=== PATIENT | male | born 1940 | race African-American/Black ===

== ENCOUNTER 2017-06-22 11:24 | Day surgery (SDC) | payer MEDICARE ==
[2017-06-21 11:37] VITALS: BMI 39.7
[2017-06-22] MEDS ORDERED: Midazolam HCl 2 mg/2 ml Vial ONE ×2 (12:26→13:33)
[2017-06-22] MEDS ORDERED: Fentanyl 100 MCG/2 ML VIAL ONE (12:27)
[2017-06-22] MEDS ORDERED: CEFAZOLIN/Water 2 GM/20 ML SYRINGE ONE (12:37)
[2017-06-22 12:43] LABS: INR-International Normal Ratio 1.5; Prothrombin Time 18.8 SEC (12.0-14.7)
[2017-06-22 12:44] LABS: PTT 42.3 SEC (22.9-36.1)
[2017-06-22 12:48] LABS: #Basophils 0.1 thou/uL (0.0-0.2); #Eosinphils 0.2 thou/uL (0.0-0.7); #Lymphocytes 2.4 thou/uL (1.20-3.40); #Monocytes 0.8 thou/uL (0.11-0.59); #Neutrophils 3.6 thou/uL (1.40-6.50); %Basophils 0.9 % (0.0-1.0); %Eosinophils 3.2 % (0.0-10.0); %Lymphocytes 34.3 % (21.0-51.0); %Neutrophils 50.6 % (42.0-75.0); Hemoglobin 13.4 g/dL (14.0-18.0); Mean Corpuscular HGB CONC 30.5 g/dL (32.0-36.0); Mean Corpuscular Hemoglobin 26.5 pg (27.0-31.0); Mean Corpuscular Volume 86.7 fl (80.0-94.0); Mean Platelet Volume 8.6 fL (7.4-10.4); Platelet Count 137 thou/uL (130-400); RBC Distribution Width 14.8 % (11.5-14.5); Red Blood Cell (RBC) Count 5.06 mill/uL (4.70-6.10)
[2017-06-22 12:58] LABS: Anion Gap 12 mmol/L (10-20); BUN (Urea Nitrogen) 15 mg/dL (8.4-25.7); Calc. Creatinine Clearance 21 mL/min (70-130); Calcium 9.5 mg/dL (7.8-10.44); Carbon Dioxide 32 mmol/L (23-31); Chloride 97 mmol/L (98-107); Estimated GFR-MDRD 11; Glucose 94 mg/dL (83-110); Potassium 3.3 mmol/L (3.5-5.1); Sodium 138 mmol/L (136-145)
[2017-06-22] MEDS ORDERED: Bupivacaine/Epinephrine 0.25% 30 ML VIAL ONE (13:05)
[2017-06-22] MEDS ORDERED: Ioversol 68 % 50 ML VIAL ONE (13:05)
[2017-06-22] MEDS ORDERED: Protamine Sulfate 50 MG/5 ML VIAL ONE (13:05)
[2017-06-22] MEDS ORDERED: Heparin 5,000 UNITS/ML VIAL ONE (13:05)
[2017-06-22] MEDS ORDERED: Meperidine HCl/PF 25 MG/ML VIAL ONE (13:33)
[2017-06-22] MEDS ORDERED: Bupivacaine PF 0.5% 30 ML VIAL ONE (14:24)
[2017-06-22] MEDS ORDERED: Bupivacaine HCl 0.5%/Epinephrine 1:200,000/PF 30 ml Vial ONE (14:24)
[2017-06-22] MEDS ORDERED: Heparin 10,000 UNITS/ 10 ML VIAL ONE ×2 (14:46→16:36)
--- NOTE | 2017-06-23 14:11 | PDOC.OP ---
Operative Note - Operative Note Operative Note: PROCEDURE: Right AV fistula SURGEON: Kira Palafox M.D. DATE OF PROCEDURE: 06/22/27 PREOPERATIVE DIAGNOSIS: Renal failure POSTOPERATIVE DIAGNOSIS: Renal failure HISTORY: Mr. ramírez is a 76-year-old man with end-stage renal failure dependent on dialysis. He had a left AV fistula but this did not mature appropriately. The cephalic outflow was found to be thrombosed and there was a stricture in the basilic outflows and the recommendation was made to proceed with a right AV fistula. PROCEDURE IN DETAIL: After informed consent was obtained and appropriate preoperative antibiotics administered, the patient was taken to the operating room and placed in the supine position and monitored anesthesia care was administered. A preoperative block had been performed by Anesthesia and the adequacy of block was confirmed. The arm was prepped and draped in a standard sterile fashion and an incision made between the palpable cephalic vein and radial artery. Dissection was carried out to the cephalic vein, which appeared to be of adequate quality and caliber to support a fistula. This was dissected free circumferentially, ligated, and divided distally, and spatulated with Aguila scissors. This was serially interrogated with cardiac dilators and easily accepted up to a 3 mm cardiac dilator. This was flushed with heparinized saline and clamped with a bulldog clamp. The radial artery was then dissected free and found to be calcified but of adequate quality and caliber to support a fistula. Heparin was administered systemically and allowed to circulate for 3 minutes following which the radial artery was clamped proximally and distally. An anterior arteriotomy was created with an 11 blade scalpel and extended with Aguila scissors. An end-to-side anastomosis created with a running 6-0 Prolene suture with excellent technical result. Prior to tying down the anastomosis, the inflow was released to flush the anastomosis. Flow was established first through the fistula and then through the distal radial artery. Hemostasis at the site was confirmed, and an excellent thrill was felt in the cephalic vein outflow and an excellent bruit was heard with Doppler as well up to the proximal forearm. Hemostasis at the operative site was again confirmed. The incision was closed with a running 3-0 subcutaneous and running 4-0 subcuticular Monocryl sutures. Dermabond dressings were placed and the patient was taken to the recovery room in good condition. Estimated blood loss was minimal. There were no complications. There were no specimens.
== END 2017-06-22 17:00 | disposition home or self-care (01) ==
LOC: SDC 11:24
PROVIDERS: ATTEND Surgery
PROC: 031B0AF Bypass Right Radial Artery to Lower Arm Vein with Autologous Arterial Tissue, Open Approach (ICD-10-PCS; principal; 2017-06-22)
DX: I13.2 Hypertensive heart and chronic kidney disease with heart failure and with stage 5 chronic kidney disease, or end stage renal disease (principal); N18.6 End stage renal disease; I50.9 Heart failure, unspecified; E78.5 Hyperlipidemia, unspecified; I25.10 Atherosclerotic heart disease of native coronary artery without angina pectoris; M10.9 Gout, unspecified; K21.9 Gastro-esophageal reflux disease without esophagitis; I45.2 Bifascicular block; Z87.891 Personal history of nicotine dependence; Z79.01 Long term (current) use of anticoagulants; Z79.899 Other long term (current) drug therapy; Z88.0 Allergy status to penicillin; Z90.49 Acquired absence of other specified parts of digestive tract; Z98.890 Other specified postprocedural states; Z99.2 Dependence on renal dialysis
CPT/HCPCS: 80048; 85025; 85610; 85730; J0670; J1644; J2175; J2250; J2720; J3010; Q9967; S0020

== ENCOUNTER 2017-07-18 10:29 | Day surgery (SDC) | payer MEDICARE ==
[2017-07-17 16:17] VITALS: BMI 39.4
[2017-07-18 11:54] LABS: #Basophils 0.1 thou/uL (0.0-0.2); #Eosinphils 0.2 thou/uL (0.0-0.7); #Lymphocytes 2.3 thou/uL (1.20-3.40); #Monocytes 0.8 thou/uL (0.11-0.59); #Neutrophils 3.2 thou/uL (1.40-6.50); %Basophils 1.5 % (0.0-1.0); %Eosinophils 3.3 % (0.0-10.0); %Lymphocytes 34.3 % (21.0-51.0); %Monocytes 12.6 % (0.0-10.0); %Neutrophils 48.3 % (42.0-75.0); Hemoglobin 12.9 g/dL (14.0-18.0); Mean Corpuscular HGB CONC 30.1 g/dL (32.0-36.0); Mean Corpuscular Hemoglobin 25.9 pg (27.0-31.0); Mean Platelet Volume 8.2 fL (7.4-10.4); Platelet Count 140 thou/uL (130-400); RBC Distribution Width 14.3 % (11.5-14.5); Red Blood Cell (RBC) Count 4.98 mill/uL (4.70-6.10); White Blood Cell (WBC) Count 6.7 thou/uL (4.8-10.8)
[2017-07-18 12:08] LABS: PTT 46.4 SEC (22.9-36.1)
[2017-07-18 12:09] LABS: Anion Gap 12 mmol/L (10-20); BUN (Urea Nitrogen) 18 mg/dL (8.4-25.7); Calc. Creatinine Clearance 16 mL/min (70-130); Calcium 9.4 mg/dL (7.8-10.44); Carbon Dioxide 33 mmol/L (23-31); Chloride 98 mmol/L (98-107); Estimated GFR-MDRD 8; Glucose 80 mg/dL (83-110); Potassium 3.7 mmol/L (3.5-5.1); Sodium 139 mmol/L (136-145)
[2017-07-18 12:36] LABS: INR-International Normal Ratio 1.6; Prothrombin Time 19.9 SEC (12.0-14.7)
[2017-07-18] MEDS ORDERED: Protamine Sulfate 50 MG/5 ML VIAL ONE (13:10)
[2017-07-18] MEDS ORDERED: Heparin 5,000 UNITS/ML VIAL ONE (13:10)
[2017-07-18] MEDS ORDERED: Ioversol 68 % 50 ML VIAL ONE (13:10)
[2017-07-18] MEDS ORDERED: Bupivacaine PF 0.5% 30 ML VIAL ONE (13:10)
[2017-07-18] MEDS ORDERED: Lidocaine 1% w/Epinephrine 1:200K 30 ML VIAL ONE (13:10)
[2017-07-18] MEDS ORDERED: Fentanyl 100 MCG/2 ML VIAL ONE (13:11)
[2017-07-18] MEDS ORDERED: CEFAZOLIN/Water 2 GM/20 ML SYRINGE ONE (13:16)
[2017-07-18] MEDS ORDERED: Lidocaine 1% PF 5 ML VIAL ONE (16:09)
[2017-07-18] MEDS ORDERED: Ondansetron HCl/PF 4 MG/2 ML Vial ONE (16:09)
[2017-07-18] MEDS ORDERED: Metoclopramide HCl 10 MG/2 ML VIAL ONE (16:09)
[2017-07-18] MEDS ORDERED: Heparin 10,000 UNITS/ 10 ML VIAL ONE ×2 (16:09→16:32)
[2017-07-18] MEDS ORDERED: Succinylcholine Chloride 20 MG/ML 10 ml SYRINGE FS ONE (16:09)
[2017-07-18] MEDS ORDERED: Propofol 200 MG/20 ML VIAL ONE (16:09)
[2017-07-18] MEDS ORDERED: PHENYLEPHRINE-NS 100 MCG/ML 10 ML SYRINGE ONE (16:09)
[2017-07-18] MEDS ORDERED: ePHEDrine/0.9% NaCl/PF SYRINGE 50 mg/10 ml ONE (16:09)
--- NOTE | 2017-07-19 14:40 | OP ---
SURGEON: 07/18/2017 PREOPERATIVE DIAGNOSIS: End-stage renal failure. POSTOPERATIVE DIAGNOSIS: End-stage renal failure. PROCEDURE PERFORMED: Right radiocephalic arteriovenous fistula. HISTORY: Mr. Estevez is a 76-year-old man with end-stage renal failure who requires fistula placement for permanent access. PROCEDURE IN DETAIL: After informed consent was obtained and appropriate preoperative antibiotics ad ministered, the patient was taken to the operating room where he was placed in supine position and an esthesia was administered. The antecubital fossa was examined and the location of the brachial arter y and the antecubital vein marked on the skin. An incision was made between these two structures and dissection carried out to the antecubital vein. This appeared to drain into the cephalic vein outfl ow. The patient was noted to have a large perforating vein, which was dissected free circumferential ly. This was felt to be of adequate quality and caliber to support a fistula. Therefore, the distal branches were ligated and the band spatulated. This was interrogated with cardiac dilators and easi ly accepted up to a 4 mm dilator up the cephalic vein outflow. The vein was flushed with heparinized saline and clamped and attention turned to the artery. This was dissected free and traced down to t he bifurcation into the radial and ulnar arteries. The perforating branch was felt to lie most natur ally over the proximal radial artery. Heparin was administered systemically and allowed to circulate for 3 minutes following which the radial artery and radial, ulnar and brachial arteries were clamped . An anterior arteriotomy was created over the proximal radial artery and extended with Aguila scisso rs and an end-to-side anastomosis created with a running 6-0 Prolene suture with excellent technical result. The inflow was released and the anastomosis flushed. Flow was then established first throug h the fistula and then through the distal radial and ulnar arteries. The patient was found to have a n excellent thrill in the cephalic vein outflow with a good Doppler signal up the arm. The anastomos is was hemostatic. The wound was also examined for hemostasis and a few small oozing points controll ed with electrocautery. SurgiSeal was placed to the wound and the subcutaneous tissues reapproximate d with 3-0 Monocryl suture and the skin was then closed with 4-0 Monocryl suture and Dermabond dressi ngs were placed. Once the Dermabond was dry, Cam wrap was placed. The patient was taken to the deb very room in good condition. Estimated blood loss was minimal. There were no complications. There were no specimens.
== END 2017-07-18 16:50 | disposition home or self-care (01) ==
LOC: SDC 10:29
PROVIDERS: ATTEND Surgery
PROC: 03170ZD Bypass Right Brachial Artery to Upper Arm Vein, Open Approach (ICD-10-PCS; principal; 2017-07-18)
DX: I12.0 Hypertensive chronic kidney disease with stage 5 chronic kidney disease or end stage renal disease (principal); N18.6 End stage renal disease; M10.9 Gout, unspecified; Z88.1 Allergy status to other antibiotic agents; Z79.82 Long term (current) use of aspirin; Z79.899 Other long term (current) drug therapy; Z99.2 Dependence on renal dialysis; Z98.890 Other specified postprocedural states
CPT/HCPCS: 80048; 85025; 85610; 85730; J0131; J1644; J2001; J2405; J2704; J2720; J2765; J3010; Q9967; S0020

== ENCOUNTER 2017-09-06 15:36 | Inpatient (IN) | payer MEDICARE ==
[2017-09-06 15:40] VITALS: BMI 39.1
[2017-09-06] MEDS ORDERED: Lorazepam 1 MG TAB PO PRN (15:45)
[2017-09-06] MEDS ORDERED: Ondansetron HCl/PF 4 MG/2 ML Vial IVP PRN (15:45)
[2017-09-06] MEDS ORDERED: cloNIDine 0.1 MG TAB PO PRN (15:45)
[2017-09-06] MEDS ORDERED: Benzonatate 100 MG CAP PO PRN (15:45)
[2017-09-06] MEDS ORDERED: Diabetic Tussin 200 MG/10 ML UDCUP PO PRN (15:45)
[2017-09-06] MEDS ORDERED: Nitroglycerin 0.4 MG TAB (25 Tab Bottle) SL PRN (15:45)
[2017-09-06] MEDS ORDERED: Mag-Al 1200 mg/1200 mg/30 ML UDCUP PO PRN (15:45)
[2017-09-06] MEDS ORDERED: Bisacodyl 5 MG TAB PO PRN ×2 (15:45)
[2017-09-06] MEDS ORDERED: Senokot 8.6 MG TAB PO PRN ×2 (15:45)
[2017-09-06] MEDS ORDERED: Loratadine 10 MG TAB PO PRN (15:45)
[2017-09-06] MEDS ORDERED: Acetaminophen 325 MG TAB PO PRN (15:45)
[2017-09-06] MEDS ORDERED: hydrALAZINE 20 MG/ML VIAL SLOW IVP PRN (15:45)
[2017-09-06] MEDS ORDERED: traMADol HCl 50 MG TAB PO PRN (15:45)
[2017-09-06] MEDS ORDERED: Calcium Carbonate 500 MG ChewTAB PO PRN (15:45)
[2017-09-06] MEDS ORDERED: Sterile Water 10 ML VIAL IVP SCH (16:06)
[2017-09-06] MEDS ORDERED: Activase 2 MG VIAL CATH SCH (16:06)
[2017-09-06 18:15] LABS: PTT 55.6 SEC (22.9-36.1); Prothrombin Time 23.8 SEC (12.0-14.7)
--- NOTE | 2017-09-06 18:24 | HP ---
PRIMARY CARE PROVIDER: Dr. Rubalcava. CHIEF COMPLAINT: Inability to access the dialysis fistula and catheter with hemodialysis. HISTORY OF PRESENTING ILLNESS: Mr. Singh is a pleasant 76-year-old -Turkish male with past m edical history of end-stage renal disease, on chronic hemodialysis; history of deep venous thrombosis , on anticoagulation; dyslipidemia and CHF, who presented to the emergency room from the dialysis paul ter in [place]. History is mainly obtained by the patient himself and electronic medical record s have been reviewed. According to Mr. Estevez and medical records, the dialysis center has been having difficulty accessing his fistula. He has a 2-month-old AV graft in the right upper extremity and a tunnel port in the rig ht IJ that was placed about [address] Garza. He has been getting dialysis up until the last 2 times with a right IJ line, but it was not able to be used and supposedly his fistula is not mature enough to be used. I am not sure if it was tried to be accessed and was not working either. Nevertheless, he was sent as a direct admit by his director cardiac, Dr. Porter, for fistula declogging and restarting hemodialysis. He has missed 2 rounds of hemodialysis. His Monday, Monday and Monday d ialysis. The only complaint he has is some mild dizziness. He denies any excessive swelling or ches t pain or shortness of breath. No other recent illnesses. He does not make any urine. Currently, david badillo is symptom free. PAST MEDICAL HISTORY: 1. History of DVT. 2. Gout. 3. Congestive heart failure. 4. Dyslipidemia. 5. Hypertension. 6. Obesity. 7. End-stage renal disease, on Monday, Monday and Monday dialysis. 8. 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 9. History of orthostatic hypotension. PAST SURGICAL HISTORY: 1. Status post right AV fistula placement, status post right IJ placement. 2. Status post left upper extremity AV fistula thrombectomy. 3. History of abdominal laparotomy with small bowel resection. 4. History of right tunneled IJ catheter placement in the past as well. ALLERGIES: AMOXICILLIN, AMPICILLIN and CLINDAMYCIN. FAMILY HISTORY: No significant family history of any premature coronary artery disease or renal fail ure in the patient. SOCIAL HISTORY: and lives in [place], [place]. No history of drug, tobacco or alcohol ab use. CURRENT MEDICATIONS: As follows; warfarin 5 mg Monday, Monday, and Monday and 2.5 mg res t of the days; Crestor 20 mg daily; midodrine 1.5 tablet p.o. t.i.d., Neurontin 100 mg daily, famotid ine 20 mg daily, vitamin D 2000 units daily, allopurinol 100 mg daily and tramadol as needed. REVIEW OF SYSTEMS: It is negative except for those otherwise mentioned in the HPI or below: Constitutional: Weight loss or gain, ability to conduct usual activities. Skin: Rash, itching. Eyes: Double vision, pain. ENT/Mouth: Nose bleeding, neck stiffness, pain, tenderness. Cardiovascular: Palpitations, dyspnea on exertion, orthopnea. Respiratory: Shortness of breath, wheezing, cough, hemoptysis, fever or night sweats. Gastrointestinal: Poor appetite, abdominal pain, heartburn, nausea, vomiting, constipation, or diarr hea. Genitourinary: Urgency, frequency, dysuria, nocturia. Musculoskeletal: Pain, swelling. Neurologic/Psychiatric: Anxiety, depression. Allergy/Immunologic: Skin rash, bleeding tendency. LABORATORY DATA: His CBC is unremarkable. Hemoglobin is 13. Serum chemistries done today showed a serum potassium of 4.7. Sodium 143, bicarbonate 22, anion gap 21, BUN 57, creatinine 14.38 and calci um 8.9. PT, PTT and INR have not been drawn yet. PHYSICAL EXAMINATION: VITAL SIGNS: Most recent, temperature 97.3, pulse of 56, respirations 16, saturating 98% on room air and blood pressure 141/70. GENERAL: No acute distress, lying comfortably in bed, awake, alert and oriented x3. HEENT: Mucous membranes moist and pink. No oropharyngeal exudate or erythema. Head is normocephali c and atraumatic. Pupils are equal, reactive to light and accommodation. Extraocular movement intac t. NECK: Supple without any lymphadenopathy, JVD or bruit. CHEST: Clear to auscultation without any wheezing, rales or rhonchi. CARDIOVASCULAR: Rhythm is regular without any murmur, rubs or gallops. EXTREMITIES: Showed a thrill in the right upper extremity fistula. Lower extremities have trace pit ting edema. NEUROLOGIC: Nonfocal. SKIN: Free of any rashes or bruises, feels warm and dry to touch. PSYCHIATRIC: Normal affect. IMPRESSION AND PLAN: 1. Dialysis fistula malfunctioning. Apparently, the fistula could not be accessed last 2 times. [facility] director cardiac, Dr. Porter is aware of his admission and the need for declogging of the fistula. He debra l be admitted to Internal Medicine Service and we will restart his home medications. He will be n.p. o. after midnight for possible hemodialysis access. Further management as per the Nephrology team. 2. Multiple comorbidities. Restart his home medications and monitor his symptoms. Currently, seems to be at baseline. 3. CODE STATUS: FULL CODE discussed with the patient. Restart Coumadin with pharmacy to dose and m onitor. Check PT, INR stat with regards to his history of deep venous thrombosis. 4. Gastrointestinal prophylaxis. He is on Coumadin for deep venous thrombosis prophylaxis and treat ment as well. 5. Add p.r.n. medication order. DISPOSITION: Mr. Estevez is currently being admitted for malfunctioning of the dialysis fistula, need for emergent hemodialysis. Estimated length of stay is at least 2-3 midnights. Further management w ill depend upon his clinical course.
[2017-09-06] MEDS: Rosuvastatin 20 MG TAB PO SCH (20:16)
[2017-09-06] MEDS: Midodrine HCl 5 MG TAB PO SCH (20:16)
[2017-09-06] MEDS: Famotidine 20 MG TAB PO SCH (20:17)
[2017-09-06] MEDS ORDERED: Heparin 5,000 UNITS/ML VIAL SC SCH (21:00)
[2017-09-07 05:36] LABS: #Basophils 0.1 thou/uL (0.0-0.2); #Eosinphils 0.2 thou/uL (0.0-0.7); #Lymphocytes 1.9 thou/uL (1.20-3.40); #Monocytes 0.8 thou/uL (0.11-0.59); #Neutrophils 3.4 thou/uL (1.40-6.50); %Basophils 1.1 % (0.0-1.0); %Eosinophils 3.8 % (0.0-10.0); %Lymphocytes 29.6 % (21.0-51.0); %Monocytes 12.9 % (0.0-10.0); %Neutrophils 52.6 % (42.0-75.0); Hemoglobin 12.3 g/dL (14.0-18.0); Mean Corpuscular HGB CONC 31.9 g/dL (32.0-36.0); Mean Corpuscular Hemoglobin 26.7 pg (27.0-31.0); Mean Corpuscular Volume 83.7 fl (80.0-94.0); Mean Platelet Volume 8.7 fL (7.4-10.4); Platelet Count 166 thou/uL (130-400); RBC Distribution Width 14.6 % (11.5-14.5); Red Blood Cell (RBC) Count 4.59 mill/uL (4.70-6.10); White Blood Cell (WBC) Count 6.5 thou/uL (4.8-10.8)
[2017-09-07 05:59] LABS: ALT (SGPT) 17 U/L (8-55); AST (SGOT) 23 U/L (5-34); Alkaline Phosphatase 127 U/L (40-150); Anion Gap 17 mmol/L (10-20); BUN (Urea Nitrogen) 64 mg/dL (8.4-25.7); Bilirubin, Total 0.6 mg/dL (0.2-1.2); Calc. Creatinine Clearance 8 mL/min (70-130); Calcium 8.7 mg/dL (7.8-10.44); Carbon Dioxide 23 mmol/L (23-31); Chloride 104 mmol/L (98-107); Estimated GFR-MDRD 4; Globulin 3.1 g/dL (2.4-3.5); Glucose 76 mg/dL (83-110); Protein, Total 6.1 g/dL (5.8-8.1); Sodium 139 mmol/L (136-145)
[2017-09-07 09:55] LABS: Hemoglobin 12.4 g/dL (14.0-18.0); Mean Corpuscular HGB CONC 31.5 g/dL (32.0-36.0); Mean Corpuscular Hemoglobin 25.8 pg (27.0-31.0); Mean Corpuscular Volume 82.2 fl (80.0-94.0); Mean Platelet Volume 8.5 fL (7.4-10.4); Platelet Count 170 thou/uL (130-400); RBC Distribution Width 14.8 % (11.5-14.5); Red Blood Cell (RBC) Count 4.79 mill/uL (4.70-6.10); White Blood Cell (WBC) Count 6.8 thou/uL (4.8-10.8)
[2017-09-07 10:04] LABS: Eosinophils 4 % (0-10); Lymphocytes 23 % (21-51); MDiff Complete? YES; Monocytes 12 % (0-10); Neutrophil 55 % (42-75); PLT Morphology Comment Appears Adequate; Reactive Lymphocytes 4 % (0-10); Target Cells SLIGHT = 2-5 cells (100X) (0-1/hpf)
--- NOTE | 2017-09-07 10:48 | PDOC.PN ---
- Subjective Encounter Start Date: 09/07/17 Encounter Start Time: 09:00 -: old records requested/rev Patient seen and examined. No new complaints. No overnight events pt seen in HD, getting HD through tunneled HD catheter - Objective MAR Reviewed: Yes Vital Signs & Weight: Vital Signs (12 hours) Temp Pulse Resp BP Pulse Ox 09/07/17 04:00 97.4 F L 60 24 H 112/65 93 L 09/07/17 02:57 98 F 60 18 125/61 93 L Weight Weight 313 lb I&O: 09/06/17 09/07/17 09/08/17 06:59 06:59 06:59 Intake Total 260 Balance 260 Result Diagrams: 09/07/17 05:07 09/07/17 05:07 Phys Exam - Physical Examination Constitutional: NAD HEENT: PERRLA, moist MMs, sclera anicteric Neck: no JVD, supple Respiratory: no wheezing, no rales, no rhonchi Cardiovascular: RRR, no significant murmur, no rub Gastrointestinal: soft, non-tender, no distention, positive bowel sounds Musculoskeletal: no edema, pulses present Neurological: non-focal, normal sensation, moves all 4 limbs Psychiatric: normal affect, A&O x 3 Skin: no rash, normal turgor Dx/Plan (1) Dialysis AV fistula malfunction Code(s): T82.590A - [facility] COMPL OF SURGICALLY CREATED ARTERIOVENOUS FISTULA, INIT Status: Acute (2) Chronic anticoagulation Code(s): Z79.01 - 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) USE OF ANTICOAGULANTS Status: Chronic (3) Dyslipidemia Code(s): E78.5 - HYPERLIPIDEMIA, UNSPECIFIED Status: Chronic (4) ESRD (end stage renal disease) on dialysis Code(s): N18.6 - END STAGE RENAL DISEASE; Z99.2 - DEPENDENCE ON RENAL DIALYSIS Status: Chronic (5) Gout Code(s): M10.9 - GOUT, UNSPECIFIED Status: Chronic (6) History of deep venous thrombosis or pulmonary embolus Code(s): CFC0109 - Status: Chronic (7) Hypertension Code(s): I10 - ESSENTIAL (PRIMARY) HYPERTENSION Status: Chronic (8) Osteoarthritis Code(s): M19.90 - UNSPECIFIED OSTEOARTHRITIS, UNSPECIFIED SITE Status: Chronic (9) Physical deconditioning Code(s): R53.81 - OTHER MALAISE Status: Chronic (10) Secondary hyperparathyroidism of renal origin Code(s): N25.81 - SECONDARY HYPERPARATHYROIDISM OF RENAL ORIGIN Status: Chronic - Plan cont current plan of care * continue HD as per nephrology * nephrology on case for AV fistula malfunction * medication reviewed as below * symptomatic treatment. Review of Systems - Review of Systems Eyes: negative: Pain, Vision Change, Conjunctivae Inflammation, Eyelid Inflammation, Redness, Other ENT: negative: Ear Pain, Ear Discharge, Nose Pain, Nose Discharge, Nose Congestion, Mouth Pain, Mouth Swelling, Throat Pain, Throat Swelling, Other Respiratory: negative: Cough, Dry, Shortness of Breath, Hemoptysis, SOB with Excertion, Pleuritic Pain, Sputum, Wheezing Cardiovascular: negative: chest pain, palpitations, orthopnea, paroxysmal nocturnal dyspnea, edema, light headedness, other Gastrointestinal: negative: Nausea, Vomiting, Abdominal Pain, Diarrhea, Constipation, Melena, Hematochezia, Other Genitourinary: negative: Dysuria, Frequency, Incontinence, Hematuria, Retention , Other Musculoskeletal: negative: Neck Pain, Shoulder Pain, Arm Pain, Back Pain, Hand Pain, Leg Pain, Foot Pain, Other Skin: negative: Rash, Lesions, Rocky, Bruising, Other - Medications/Allergies Allergies/Adverse Reactions: Allergies Allergy/AdvReac Type Severity Reaction Status Date / Time clindamycin Allergy Mild Hives Verified 07/17/17 16:17 amoxicillin AdvReac Mild Diarrhea Verified 07/17/17 16:17 ampicillin AdvReac Mild Diarrhea Verified 07/17/17 16:17 Medications: Current Medications Acetaminophen (Tylenol) 650 mg PO Q4H PRN PRN Reason: Headache/Fever or Pain Al Hydroxide/Mg Hydroxide (Maalox) 30 ml PO Q6H PRN PRN Reason: Heartburn or Indigestion Allopurinol (Zyloprim) 100 mg PO DAILY [facility] Benzonatate (Tessalon) 100 mg PO Q4H PRN PRN Reason: Cough Bisacodyl (Dulcolax) 10 mg PO DAILYPRN PRN PRN Reason: Constipation Bisacodyl (Dulcolax) 10 mg PO DAILYPRN PRN PRN Reason: Constipation Calcium Carbonate (Tums) 1,000 mg PO Q4H PRN PRN Reason: Heartburn or Indigestion Cholecalciferol (Vitamin D3) 1,000 units PO DAILY [facility] Clonidine (Catapres) 0.1 mg PO Q4H PRN PRN Reason: Systolic BP > 160 Famotidine (Pepcid) 20 mg PO BID [facility] Last Admin: 09/06/17 20:17 Dose: 20 mg Famotidine (Pepcid) 20 mg PO DAILY [facility] Gabapentin (Neurontin) 100 mg PO DAILY [facility] Guaifenesin (Robitussin Sf) 200 mg PO Q4H PRN PRN Reason: Cough Hydralazine HCl (Apresoline) 10 mg SLOW IVP Q4H PRN PRN Reason: Systolic BP > 170 Loratadine (Claritin) 10 mg PO DAILYPRN PRN PRN Reason: Sinus Symptoms Lorazepam (Ativan) 1 mg PO Q4H PRN PRN Reason: Anxiety/Agitation Midodrine (Proamatine) 7.5 mg PO TID [facility] Last Admin: 09/06/17 20:16 Dose: 7.5 mg Nitroglycerin (Nitrostat) 0.4 mg SL Q5MIN PRN PRN Reason: Chest Pain Ondansetron HCl (Zofran) 4 mg IVP Q6H PRN PRN Reason: Nausea/Vomiting Rosuvastatin Calcium (Crestor) 20 mg PO HS [facility] Last Admin: 09/06/17 20:16 Dose: 20 mg Senna (Senokot) 2 tab PO HSPRN PRN PRN Reason: Constipation Senna (Senokot) 2 tab PO HSPRN PRN PRN Reason: Constipation Tramadol HCl (Ultram) 50 mg PO Q4H PRN PRN Reason: Moderate Pain (4-6) Warfarin Sodium (Coumadin) 2.5 mg PO MoWeFr@1700 [facility] Warfarin Sodium (Coumadin) 5 mg PO SuTuThSa@1700 [facility]
--- NOTE | 2017-09-07 11:43 | CON ---
DATE OF CONSULTATION: 09/07/2017 HISTORY: Mr. Estevez is a 76-year-old black male with known history of ESRD was admitted due to a nonf unctioning dialysis catheter as well as immature AV fistula. An attempt to use his AV fistula last M onday was not successful. Attempted to use dialysis catheter which also was nonfunctional. He was a gain retried Monday to use the AV fistula, but it infiltrated. Subsequently, they tried the jeri ter again and this was not successful. For this reason, the patient was admitted for further managem ent of this nonfunctioning dialysis catheter. We are now being consulted also for his maintenance he modialysis. I did review the patient's case and we applied Activase overnight. He is now currently undergoing dialysis with a functioning dialysis catheter with a blood flow of 400 mL per minute. His AV fistula is still not mature. REVIEW OF SYSTEMS: No chest pain. Positive for a feeling of generalized fullness, no nausea, no vom iting, no shortness of breath, no diarrhea, no constipation, no abdominal pain, no headache, no synco pal episode, no productive cough, no fever or chills. Appetite and energy level is fair. No hematoc hezia, no melena, no gross hematuria, no hematemesis, occasional joint pains, no new skin rash, no di plopia, no sore throat. MEDICATIONS: The patient is currently on Tylenol 650 mg q.4h. p.r.n., status post Cathflo placement. Tessalon Perles 100 mg p.o. q.4 hours as needed, calcium carbonate 1000 mg q.4h., vitamin D3 1000 i nternat day, clonidine 0.1 mg q.4h. p.r.n., Pepcid 20 mg b.i.d., Neurontin 100 mg daily, Ativan 1 mg q.4h. p.r.n., midodrine 7.5 mg p.o. t.i.d., Crestor 20 mg at bedtime, Ultram 50 mg q.4 hours p.r .n., Coumadin as directed. PAST MEDICAL HISTORY: 1. Status post DVT. 2. End-stage renal disease on maintenance hemodialysis. 3. Status post congestive heart failure. 4. Hypotension. 5. Morbid obesity. 6. Gout. 7. History of chronic hypotension, on midodrine. 8. Status post thrombosis of left upper extremity AV fistula. PAST SURGICAL HISTORY: 1. Status post cuffed dialysis catheter placement. 2. Status post AV fistula placement. 3. Status post left upper extremity AV fistula thrombectomy. 4. Status post exploratory laparotomy. 5. Status post cardiac catheterization. 6. Status post small bowel resection. ALLERGIES: AMOXICILLIN, AMPICILLIN, and CLINDAMYCIN. TRAUMA: None. IMMUNIZATIONS: Up to date. HOSPITALIZATIONS: Please see past medical history. FAMILY HISTORY: No family history of ESRD. SOCIAL HISTORY: The patient is single, several children, he lives in [place]. 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 Status post blood transfusion. Currently, no alcohol, tobacco or IV drug use. PHYSICAL EXAMINATION: VITAL SIGNS: Blood pressure is 120/70 with a heart rate of 70. GENERAL: Awake, supine, comfortable, morbidly obese, not in distress. SKIN: Adequate turgor. HEENT: Slightly pale conjunctivae, anicteric sclerae. NECK: No neck mass, no carotid bruits, no JVD. CHEST: No deformities. LUNGS: Clear breath sounds, no wheezing, no crackles. HEART: Normal sinus rhythm. No murmur, no gallops or rubs. ABDOMEN: Globular, soft, nontender, no masses. EXTREMITIES: No edema, no deformities. NEUROLOGIC: Awake, oriented to 3 spheres. Moving all extremities. No tremors. No asterixis, no at axia. LABORATORY: 09/07/2017 - White count 6.5, hemoglobin 12.3. Sodium 139, potassium 5, chloride 104, c arbon dioxide 23, BUN 64, creatinine 14.9, glucose 76, calcium 8.7. LFTs normal, albumin 3.0. ASSESSMENT AND PLAN: 1. End-stage renal disease - due to a nonfunctioning dialysis catheter Activase was placed overnight . Currently, he is undergoing hemodialysis and he has adequate blood flow with the dialysis catheter . This is essentially functioning at the present time, I am at the bedside supervising his dialysis. Again, fluid removal only as tolerated by the patient. 2. Chronic hypotension, on midodrine 7.5 mg p.o. t.i.d. No indication for any Epogen. Agree with current management. Consider for discharge after dialysis.
[2017-09-07] MEDS: Gabapentin 100 MG CAP PO SCH (12:36)
[2017-09-07] MEDS: Midodrine HCl 5 MG TAB PO SCH ×3 (12:37→21:38)
[2017-09-07] MEDS: Famotidine 20 MG TAB PO SCH ×2 (12:38→14:38)
[2017-09-07] MEDS: Allopurinol 100 MG TAB PO SCH (12:39)
--- NOTE | 2017-09-07 13:46 | PQF ---
CLINICAL DOCUMENTATION IMPROVEMENT CLARIFICATION FORM: ICD-10 Updated PLEASE DO AN ADDENDUM TO THE PROGRESS NOTE WITH ANY DOCUMENTATION UPDATES OR ADDITIONS AND CARRY THROUGH TO DC SUMMARY. THANK YOU. DATE: 09/07 ATTN: DR. ALAN NGUYEN Please exercise your independent, professional judgment in responding to the clarification form. Clinical indicators are provided on the bottom of this form for your review Please check appropriate box(s): Conflicting documentation was noted in the Medical Record, please clarify if patient is being treated/monitored for: [ x ] DIALYSIS FISTULA MALFUNCTIONING [ ] NONFUNCTIONING DIALYSIS CATHETER (R IJ TUNNELED) [ ] Other diagnosis [ ] Unable to determine For continuity of documentation, please document condition throughout progress notes and discharge summary. Thank You. CLINICAL INDICATORS - SIGNS / SYMPTOMS/ LABS ATTENDING H&P DOCUMENTATION 09/06: CHIEF COMPLAINT: INABILITY TO ACCESS THE DIALYSIS FISTULA & CATHETER WITH HEMODIALYSIS. HX OF PRESENTING ILLNESS: ...HE HAS A 2-MONTH-OLD AV GRAFT IN E & A TUNNEL PORT IN THE R IJ PLACED ABOUT 2 WEEKS AGO. HE HAS BEEN GETTING DIALYSIS UP UNTIL THE LAST 2 TIME WITH A R IJ LINE, BUT IT WAS NOT ABLE TO BE USED AND HIS FISTULA IS NOT MATURE ENOUGH TO USE. IMPRESSION & PLAN: 1) DIALYSIS FISTULA MALFUNCTIONING ATTENDING PN DATED 09/07: PT SEEN IN HD, GETTING HD THROUGH TUNNELED HD CATHETER. DX/PLAN: 1) DIALYSIS AV FISTULA MALFUNCTION NEPHROLOGY CONSULT DOCUMENTATION 09/07: HX: ...HISTORY OF ESRD WAS ADMITTED D/ T NONFUNCTIONING DIALYSIS CATHETER WELL IMMATURE AV FISTULA. ASSESSMENT & PLAN: 1) NONFUNCTIONING DIALYSIS CATHETER. ACTIVASE WAS PLACED OVERNIGHT. CURRENTLY, HE IS UNDERGOING HEMODIALYSIS & HE HAS ADEQUATE BLOOD FLOW WITH THE DIALYSIS CATHETER. RISK FACTORS: INABILITY TO ACCESS R IJ DIALYSIS CATHETER FOR LAST 2 DIALYSIS SESSIONS IMMATURE AV FISTULA ESRD ON DIALYSIS TREATMENT: ACTIVASE PLACED IN R IJ DIALYSIS CATHETER (09/06 OVERNIGHT) DIALYSIS ON 09/07 THANK YOU! Jaqueline (This form is maintained as a part of the permanent medical record) 2015 [employer]. All Rights Reserved Jaqueline Hicks RN, BSN [email or web address] Office: [phone] [facility]
[2017-09-07] MEDS ORDERED: Warfarin Sodium 5 MG TAB PO SCH (17:00)
[2017-09-07] MEDS: Rosuvastatin 20 MG TAB PO SCH (21:38)
[2017-09-08 05:26] LABS: INR-International Normal Ratio 2.4; Prothrombin Time 27.4 SEC (12.0-14.7)
--- NOTE | 2017-09-08 09:35 | PRG ---
DATE OF SERVICE: 09/08/2017 SERVICE: Renal Medicine. SUBJECTIVE: Mr. Estevez is a 76-year-old black male with ESRD, currently on maintenance hemodialysis. His dialysis catheter continues to function well after placement of Activase. I am currently at the dialysis unit. I am at the bedside, supervising his dialysis. He is tolerating said treatment. No new complaints. His feeling of fullness and volume overload is much better after fluid removal yest erday. We are again attempting fluid removal with him as tolerated. The patient denies any overt sh ortness of breath or chest pain. OBJECTIVE: VITAL SIGNS: Blood pressure is 117/74, heart rate 65, respiratory rate 18, temperature 98.1, pulse o x 94%. GENERAL: Awake, alert, supine, obese, not in distress. SKIN: Adequate turgor. HEENT: He has pinkish conjunctivae, anicteric sclerae. NECK: No neck mass, no carotid bruits, no JVD. CHEST: No deformities. LUNGS: Clear breath sounds, no wheezing, no crackles. HEART: Normal sinus rhythm. No murmur, no gallops or rubs. ABDOMEN: Globular, soft, nontender, no masses. EXTREMITIES: No edema, no deformities. MEDICATIONS: Of 09/08/2017 was reviewed. LABORATORY DATA: Of 09/07/2017, white count 6.8, hemoglobin 12.4. Sodium 139, potassium 5, chloride 104, carbon dioxide 23, BUN 64, creatinine 14.9, AST 23, ALT 17, albumin 3.0. ASSESSMENT AND PLAN: 1. End-stage renal disease, stable. Continue current maintenance hemodialysis of 4 hours - Monday, Monday, and Monday. He did receive dialysis yesterday due to the fact that he missed for two dial ysis sessions as an outpatient. 2. Decreased blood flow with dialysis catheter - much improved with placement of Activase. Continue current management. We will await for maturation of his AV fistula. 3. Chronic hypotension, on midodrine. 4. Mild hypoalbuminemia, start Nepro 1 can b.i.d.
[2017-09-08] MEDS ORDERED: Heparin 1,000 UNITS/ML VIAL ONE (11:11)
[2017-09-08] MEDS: Allopurinol 100 MG TAB PO SCH (12:04)
[2017-09-08] MEDS: Famotidine 20 MG TAB PO SCH (12:04)
[2017-09-08] MEDS: Gabapentin 100 MG CAP PO SCH (12:04)
[2017-09-08] MEDS: Midodrine HCl 5 MG TAB PO SCH ×2 (12:05→14:51)
--- NOTE | 2017-09-08 12:35 | DIS ---
DATE OF ADMISSION: 09/06/2017 DATE OF DISCHARGE: 09/08/2017 PRIMARY CARE PHYSICIAN: Dr. Rubalcava. DISCHARGE DISPOSITION: Home with home health. PRIMARY DISCHARGE DIAGNOSES: 1. Dialysis, AV fistula malfunction. 2. Dialysis cuffed tunneled catheter malfunction. SECONDARY DISCHARGE DIAGNOSES: Secondary hyperparathyroidism of renal origin; physical deconditionin g; osteoarthritis; hypertension; history of deep vein thrombosis and pulmonary embolism; gout, end-st age renal disease, on hemodialysis; dyslipidemia; chronic anticoagulation. PRIMARY PROCEDURE/OPERATION: Maintenance hemodialysis. RADIOLOGICAL INVESTIGATION: None. SIGNIFICANT LABORATORY: Hemoglobin 12.4, INR 2.4, creatinine 14.90. DISCHARGE MEDICATIONS: Zyloprim 100 mg p.o. daily, vitamin D3 1000 unit p.o. daily, Pepcid 20 mg p.o . daily, gabapentin 100 mg p.o. daily, midodrine 7.5 mg p.o. t.i.d., Crestor 20 mg p.o. at bedtime, t ramadol 50 mg q.8 hourly p.r.n., warfarin 2.5 mg as directed. CONTRAINDICATIONS: None. CODE STATUS: FULL CODE. INPATIENT CONSULTANTS: Dr. Porter was consulted while in hospital. TEST RESULTS PENDING ON DISCHARGE: None. ALLERGIES: CLINDAMYCIN, AMOXICILLIN, AMPICILLIN. DISCHARGE PLAN: Post hospital, the patient will continue his hemodialysis. Post hospital, the patie nt will follow up with primary care physician in 1 week. HOSPITAL COURSE: A 76-year-old male, who was not able to get dialysis, because his dialysis catheter , tunneled catheter, was not working and patient's AV fistula was also not working and that is why he was not able to get dialysis and that is why he was directed to the hospital for admission. In our hospital after placement of Activase, his dialysis port and dialysis catheter was working and he had 2 dialysis while in hospital. At this point, the patient is waiting for his AV fistula maturation. Rest of medication was continued while in hospital. Dr. Porter is okay with discharging this patient an d patient also wants to go home. While in hospital, he got [id number] dialysis 2 times and he is c ompletely euvolemic. He will continue all his medication as per previous. The patient is seen and examined at bedside today. Plan of care discussed with the patient. We are suspecting that patient where he goes for maintenance hemodialysis over that facility they do not hav e Activase and that may be contributing to his dialysis catheter clogged up, but that was resolved af ter Activase application while in hospital. The patient is seen and examined at bedside today.
[2017-09-08 12:58] VITALS: BP 105/64; TEMP 97.8
[2017-09-08] MEDS ORDERED: Warfarin Sodium 2.5 MG TAB PO SCH (17:00)
== END 2017-09-08 16:15 | disposition home or self-care (01) | DRG 314 ==
LOC: T4-B 15:36
PROVIDERS: ADMIT Internal Medicine; ATTEND Internal Medicine
PROC: 3C1ZX8Z Irrigation of Indwelling Device using Irrigating Substance, External Approach (ICD-10-PCS; 2017-09-06)
PROC: 5A1D70Z Performance of Urinary Filtration, Intermittent, Less than 6 Hours Per Day (ICD-10-PCS; principal; 2017-09-07)
PROC: 5A1D70Z Performance of Urinary Filtration, Intermittent, Less than 6 Hours Per Day (ICD-10-PCS; 2017-09-08)
DX: T82.590A Other mechanical complication of surgically created arteriovenous fistula, initial encounter (principal); N18.6 End stage renal disease; I13.2 Hypertensive heart and chronic kidney disease with heart failure and with stage 5 chronic kidney disease, or end stage renal disease; N25.81 Secondary hyperparathyroidism of renal origin; I95.89 Other hypotension; E88.09 Other disorders of plasma-protein metabolism, not elsewhere classified; I50.9 Heart failure, unspecified; E78.5 Hyperlipidemia, unspecified; M10.9 Gout, unspecified; M19.90 Unspecified osteoarthritis, unspecified site; Z99.2 Dependence on renal dialysis; Z86.718 Personal history of other venous thrombosis and embolism; Z86.711 Personal history of pulmonary embolism; Z88.1 Allergy status to other antibiotic agents; Z88.0 Allergy status to penicillin; Z79.01 Long term (current) use of anticoagulants; Z79.899 Other long term (current) drug therapy; Y83.8 Other surgical procedures as the cause of abnormal reaction of the patient, or of later complication, without mention of misadventure at the time of the procedure
CPT/HCPCS: 36415; 80053; 85025; 85610; 85730; 90935; A4216; G0257; J1644; J2405; J2997

== ENCOUNTER 2017-12-14 05:50 | Day surgery (SDC) | payer MEDICARE ==
[2017-12-12 10:10] VITALS: BMI 39.1
[2017-12-14] MEDS ORDERED: Lidocaine 2% Jelly 5 ML TUBE ONE (06:28)
[2017-12-14] MEDS ORDERED: Fentanyl 100 MCG/2 ML VIAL ONE ×3 (06:28→10:51)
[2017-12-14] MEDS ORDERED: Lidocaine 1% (PF) 30 ML VIAL ONE (06:35)
[2017-12-14] MEDS ORDERED: Midazolam HCl 2 mg/2 ml Vial ONE (06:35)
[2017-12-14] MEDS ORDERED: Heparin 5,000 UNITS/ML VIAL ONE (06:38)
[2017-12-14] MEDS ORDERED: Bupivacaine/Epinephrine 0.25% 30 ML VIAL ONE (06:38)
[2017-12-14] MEDS ORDERED: Lidocaine 2% 10 ML INJ ONE (06:38)
[2017-12-14] MEDS ORDERED: Protamine Sulfate 50 MG/5 ML VIAL ONE (06:38)
[2017-12-14 06:58] LABS: #Basophils 0.1 thou/uL (0.0-0.2); #Eosinphils 0.2 thou/uL (0.0-0.7); #Lymphocytes 1.7 thou/uL (1.20-3.40); #Monocytes 0.8 thou/uL (0.11-0.59); #Neutrophils 4.1 thou/uL (1.40-6.50); %Basophils 1.1 % (0.0-1.0); %Eosinophils 3.2 % (0.0-10.0); %Monocytes 11.3 % (0.0-10.0); %Neutrophils 59.3 % (42.0-75.0); Hemoglobin 12.4 g/dL (14.0-18.0); Mean Corpuscular HGB CONC 30.7 g/dL (32.0-36.0); Mean Corpuscular Hemoglobin 25.9 pg (27.0-31.0); Mean Corpuscular Volume 84.4 fL (78.0-98.0); Mean Platelet Volume 8.9 fL (7.4-10.4); Platelet Count 149 thou/uL (130-400); Red Blood Cell (RBC) Count 4.77 mill/uL (4.70-6.10); White Blood Cell (WBC) Count 6.9 thou/uL (4.8-10.8)
[2017-12-14 07:09] LABS: INR-International Normal Ratio 1.7; PTT 46.7 SEC (22.9-36.1); Prothrombin Time 19.7 SEC (12.0-14.7)
[2017-12-14] MEDS ORDERED: CEFAZOLIN/Water 2 GM/20 ML SYRINGE ONE (07:09)
[2017-12-14 07:12] LABS: Anion Gap 11 mmol/L (10-20); BUN (Urea Nitrogen) 28 mg/dL (8.4-25.7); Calc. Creatinine Clearance 16 mL/min (70-130); Calcium 9.4 mg/dL (7.8-10.44); Carbon Dioxide 31 mmol/L (23-31); Chloride 101 mmol/L (98-107); Estimated GFR-MDRD 8; Glucose 84 mg/dL (83-110); Potassium 4.4 mmol/L (3.5-5.1); Sodium 139 mmol/L (136-145)
[2017-12-14] MEDS ORDERED: Promethazine HCl 25 MG/ML VIAL ONE (10:51)
[2017-12-14] MEDS ORDERED: PHENYLEPHRINE-NS 100 MCG/ML 10 ML SYRINGE ONE (12:03)
[2017-12-14] MEDS ORDERED: ePHEDrine/0.9% NaCl/PF SYRINGE 50 mg/10 ml ONE (12:03)
[2017-12-14] MEDS ORDERED: PROPOFOL 200 MG/20 ML VIAL ONE (12:03)
[2017-12-14] MEDS ORDERED: Glycopyrrolate 0.2 MG/ML 5 ML SYRINGE ONE (12:03)
[2017-12-14] MEDS ORDERED: Ondansetron HCl/PF 4 MG/2 ML Vial ONE (12:03)
[2017-12-14] MEDS ORDERED: Dexamethasone 20 MG/5 ML VIAL ONE (12:03)
[2017-12-14] MEDS ORDERED: Lidocaine 1% PF 5 ML VIAL ONE (12:03)
[2017-12-14] MEDS ORDERED: Heparin 10,000 UNITS/ 10 ML VIAL ONE (12:28)
--- NOTE | 2017-12-20 19:06 | PDOC.OP ---
Operative Note - Operative Note Operative Note: PROCEDURE: Right upper arm cephalic fistula transposition SURGEON: Kira Palafox M.D. DATE OF PROCEDURE: 12/14/2017 PREOPERATIVE DIAGNOSIS: Renal failure POSTOPERATIVE DIAGNOSIS: Renal failure HISTORY: Patient is a 77-year-old man with end-stage renal failure. He has a right upper arm cephalic fistula which is too deep to access due to his body habitus. Recommendation was made to transpose this to a more subcutaneous position. PROCEDURE IN DETAIL: After informed consent was obtained and appropriate preoperative antibiotics administered, the patient was taken to the operating room and placed in the supine position and monitored anesthesia care was administered. A preoperative block had been performed by Anesthesia and the adequacy of block was confirmed. The arm was prepped and draped in a standard sterile fashion and an incision made over the upper arm cephalic vein. This was dissected free circumferentially along its entire length up to the shoulder, ligating and dividing side branches as they were encountered. The vein was of good caliber and quality throughout. A subcutaneous tunnel was then created just below the skin medial to the incision and the vein transposed to that location taking care not to twist or rotate it. The subcutaneous tissues adjacent to the tunnel were reapproximated with a running 3-0 Vicryl suture to secure the vein within this tunnel. The fistula was confirmed to have an excellent thrill in its transposed location. The wound was irrigated and hemostasis achieved using Bovie electrocautery. Due to the depth of the wound, Surgicel was placed as a precaution. The subcutaneous tissues were then approximated in layers. The skin was closed with skin jenelle and a Prevena wound VAC placed. The patient was taken to the recovery room in good condition. Estimated blood loss was minimal. There were no complications. There were no specimens.
== END 2017-12-14 13:20 | disposition home or self-care (01) ==
LOC: SDC 05:50
PROVIDERS: ATTEND Surgery
PROC: 05SD0ZZ Reposition Right Cephalic Vein, Open Approach (ICD-10-PCS; principal; 2017-12-14)
DX: I12.0 Hypertensive chronic kidney disease with stage 5 chronic kidney disease or end stage renal disease (principal); N18.6 End stage renal disease; M10.9 Gout, unspecified; Z79.82 Long term (current) use of aspirin; Z79.899 Other long term (current) drug therapy; Z88.0 Allergy status to penicillin; Z88.1 Allergy status to other antibiotic agents
CPT/HCPCS: 36415; 80048; 85025; 85610; 85730; 93005; 93010; 96374; 96375; J1100; J1644; J2001; J2250; J2405; J2550; J2704; J2720; J3010

== ENCOUNTER 2018-08-22 14:18 | Observation (INO) | payer MEDICARE ==
[2018-08-22 15:00] LABS: #Eosinphils 0.1 thou/uL (0.0-0.7); #Lymphocytes 1.3 thou/uL (1.20-3.40); #Monocytes 1.2 thou/uL (0.11-0.59); #Neutrophils 6.6 thou/uL (1.40-6.50); %Basophils 0.3 % (0.0-1.0); %Eosinophils 1.4 % (0.0-10.0); %Lymphocytes 13.9 % (21.0-51.0); %Monocytes 12.9 % (0.0-10.0); %Neutrophils 71.5 % (42.0-75.0); Hemoglobin 14.2 g/dL (14.0-18.0); Mean Corpuscular HGB CONC 29.3 g/dL (32.0-36.0); Mean Corpuscular Hemoglobin 24.1 pg (27.0-31.0); Mean Corpuscular Volume 82.4 fL (78.0-98.0); Mean Platelet Volume 9.4 fL (7.4-10.4); Platelet Count 164 thou/uL (130-400); Red Blood Cell (RBC) Count 5.91 mill/uL (4.70-6.10); White Blood Cell (WBC) Count 9.2 thou/uL (4.8-10.8)
[2018-08-22 15:13] LABS: Anisocytosis SLIGHT = 6-15 cells (100X) (0-5/hpf); Hypochromia SLIGHT = 6-15 cells (100X) (0-5/hpf); MDiff Complete? YES; Platelet Morphology Comment Appears Adequate
[2018-08-22 15:19] LABS: ALT (SGPT) 29 U/L (8-55); AST (SGOT) 26 U/L (5-34); Albumin 3.3 g/dL (3.4-4.8); Alkaline Phosphatase 131 U/L (40-150); Anion Gap 16 mmol/L (10-20); BUN (Urea Nitrogen) 23 mg/dL (8.4-25.7); Bilirubin, Total 0.8 mg/dL (0.2-1.2); Calc. Creatinine Clearance 0 mL/min (70-130); Calcium 9.5 mg/dL (7.8-10.44); Carbon Dioxide 33 mmol/L (23-31); Chloride 95 mmol/L (98-107); Estimated GFR-MDRD 9; Globulin 4.3 g/dL (2.4-3.5); Glucose 92 mg/dL (83-110); Potassium 3.9 mmol/L (3.5-5.1); Protein, Total 7.6 g/dL (5.8-8.1); Sodium 140 mmol/L (136-145)
[2018-08-22] MEDS ORDERED: Morphine 4 MG/ML VIAL SLOW IVP PRN (21:31)
[2018-08-22] MEDS ORDERED: Ondansetron PF 4 MG/2 ML Vial IVP PRN ×2 (21:32→22:38)
[2018-08-22] MEDS ORDERED: Ondansetron ODT 4 MG TAB SL PRN (21:32)
[2018-08-22] MEDS ORDERED: Senokot S 8.6-50 MG TAB PO PRN (22:38)
[2018-08-22] MEDS ORDERED: Acetaminophen 650 MG Suppository PR PRN (22:38)
[2018-08-22] MEDS ORDERED: Ondansetron ODT 4 MG TAB PO PRN (22:38)
[2018-08-22] MEDS ORDERED: Guaifenesin DM 100-10/5 ML UDCUP PO PRN (22:38)
[2018-08-22 22:46] VITALS: BMI 38.2
--- NOTE | 2018-08-23 02:00 | HP ---
PRIMARY CARE PHYSICIAN: Dr. Rubalcava. CHIEF COMPLAINT: Abdominal pain and constipation. HISTORY OF PRESENT ILLNESS: This is a 77-year-old male with a known history of end-stage renal disease on dialysis, congestive heart failure, who presented with abdominal pain. The patient reports that he has had constipation for the last 3 days and was unable to have bowel movements, was having severe cramping pain, mostly in the lower abdomen radiating to the top and also to his bottom. The patient was seen in the emergency room last night in [place]. There, he had a CT scan without contrast that did not have any acute abnormalities. He did have a mildly elevated lipase at that time of 164. He was diagnosed with constipation, was sent out with docusate 100 mg to be taken every 8 hours as needed, 60 tablets. The patient was unable to get this filled until this morning. He did take one of them this morning, however, it get caught in the back of his throat and took a long to dissolve back, and he had persistence of the constipation and severe abdominal cramping coming and going, so he came into the emergency room here in [place]. He did go to dialysis this morning as scheduled, but stopped early so he could catch a bus to get over here. In the ER, the patient was found to have persistence of his lipase, but is down to 127 today. He did have some severe cramping in the emergency room and then passed a very large, but soft brown bowel movement per the nursing report. He says he feels a little bit better, but his bottom is hurting a lot and he still is having intermittent severe cramping. No midepigastric cramping or pain. No nausea or vomiting. The patient denies any history of pancreatitis or gallstone problems. PAST MEDICAL HISTORY: 1. Diastolic congestive heart failure with normal ejection fraction by echocardiogram in 2017. 2. End-stage renal disease, on dialysis. Dr. 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 3. Hypertension. 4. Hyperlipidemia. 5. Gout. 6. History of DVT. 7. Obesity. 8. Previous thrombosis of the left upper extremity AV fistula. 9. History of orthostatic hypotension. PAST SURGICAL HISTORY: 1. Status post right AV fistula placement. 2. Status post left upper extremity AV fistula thrombectomy. 3. Abdominal laparotomy with small-bowel resection. 4. Tunneled right IJ catheter in the past since removed, with chronic pain in that area. SOCIAL HISTORY: The patient is , lives in [place], [place]. No tobacco use for the last 20 to 30 years. No alcohol or illicit drug use. He has not been able to walk regularly for some time now and has an electric scooter he uses at home. He can get up and transfer himself some, but he feels very unsteady on his feet and his knees give out on him unexpectedly. FAMILY HISTORY: One brother with sugar diabetes, who in his 90s. No other significant family history. ALLERGIES: 1. CLINDAMYCIN. 2. AMOXICILLIN. 3. AMPICILLIN. THE CLINDAMYCIN CAUSES HIVES. THE PENICILLINS CAUSE JUST DIARRHEA. CURRENT MEDICATIONS: 1. Gabapentin 100 mg twice a day. 2. Famotidine 20 mg daily. 3. Warfarin 5 mg daily. 4. Renvela 800 mg 3 times a day. 5. Vitamin D3 1000 units daily. 6. Midodrine 5 mg 2 times a day. 7. Allopurinol 100 mg daily. 8. Acetaminophen with codeine as needed for pain. 9. Carvedilol 6.25 mg twice a day. REVIEW OF SYSTEMS: CONSTITUTIONAL: No fevers. No chills. HEENT: Eyes, no double vision or blurred vision. ENT, he has had some runny nose. No congestion or sore throat. CARDIOVASCULAR: No chest pain. No palpitations or racing heart. PULMONARY: No coughing, wheezing, or shortness of breath. GASTROINTESTINAL: See HPI. No nausea or vomiting. GENITOURINARY: He does not produce any urine. EXTREMITIES: He has pain in bilateral knees that makes it hard to ambulate. He also has some chronic right shoulder pain ever since a tunneled hemodialysis catheter in the past. SKIN: No rashes or other lesions noted. NEUROLOGIC: No numbness, tingling, or focal weakness. PHYSICAL EXAMINATION: VITAL SIGNS: Blood pressure 152/81, pulse 81, respirations 18, O2 saturation 98% on room air, temperature 97.5. GENERAL: This is a well-developed, obese, -Omani male, in no acute distress. HEENT: Pupils are equal, round, and reactive to light. Oropharynx, clear without lesions, erythema, or exudate. NECK: Supple. No lymphadenopathy. No thyroid nodules or enlargement. HEART: Regular rate and rhythm. No murmurs, rubs, or gallops. LUNGS: Clear to auscultation bilaterally. No wheezes, crackles, or rhonchi. ABDOMEN: Soft, mild tenderness to palpation in the lower abdomen. No tenderness to palpation in the midepigastric region or right upper quadrant. No hepatosplenomegaly or other masses noted. EXTREMITIES: No clubbing or cyanosis. He has trace lower extremity edema. SKIN: No rashes or other lesions noted. NEUROLOGIC: He has intact strength in all extremities. No facial droop. LABORATORY DATA: CBC grossly normal. Complete metabolic panel is notable for chloride of 95 carbon dioxide of 33, creatinine of 7.05, albumin of 3.3, and his Lipase is 127. IMAGING: I did review the CT scan done yesterday in the [place] [facility], this shows no acute findings. There was some cholelithiasis. There was an irregular calcification in the right hepatic lobe that has decreased in size. Some hypodense bilateral renal lesions and extensive vascular calcifications and a normal-appearing pancreas, though this was without contrast. ASSESSMENT: 1. Abdominal pain. This appears to be mostly secondary to constipation, has relieved some now with a very large bowel movement in the emergency room. We will put the patient on MiraLax daily and then as needed other laxatives and see if he can pass the rest of the stool on his ability by tomorrow. If this causes complete resolution of all of his symptoms, then he unlikely to have any other process going on. He can probably go home. 2. Mild elevation of lipase. The patient does not have any midepigastric tenderness. No nausea or vomiting. He does have some cholelithiasis on his CT scan from yesterday, so we will go ahead and get a right upper quadrant ultrasound. We will recheck a lipase in the morning. I expect this to keep trending down, uncertain of the importance of it at this time. We will go ahead and continue the patient on a diet for now since he is not having any nausea or vomiting and no worsening pain with eating, and if the patient's lipase does spike more or he has a grossly abnormal ultrasound, then we can consult Gastroenterology in the morning. 3. Chronic diastolic congestive heart failure, currently not in exacerbation. We will continue patient's dialysis and we will put him on a fluid restriction in the hospital. 4. End-stage renal disease, on dialysis. We will let Dr. Porter know the patient is here to continue dialysis in the hospital. 5. Gastrointestinal prophylaxis. We will put the patient on Pepcid twice a day. 6. Deep venous thrombosis prophylaxis. The patient is already on Coumadin. We will check a PT/INR. CODE STATUS: I did discuss this with the patient. He is a full code. Should he be incapacitated, he states that his is currently in the hospital [facility] at [facility] and is very sick right now, so she cannot help him make medical decisions, so it was felt that his daughter Radha Braun to be his medical decision maker. Job ID: [id number]
[2018-08-23 06:47] LABS: #Eosinphils 0.2 thou/uL (0.0-0.7); #Lymphocytes 1.7 thou/uL (1.20-3.40); #Monocytes 1.1 thou/uL (0.11-0.59); #Neutrophils 5.8 thou/uL (1.40-6.50); %Basophils 0.4 % (0.0-1.0); %Lymphocytes 19.2 % (21.0-51.0); %Neutrophils 65.4 % (42.0-75.0); Hemoglobin 12.8 g/dL (14.0-18.0); Mean Corpuscular Volume 83.6 fL (78.0-98.0); Mean Platelet Volume 9.7 fL (7.4-10.4); Platelet Count 168 thou/uL (130-400); RBC Distribution Width 15.2 % (11.5-14.5); White Blood Cell (WBC) Count 8.8 thou/uL (4.8-10.8)
[2018-08-23 06:49] LABS: INR-International Normal Ratio 1.9; Prothrombin Time 21.9 SEC (12.0-14.7)
[2018-08-23 07:09] LABS: Anion Gap 16 mmol/L (10-20); BUN (Urea Nitrogen) 32 mg/dL (8.4-25.7); Calc. Creatinine Clearance 14 mL/min (70-130); Calcium 9.3 mg/dL (7.8-10.44); Carbon Dioxide 32 mmol/L (23-31); Chloride 97 mmol/L (98-107); Estimated GFR-MDRD 8; Glucose 84 mg/dL (83-110); Lipase 97 U/L (8-78); Potassium 4.5 mmol/L (3.5-5.1); Sodium 140 mmol/L (136-145)
--- NOTE | 2018-08-23 07:11 | ULT ---
GALLBLADDER ULTRASOUND: CLINICAL HISTORY: Elevated lipase. Abdominal pain. FINDINGS: Portions of the liver are obscured from visualization, limiting detail. There is a hyperechoic focus within the right hepatic low, with shadowing, consistent with calcification. Hyperechoic foci of th e gallbladder are present, consistent with cholelithiasis. The gallbladder is contracted, limiting v isualization. The visualized common duct measures 3 mm in diameter. Incidental note of a cyst forma tion within the right kidney. IMPRESSION: 1. Cholelithiasis. The gallbladder is contracted, limiting visualization. 2. Additional details are described above. 3. The exam was markedly limited due to persistent areas of shadowing throughout the abdomen, which did limit visualization. POS: [facility]
[2018-08-23] MEDS: Polyethylene Glycol 3350 17 GM Packet PO SCH (08:08)
[2018-08-23] MEDS: Famotidine 20 MG TAB PO SCH ×2 (08:08→20:22)
--- NOTE | 2018-08-23 10:30 | CON ---
DATE OF CONSULTATION: HISTORY OF PRESENT ILLNESS: Mr. Estevez is a 77-year-old black male with known history of ESRD-maintenance hemodialysis. He was admitted initially for constipation. He was given laxatives and he had a good bowel movement. However, he was also found to have an elevated lipase. Gallbladder ultrasound was done, which showed cholelithiasis and the gallbladder was mentioned to be contracted. No obvious pancreatitis was noted due to the limited technique with the ultrasound. No new complaints today. No chest pain. No shortness of breath. Occasional nausea, but no vomiting. Please note that the patient on August 21, 2018, had a CT scan of the abdomen and pelvis. The pancreas and bilateral adrenal glands were grossly noted to be within normal at that time. We are being consulted for his maintenance hemodialysis. He did receive dialysis yesterday. I do not see any indication for any emergent dialysis with this patient. REVIEW OF SYSTEMS: Positive for constipation. Positive for nausea. Positive for abdominal discomfort. No diarrhea. No headache. No diplopia. Appetite decreased. Energy levels decreased. No vomiting. No dysuria. No urinary frequency. No chest pain or shortness of breath. No syncopal episode. No headache. No sore throat. Occasional joint pains. Occasional back pain. MEDICATIONS: Medications of August 23, 2018: 1. Pepcid 20 mg p.o. b.i.d. 2. Zofran 4 mg q.6h p.r.n. 3. Senokot-S 2 tabs p.o. b.i.d. p.r.n. 4. MiraLAX 17 g daily. HOME MEDICATIONS: Include: 1. Coumadin as directed. 2. Atorvastatin 20 mg tablet at bedtime. 3. Midodrine 1.5 tab p.o. t.i.d. 4. Gabapentin 300 mg at bedtime. 5. Famotidine 20 mg daily. 6. Vitamin D3 1000 international units daily. 7. Allopurinol 100 mg once daily. PAST MEDICAL HISTORY: 1. Status post DVT. 2. ESRD-maintenance hemodialysis. 3. Status post CHF. 4. Hypertension. 5. Morbid obesity. 6. Gout. 7. History of chronic hypotension, on midodrine. 8. Status post thrombosis of left upper extremity AV fistula. PAST SURGICAL HISTORY: 1. Status post AV fistula placement. 2. Status post cuffed dialysis catheter placement. 3. Status post small bowel resection. 4. Status post cardiac cath. Status post exploratory laparotomy. 5. Status post left upper extremity AV fistula thrombectomy. ALLERGIES: 1. AMOXICILLIN. 2. PENICILLIN. 3. CLINDAMYCIN. TRAUMA: None. IMMUNIZATION: Up-to-date. HOSPITALIZATIONS: Please see past medical history. FAMILY HISTORY: No family history of ESRD. SOCIAL HISTORY: The patient is single, lives in [place]. Several children. Sedentary lifestyle. Status post blood transfusion. No alcohol. No tobacco or IV drug use. PHYSICAL EXAMINATION: VITAL SIGNS: Blood pressure is noted at 94/66 to as high as 101/65, heart rate 68, respiratory rate is rate 20, temperature 98.3, and pulse ox 93 percent. GENERAL: Awake, supine, comfortable, not in distress, morbidly obese. SKIN: Adequate turgor. HEENT: He has pinkish conjunctivae. Anicteric sclerae. NECK: No neck mass. No carotid bruits. No JVD. CHEST: No deformities. LUNGS: Clear breath sounds. No wheezing. No crackles. HEART: Normal sinus rhythm. No murmur. No gallops. No rubs. ABDOMEN: Globular, soft, nontender, no masses. EXTREMITIES: No edema, no deformities. LABORATORY DATA: Laboratories of August 23, 2018; white count 8.8, hemoglobin 12.8. Sodium 140, potassium 4.5, chloride 97, carbon dioxide 32, BUN 32, creatinine 8.25, glucose 84, calcium 9.3. August 20122018; BUN 23, creatinine 7.05. Lipase August 22, 2018, was 127. August 23, 2018, lipase was 97. ASSESSMENT AND PLAN: 1. End-stage renal disease, stable. We will continue current hemodialysis regimen. No indication for any dialytic intervention. Continue current dialysis regimen. 2. Constipation, much improved. 3. Mildly elevated lipase-CT scan done 2 days ago did not show any evidence of pancreatitis. The abdominal ultrasound done recently was limited in scope. No evidence of pancreatitis at that time. 4. Overall agree with current management. Job ID: [id number]
[2018-08-23] MEDS ORDERED: ISOVUE-370 76%-LOCM 1 ML ONE (12:05)
--- NOTE | 2018-08-23 16:21 | CT ---
CT ABDOMEN WITH CONTRAST: 08/23/18 Multiple axial tomograms obtained through the abdomen only with IV enhancement. Oral contrast was giv en. Lower abdomen and pelvis not evaluated on this study. INDICATIONS: Abdominal pain. Comparison made to recent CT abdomen and pelvis 08/21/18. Lung bases clear. Images of liver again show dystrophic calcifications in the posterior liver described on the recent C T of 08/21/18. Cholelithiasis again noted within a contracted gallbladder, stable. Spleen and pancreas unremarkable. The visualized small bowel loops normal caliber. Adrenal glands and kidneys unremarkable. Numerous renal cystic lesions are again seen as described on recent study, stable in appearance. No hydronephrosis. Aorta shows atherosclerotic changes. No free fluid. No mass or adenopathy. IMPRESSION: No acute process. Cholelithiasis again noted. No significant change from recent CT of 08/21/18. POS: [facility]
--- NOTE | 2018-08-23 18:00 | PRG ---
DATE OF SERVICE: 08/23/2018 SUBJECTIVE: The patient is a 77-year-old male with past medical history significant for end-stage renal disease, on dialysis; chronic diastolic congestive heart failure; hypertension; hyperlipidemia; and gout, who presented to the hospital with complaints of worsening abdominal pain and cramping. The patient was initially seen in [place], and diagnosed with constipation, however, symptoms continued and so he presented here to our facility for further workup and treatment. At the time of my interview with the patient on the morning of August 23, 2018, the patient is continuing to complain of 10/10 abdominal pain that is cramping in nature, and is periodic, happening every 30 to 45 minutes. He states he continued to have this pain throughout the night. He denies any nausea or vomiting. He states that although, he did have one bowel movement in the ER, he has not had another significant bowel movement, although, he does feel like he needs to have a bowel movement. He denies any chest pain or shortness of breath. OBJECTIVE: VITAL SIGNS: Blood pressure 94/66, temperature 98.3, pulse 68, respirations 20, O2 saturation is 93% on room air. GENERAL: This is an obese male, who at this time is resting comfortably in bed and is denying abdominal discomfort. NECK: Supple. No lymphadenopathy. Trachea midline. No carotid bruits. CV: S1, S2. Regular rate and rhythm. No appreciable murmurs, rubs, or gallops. LUNGS: Regular respiratory rate and pattern, clear to auscultation bilaterally. ABDOMEN: Obese. The patient is mildly tender to palpation in the lower abdomen. He has positive bowel sounds throughout. Negative Cameron sign. EXTREMITIES: No edema. MUSCULOSKELETAL: No joint effusion or swelling. SKIN: Warm and dry. No rashes. LABORATORY DATA: Hemoglobin is 12.8, white blood cell count is 8.8. PT 21.9, INR is 1.9. Sodium 140, potassium 4.5, chloride 97, carbon dioxide 32. Lipase has been trending down, it is now 97, previously was 127. Please note that, his alkaline phosphatase and other liver function enzymes are within normal limits. ASSESSMENT: 1. Continued abdominal pain and cramping, despite treatment for his constipation. 2. History of necrotic bowel remotely with resection. This was done at [facility] in [place]. 3. End-stage renal disease, on dialysis. 4. Cholelithiasis demonstrated by CT as well as ultrasound, however, the patient elicits negative Cameron sign, he has had no nausea or vomiting, and his alkaline phosphatase is normal. 5. Elevated lipase, now trending down of indeterminate significance. 6. Chronic diastolic congestive heart failure. PLAN: Given this patient's continued symptoms, we will perform a CT with oral contrast. Continue MiraLAX. May consider Bentyl for possible IBS symptoms. We will await CT results for further recommendations. Appreciate Nephrology input. The patient does have end-stage renal disease and is on dialysis. Further recommendations based on hospital course. Job ID: [id number]
[2018-08-23] MEDS: Acetaminophen 325 MG TAB PO PRN (20:29)
[2018-08-24 07:44] LABS: #Basophils 0.1 thou/uL (0.0-0.2); #Eosinphils 0.2 thou/uL (0.0-0.7); #Lymphocytes 1.8 thou/uL (1.20-3.40); #Neutrophils 4.7 thou/uL (1.40-6.50); %Basophils 0.7 % (0.0-1.0); %Eosinophils 2.8 % (0.0-10.0); %Lymphocytes 23.4 % (21.0-51.0); %Monocytes 12.9 % (0.0-10.0); %Neutrophils 60.2 % (42.0-75.0); Hemoglobin 12.7 g/dL (14.0-18.0); Mean Corpuscular HGB CONC 30.2 g/dL (32.0-36.0); Mean Corpuscular Hemoglobin 24.7 pg (27.0-31.0); Mean Corpuscular Volume 81.8 fL (78.0-98.0); Mean Platelet Volume 9.5 fL (7.4-10.4); Platelet Count 180 thou/uL (130-400); Red Blood Cell (RBC) Count 5.14 mill/uL (4.70-6.10); White Blood Cell (WBC) Count 7.8 thou/uL (4.8-10.8)
[2018-08-24] MEDS: Famotidine 20 MG TAB PO SCH (08:14)
[2018-08-24] MEDS: Polyethylene Glycol 3350 17 GM Packet PO SCH (08:14)
[2018-08-24] MEDS ORDERED: Heparin 10,000 UNITS/ 10 ML VIAL ONE (08:26)
[2018-08-24 09:33] LABS: ALT (SGPT) 21 U/L (8-55); AST (SGOT) 22 U/L (5-34); Albumin 2.8 g/dL (3.4-4.8); Alkaline Phosphatase 98 U/L (40-150); Anion Gap 14 mmol/L (10-20); BUN (Urea Nitrogen) 40 mg/dL (8.4-25.7); Bilirubin, Direct 0.4 mg/dL (0.1-0.3); Bilirubin, Total 0.7 mg/dL (0.2-1.2); Calc. Creatinine Clearance 13 mL/min (70-130); Calcium 8.8 mg/dL (7.8-10.44); Carbon Dioxide 32 mmol/L (23-31); Chloride 95 mmol/L (98-107); Estimated GFR-MDRD 7; Glucose 88 mg/dL (83-110); Lipase 78 U/L (8-78); Potassium 4.5 mmol/L (3.5-5.1); Protein, Total 6.4 g/dL (5.8-8.1); Sodium 136 mmol/L (136-145)
--- NOTE | 2018-08-24 13:11 | DIS ---
DATE OF ADMISSION: 08/22/2018 DATE OF DISCHARGE: 08/23/2018 HOSPITAL COURSE: The patient is a 77-year-old male with past medical history significant for end-stage renal disease, on dialysis, chronic diastolic heart failure, hypertension, history of obesity, and nonambulatory state secondary to severe osteoarthritis, who presented to the hospital with complaints of worsening abdominal pain and constipation. He was initially seen at the emergency room in [place], where his CT scan without contrast was negative. He was diagnosed with constipation and sent home with docusate 100 mg q.8 hours p.r.n. The patient was unable to get that medication until the following morning. His abdominal pain and cramping continued to worsen and so he presented to our ER for further workup and treatment. In the ER, he was found to have a mildly elevated lipase of 127. His CBC was grossly normal. CMP was notable for chloride of 95, carbon dioxide of 33, and creatinine of 7.03. He did have a large brown soft bowel movement in the ER and felt somewhat better, however, overnight during his stay, he continued to complain of 10/10 cramping abdominal pain off and on. A CT scan was repeated with oral contrast, which showed no acute process of cholelithiasis noted. No significant change from his CT scan on 08/21. The visualized small bowel loops were of normal caliber. There was no free fluid or mass. Today, the patient states that he rested well overnight. His abdominal pain is much improved. He has no complaints to me this morning. He is resting comfortably in dialysis. ALLERGIES: CLINDAMYCIN, AMOXICILLIN, AND AMPICILLIN. PROCEDURES PERFORMED: None. IMAGING RESULTS: Abdominal CT as described in the hospital course. Gallbladder ultrasound showed cholelithiasis with contracted gallbladder, limiting visualization. The exam was limited due to marked areas of shadowing throughout. CHIEF COMPLAINT: Abdominal pain and constipation. FINAL DIAGNOSES: 1. Abdominal pain secondary to constipation, resolved. 2. Cholelithiasis without evidence of obstruction or cholecystitis. 3. Obesity. 4. End-stage renal disease. 5. Hypertension. 6. Chronic diastolic heart failure without evidence of exacerbation. 7. 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 8. Elevated lipase of indeterminate significance, now normal. LABORATORY RESULTS: Today showed sodium 136, potassium 4.5, chloride 95, anion gap 14, BUN 40, creatinine 9.24, and albumin is 2.8. Lipase is normal at 78. AST, ALT, and alkaline phosphatase are all normal. PHYSICAL EXAMINATION: GENERAL: The patient is an obese male, resting comfortably in dialysis, in no acute distress. NECK: Supple. No lymphadenopathy. Trachea midline. No carotid bruits. CARDIOVASCULAR: S1 and S2. Regular rate and rhythm. No appreciable murmurs, rubs, or gallops. LUNGS: Regular respiratory rate and pattern. Clear to auscultation bilaterally. ABDOMEN: Obese. The patient is nontender to palpation in all areas. He has positive bowel sounds throughout. Negative Cameron's sign. EXTREMITIES: No edema. MUSCULOSKELETAL: No joint effusion or swelling. SKIN: Warm and dry. No rashes. DISCHARGE MEDICATIONS: 1. Gabapentin 300 mg tab, one tab p.o. at bedtime. 2. Midodrine 5 mg tab, 1.5 tab p.o. t.i.d. 3. Allopurinol 100 mg tablet, one tab daily. 4. Vitamin D3 supplement 1000 unit tab, one tab p.o. daily. 5. Famotidine 20 mg tab, one tab daily. 6. Rosuvastatin 20 mg tab, one tab p.o. at bedtime. 7. Warfarin 2.5 mg tablet on Monday, Monday, and Monday and 5 mg tablets on Monday, Monday, and . New medications will be MiraLAX 17 g packet one tab p.o. daily and he is to use Senokot as needed. PLAN: We will discharge the patient home today. He will continue dialysis per his schedule. He is to continue MiraLAX daily and Senokot p.r.n. At some point in the future if he were to develop nausea, vomiting, or symptomatic cholelithiasis, referral to GI would be appropriate. He will follow up with his primary care doctor in the next couple of weeks. He will also follow with Dr. Porter, his director outcomes. Job ID: [id number]
[2018-08-24] MEDS: Acetaminophen 325 MG TAB PO PRN (13:55)
[2018-08-24 16:03] VITALS: BP 119/74; TEMP 98.7
--- NOTE | 2018-08-24 16:30 | HP ---
HISTORY: Mr. Estevez is a 77-year-old black male with ESRD. He underwent hemodialysis today without any difficulty. Fluid removal was tolerated. PHYSICAL EXAMINATION: VITAL SIGNS: Blood pressure 106/70, heart rate 63, respiratory rate 18, temperature 98.3, and pulse ox 97%. GENERAL: Awake, alert, comfortable, not in distress. SKIN: Adequate turgor. HEENT: He has pinkish conjunctivae. Anicteric sclerae. NECK: No neck mass. No carotid bruits. No JVD. CHEST: No deformities. LUNGS: Clear breath sounds. No wheezing. No crackles. HEART: Normal sinus rhythm. No murmurs. No gallops. No rubs. ABDOMEN: Globular, soft, nontender. No masses. EXTREMITIES: Trace edema. MEDICATIONS: Medications of August 24, 2018, reviewed. LABORATORY DATA: Laboratories of August 24, 2018; white count 7.8, hemoglobin 12.7. Sodium 136, potassium 4.5, chloride 95, carbon dioxide 32, BUN 40, creatinine 9.24, calcium is 8.8, albumin 2.8, AST 22, and ALT 21. ASSESSMENT AND PLAN: 1. Acute abdominal pain, resolved. No evidence of pancreatitis via CAT scan. Supportive care. 2. End-stage renal disease, stable. Tolerating current hemodialysis regimen. Fluid removal was tolerated by the patient. Continue Monday, Monday, and Monday dialysis. Agree with current management. Job ID: [id number]
== END 2018-08-24 16:50 | disposition home or self-care (01) ==
LOC: ERS 14:18 → INTOOBSV 21:30 → T4-A 21:30
PROVIDERS: ADMIT Emergency Medicine; ATTEND Emergency Medicine
DX: K59.00 Constipation, unspecified (principal); K80.20 Calculus of gallbladder without cholecystitis without obstruction; I13.2 Hypertensive heart and chronic kidney disease with heart failure and with stage 5 chronic kidney disease, or end stage renal disease; N18.6 End stage renal disease; I50.32 Chronic diastolic (congestive) heart failure; M19.90 Unspecified osteoarthritis, unspecified site; M10.9 Gout, unspecified; I95.1 Orthostatic hypotension; E66.01 Morbid (severe) obesity due to excess calories; Z68.38 Body mass index [BMI] 38.0-38.9, adult; Z88.0 Allergy status to penicillin; Z86.718 Personal history of other venous thrombosis and embolism; Z87.891 Personal history of nicotine dependence; Z79.01 Long term (current) use of anticoagulants; Z79.899 Other long term (current) drug therapy; Z88.1 Allergy status to other antibiotic agents; Z99.2 Dependence on renal dialysis; Z90.49 Acquired absence of other specified parts of digestive tract
CPT/HCPCS: 74160; 76705; 80048 ×2; 80053; 80076; 83690 ×3; 85025 ×3; 85610; 97139 ×5; 97530; 99285; G0378 ×2; 36415; 90935; G0257; J1644; Q9966

== ENCOUNTER 2018-08-26 05:07 | Emergency (ER) | payer MEDICARE ==
[2018-08-26 06:07] LABS: #Basophils 0.1 thou/uL (0.0-0.2); #Eosinphils 0.3 thou/uL (0.0-0.7); #Lymphocytes 1.8 thou/uL (1.20-3.40); #Neutrophils 5.6 thou/uL (1.40-6.50); %Basophils 0.7 % (0.0-1.0); %Eosinophils 3.6 % (0.0-10.0); %Lymphocytes 20.2 % (21.0-51.0); %Monocytes 11.4 % (0.0-10.0); %Neutrophils 64.2 % (42.0-75.0); Hemoglobin 13.3 g/dL (14.0-18.0); Mean Corpuscular HGB CONC 30.2 g/dL (32.0-36.0); Mean Corpuscular Hemoglobin 25.2 pg (27.0-31.0); Mean Corpuscular Volume 83.3 fL (78.0-98.0); Mean Platelet Volume 9.1 fL (7.4-10.4); Platelet Count 192 thou/uL (130-400); RBC Distribution Width 15.2 % (11.5-14.5); White Blood Cell (WBC) Count 8.8 thou/uL (4.8-10.8)
[2018-08-26 06:14] LABS: INR-International Normal Ratio 1.5; Prothrombin Time 18.1 SEC (12.0-14.7)
[2018-08-26 06:15] LABS: PTT 48.6 SEC (22.9-36.1)
[2018-08-26 06:33] LABS: ALT (SGPT) 27 U/L (8-55); AST (SGOT) 25 U/L (5-34); Albumin 3.1 g/dL (3.4-4.8); Alkaline Phosphatase 118 U/L (40-150); Anion Gap 17 mmol/L (10-20); BUN (Urea Nitrogen) 36 mg/dL (8.4-25.7); Bilirubin, Total 0.9 mg/dL (0.2-1.2); Calc. Creatinine Clearance 0 mL/min (70-130); Calcium 9.5 mg/dL (7.8-10.44); Carbon Dioxide 28 mmol/L (23-31); Chloride 101 mmol/L (98-107); Estimated GFR-MDRD 6; Globulin 4.1 g/dL (2.4-3.5); Glucose 84 mg/dL (83-110); Lipase 109 U/L (8-78); Potassium 4.6 mmol/L (3.5-5.1); Protein, Total 7.2 g/dL (5.8-8.1); Sodium 141 mmol/L (136-145)
[2018-08-26] MEDS ORDERED: Morphine 2 MG/ML SYRINGE ONE (06:53)
[2018-08-26] MEDS ORDERED: Nitroglycerin 2% Ointment 1 INCH/1 GM Packet ONE (06:53)
--- NOTE | 2018-08-26 07:52 | CT ---
NONCONTRAST ABDOMEN AND PELVIS CT: Date: 08/26/18 COMPARISON: 08/23/18. 08/21/18 CT exam. INDICATION: Generalized abdominal pain. FINDINGS: Imaged lung bases reveal no interval acute findings. Multifocal cholelithiasis, in addition to excret ed contrast material within the gallbladder lumen present. Dystrophic calcification in the posterior segment of right hepatic lobe and granulomatous calcification of the spleen again demonstrated. Stabl e calcific density at the anteromedial right kidney, superior pole, remains. There are numerous bilat eral renal hypodensities, as well as presumed hyperdense cysts, incompletely evaluated on the basis o f noncontrast imaging. Residual enteric contrast is present within the colon. Small bowel is unopacif ied. Diffuse vascular disease is present. Osseous structures are stable appearing. There is evidence to indicate prior herniorrhaphy at the low abdominal wall. Moderate retained fecal material is seen w ithin the rectosigmoid colon with associated distention. IMPRESSION: 1. Redemonstration of cholelithiasis. 2. Moderately distended rectosigmoid colon by fecal material. There is associated wall prominence, n onspecific. Findings could either relate to a mural based lesion, hypertrophy or spasm of the colonic wall, or, alternatively, a developing stercoral colitis. There is a mild degree of perirectal fat st randing. Recommend clinical correlation in this regard, as well as appropriate clinical management an d follow-up. LO T. POS: INGRID
== END 2018-08-26 07:40 | disposition home or self-care (01) ==
LOC: ERS 05:07
DX: K62.89 Other specified diseases of anus and rectum (principal); R19.7 Diarrhea, unspecified; M10.9 Gout, unspecified; I11.0 Hypertensive heart disease with heart failure; I50.9 Heart failure, unspecified; E66.9 Obesity, unspecified; E78.5 Hyperlipidemia, unspecified; Z86.718 Personal history of other venous thrombosis and embolism; Z79.01 Long term (current) use of anticoagulants; Z79.891 Long term (current) use of opiate analgesic
CPT/HCPCS: 36415; 74176; 80053; 83690; 85025; 85610; 85730; 96372; J0500; J2270

== ENCOUNTER 2019-06-03 18:49 | Inpatient (IN) | payer MEDICARE ==
[2019-06-03 19:43] VITALS: BMI 36.6
[2019-06-03] MEDS ORDERED: Ondansetron PF 4 MG/2 ML Vial IVP PRN (20:29)
[2019-06-03] MEDS ORDERED: Senokot S 8.6-50 MG TAB PO PRN (20:34)
--- NOTE | 2019-06-03 20:42 | PDOC.HHP ---
Hospitalist HPI - History of Present Illness Bilateral hip pain History of Present Illness: Mr Estevez is 78 y/o with h/o ESRD on HD, Osteomyelitis of the RLE, who presented to [place] [facility] ER with c/o bilateral hip pain with associated "boils" He states that the boils appeared 1-2 weeks ago and he was initiated on IV abx ( just one dose) with oral abx that he was given for home. He has been complaint with meds yet boils has been progressive and even more painful. He was told that this was staph infection. Patient is non ambulatory and uses a wheelchair. He denies any fever or chills. Hospitalist ROS - Review of Systems Skin: reports: lesions, bruising Neurological: reports: weakness All other systems reviewed; all pertinent +/- noted in HPI/Subj Hospitalist History - Past Medical History Cardiac: reports: CHF, HTN, Hyperlipidemia Pulmonary: reports: congestive heart failure Gastrointestinal: reports: Constipation Renal/: reports: Other (ESRD) - Past Surgical History Other Surgical History: Lap exp due to SBO Fistula creation s/p thrombectomy - Family History Family History: reports: hypertension - Social History Smoking Status: Former smoker Alcohol: reports: None Living Situation: With Family Activity level: wheelchair bound - Exam General Appearance: NAD, awake alert Eye: PERRL, anicteric sclera ENT: normocephalic atraumatic Neck: supple, symmetric Respiratory: CTAB, no wheezes Gastrointestinal: soft, non-tender, non-distended Extremities: no cyanosis, no clubbing Skin - other findings: Bilateral hip with indurated, fluctuance nodules, tender , multiple, erythem Neurological: no focal deficits Musculoskeletal: generalized weakness Psychiatric: normal affect, normal behavior, oriented to place, oriented to time Hospitalist Results - Labs Lab results: Labs pending Hospitalist H&P A/P - Plan Plan: Mr. Estevez is 78y/o male pw bilateral hip due to multiple fluid collections. #Multiple fluid collection- likely abscess as demonstrated on CT pelvis at [facility]. Rule out blood filled. Doubt tophus. -H/o staph, did not respond to po antibiotics -repeat labs pending including culture & procalcitonin -patient mobilizes with powered wheel chair, lesions at the distribution of the sides of the chair perhaps contaminated area vs friction. -IV vancomycin with HD. Patient with multiple drug allergies, will consult ID for assistance. -hard stick and no IV access, consult picc team -Consult GS for possible drainage. #RLE open wound. Dressing intact -wound care consulted -H/o osteo #Atrial fibrillation/DVT-on OAC at home. -Check PT/INR -Resumed home dose of warfarin, with pharmacy to dose # ESRD on HD- consult cell plasterer for HD as scheduled. - Completed HD session today #H/o Gout- resume allopurinol. #Neuropathy- continue gabapentin #H/o chronic constipation- continue laxatives DVT ppx- on coumadin Patient is full code. His daughter is NOK
[2019-06-03] MEDS ORDERED: Vancomycin Sliding Scale 1 EACH FS ONE (20:45)
[2019-06-03] MEDS ORDERED: Vancomycin HCl 1.25 GM in Sodium Chloride 0.9% 250 ML 250 ML IVPB SCH (20:45)
[2019-06-03] MEDS ORDERED: Vancomycin HCl 750 MG in Sodium Chloride 0.9% 250 ML 250 ML IVPB SCH (20:45)
[2019-06-03] MEDS ORDERED: Vancomycin HCl 1.5 GM in Sodium Chloride 0.9% 250 ML 300 ML IVPB SCH (20:45)
[2019-06-03] MEDS ORDERED: HOLD VANCOMYCIN FOR LEVEL >20 FS SCH (20:45)
[2019-06-03] MEDS ORDERED: Vancomycin HCl 1 GM in Premix Bag 1 BAG IVPB SCH (20:45)
[2019-06-03] MEDS ORDERED: Vancomycin 1.5 GRAM/300 ML BAG 1.5 GM in Premix Bag 1 BAG IVPB SCH (21:00)
[2019-06-03 21:43] LABS: ALT (SGPT) 20 U/L (8-55); AST (SGOT) 30 U/L (5-34); Albumin 2.7 g/dL (3.4-4.8); Alkaline Phosphatase 128 U/L (40-110); Anion Gap 15 mmol/L (10-20); BUN (Urea Nitrogen) 13 mg/dL (8.4-25.7); Bilirubin, Total 0.5 mg/dL (0.2-1.2); Calc. Creatinine Clearance 19 mL/min (70-130); Calcium 9.7 mg/dL (7.8-10.44); Carbon Dioxide 33 mmol/L (23-31); Chloride 95 mmol/L (98-107); Estimated GFR-MDRD 11; Globulin 4.2 g/dL (2.4-3.5); Glucose 117 mg/dL (83-110); Potassium 3.7 mmol/L (3.5-5.1); Protein, Total 6.9 g/dL (5.8-8.1); Sodium 139 mmol/L (136-145)
[2019-06-03] MEDS: Gabapentin 300 MG CAP PO SCH (22:03)
[2019-06-03] MEDS: Rosuvastatin 20 MG TAB PO SCH (22:03)
[2019-06-03 22:25] LABS: Prothrombin Time 51.1 SEC (12.0-14.7)
[2019-06-03 22:37] LABS: INR-International Normal Ratio 5.7
--- NOTE | 2019-06-03 22:44 | PDOC.EVN ---
Event Note - Event Note Event Note: Patient with a INR of 5.7. Contacted Dr. Granados, we will stop coumadin and recheck INR in the AM.
[2019-06-04] MEDS ORDERED: traMADol HCl 50 MG TAB PO PRN (00:37)
[2019-06-04 05:28] LABS: Prothrombin Time 47.2 SEC (12.0-14.7)
[2019-06-04 05:29] LABS: PTT 96.4 SEC (22.9-36.1)
[2019-06-04 05:39] LABS: INR-International Normal Ratio 5.2
[2019-06-04 05:43] LABS: Anion Gap 15 mmol/L (10-20); BUN (Urea Nitrogen) 15 mg/dL (8.4-25.7); Calc. Creatinine Clearance 17 mL/min (70-130); Calcium 8.9 mg/dL (7.8-10.44); Carbon Dioxide 30 mmol/L (23-31); Chloride 96 mmol/L (98-107); Estimated GFR-MDRD 10; Glucose 79 mg/dL (83-110); Potassium 4.9 mmol/L (3.5-5.1); Sodium 136 mmol/L (136-145)
[2019-06-04 05:45] LABS: #Eosinphils 0.2 thou/uL (0.0-0.7); #Lymphocytes 1.9 thou/uL (1.20-3.40); %Basophils 0.6 % (0.0-1.0); %Eosinophils 3.1 % (0.0-10.0); %Monocytes 14.3 % (0.0-10.0); Hemoglobin 12.4 g/dL (14.0-18.0); Mean Corpuscular HGB CONC 31.1 g/dL (32.0-36.0); Mean Corpuscular Volume 80.5 fL (78.0-98.0); Mean Platelet Volume 11.2 fL (7.4-10.4); Platelet Count 221 thou/uL (130-400); RBC Distribution Width 14.9 % (11.5-14.5); Red Blood Cell (RBC) Count 4.94 mill/uL (4.70-6.10); White Blood Cell (WBC) Count 7.2 thou/uL (4.8-10.8)
[2019-06-04] MEDS ORDERED: Artificial Tears 18 DROP/0.9 ML EA EYE PRN (07:43)
[2019-06-04] MEDS ORDERED: Ondansetron ODT 4 MG TAB PO PRN (07:43)
[2019-06-04] MEDS ORDERED: Diabetic Tussin 200 MG/10 ML UDCUP PO PRN (07:43)
[2019-06-04] MEDS ORDERED: hydrALAZINE 20 MG/ML VIAL SLOW IVP PRN (07:43)
[2019-06-04] MEDS ORDERED: Cepastat Lozenges 1 LOZ PO PRN (07:43)
[2019-06-04] MEDS ORDERED: Calcium Carbonate 500 MG ChewTAB PO PRN (07:43)
[2019-06-04] MEDS ORDERED: Sodium Chloride 0.65% Nasal 44 ML BOT EA NARE PRN (07:43)
[2019-06-04] MEDS ORDERED: Zolpidem Tartrate 5 MG TAB PO PRN (07:43)
[2019-06-04] MEDS ORDERED: Loperamide HCl 2 MG CAP PO PRN (07:43)
[2019-06-04] MEDS ORDERED: Loratadine 10 MG TAB PO PRN (07:43)
[2019-06-04] MEDS ORDERED: HYDROcodone/Acetaminophen 5/325 mg Tablet PO PRN (07:43)
--- NOTE | 2019-06-04 08:30 | CON ---
DATE OF CONSULTATION: 06/04/2019 CHIEF COMPLAINT: Bilateral hip infection. HISTORY OF PRESENT ILLNESS: This is an 78-year-old male with a history of end-stage renal disease, who is on maintenance hemodialysis, who presents with a few week history of pain and swelling in the bilateral hip, subcutaneous tissue. He was on oral antibiotics as an outpatient, admitted for failure of this to improve, placed on IV antibiotics overnight. He already notes mild improvement. He notes no pain at rest, it hurts to touch. No fevers or chills. Reportedly, a head CT at an outside institution, I do not have access to that here. PAST MEDICAL HISTORY: Includes CHF; hypertension; hyperlipidemia; end-stage renal disease. PAST SURGICAL HISTORY: Includes exploratory laparotomy for small-bowel obstruction, fistula creation in right arm. SOCIAL HISTORY: Former smoker. No alcohol. Lives at home with family. REVIEW OF SYSTEMS: Otherwise, negative unless described above. PHYSICAL EXAMINATION: VITAL SIGNS: His pulse is 64, respirations are 18, and he is afebrile. HEENT: Sclerae anicteric. Oropharynx clear. NECK: No lymphadenopathy. CHEST: Clear. HEART: Regular rate. ABDOMEN: Soft. Well-healed incisions without obvious hernia. MUSCULOSKELETAL: Examination of his hips reveals point tenderness, nodular type changes to the bilateral lateral hips. There are small areas of potential fluctuance. LABORATORY DATA: White cell count is 7, hemoglobin is 12, platelet count is 221. Creatinine today 6.4, sodium 136, and potassium 4.9. ASSESSMENT: Bilateral hip nodular type change, could be consistent with cellulitis and abscess. I do not have the outside CT to review. PLAN: I agree with having Dr. Fontanez involved as well as pure culture operator, could this represent calciphylaxis? We will follow with you. May need to dose his IV antibiotics during dialysis given his lack of IV access. His only option for access would be in the groin. Job ID: [id number]
[2019-06-04] MEDS: Polyethylene Glycol 3350 17 GM Packet PO SCH (08:44)
[2019-06-04] MEDS: Allopurinol 100 MG TAB PO SCH (08:45)
[2019-06-04] MEDS: Famotidine 20 MG TAB PO SCH (08:45)
--- NOTE | 2019-06-04 11:06 | PDOC.HOSPP ---
- Subjective Encounter Date: 06/04/19 Encounter Time: 08:40 Subjective: Patient seen and examined. No new complaints. No overnight events - Objective Vital Signs & Weight: Vital Signs (12 hours) Temp Pulse Resp BP Pulse Ox 06/04/19 08:41 94 L 06/04/19 07:54 97.6 F 64 18 108/70 94 L 06/04/19 04:00 97.9 F 70 18 111/68 92 L 06/04/19 00:00 98.3 F 80 18 120/73 93 L Weight Weight 293 lb Result Diagrams: 06/04/19 05:01 06/04/19 05:01 Hospitalist ROS - Review of Systems ENT: denies: ear pain, ear discharge, nose pain, nose discharge, nose congestion , mouth pain, mouth swelling, throat pain, throat swelling, other Respiratory: denies: cough, dry, shortness of breath, hemoptysis, SOB with excertion, pleuritic pain, sputum, wheezing, other Cardiovascular: denies: chest pain, palpitations, orthopnea, paroxysmal noc. dyspnea, edema, light headedness, other Gastrointestinal: denies: nausea, vomiting, abdominal pain, diarrhea, constipation, melena, hematochezia, other Genitourinary: denies: dysuria, frequency, incontinence, hematuria, retention, other Musculoskeletal: reports: leg pain. denies: neck pain, shoulder pain, arm pain , back pain, hand pain, foot pain, other - Medication Medications: Active Medications Generic Name Dose Route Start Last Admin Trade Name Freq PRN Reason Stop Dose Admin Allopurinol 100 mg 06/04/19 09:00 06/04/19 08:45 Zyloprim PO 100 mg DAILY BENNIE Administration Cholecalciferol 1,000 units 06/04/19 09:00 06/04/19 08:45 Vitamin D3 PO 1,000 units DAILY BENNIE Administration Famotidine 20 mg 06/04/19 09:00 06/04/19 08:45 Pepcid PO 20 mg DAILY BENNIE Administration Gabapentin 300 mg 06/03/19 21:00 06/03/19 22:03 Neurontin PO 300 mg HS BENNIE Administration Polyethylene Glycol 17 gm 06/04/19 09:00 06/04/19 08:44 Miralax PO Not Given DAILY BENNIE Rosuvastatin Calcium 20 mg 06/03/19 21:00 06/03/19 22:03 Crestor PO 20 mg HS BENNIE Administration - Exam General Appearance: NAD, awake alert Eye: PERRL, anicteric sclera ENT: normocephalic atraumatic, no oropharyngeal lesions Neck: supple, symmetric, no JVD Heart: RRR, no murmur, no gallops, no rubs Respiratory: CTAB, no wheezes, no rales, no ronchi Gastrointestinal: soft, non-tender, non-distended, normal bowel sounds Extremities - other findings: wound over right leg and hip Skin: normal turgor Neurological: no focal deficits Musculoskeletal: normal tone, normal strength Psychiatric: normal affect, normal behavior Hosp A/P (1) Dyslipidemia Code(s): E78.5 - HYPERLIPIDEMIA, UNSPECIFIED Status: Chronic (2) ESRD (end stage renal disease) on dialysis Code(s): N18.6 - END STAGE RENAL DISEASE; Z99.2 - DEPENDENCE ON RENAL DIALYSIS Status: Chronic (3) Gout Code(s): M10.9 - GOUT, UNSPECIFIED Status: Chronic (4) History of deep venous thrombosis or pulmonary embolus Code(s): JEN8550 - Status: Chronic (5) Hypertension Code(s): I10 - ESSENTIAL (PRIMARY) HYPERTENSION Status: Chronic (6) Osteoarthritis Code(s): M19.90 - UNSPECIFIED OSTEOARTHRITIS, UNSPECIFIED SITE Status: Chronic (7) Physical deconditioning Code(s): R53.81 - OTHER MALAISE Status: Chronic (8) Secondary hyperparathyroidism of renal origin Code(s): N25.81 - SECONDARY HYPERPARATHYROIDISM OF RENAL ORIGIN Status: Chronic (9) Coagulopathy Status: Acute Plan: due to warfarin (10) Chronic anticoagulation Code(s): Z79.01 - [employer] EMPLOYEE (CURRENT) USE OF ANTICOAGULANTS Status: Chronic - Plan old records reviewed/req, continue antibiotics 06/04/19- continue vancomycin, wound care, continue HD as per nephrology, medication reviewed and continue to provide symptomatic treatment, home medication reconciled, hold warfarin and monitor inr, surgeon recommendation noted.
--- NOTE | 2019-06-04 13:45 | CON ---
DATE OF CONSULTATION: HISTORY OF PRESENT ILLNESS: Mr. Estevez is an 78-year-old black male with known history of ESRD and admitted for ? of abscess on both hip joint sites. He has received p.r.n. IV antibiotics. This patient has been receiving IV antibiotics at the dialysis and it seems that the lesions are not improving. The concern is that whether this may be a calciphylaxis or not. The lesions on examination today looks dry, but very tender on palpation. We are also following up this patient for his management of his ESRD. He did receive dialysis yesterday and is due for dialysis this coming . According to the patient, his wound seems to be getting better, but it is noted to be very tender. The patient was also seen at the ER in [place] and was subsequently transferred here. REVIEW OF SYSTEMS: Positive for tenderness on the nodular lesions of both bilateral hip joints. No nausea. No vomiting. Appetite and energy level are fair. No hematochezia. No melena. No hematemesis. No syncopal episode. No fever or chills. No gross hematuria. No diarrhea. No constipation. MEDICATIONS: On June 04, 2019; 1. Kelso 5/325 q.6. 2. Zyloprim 100 mg daily. 3. Tums 1000 mg q.4 p.r.n. 4. Vitamin D3 of 1000 international units daily. 5. Pepcid 20 mg once a day. 6. Gabapentin 300 mg at bedtime. 7. Imodium p.r.n. 8. Status post vancomycin. 9. Status post Ancef. PAST MEDICAL HISTORY: 1. ESRD - on maintenance hemodialysis 3 times a week. 2. Status post CHF. 3. Status post DVT. 4. Hypertension. 5. Morbid obesity. 6. Gout. 7. History of chronic hypotension, previously on midodrine. 8. Status post thrombosis of left upper extremity, AV fistula. PAST SURGICAL HISTORY: Status post bowel resection, status post cardiac cath, status post exploratory laparotomy, status post cuffed dialysis catheter placement, and status post AV fistula placement. ALLERGIES: CLINDAMYCIN, RASH; AMOXICILLIN AND PENICILLIN - NAUSEA, DIARRHEA. TRAUMA: None. IMMUNIZATIONS: Up-to-date. HOSPITALIZATIONS: Please see past medical history. FAMILY HISTORY: No family history of ESRD. SOCIAL HISTORY: The patient is single/. Lives in [place]. Several children. Sedentary lifestyle. No IV drug abuse. No tobacco or alcohol use. Status post blood transfusion. PHYSICAL EXAMINATION: VITAL SIGNS: Blood pressure is 138/76, heart rate 65, respiratory rate 17, temperature 97.6, and pulse ox 94%. GENERAL: He is awake, supine, comfortable, morbidly obese. SKIN: Adequate turgor. HEENT: Pinkish conjunctivae. Anicteric sclerae. NECK: No neck mass. No carotid bruits. No JVD. CHEST: No deformities. LUNGS: Clear breath sounds. No wheezing. No crackles. HEART: Normal sinus rhythm. No murmurs. No gallops. No rubs. ABDOMEN: Globular, soft, and nontender. No masses. EXTREMITIES: No edema. No deformities. MUSCULOSKELETAL: Hip joint area - he has nodular lesions that are closed and is not draining. It is very tender on palpation. LABORATORY DATA: Laboratories of June 04, 2019; white count 7.2, hemoglobin 12.4. Sodium 136, potassium 4.9, chloride 96, carbon dioxide 30, BUN 15, creatinine 6.43, glucose 79, and calcium 8.9. ASSESSMENT AND PLAN: Nodular lesions on bilateral hip area - very suspicious for the possibility of calciphylaxis. We can consider empiric sodium thiosulfate with this patient at 25 g IV every dialysis for several months. We will await input from the infectious disease doctor. From my recollection, this patient has had received IV antibiotics in the past. Surgery has evaluated the lesion and agreed to a conservative management in consideration for calciphylaxis. We will be rechecking CBC, basic metabolic panel, phosphorus and intact PTH in a.m. Job ID: [id number]
[2019-06-04] MEDS ORDERED: Warfarin Sodium 5 MG TAB PO SCH (17:00)
[2019-06-04] MEDS: Rosuvastatin 20 MG TAB PO SCH (20:04)
[2019-06-04] MEDS: Gabapentin 300 MG CAP PO SCH (20:04)
[2019-06-05 06:12] LABS: #Eosinphils 0.2 thou/uL (0.0-0.7); #Lymphocytes 1.5 thou/uL (1.20-3.40); #Monocytes 0.9 thou/uL (0.11-0.59); #Neutrophils 3.9 thou/uL (1.40-6.50); %Basophils 0.7 % (0.0-1.0); %Eosinophils 3.2 % (0.0-10.0); %Monocytes 14.1 % (0.0-10.0); %Neutrophils 59.1 % (42.0-75.0); Hemoglobin 13.1 g/dL (14.0-18.0); Mean Corpuscular HGB CONC 30.7 g/dL (32.0-36.0); Mean Corpuscular Hemoglobin 25.3 pg (27.0-31.0); Mean Corpuscular Volume 82.4 fL (78.0-98.0); Platelet Count 216 thou/uL (130-400); RBC Distribution Width 14.9 % (11.5-14.5); Red Blood Cell (RBC) Count 5.19 mill/uL (4.70-6.10); White Blood Cell (WBC) Count 6.6 thou/uL (4.8-10.8)
[2019-06-05 07:34] LABS: Chloride 97 mmol/L (98-107); Potassium 4.3 mmol/L (3.5-5.1); Sodium 137 mmol/L (136-145)
[2019-06-05 07:35] LABS: Calcium 9.4 mg/dL (7.8-10.44); Glucose 74 mg/dL (83-110)
[2019-06-05 07:37] LABS: Anion Gap 16 mmol/L (10-20); Carbon Dioxide 28 mmol/L (23-31)
[2019-06-05 07:39] LABS: BUN (Urea Nitrogen) 24 mg/dL (8.4-25.7); Calc. Creatinine Clearance 13 mL/min (70-130); Estimated GFR-MDRD 7; Phosphorus 6.1 mg/dL (2.3-4.7)
[2019-06-05] MEDS: Famotidine 20 MG TAB PO SCH (08:22)
[2019-06-05] MEDS: Polyethylene Glycol 3350 17 GM Packet PO SCH (08:22)
[2019-06-05] MEDS: Allopurinol 100 MG TAB PO SCH (08:22)
[2019-06-05 09:43] LABS: Vancomycin, Random 15.7 ug/mL (See Comment)
--- NOTE | 2019-06-05 10:14 | PRG ---
DATE OF SERVICE: 06/05/2019 SUBJECTIVE: Mr. Estevez is an 78-year-old black male, who was admitted for the subcutaneous nodular lesions of the bilateral hip. He has been empirically treated with antibiotics in the past with no improvement. He describes these nodular lesions as painful. The surgeon has evaluated this patient in a feeling that this might be suspicious for calciphylaxis. We are following up this patient for the possible calciphylaxis as well as for management of his dialysis. No new complaints today. He tells me he is feeling better. The pain is less. OBJECTIVE: VITAL SIGNS: Blood pressure is 135/52, heart rate 63, respiratory rate 20, temperature 97.6, pulse ox 95%. GENERAL: Noted to be awake, alert, comfortable, not in overt distress. SKIN: Adequate turgor. HEENT: He has a pinkish conjunctivae. Anicteric sclerae. NECK: No neck mass. No carotid bruits. No JVD. CHEST: No deformities. LUNGS: Clear breath sounds. No wheezing. No crackles. HEART: Normal sinus rhythm. No murmur. No gallops. No rubs. ABDOMEN: Globular, soft, nontender. No masses. EXTREMITIES: No edema. No deformities. He has some continuous multiple nodules on the left hip joint and right hip joint. No complaints of chest pain or shortness of breath. MEDICATIONS: Medications of June 05, 2019, reviewed. LABORATORY DATA: Laboratories of June 05, 2019; white count 6.6, hemoglobin 13.1, hematocrit 42.8. Sodium 137, potassium 4.3, chloride 97, carbon dioxide 28, BUN 24, creatinine 8.58, glucose 74, calcium 9.4, PTH 252, phosphorus 6.1. ASSESSMENT AND PLAN: 1. Subcutaneous nodular lesions of the hip joint area - consideration for calciphylaxis. I have not excluded in starting him sodium thiosulfate 25 g IV every hemodialysis. I will re-evaluate him in a.m. 2. End-stage renal disease, stable. We will continue current 3 times a week hemodialysis. The patient has been scheduled on and Monday dialysis regimen. 3. Hyperphosphatemia - I will start this patient on Renvela at 1600 mg tablet t.i.d. 4. Mildly elevated PTH/secondary hyperparathyroidism. Start calcitriol 0.25 mcg tablet daily. Job ID: [id number]
--- NOTE | 2019-06-05 12:23 | PDOC.HOSPP ---
- Subjective Encounter Date: 06/05/19 Encounter Time: 12:21 Subjective: Reports that his pain is better. No N/V/D/C. - Objective Vital Signs & Weight: Vital Signs (12 hours) Temp Pulse Resp BP Pulse Ox 06/05/19 07:27 95 06/05/19 07:26 97.6 F 63 20 135/52 L 95 06/05/19 03:45 97.5 F L 66 16 144/81 H 93 L Weight Admit Weight 293 lb Weight 293 lb I&O: 06/04/19 06/05/19 06/06/19 06:59 06:59 06:59 Intake Total 1080 Balance 1080 Result Diagrams: 06/05/19 05:55 06/05/19 07:02 Hospitalist ROS - Medication Medications: Active Medications Generic Name Dose Route Start Last Admin Trade Name Ivory PRN Reason Stop Dose Admin Allopurinol 100 mg 06/04/19 09:00 06/05/19 08:22 Zyloprim PO 100 mg DAILY BENNIE Administration Cholecalciferol 1,000 units 06/04/19 09:00 06/05/19 08:22 Vitamin D3 PO 1,000 units DAILY BENNIE Administration Famotidine 20 mg 06/04/19 09:00 06/05/19 08:22 Pepcid PO 20 mg DAILY BENNIE Administration Gabapentin 300 mg 06/03/19 21:00 06/04/19 20:04 Neurontin PO 300 mg HS BENNIE Administration Polyethylene Glycol 17 gm 06/04/19 09:00 06/05/19 08:22 Miralax PO Not Given DAILY BENNIE Rosuvastatin Calcium 20 mg 06/03/19 21:00 06/04/19 20:04 Crestor PO 20 mg HS BENNIE Administration - Exam Heart: RRR, no murmur, no gallops Respiratory: CTAB, no wheezes, no rales Gastrointestinal: soft, non-tender, non-distended, normal bowel sounds Gastrointestinal - other findings: obese Hosp A/P (1) Boils Status: Acute Plan: Nephrology and surgery on board Suspicion for calciphylaxis On IV vanco (2) Dyslipidemia Code(s): E78.5 - HYPERLIPIDEMIA, UNSPECIFIED Status: Chronic Plan: Statin therpay (3) ESRD (end stage renal disease) on dialysis Code(s): N18.6 - END STAGE RENAL DISEASE; Z99.2 - DEPENDENCE ON RENAL DIALYSIS Status: Chronic Plan: Dialysis as per nephrology (4) Gout Code(s): M10.9 - GOUT, UNSPECIFIED Status: Chronic Qualifiers: Gout site: unspecified site Gout etiology: unspecified cause Chronicity: chronic Presence of tophus: without tophus Qualified Code(s): M1A.9XX0 - Chronic gout, unspecified, without tophus (tophi) Plan: Stable. Continue allopurinol (5) Secondary hyperparathyroidism of renal origin Code(s): N25.81 - SECONDARY HYPERPARATHYROIDISM OF RENAL ORIGIN Status: Chronic Plan: Renal on board On phosphate binders
[2019-06-05 13:11] LABS: INR-International Normal Ratio 3.5; Prothrombin Time 35.1 SEC (12.0-14.7)
[2019-06-05] MEDS: Sevelamer Carbonate 800 MG TAB PO SCH ×2 (14:00→18:52)
--- NOTE | 2019-06-05 15:17 | CON ---
DATE OF CONSULTATION: REASON FOR VISIT: Skin lesions. HISTORY OF PRESENT ILLNESS: An 78-year-old history of gout, ischemic cardiomyopathy, hypertension, and end-stage renal disease, on hemodialysis for the past year through an AV fistula in the right upper extremity. Also history of DVT, who developed inflammatory nodules in the skin of the lower extremities proximal aspect. He also had an open wound in the right lower leg, this has been going on for the past 3 to 4 weeks. The patient was given antimicrobial therapy without improvement, so end up admitted. No headaches, visual symptoms, sore throat, odynophagia, dysphagia. No dyspnea or chest pain or cough. No abdominal pain. Does not have urine output. No diarrhea or bleeding or constipation. No neurological symptoms. PAST MEDICAL HISTORY: Hypertension; cardiomyopathy, probably ischemic; end- stage renal disease of unclear etiology; DVT; gout; hyperlipidemia; AV fistula for dialysis, right upper extremity. PAST SURGICAL HISTORY: His surgical history also, he had dialysis access placement and removal. He had a partial resection of colon, it is not clear the reason for that. SOCIAL HISTORY: Lives in [place]. Never smoker. Retired. Lives with one family member. ALLERGIES: AMOXICILLIN WITH DIARRHEA. CLINDAMYCIN WITH HIVES. FAMILY HISTORY: Noncontributory. CURRENT MEDICATION: 1. P.r.n. medication, Pepcid. 2. Neurontin. 3. Claritin. 4. Vancomycin. 5. Sliding scale. 6. Crestor. 7. MiraLAX. 8. Renvela. 9. Ultram. PHYSICAL EXAMINATION: VITAL SIGNS: T-max 98.3, blood pressure 130/52, pulse 63, respirations 16 to 20 , O2 saturation 95. SKIN: Shows the patient has those areas of nodular inflammatory change in the lateral aspect of both right and left thighs. The skin overlying those areas is intact, but the underlying circumscribed induration is present, which is quite tender to palpation. There is moderate erythema associated around this discrete nodularities. There is about 4 or 5 in the left side and two on the right. The patient also has an open ulceration in the anterior right leg with somewhat necrotic base and cultures were submitted from this area. The patient has a functioning AV fistula in the right upper extremity and peripheral IV access in the left forearm. No lymphadenopathy. HEENT: Ocular movements conjugate. Sclerae are dia colour. Pupils are equal. Arcus senilis noted. Oral cavity with no remaining stebbins teeth. No oral mucosal lesions noted. NECK: Supple. No jugular vein distention or carotid bruits. LUNGS: Symmetric, clear breath sounds. HEART: S1 and S2, regular rate. No S3 or S4. ABDOMEN: Soft, nondistended or tender. No ascites. No bladder distention. EXTREMITIES: No joint inflammatory activity. He is able to move extremities with some limitation because of the painful nodularity. NEURO: He is awake, oriented, follows commands. Recollection is preserved. Speech seems to be intact. LABORATORY DATA: White cell count is 7.2 and 6.6, hemoglobin 12.4 and 13, and platelets 216 with 56% neutrophils. INR is 5.7. Coumadin was withheld and now it is 3.5. Sodium 139, creatinine 5.83, calcium is 9.7, and phosphorus 6.1, alkaline phosphatase 128, albumin 2.7. Procalcitonin 0.34. PTH was 252.6. IMAGING STUDIES: I do not see any recent imaging studies. He had an abdomen and pelvis CT from August of this year, which showed cholelithiasis and distended rectosigmoid colon with fecal material. ASSESSMENT: 1. Hypertension, cardiomyopathy, probably ischemic, end-stage renal disease of uncertain etiology, on hemodialysis for the past year. 2. Inflammatory nodules in lateral aspect of right and left thigh. 3. Hyperphosphatemia with normal calcium and elevated PTH. DISCUSSION: Differential diagnosis includes calciphylaxis as the more likely scenario. Superficial thrombophlebitis is less likely. Skin abscess is less likely in view of the relative symmetry of lesions and the lack of response to antimicrobial therapy, other forms of panniculitis, including autoimmune and mycobacterial to be considered as well depending on biopsy results. The options for management now would be a skin biopsy with surgical consultation to diagnose calciphylaxis. The treatment is basically improving with the calcium-phosphorus product, some patients require parathyroidectomy. Job ID: [id number] [facility]
[2019-06-05] MEDS ORDERED: Warfarin Sodium 2.5 MG TAB PO SCH (17:00)
[2019-06-05] MEDS: Rosuvastatin 20 MG TAB PO SCH (20:24)
[2019-06-05] MEDS: Gabapentin 300 MG CAP PO SCH (20:24)
[2019-06-06 06:41] LABS: #Eosinphils 0.2 thou/uL (0.0-0.7); #Lymphocytes 1.7 thou/uL (1.20-3.40); #Monocytes 0.9 thou/uL (0.11-0.59); #Neutrophils 5.1 thou/uL (1.40-6.50); %Basophils 0.4 % (0.0-1.0); %Lymphocytes 21.5 % (21.0-51.0); %Monocytes 10.8 % (0.0-10.0); %Neutrophils 64.3 % (42.0-75.0); Hemoglobin 12.8 g/dL (14.0-18.0); Mean Corpuscular HGB CONC 30.6 g/dL (32.0-36.0); Mean Corpuscular Hemoglobin 24.4 pg (27.0-31.0); Mean Corpuscular Volume 79.9 fL (78.0-98.0); Mean Platelet Volume 8.6 fL (7.4-10.4); Platelet Count 223 thou/uL (130-400); RBC Distribution Width 14.5 % (11.5-14.5); Red Blood Cell (RBC) Count 5.25 mill/uL (4.70-6.10); White Blood Cell (WBC) Count 7.9 thou/uL (4.8-10.8)
[2019-06-06 07:02] LABS: INR-International Normal Ratio 2.8; Prothrombin Time 29.4 SEC (12.0-14.7)
[2019-06-06 07:03] LABS: ALT (SGPT) 15 U/L (8-55); AST (SGOT) 27 U/L (5-34); Albumin 2.5 g/dL (3.4-4.8); Alkaline Phosphatase 121 U/L (40-110); Anion Gap 18 mmol/L (10-20); BUN (Urea Nitrogen) 37 mg/dL (8.4-25.7); Bilirubin, Total 0.4 mg/dL (0.2-1.2); Calc. Creatinine Clearance 11 mL/min (70-130); Calcium 9.1 mg/dL (7.8-10.44); Carbon Dioxide 30 mmol/L (23-31); Chloride 94 mmol/L (98-107); Estimated GFR-MDRD 6; Globulin 4.2 g/dL (2.4-3.5); Glucose 91 mg/dL (83-110); Potassium 4.5 mmol/L (3.5-5.1); Protein, Total 6.7 g/dL (5.8-8.1); Sodium 137 mmol/L (136-145)
[2019-06-06 07:12] LABS: Vancomycin, Random 15.5 ug/mL (See Comment)
--- NOTE | 2019-06-06 08:14 | PDOC.EVN ---
Event Note - Event Note Event Note: Saw Dr. Fontanez note. Plan biopsy in OR tomorrow
[2019-06-06] MEDS: Sevelamer Carbonate 800 MG TAB PO SCH ×3 (08:21→15:11)
[2019-06-06] MEDS: Calcitriol 0.25 MCG CAP PO SCH (08:21)
[2019-06-06] MEDS: Allopurinol 100 MG TAB PO SCH (08:21)
[2019-06-06] MEDS: Famotidine 20 MG TAB PO SCH (08:21)
[2019-06-06] MEDS: Polyethylene Glycol 3350 17 GM Packet PO SCH (08:25)
[2019-06-06 09:10] LABS: HBSAg Index 0.12 S/CO (0-0.99); Hep B Surf Ag Non-Reactive S/CO (NonReactive)
[2019-06-06] MEDS: Floranex Packet PO SCH (10:52)
--- NOTE | 2019-06-06 12:06 | PRG ---
DATE OF SERVICE: 06/06/2019 SUBJECTIVE: Mr. Estevez is an 78-year-old black male with ESRD - maintenance hemodialysis. He was admitted due to pain on the bilateral hip joint area. He has numerous subcutaneous nodules. Initially, he received IV antibiotics in dialysis as well as p.o. from his PCP. However, it remained unimproved. This was examined by Surgery and the feeling is that this could be a calciphylaxis. I did re-examine the patient's subcutaneous nodules and they were painful on palpation. Again, I agree that is most likely a calciphylaxis. He is currently undergoing dialysis today. I have decided to initiate sodium thiosulfate with this patient for the calciphylaxis. We will hold off the biopsy due to the fact that if this is calciphylaxis, the biopsy site usually does not heal well. OBJECTIVE: VITAL SIGNS: Blood pressure is 104/68, heart rate 68, respiratory rate 18, temperature 97.2, and pulse ox 95%. GENERAL: Awake, alert, and comfortable, not in distress. SKIN: Adequate turgor. HEENT: Pinkish conjunctivae. Anicteric sclerae. NECK: No neck mass. No carotid bruits. No JVD. CHEST: No deformities. LUNGS: Clear breath sounds. No wheezing. No crackles. HEART: Normal sinus rhythm. No murmur. No gallops. No rubs. ABDOMEN: Globular, soft, and nontender. No masses. EXTREMITIES: Hip joint area positive for subcutaneous nodules. Positive for tenderness on deep palpation. MEDICATIONS: Medications of June 06, 2019, reviewed. LABORATORY DATA: Laboratories of June 06, 2019, white count 7.9 and hemoglobin 12.8. Sodium 137, potassium 4.5, chloride 94, carbon dioxide 30, BUN 37, creatinine 10.4, calcium 9.1, and albumin 2.5. ASSESSMENT AND PLAN: 1. Renal osteodystrophy. Due to the possibility of calciphylaxis. Continue to optimize control of his phosphorus and PTH. 2. Calciphylaxis - presumptive diagnosis. Start sodium thiosulfate 25 g IV every hemodialysis x3 months. We will hold off skin biopsy. 3. Chronic anemia. No indication for any Epogen. 4. Agree with current management. Job ID: [id number]
--- NOTE | 2019-06-06 16:04 | PDOC.HOSPP ---
- Subjective Encounter Date: 06/06/19 Encounter Time: 16:04 Subjective: Pt. underwent dialysis today. Reports pain is well controlled. No N/V. Asking for food as he didn't get lunch due to dialysis today. - Objective Vital Signs & Weight: Vital Signs (12 hours) Temp Pulse Resp BP Pulse Ox 06/06/19 08:00 97.2 F L 68 18 104/68 95 Weight Admit Weight 293 lb Weight 293 lb I&O: 06/05/19 06/06/19 06/07/19 06:59 06:59 06:59 Intake Total 1080 1200 Balance 1080 1200 Result Diagrams: 06/06/19 06:20 06/06/19 06:20 Hospitalist ROS - Medication Medications: Active Medications Generic Name Dose Route Start Last Admin Trade Name Freq PRN Reason Stop Dose Admin Acidophilus 1 gm 06/06/19 09:00 06/06/19 10:52 Floranex PO Not Given DAILY BENNIE Allopurinol 100 mg 06/04/19 09:00 06/06/19 08:21 Zyloprim PO 100 mg DAILY BENNIE Administration Calcitriol 0.25 mcg 06/06/19 09:00 06/06/19 08:21 Rocaltrol PO 0.25 mcg DAILY BENNIE Administration Cholecalciferol 1,000 units 06/04/19 09:00 06/06/19 08:21 Vitamin D3 PO 1,000 units DAILY BENNIE Administration Gabapentin 300 mg 06/03/19 21:00 06/05/19 20:24 Neurontin PO 300 mg HS BENNIE Administration Vancomycin HCl 750 mg/ Sodium 250 mls @ 250 mls/hr 06/03/19 20:45 06/06/19 13 :25 Chloride IVPB 250 mls WILLCALL BENNIE Administration Polyethylene Glycol 17 gm 06/04/19 09:00 06/06/19 08:25 Miralax PO 17 gm DAILY BENNIE Administration Rosuvastatin Calcium 20 mg 06/03/19 21:00 06/05/19 20:24 Crestor PO 20 mg HS BENNIE Administration Sevelamer Carbonate 1,600 mg 06/05/19 12:00 06/06/19 15:11 Renvela PO 1,600 mg TID-WM BENNIE Administration Tramadol HCl 50 mg 06/04/19 00:37 06/06/19 15:11 Ultram PO 50 mg Q6H PRN Administration Moderate Pain (4-6) - Exam General Appearance: NAD, awake alert ENT: normocephalic atraumatic, no oropharyngeal lesions, moist mucosa Neck: supple, symmetric, no thyromegaly, no lymphadenopathy Heart: RRR, no murmur, no rubs Respiratory: CTAB, no wheezes, no rales, no ronchi, normal chest expansion Gastrointestinal: soft, non-tender, normal bowel sounds Hosp A/P (1) Boils Status: Acute (2) Dyslipidemia Code(s): E78.5 - HYPERLIPIDEMIA, UNSPECIFIED Status: Chronic (3) ESRD (end stage renal disease) on dialysis Code(s): N18.6 - END STAGE RENAL DISEASE; Z99.2 - DEPENDENCE ON RENAL DIALYSIS Status: Chronic (4) Gout Code(s): M10.9 - GOUT, UNSPECIFIED Status: Chronic Qualifiers: Gout site: unspecified site Gout etiology: unspecified cause Chronicity: chronic Presence of tophus: without tophus Qualified Code(s): M1A.9XX0 - Chronic gout, unspecified, without tophus (tophi) (5) Secondary hyperparathyroidism of renal origin Code(s): N25.81 - SECONDARY HYPERPARATHYROIDISM OF RENAL ORIGIN Status: Chronic - Plan DVT proph w/heparin (1) Boils Status: Acute Plan: Nephrology and surgery on board Seen by ID yesterday Suspicion for calciphylaxis On IV vanco ID recommended biopsy Scheduled for biopsy of lesion by surgery tomorrow (2) Dyslipidemia Code(s): E78.5 - HYPERLIPIDEMIA, UNSPECIFIED Status: Chronic Plan: Continut statin therpay (3) ESRD (end stage renal disease) on dialysis Code(s): N18.6 - END STAGE RENAL DISEASE; Z99.2 - DEPENDENCE ON RENAL DIALYSIS Status: Chronic Plan: Dialysis as per nephrology Appreciate input and assistance (4) Gout Code(s): M10.9 - GOUT, UNSPECIFIED Status: Chronic Qualifiers: Gout site: unspecified site Gout etiology: unspecified cause Chronicity: chronic Presence of tophus: without tophus Qualified Code(s): M1A.9XX0 - Chronic gout, unspecified, without tophus (tophi) Plan: Stable. Continue allopurinol (5) Secondary hyperparathyroidism of renal origin Code(s): N25.81 - SECONDARY HYPERPARATHYROIDISM OF RENAL ORIGIN Status: Chronic Plan: Renal on board On phosphate binders
[2019-06-06] MEDS: Rosuvastatin 20 MG TAB PO SCH (20:17)
[2019-06-06] MEDS: Gabapentin 300 MG CAP PO SCH (20:17)
[2019-06-07 06:48] LABS: #Basophils 0.1 thou/uL (0.0-0.2); #Eosinphils 0.3 thou/uL (0.0-0.7); #Lymphocytes 1.9 thou/uL (1.20-3.40); #Monocytes 0.9 thou/uL (0.11-0.59); #Neutrophils 4.1 thou/uL (1.40-6.50); %Basophils 1.5 % (0.0-1.0); %Eosinophils 3.6 % (0.0-10.0); %Monocytes 12.5 % (0.0-10.0); %Neutrophils 56.5 % (42.0-75.0); Hemoglobin 12.8 g/dL (14.0-18.0); Mean Corpuscular HGB CONC 30.8 g/dL (32.0-36.0); Mean Corpuscular Hemoglobin 24.7 pg (27.0-31.0); Mean Corpuscular Volume 80.3 fL (78.0-98.0); Mean Platelet Volume 8.8 fL (7.4-10.4); Platelet Count 175 thou/uL (130-400); RBC Distribution Width 14.5 % (11.5-14.5); Red Blood Cell (RBC) Count 5.17 mill/uL (4.70-6.10); White Blood Cell (WBC) Count 7.2 thou/uL (4.8-10.8)
[2019-06-07 07:14] LABS: Anion Gap 17 mmol/L (10-20); BUN (Urea Nitrogen) 22 mg/dL (8.4-25.7); Calc. Creatinine Clearance 15 mL/min (70-130); Calcium 9.4 mg/dL (7.8-10.44); Carbon Dioxide 26 mmol/L (23-31); Chloride 98 mmol/L (98-107); Estimated GFR-MDRD 9; Glucose 90 mg/dL (83-110); Potassium 4.5 mmol/L (3.5-5.1); Sodium 136 mmol/L (136-145)
[2019-06-07] MEDS: Polyethylene Glycol 3350 17 GM Packet PO SCH (09:06)
[2019-06-07] MEDS: Calcitriol 0.25 MCG CAP PO SCH (09:06)
[2019-06-07] MEDS: Sevelamer Carbonate 800 MG TAB PO SCH ×3 (09:06→17:19)
[2019-06-07] MEDS: Allopurinol 100 MG TAB PO SCH (09:06)
[2019-06-07] MEDS: Floranex Packet PO SCH (09:07)
--- NOTE | 2019-06-07 10:42 | PRG ---
DATE OF SERVICE: 06/07/2019 SUBJECTIVE: Mr. Estevez is an 78-year-old black male with ESRD on maintenance hemodialysis. He was admitted for subcutaneous nodules on the hip joints. It was examined by the surgeon and the feeling is that this could be a calciphylaxis. We have decided not to pursue renal biopsy due to usual poor wound healing after a biopsy of a lesion that may be related to calciphylaxis. I have initiated treatment for calciphylaxis. He did receive sodium thiosulfate 25 g yesterday. No other complaints. No complaints of pain. No chest pain or shortness of breath. OBJECTIVE: VITAL SIGNS: Blood pressure 106/71, heart rate 65, respiratory rate 18, temperature 97.6, and pulse ox 95%. GENERAL: He is noted to be awake, alert, supine, comfortable, obese. SKIN: Adequate turgor. HEENT: Pinkish conjunctivae. Anicteric sclerae. NECK: No neck mass. No carotid bruits. No JVD. LUNGS: Clear breath sounds. HEART: Normal sinus rhythm. No murmur. No gallops. No rubs. ABDOMEN: Globular, soft, and nontender. No masses. EXTREMITIES: No edema. No deformities. MEDICATIONS: Medications of June 07, 2019, reviewed. LABORATORY DATA: Laboratories of June 07, 2019; hemoglobin 12.8, white count 7.2. Sodium 136, potassium 4.5, chloride 98, carbon dioxide 26, BUN 22, creatinine 7.24, and calcium 9.4. ASSESSMENT AND PLAN: 1. Calciphylaxis/subcutaneous nodules on the hip joint area - we will continue sodium thiosulfate 25 g IV every hemodialysis for a total of 3 months. 2. End-stage renal disease, stable. No indication for any emergent hemodialysis. I have scheduled him back for hemodialysis tomorrow. From a renal point of view, this patient can be discharged any time and we will give sodium thiosulfate at outpatient dialysis unit. Overall, agree with current management. Job ID: [id number]
--- NOTE | 2019-06-07 14:58 | PDOC.HOSPP ---
- Subjective Encounter Date: 06/07/19 Encounter Time: 13:45 Subjective: Patient reports that his pain is better. No fever, chills. Has had Bowel movements. Denies chest pain, shortness of breath, bleeding. States that he feels weak and tired. - Objective Vital Signs & Weight: Vital Signs (12 hours) Temp Pulse Resp BP Pulse Ox 06/07/19 08:00 97.6 F 65 18 106/71 95 Weight Admit Weight 293 lb Weight 293 lb I&O: 06/06/19 06/07/19 06/08/19 06:59 06:59 06:59 Intake Total 1200 325 Balance 1200 325 Result Diagrams: 06/07/19 06:15 06/07/19 06:15 Additional Labs: Accuchecks 06/07/19 04:50 POC Glucose 84 Hospitalist ROS - Medication Medications: Active Medications Generic Name Dose Route Start Last Admin Trade Name Freq PRN Reason Stop Dose Admin Acidophilus 1 gm 06/06/19 09:00 06/07/19 09:07 Floranex PO 1 gm DAILY BENNIE Administration Allopurinol 100 mg 06/04/19 09:00 06/07/19 09:06 Zyloprim PO 100 mg DAILY BENNIE Administration Calcitriol 0.25 mcg 06/06/19 09:00 06/07/19 09:06 Rocaltrol PO 0.25 mcg DAILY BENNIE Administration Cholecalciferol 1,000 units 06/04/19 09:00 06/07/19 09:06 Vitamin D3 PO 1,000 units DAILY BENNIE Administration Gabapentin 300 mg 06/03/19 21:00 06/06/19 20:17 Neurontin PO 300 mg HS BENNIE Administration Polyethylene Glycol 17 gm 06/04/19 09:00 06/07/19 09:06 Miralax PO 17 gm DAILY BENNIE Administration Rosuvastatin Calcium 20 mg 06/03/19 21:00 06/06/19 20:17 Crestor PO 20 mg HS BENNIE Administration Sevelamer Carbonate 1,600 mg 06/05/19 12:00 06/07/19 12:02 Renvela PO 1,600 mg TID-WM BENNIE Administration - Exam General Appearance: NAD, awake alert Eye: PERRL, anicteric sclera ENT: normocephalic atraumatic, no oropharyngeal lesions, moist mucosa Heart: RRR, no murmur, no rubs, normal peripheral pulses Respiratory: CTAB, no wheezes, no rales, no ronchi, normal chest expansion Gastrointestinal: soft, non-tender, non-distended, normal bowel sounds Extremities: no cyanosis Skin: normal turgor Skin - other findings: bilateral hip lesions posterolaterally tender to palpation; no erythema Hosp A/P (1) Calciphylaxis Code(s): E83.59 - OTHER DISORDERS OF CALCIUM METABOLISM Status: Acute (2) Dyslipidemia Code(s): E78.5 - HYPERLIPIDEMIA, UNSPECIFIED Status: Chronic (3) ESRD (end stage renal disease) on dialysis Code(s): N18.6 - END STAGE RENAL DISEASE; Z99.2 - DEPENDENCE ON RENAL DIALYSIS Status: Chronic (4) Gout Code(s): M10.9 - GOUT, UNSPECIFIED Status: Chronic Qualifiers: Gout site: unspecified site Gout etiology: unspecified cause Chronicity: chronic Presence of tophus: without tophus Qualified Code(s): M1A.9XX0 - Chronic gout, unspecified, without tophus (tophi) (5) Secondary hyperparathyroidism of renal origin Code(s): N25.81 - SECONDARY HYPERPARATHYROIDISM OF RENAL ORIGIN Status: Chronic - Plan (1) Calciphylaxis Status: Acute Plan: Nephrology on board Started on IV sodium thiosulfate for 3 months DC iv abx Pain is better PT & OT eval to determine if he needs HH vs SNF/Rehab (2) Dyslipidemia Code(s): E78.5 - HYPERLIPIDEMIA, UNSPECIFIED Status: Chronic Plan: Continut statin therpay Stable (3) ESRD (end stage renal disease) on dialysis Code(s): N18.6 - END STAGE RENAL DISEASE; Z99.2 - DEPENDENCE ON RENAL DIALYSIS Status: Chronic Plan: Dialysis as per nephrology Appreciate input and assistance Renal has cleared him for DC today (4) Gout Code(s): M10.9 - GOUT, UNSPECIFIED Status: Chronic Qualifiers: Gout site: unspecified site Gout etiology: unspecified cause Chronicity: chronic Presence of tophus: without tophus Qualified Code(s): M1A.9XX0 - Chronic gout, unspecified, without tophus (tophi) Plan: Stable. Continue allopurinol (5) Secondary hyperparathyroidism of renal origin Code(s): N25.81 - SECONDARY HYPERPARATHYROIDISM OF RENAL ORIGIN Status: Chronic Plan: Renal on board On phosphate binders
[2019-06-07] MEDS: Warfarin Sodium 3 MG TAB PO SCH (17:19)
[2019-06-07] MEDS: Rosuvastatin 20 MG TAB PO SCH (20:51)
[2019-06-07] MEDS: Gabapentin 300 MG CAP PO SCH (20:51)
[2019-06-08] MEDS: Sevelamer Carbonate 800 MG TAB PO SCH ×3 (07:59→16:36)
[2019-06-08] MEDS: Polyethylene Glycol 3350 17 GM Packet PO SCH (08:00)
[2019-06-08] MEDS: Allopurinol 100 MG TAB PO SCH (08:00)
[2019-06-08] MEDS: Calcitriol 0.25 MCG CAP PO SCH (08:00)
[2019-06-08] MEDS: Floranex Packet PO SCH (08:05)
--- NOTE | 2019-06-08 10:11 | PRG ---
DATE OF SERVICE: 06/08/2019 SUBJECTIVE: Mr. Estevez is an 78-year-old black male with ESRD, on maintenance hemodialysis. He was admitted for bilateral subcutaneous nodules. They were located in the hip area. They were quite tender. Surgery has evaluated this patient. Initially, a plan for biopsy was done, but we held it off due to the fact that this is suspicious for calciphylaxis. We have initiated sodium thiosulfate treatment. No other complaints today. The lesions are less tender. No chest pain or shortness of breath. OBJECTIVE: VITAL SIGNS: Blood pressure 113/78, heart rate 64, respiratory rate 16, temperature 97.6, pulse ox 95%. GENERAL: Noted to be awake, alert, obese, comfortable, not in distress. SKIN: Adequate turgor. HEENT: Pinkish conjunctivae, anicteric sclerae. NECK: No neck mass. No carotid bruits. No JVD. CHEST: No deformities. LUNGS: Clear breath sounds. HEART: Normal sinus rhythm. No murmurs, gallops, or rubs. ABDOMEN: Globular, soft, nontender, no masses. EXTREMITIES: No edema, no deformities. MEDICATIONS: June 08, 2019, was reviewed. LABORATORY DATA: June 08, 2019, white count 7. June 07, 2019, white count 7.2, hemoglobin 12.8. Sodium 136, potassium 4.5, chloride 98, carbon dioxide 26, BUN 22, creatinine 7.34, calcium 9.4. ASSESSMENT AND PLAN: 1. Endstage renal disease, stable. We will continue current hemodialysis regimen of 3 times a week. We have scheduled him for dialysis today. 2. Subcutaneous nodules-bilateral hip joint area-most likely calciphylaxis, sodium thiosulfate 25 g IV to be given today. The plan is to give it 3 times a week with hemodialysis for at least 3 months. 3. Agree with current management. Job ID: [id number]
[2019-06-08 10:49] LABS: #Eosinphils 0.1 thou/uL (0.0-0.7); #Lymphocytes 1.6 thou/uL (1.20-3.40); #Monocytes 0.6 thou/uL (0.11-0.59); #Neutrophils 3.7 thou/uL (1.40-6.50); %Basophils 0.4 % (0.0-1.0); %Eosinophils 2.3 % (0.0-10.0); %Monocytes 9.3 % (0.0-10.0); Hemoglobin 12.1 g/dL (14.0-18.0); Mean Corpuscular HGB CONC 31.3 g/dL (32.0-36.0); Mean Corpuscular Hemoglobin 24.9 pg (27.0-31.0); Mean Corpuscular Volume 79.5 fL (78.0-98.0); Mean Platelet Volume 8.7 fL (7.4-10.4); Platelet Count 184 thou/uL (130-400); RBC Distribution Width 14.3 % (11.5-14.5); Red Blood Cell (RBC) Count 4.84 mill/uL (4.70-6.10)
[2019-06-08 10:54] LABS: INR-International Normal Ratio 2.2; Prothrombin Time 24.1 SEC (12.0-14.7)
[2019-06-08 11:12] LABS: Anion Gap 12 mmol/L (10-20); BUN (Urea Nitrogen) 28 mg/dL (8.4-25.7); Calc. Creatinine Clearance 14 mL/min (70-130); Calcium 9.1 mg/dL (7.8-10.44); Carbon Dioxide 31 mmol/L (23-31); Chloride 98 mmol/L (98-107); Estimated GFR-MDRD 8; Glucose 95 mg/dL (83-110); Potassium 4.6 mmol/L (3.5-5.1); Sodium 136 mmol/L (136-145)
[2019-06-08 12:05] LABS: Vancomycin, Random 13.1 ug/mL (See Comment)
[2019-06-08 15:45] VITALS: BP 144/80; TEMP 97.7
[2019-06-08] MEDS: Warfarin Sodium 3 MG TAB PO SCH (16:37)
--- NOTE | 2019-06-09 05:51 | DIS ---
DATE OF ADMISSION: 06/03/2019 DATE OF DISCHARGE: 06/08/2019 ADMISSION DIAGNOSES: 1. Multiple fluid collections, likely abscesses on CT pelvis. 2. Right lower extremity open wound. 3. Atrial fibrillation/deep venous thrombosis, on oral anticoagulants. 4. End-stage renal disease, on hemodialysis. 5. History of gout. 6. Neuropathy. 7. Chronic constipation. DISCHARGE DIAGNOSES: 1. Calciphylaxis. 2. Atrial fibrillation/deep venous thrombosis, on Coumadin. 3. End-stage renal disease, on hemodialysis. 4. Gout. 5. Neuropathy. 6. Constipation. 7. Cellulitis, ruled out. CONSULTATIONS: 1. Dr. Abdoulaye Porter from Nephrology. 2. Dr. Senthil Fontanez from Infectious Disease. 3. Dr. Dejon Garsia from Surgery. PERTINENT PROCEDURES: None. BRIEF HOSPITAL COURSE: The patient is an 78-year-old male with past medical history of end-stage renal disease, on hemodialysis and osteomyelitis of the right lower extremity, who presented to the [place] [facility] with complaint of bilateral hip pain with "boils." These appeared two weeks ago. The patient had received oral antibiotics at home, which were not helping him. Hence, the patient was admitted to the hospital. The patient had a CT scan of the pelvis in [place], which revealed possible fluid collection. The patient was admitted to the hospital. Infectious Disease and Nephrology were consulted. The patient was evaluated by Dr. Abdoulaye Porter from Nephrology. He was also evaluated by Dr. Senthil Fontanez from Infectious Disease. Initially, the patient was felt to have cellulitis and was given intravenous antibiotic therapy. Eventually, the patient was felt to have calciphylaxis. Surgery was consulted for possible biopsy. However, after further evaluation, it was felt that the patient's lesions were consistent with calciphylaxis and the patient might have poor wound healing with possible biopsy. Hence, the patient was not felt to require any biopsy. The patient was started on sodium thiosulfate with dialysis by Dr. Porter from Nephrology. The patient has been cleared for discharge by Nephrology, Infectious Disease, and Surgery. Hence, the patient is back to his baseline and has been started on sodium thiosulfate to continue for three months, the patient has been deemed stable to return home today. On the day of discharge, the patient is lying in bed and is in no acute distress. Auscultation of the lungs revealed clear breath sounds bilaterally. DISCHARGE INSTRUCTIONS: 1. Discharge disposition: Home. 2. Discharge medications: Reconciled. New medications include [place] as needed for pain, calcitriol, and Renvela. 3. Followup per Dr. Noemy Rubalcava in 10 days. 4. Discharge activity: As tolerated. 5. Discharge diet: Renal, low-sodium, heart healthy diet. TIME SPENT: Total time taken for discharge-40 minutes. Job ID: [id number] MTDD
== END 2019-06-08 17:27 | disposition home or self-care (01) | DRG 555 ==
LOC: T4-A 18:49
PROVIDERS: ADMIT Hospitalist; ATTEND Hospitalist
DX: M25.852 Other specified joint disorders, left hip (principal); N18.6 End stage renal disease; I13.2 Hypertensive heart and chronic kidney disease with heart failure and with stage 5 chronic kidney disease, or end stage renal disease; D68.9 Coagulation defect, unspecified; N25.81 Secondary hyperparathyroidism of renal origin; K59.09 Other constipation; E78.5 Hyperlipidemia, unspecified; G62.9 Polyneuropathy, unspecified; I95.89 Other hypotension; M10.9 Gout, unspecified; E66.01 Morbid (severe) obesity due to excess calories; M19.90 Unspecified osteoarthritis, unspecified site; N25.0 Renal osteodystrophy; I48.91 Unspecified atrial fibrillation; D64.9 Anemia, unspecified; M25.851 Other specified joint disorders, right hip; E83.39 Other disorders of phosphorus metabolism; Z99.2 Dependence on renal dialysis; Z87.891 Personal history of nicotine dependence; Z99.3 Dependence on wheelchair; Z86.718 Personal history of other venous thrombosis and embolism; Z79.01 Long term (current) use of anticoagulants; Z88.1 Allergy status to other antibiotic agents; Z88.0 Allergy status to penicillin; Z88.8 Allergy status to other drugs, medicaments and biological substances
CPT/HCPCS: 36415; 36416; 80048; 80053; 80202; 83970; 84100; 84145; 85025; 85610; 85730; 87040; 87070; 87205; 87340; J3370; J3490; J7050

== ENCOUNTER 2019-06-17 17:31 | Inpatient (IN) | payer MEDICARE ==
[2019-06-17] MEDS ORDERED: Ondansetron PF 4 MG/2 ML Vial ONE (18:15)
[2019-06-17 18:25] LABS: #Eosinphils 0.1 thou/uL (0.0-0.7); #Lymphocytes 1.5 thou/uL (1.20-3.40); #Monocytes 0.9 thou/uL (0.11-0.59); #Neutrophils 4.5 thou/uL (1.40-6.50); %Basophils 0.5 % (0.0-1.0); %Eosinophils 0.9 % (0.0-10.0); %Monocytes 12.5 % (0.0-10.0); Hemoglobin 11.9 g/dL (14.0-18.0); Mean Corpuscular HGB CONC 31.3 g/dL (32.0-36.0); Mean Corpuscular Hemoglobin 24.7 pg (27.0-31.0); Mean Corpuscular Volume 78.9 fL (78.0-98.0); Mean Platelet Volume 9.3 fL (7.4-10.4); Platelet Count 219 thou/uL (130-400); RBC Distribution Width 14.7 % (11.5-14.5); Red Blood Cell (RBC) Count 4.81 mill/uL (4.70-6.10)
--- NOTE | 2019-06-17 18:30 | RAD ---
EXAM: CHEST ONE VIEW HISTORY: Epigastric and chest pain. Nausea and vomiting. COMPARISON: 08/21/2018 FINDINGS: Cardiac silhouette is magnified by projection but stable in size. Pulmonary vasculature is also withi n normal limits for shallow depth of inspiration and portable technique. Bronchovascular markings are accentuated. No consolidation or pleural fluid is identified. Degenerative changes are seen in th e spine with bilateral acromioclavicular joint osteoarthritis. Vascular calcifications are seen in the thoracic aorta. Chest is overall stable given differences in depth of inspiration. IMPRESSION: No acute cardiopulmonary process.
[2019-06-17 18:49] LABS: ALT (SGPT) 19 U/L (8-55); AST (SGOT) 24 U/L (5-34); Albumin 2.7 g/dL (3.4-4.8); Alkaline Phosphatase 122 U/L (40-110); Anion Gap 21 mmol/L (10-20); BUN (Urea Nitrogen) 7 mg/dL (8.4-25.7); Bilirubin, Total 0.5 mg/dL (0.2-1.2); Calc. Creatinine Clearance 0 mL/min (70-130); Calcium 9.9 mg/dL (7.8-10.44); Carbon Dioxide 32 mmol/L (23-31); Chloride 93 mmol/L (98-107); Estimated GFR-MDRD 16; Globulin 4.7 g/dL (2.4-3.5); Glucose 97 mg/dL (83-110); Lipase 84 U/L (8-78); Potassium 3.8 mmol/L (3.5-5.1); Protein, Total 7.4 g/dL (5.8-8.1); Sodium 142 mmol/L (136-145)
[2019-06-17 19:10] LABS: CKMB 2.9 ng/mL (0-6.6)
--- NOTE | 2019-06-17 22:10 | PDOC.HHP ---
Hospitalist HPI - History of Present Illness Abdominal pain, nausea and vomiting History of Present Illness: 78/M ESRD (M/W/F) completed HD this morning and went home around noon. At home the patient ate a half of pimento cheese sandwich, then developed epigastric pain, describes as intermittent, shooting pain, non radiating, associated with nausea and vomiting, exacerbated and relieved by nothing, denies hemoptysis, diarrhea, fever or chills, sob or heart palpitations. He laid down in his bed and his daughter called EMS. The patient was subsequently brought to the ER. ED Course: Patient was given zofran 4mg IVP with relief of vomiting. EKG RBB, PACs, T wave inversions V3-V6, HR 86 bpm, no acute changes compared to . CXR negative for any acute cardiopulmonary process. Troponin 0.038, CKMB 2.9 lipase 84 Potassium 3.8, creatinine 4.31 with GFR 16. Baseline creatinine is around 7. AST 24, ALT 19, Alk. phos. 122 Hospitalist ROS - Review of Systems Constitutional: denies: fever, chills, malaise Eyes: denies: pain, vision change, redness ENT: denies: ear pain, ear discharge, nose congestion, throat pain Respiratory: denies: cough, shortness of breath, hemoptysis, SOB with excertion , wheezing Cardiovascular: denies: chest pain, palpitations, orthopnea, edema Gastrointestinal: reports: nausea, vomiting, abdominal pain. denies: diarrhea, constipation, hematochezia Genitourinary: reports: other (he is anuric). 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: denies: CVA, Seizure Gastrointestinal: denies: Constipation, GERD, GI bleed, Peptic ulcer disease Hepatobiliary: reports: Other (acute pancreatitis) Psych: denies: Anxiety, Depression Rheumatologic: reports: no pertinent history Infectious Disease: reports: no pertinent history ENT: reports: no pertinent history Renal/: reports: Chronic renal failure (HD M/W/F), Other (ESRD) Endocrine: denies: Diabetes, Hypothyroidism Dermatology: reports: no pertinent history - Past Surgical History Past Surgical History: reports: Other (HD fistula RUE Partial colectomy) - Family History Family History: reports: cardiac disorder, cerebrovascular accident - Social History Smoking Status: Former smoker Alcohol: reports: None Drugs: reports: none Living Situation: With Family (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, 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 [place].) - Exam General Appearance: NAD Eye: PERRL ENT: normocephalic atraumatic, dry oral mucosa Neck: supple, no thyromegaly, no lymphadenopathy Heart: RRR, no murmur, no gallops, no rubs Respiratory: CTAB, no wheezes, no rales, no ronchi Gastrointestinal: soft, non-distended, normal bowel sounds, no palpable masses, no hepatomegaly, no splenomegaly, no guarding, no rigidity Gastrointestinal - other findings: mild tender to palpation of RUQ and epigastric regions Extremities: no cyanosis, no edema Extremities - other findings: RUE HD fistula, ausculatory bruit and palpable thrill Skin: no rashes Skin - other findings: right baird wound w/ island dressing, dry, chronic skin changes Neurological: cranial nerve grossly intact, no focal deficits Musculoskeletal - other findings: non ambulatory, has electric wheelchair, able to transfer bed to chair Psychiatric: normal affect, A&O x 3 Hospitalist Results - Labs Result Diagrams: 06/18/19 04:09 06/18/19 04:09 Lab results: WBC 7.0 thou/uL (4.8-10.8) 06/17/19 17:46 Hgb 11.9 g/dL (14.0-18.0) L 06/17/19 17:46 Hct 37.9 % (42.0-52.0) L 06/17/19 17:46 MCV 78.9 fL (78.0-98.0) 06/17/19 17:46 Plt Count 219 thou/uL (130-400) 06/17/19 17:46 Neutrophils % 64.0 % (42.0-75.0) 06/17/19 17:46 Sodium 142 mmol/L (136-145) 06/17/19 17:46 Potassium 3.8 mmol/L (3.5-5.1) 06/17/19 17:46 Chloride 93 mmol/L (98-107) L 06/17/19 17:46 Carbon Dioxide 32 mmol/L (23-31) H 06/17/19 17:46 BUN 7 mg/dL (8.4-25.7) L 06/17/19 17:46 Creatinine 4.31 mg/dL (0.7-1.3) H 06/17/19 17:46 Glucose 97 mg/dL (83-110) 06/17/19 17:46 Calcium 9.9 mg/dL (7.8-10.44) 06/17/19 17:46 Total Bilirubin 0.5 mg/dL (0.2-1.2) 06/17/19 17:46 AST 24 U/L (5-34) 06/17/19 17:46 ALT 19 U/L (8-55) 06/17/19 17:46 Alkaline Phosphatase 122 U/L (40-110) H 06/17/19 17:46 CK-MB (CK-2) 2.9 ng/mL (0-6.6) 06/17/19 17:46 Troponin I 0.038 ng/mL (< 0.028) H 06/17/19 17:46 Serum Total Protein 7.4 g/dL (5.8-8.1) 06/17/19 17:46 Albumin 2.7 g/dL (3.4-4.8) L 06/17/19 17:46 Lipase 84 U/L (8-78) H 06/17/19 17:46 - EKG Interpretation EKG: HR 86, RBBB with PACs, t wave inversions in V3-V6, no acute changes compared to EKG dated 12/08/18. - Radiology Interpretation Chest x-ray Status: report reviewed by pr Hospitalist H&P A/P - Problem (1) Epigastric pain Code(s): R10.13 - EPIGASTRIC PAIN Status: Acute (2) Nausea and vomiting Code(s): R11.2 - NAUSEA WITH VOMITING, UNSPECIFIED Status: Acute (3) Elevated troponin Code(s): R79.89 - OTHER SPECIFIED ABNORMAL FINDINGS OF BLOOD CHEMISTRY Status : Acute (4) Elevated lipase Code(s): R74.8 - ABNORMAL LEVELS OF OTHER SERUM ENZYMES Status: Acute (5) ESRD (end stage renal disease) on dialysis Code(s): N18.6 - END STAGE RENAL DISEASE; Z99.2 - DEPENDENCE ON RENAL DIALYSIS Status: Chronic (6) Dyslipidemia Code(s): E78.5 - HYPERLIPIDEMIA, UNSPECIFIED Status: Chronic (7) Hypertension Code(s): I10 - ESSENTIAL (PRIMARY) HYPERTENSION Status: Chronic (8) History of deep venous thrombosis or pulmonary embolus Code(s): YIU4172 - Status: Chronic - Plan Plan: Patient is mildly tender to RUQ with elevated lipase. Will order RUQ US. Zofran prn. residential monitor. Trend troponins. Consult cardiology Dr. Rossi. Reconcile and restart home medications. GI and DVT prophylaxis. Pt. on Warfarin home medication, Will order baseline Coags. CMP, Lipase, and CBC in AM.
[2019-06-17 22:33] LABS: Troponin I 0.052 ng/mL (< 0.028)
[2019-06-17] MEDS ORDERED: Ondansetron PF 4 MG/2 ML Vial IVP PRN ×2 (22:40→22:42)
[2019-06-17] MEDS ORDERED: Acetaminophen 325 MG TAB PO PRN (22:40)
[2019-06-17] MEDS ORDERED: Ondansetron ODT 4 MG TAB PO PRN (22:40)
[2019-06-17] MEDS ORDERED: Ondansetron ODT 4 MG TAB SL PRN (22:42)
[2019-06-18 00:10] LABS: INR-International Normal Ratio 3.4; PTT 70.1 SEC (22.9-36.1); Prothrombin Time 34.1 SEC (12.0-14.7)
[2019-06-18 00:32] LABS: Troponin I 0.036 ng/mL (< 0.028)
[2019-06-18 04:48] LABS: #Basophils 0.1 thou/uL (0.0-0.2); #Lymphocytes 1.6 thou/uL (1.20-3.40); #Neutrophils 5.7 thou/uL (1.40-6.50); %Basophils 0.7 % (0.0-1.0); %Eosinophils 0.5 % (0.0-10.0); %Monocytes 11.5 % (0.0-10.0); %Neutrophils 68.2 % (42.0-75.0); Hemoglobin 12.3 g/dL (14.0-18.0); Mean Corpuscular HGB CONC 30.5 g/dL (32.0-36.0); Mean Corpuscular Volume 78.9 fL (78.0-98.0); Mean Platelet Volume 9.1 fL (7.4-10.4); Platelet Count 210 thou/uL (130-400); RBC Distribution Width 14.9 % (11.5-14.5); Red Blood Cell (RBC) Count 5.12 mill/uL (4.70-6.10); White Blood Cell (WBC) Count 8.4 thou/uL (4.8-10.8)
[2019-06-18 05:13] LABS: ALT (SGPT) 17 U/L (8-55); AST (SGOT) 17 U/L (5-34); Albumin 2.6 g/dL (3.4-4.8); Alkaline Phosphatase 119 U/L (40-110); Anion Gap 26 mmol/L (10-20); BUN (Urea Nitrogen) 9 mg/dL (8.4-25.7); Bilirubin, Total 0.5 mg/dL (0.2-1.2); Calc. Creatinine Clearance 21 mL/min (70-130); Calcium 10.1 mg/dL (7.8-10.44); Carbon Dioxide 29 mmol/L (23-31); Chloride 93 mmol/L (98-107); Estimated GFR-MDRD 13; Globulin 4.4 g/dL (2.4-3.5); Glucose 84 mg/dL (83-110); Lipase 105 U/L (8-78); Potassium 3.9 mmol/L (3.5-5.1); Sodium 144 mmol/L (136-145)
--- NOTE | 2019-06-18 07:45 | ULT ---
Sonogram right upper quadrant HISTORY: Right upper quadrant pain. FINDINGS: Echogenic stones in the dependent portion of the gallbladder lumen. Gallbladder wall thicke danielle at 0.6 cm. Patient was reportedly tender over the gallbladder fossa time of the exam. Gallbladder is somewhat distended up to 11.6 cm. Common duct is 0.4 cm. Liver where visualized is wit hin normal limits. Left lobe partially obscured by bowel gas. No free fluid. IMPRESSION: Cholelithiasis with findings of acute cholecystitis.
[2019-06-18] MEDS ORDERED: Heparin 5,000 UNITS/ML VIAL SC SCH (09:00)
--- NOTE | 2019-06-18 09:37 | PRG ---
DATE OF SERVICE: 06/18/2019 SUBJECTIVE: Mr. Estevez is an 78-year-old black male with ESRD, was admitted for nausea and vomiting. This was associated with abdominal pain. We are being consulted for management of ESRD. His nausea has actually improved this morning. He does have some abdominal discomfort associated with the nausea and vomiting. He denies any chest pain or shortness of breath. Please note that this patient was recently admitted, was diagnosed to have a presumptive calciphylaxis and currently receiving sodium thiosulfate 25 g IV every hemodialysis. OBJECTIVE: VITAL SIGNS: Blood pressure is 111/51, heart rate 66, respiratory rate 16, temperature 97.5, pulse ox 97%. GENERAL: The patient is awake, alert, comfortable, not in distress. Obese. SKIN: Adequate turgor. HEENT: He has a pinkish conjunctivae. Anicteric sclerae. No neck mass. No carotid bruits. No JVD. CHEST: No deformities. LUNGS: Clear breath sounds. HEART: Normal sinus rhythm. No murmurs, gallops, or rubs. ABDOMEN: Globular, soft, nontender, no masses. EXTREMITIES: No edema, no deformities. MEDICATIONS: Medications of June 18, 2018 was reviewed. LABORATORY DATA: Laboratories of June 18, 2019; sodium 144, potassium 3.9, chloride 93, carbon dioxide 29, BUN is 9, creatinine 5.18, calcium 10.1, AST 17, ALT 17, alkaline phosphatase 119, and albumin 2.6. ASSESSMENT AND PLAN: 1. End-stage renal disease, stable. We will continue current hemodialysis regimen on Monday, Monday, and Monday. Fluid removal as tolerated. 2. Bilateral hip subcutaneous rucodya-yfvhnfksyvyja-ujqinwrc sodium thiosulfate 25 g IV every hemodialysis. 3. Hyperphosphatemia. Renvela 1600 mg 1 tablet t.i.d. with meals. 4. We will check phosphorus and PTH again tomorrow as well as CBC and basic metabolic. Job ID: [id number]
[2019-06-18] MEDS ORDERED: Phytonadione 10 MG/ML AMP PO SCH (10:00)
[2019-06-18] MEDS: Sevelamer Carbonate 800 MG TAB PO SCH ×2 (12:02→16:15)
[2019-06-18] MEDS: Famotidine 20 MG TAB PO SCH (12:02)
--- NOTE | 2019-06-18 12:56 | CON ---
DATE OF CONSULTATION: 06/18/2019 REASON FOR CONSULTATION: Preoperative evaluation, history of coronary artery disease, nonischemic cardiomyopathy, orthostatic hypotension, end-stage renal disease, hypercholesterolemia. HISTORY OF PRESENT ILLNESS: Mr. Francisco Estevez is a very pleasant 78-year-old gentleman, who is on dialysis. He was admitted to the hospital this time with upper epigastric pain and pain radiating across his upper abdomen and found to have gallstones as well as cholecystitis. The patient continues to have some discomfort in his upper abdomen, although it has improved after being treated here with antibiotics. The patient is not having chest pain or pressure. No shortness of breath. PAST MEDICAL HISTORY: 1. End-stage renal disease, on maintenance hemodialysis. 2. History of deep venous thrombosis. 3. 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 4. History of severe orthostatic hypotension. 5. Non-ST elevation myocardial infarction in 2017. 6. Catheterization in 2017 showing nonobstructive coronary artery disease. 7. Hypercholesterolemia. 8. Obesity, which I believe has actually improved over the years. 9. Peripheral vascular disease. MEDICATIONS: At home included; 1. Midodrine, he was taking 7.5 mg 3 times a day. He has not received that here from what I can tell. 2. Coumadin with target INR of 2 to 3. 3. Famotidine 20 mg twice a day. 4. Allopurinol. 5. Rosuvastatin 20 mg a day. REVIEW OF SYSTEMS: CONSTITUTIONAL: No significant weight gain or loss recently. VISION: No changes. HEARING: No changes. PULMONARY: No cough or wheezing. GASTROINTESTINAL: No nausea, vomiting, or diarrhea. SKIN: No rashes. NEUROLOGIC: No unilateral weakness or numbness. PSYCHIATRIC: No unusual depression or anxiety. ALLERGIES: TO CLINDAMYCIN, AMOXICILLIN, AND AMPICILLIN. SOCIAL HISTORY: No alcohol or tobacco. He does have a supportive family. PHYSICAL EXAMINATION: GENERAL: This is a pleasant elderly gentleman, resting comfortably currently. He said yesterday he had a lot of abdominal pain, but he feels okay today. VITAL SIGNS: Blood pressure 111/51, pulse 66 and regular. HEENT: Eyes, sclerae are nonicteric. Mouth, mucous membranes are moist. NECK: Supple. No lymphadenopathy. LUNGS: Clear anteriorly and laterally. CARDIAC: Normal S1, normal S2. There is no murmur, rub, or gallop. ABDOMEN: Soft and nontender. No hepatosplenomegaly. EXTREMITIES: Warm and dry. No clubbing or cyanosis. There is mild peripheral edema. PEDAL PULSES: I do not palpate. SKIN: Warm and dry. PERTINENT LABORATORY DATA: Troponins are indeterminate as is frequently seen in patients on dialysis. EKG, right bundle-branch block with axis deviation, this is not a new finding. Most recent LDL cholesterol was 97 and hemoglobin is 12.3. INR is 3.4, that was done last night. Reviewing the records, the patient did undergo cardiac catheterization by Dr. Hung in 2017 and the results were as follows. 1. Left main, no significant stenosis. 2. LAD had some diagonal disease, but no stenosis in the major vessel. 3. Circumflex, 40% lesion in the obtuse marginal. 4. Right coronary, 50% stenosis. Ejection fraction was 60% at that time. The patient did have a non-ST elevation infarction at that time. ASSESSMENT: 1. Cholecystitis. 2. Bifascicular block on EKG, not a new finding. 3. History of orthostatic hypotension. 4. History of omx-HR-uqbssuxiq myocardial infarction in 2017. 5. History of clotting of access grafts as well as deep venous thrombosis in the past, which is the reason he is on Coumadin. 6. Coronary artery disease as outlined above. 7. Obesity. At this time, the patient does appear to be stable from a cardiac standpoint. He is at increased risk for cardiac complications in view of history of orthostatic hypotension. The patient may need pressors postoperatively or even intraoperatively. We will do the followin. Resume midodrine. 2. He may need Levophed intraoperatively or postoperatively. 3. Repeat echocardiogram. 4. Coumadin is on hold. 5. I think it is reasonable to proceed to gallbladder removal when the patient's INR is acceptable. Certainly, he is at increased risk for cardiac complications; however, without removing the gallbladder, he is at extremely high risk of recurrent cholecystitis, which also could be a dangerous situation for him. He understands risk of proceeding to surgery in view of his cardiac status is increased including risk of . However, the patient may also be at risk of complications without surgery and is at very high risk of recurrent symptoms and could even develop a sepsis from his gallbladder. At this time, I would recommend holding off on the Coumadin. We will resume midodrine at lower dose and proceed to surgery when INR is acceptable. Job ID: [id number]
--- NOTE | 2019-06-18 16:02 | PDOC.HOSPP ---
- Subjective Encounter Date: 06/18/19 Encounter Time: 11:00 Subjective: The patient denies abdominal pain, nausea, or vomiting. He is currently NPO. Patient had some mild pain in his chest, but resolved currently. He states Dr. Rossi cleared him for gallbladder surgery - Objective Vital Signs & Weight: Vital Signs (12 hours) Temp Pulse Resp BP Pulse Ox 06/18/19 11:03 97.5 F L 75 20 156/69 H 97 06/18/19 08:45 98.6 F 68 20 129/74 95 06/18/19 07:35 95 Weight Weight 292 lb 4.8 oz Result Diagrams: 06/18/19 04:09 06/18/19 04:09 Hospitalist ROS - Review of Systems Constitutional: denies: fever, chills Gastrointestinal: denies: nausea, vomiting, abdominal pain - Medication Medications: Active Medications Generic Name Dose Route Start Last Admin Trade Name Freq PRN Reason Stop Dose Admin Famotidine 20 mg 06/18/19 09:00 06/18/19 12:02 Pepcid PO 20 mg 0900 BENNIE Administration Sevelamer Carbonate 1,600 mg 06/18/19 12:00 06/18/19 12:02 Renvela PO 1,600 mg TID-WM BENNIE Administration - Exam General Appearance: NAD, awake alert Eye: PERRL, anicteric sclera ENT: normocephalic atraumatic, no oropharyngeal lesions Neck: supple, symmetric, no JVD Heart: RRR, no murmur, no gallops, no rubs Respiratory: CTAB, no wheezes, no rales, no ronchi Gastrointestinal: soft, no palpable masses Gastrointestinal - other findings: RUQ and RLQ tenderness. Surgical scar RLQ Extremities: no cyanosis, no clubbing, no edema Hosp A/P - Plan This is an 78 year old male who presented with nausea/vomiting during dialysis, ultrasound showing evidence of acute cholecystitis #Acute cholecystitis #Elevated ALP - noted on ultrasound. ALP downtrending to 119. Plan for cholecystectomy, needs to hold anticoagulation for a few days - continue famotidine bid Elevated troponin - could be type II NSTEMi - had some EKG changes. No chest pain currently. Dr. Rossi consulted - ECHO pending History of PE and DVT - holding coumadin for now ESRD - getting dialysis M, W, F Gout- continue allopurinol Code status: full code
[2019-06-18] MEDS: Midodrine HCl 5 MG TAB PO SCH ×2 (16:14→21:16)
[2019-06-18] MEDS: Rosuvastatin 20 MG TAB PO SCH (21:15)
[2019-06-19 04:41] LABS: INR-International Normal Ratio 1.9; Prothrombin Time 21.8 SEC (12.0-14.7)
[2019-06-19 04:47] LABS: Anion Gap 23 mmol/L (10-20); BUN (Urea Nitrogen) 16 mg/dL (8.4-25.7); Calc. Creatinine Clearance 15 mL/min (70-130); Carbon Dioxide 28 mmol/L (23-31); Chloride 95 mmol/L (98-107); Estimated GFR-MDRD 9; Glucose 85 mg/dL (83-110); Phosphorus 4.9 mg/dL (2.3-4.7); Potassium 4.3 mmol/L (3.5-5.1); Sodium 142 mmol/L (136-145)
[2019-06-19 05:59] LABS: #Eosinphils 0.1 thou/uL (0.0-0.7); #Lymphocytes 1.8 thou/uL (1.20-3.40); #Neutrophils 5.5 thou/uL (1.40-6.50); %Basophils 0.2 % (0.0-1.0); %Eosinophils 1.3 % (0.0-10.0); %Lymphocytes 21.7 % (21.0-51.0); %Monocytes 12.1 % (0.0-10.0); %Neutrophils 64.8 % (42.0-75.0); Hemoglobin 12.6 g/dL (14.0-18.0); MDiff Complete? YES; Mean Corpuscular HGB CONC 32.5 g/dL (32.0-36.0); Mean Corpuscular Hemoglobin 26.1 pg (27.0-31.0); Mean Corpuscular Volume 80.3 fL (78.0-98.0); Mean Platelet Volume 8.9 fL (7.4-10.4); Platelet Count 179 thou/uL (130-400); RBC Distribution Width 14.9 % (11.5-14.5); Red Blood Cell (RBC) Count 4.82 mill/uL (4.70-6.10); Target Cells SLIGHT = 2-5 cells (100X) (0-1/hpf); White Blood Cell (WBC) Count 8.4 thou/uL (4.8-10.8)
--- NOTE | 2019-06-19 07:38 | CON ---
DATE OF CONSULTATION: REQUESTING PHYSICIAN: CHICA El. CONSULTING PHYSICIAN: Dr. Osborne. HISTORY OF PRESENT ILLNESS: Mr. Estevez is an 78-year-old male who has a history of end-stage renal disease and extensive coronary artery disease. The patient reports he has right upper quadrant abdominal pain. The pain is intermittent and then constant. The pain elevated after he eat the meal. The patient denies fever, but admits some nausea and vomiting. The patient was admitted and treated as cholecystitis. Pain has improved. However, the patient also has end-stage kidney disease, currently on hemodialysis. He is also has a history of DVT, history of coronary artery disease. Dr. Rossi was consulted. Dr. Rossi relating that at the moment on the cardiac standpoint, the patient has increased risk of cardiac complication and is not safe to proceed with gallbladder removal at this time. Dr. Rossi recommended gallbladder removal when patient's INR is acceptable. REVIEW OF SYSTEMS: Noncontributory except for HPI. PAST MEDICAL HISTORY: End-stage renal disease, on dialysis; history of deep venous thrombosis; history of recurrent clotting of dialysis access; history of severe orthostatic hypotension; history of non-ST elevation [place] in 2017; peripheral vascular disease. CURRENT MEDICATION: Midodrine, Coumadin, famotidine, allopurinol, rosuvastatin. PHYSICAL EXAMINATION: GENERAL: The patient lying down in bed comfortable in no acute respiratory distress. VITAL SIGNS: Temperature 97.5, heart rate 75, respiratory rate 20, O2 saturation 97% on room air, blood pressure 156/69. LUNGS: Clear bilaterally. HEART: Regular rate and rhythm. ABDOMEN: Soft, nondistended, tender to palpation of the right upper quadrant. Pain elevated with deep palpation and deep breath. EXTREMITIES: Neurovascularly intact x4. NEUROLOGY: No focal neurology deficits. ASSESSMENT: 1. Cholecystitis. 2. Bifascicular block on electrocardiogram. 3. History of orthostatic hypotension. 4. Non-ST elevation myocardial infarction. 5. History of clotting of access graft. 6. End-stage kidney disease, on dialysis. 7. Obesity. PLAN: Continue supportive care. Continue pain control. Continue IV antibiotic. We will wait for INR and if the patient's cardiac condition is stable, General Surgery will consider gallbladder removal. We will check back the patient tomorrow. The patient was seen and examined with Dr. Osborne on round this morning. Job ID: [id number]
--- NOTE | 2019-06-19 09:14 | PRG ---
DATE OF SERVICE: 06/19/2019 SERVICE: Renal Medicine. SUBJECTIVE: Mr. Estevez is an 78-year-old black male with ESRD and admitted for nausea and vomiting. He was found to have distended gallbladder. Surgery has been consulted, and a planned laparoscopic cholecystectomy is scheduled. He is still complaining of some pain around the hip joint. 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 He is getting IV sodium thiosulfate every hemodialysis. No complaints of chest pain or shortness of breath. OBJECTIVE: VITAL SIGNS: Blood pressure 134/61, heart rate 64, respiratory rate 18, temperature 97.4, and pulse ox 99%. GENERAL: Noted to be awake, alert, comfortable, not in distress. SKIN: Adequate turgor. HEENT: He has pinkish conjunctivae. Anicteric sclerae. No neck mass. No carotid bruits. No JVD. CHEST: No deformities. LUNGS: Clear breath sounds. HEART: Normal sinus rhythm. No murmur. No gallops. No rubs. ABDOMEN: Globular, soft, nontender. No masses. EXTREMITIES: No edema. Bilateral hip joint area-positive for subcutaneous nodules. MEDICATIONS: Medications of June 19, 2019, were reviewed. LABORATORY DATA: Laboratories of June 19, 2019; white count 8.4, hemoglobin 12.6. PTH is 132.6. Sodium 142, potassium 4.3, chloride 95, carbon dioxide 28, BUN is 16, creatinine 7.28, and phosphorus 4.9. ASSESSMENT AND PLAN: 1. Hyperphosphatemia-continue Renvela 800 mg 2 tablets t.i.d. with meals. 2. End-stage renal disease, stable, tolerating current hemodialysis regimen. In view of the planned cholecystectomy today, we are minimizing heparin use with this patient. 3. Right upper quadrant pain/nausea and vomiting-the patient most likely has acute cholecystitis. Planned cholecystectomy after hemodialysis. 4. 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 Recheck liver function on a regular basis-every month. 5. Recheck basic metabolic profile and CBC in a.m. Job ID: [id number] [facility]
[2019-06-19] MEDS ORDERED: Ketorolac Tromethamine 30 MG/ML VIAL ONE (09:36)
[2019-06-19] MEDS ORDERED: Lidocaine 1% PF 5 ML VIAL ONE (09:36)
[2019-06-19] MEDS ORDERED: PROPOFOL 200 MG/20 ML VIAL ONE (09:36)
[2019-06-19] MEDS ORDERED: ePHEDrine/0.9% NaCl/PF SYRINGE 50 mg/10 ml ONE (09:36)
[2019-06-19] MEDS ORDERED: Esmolol 100 MG/10 ML VIAL ONE (09:36)
[2019-06-19] MEDS ORDERED: Rocuronium Bromide 10 MG/ML (10ML VIAL) ONE (09:36)
[2019-06-19] MEDS ORDERED: Ondansetron PF 4 MG/2 ML Vial ONE (09:36)
[2019-06-19] MEDS: Famotidine 20 MG TAB PO SCH (12:18)
[2019-06-19] MEDS: Midodrine HCl 5 MG TAB PO SCH ×3 (12:18→21:54)
[2019-06-19] MEDS: Sevelamer Carbonate 800 MG TAB PO SCH ×2 (12:18→16:37)
[2019-06-19] MEDS ORDERED: Bupivacaine 0.25% HCL 30 ML VIAL ONE (12:39)
[2019-06-19] MEDS ORDERED: EPINEPHrine 1 MG/ML AMP ONE (12:39)
[2019-06-19] MEDS ORDERED: Fentanyl 100 MCG/2 ML VIAL ONE ×4 (13:08→18:47)
[2019-06-19] MEDS ORDERED: Heparin 10,000 UNITS/1 ML VIAL ONE (13:16)
[2019-06-19] MEDS ORDERED: Norepinephrine 4 MG/4 ML VIAL ONE (14:55)
[2019-06-19] MEDS ORDERED: Phenylephrine HCL 10 MG/ML VIAL ONE (14:55)
--- NOTE | 2019-06-19 15:14 | PDOC.HOSPP ---
- Subjective Encounter Date: 06/19/19 Encounter Time: 11:00 non-verbal Subjective: The patient denies abdominal pain, nausea, vomiting. HE is going for cholecystectomy today - Objective Vital Signs & Weight: Vital Signs (12 hours) Temp Pulse Resp BP Pulse Ox 06/19/19 12:32 98.2 F 70 18 103/41 L 97 06/19/19 03:58 97.4 F L 64 18 134/61 99 Weight Weight 293 lb 8 oz I&O: 06/18/19 06/19/19 06/20/19 06:59 06:59 06:59 Intake Total 1140 Output Total 0 800 Balance 1140 -800 Result Diagrams: 06/19/19 04:24 06/19/19 04:24 Hospitalist ROS - Review of Systems Eyes: denies: pain, vision change - Medication Medications: Active Medications Generic Name Dose Route Start Last Admin Trade Name Freq PRN Reason Stop Dose Admin Famotidine 20 mg 06/18/19 09:00 06/19/19 12:18 Pepcid PO Not Given 0900 BENNIE Sodium Thiosulfate 25 gm/ 200 mls @ 200 mls/hr 06/18/19 10:17 06/19/19 09:34 Sodium Chloride IVPB 200 mls WILLCALL PRN Administration EACH HEMODIALYSIS Midodrine 5 mg 06/18/19 15:00 06/19/19 14:39 Proamatine PO Not Given TID BENNIE Rosuvastatin Calcium 20 mg 06/18/19 21:00 06/18/19 21:15 Crestor PO 20 mg HS BENNIE Administration Sevelamer Carbonate 1,600 mg 06/18/19 12:00 06/19/19 12:18 Renvela PO Not Given TID-WM BENNIE - Exam General Appearance: NAD, awake alert Eye: anicteric sclera ENT: normocephalic atraumatic Gastrointestinal: soft, non-distended Extremities: no cyanosis, no edema Skin: normal turgor, no rashes Hosp A/P - Plan This is an 78 year old male who presented with nausea/vomiting during dialysis, ultrasound showing evidence of acute cholecystitis #Acute cholecystitis #Elevated ALP - noted on ultrasound. ALP downtrending to 119. Plan for cholecystectomy today - continue famotidine bid Elevated troponin - could be type II NSTEMi - had some EKG changes. No chest pain currently. Dr. Rossi consulted - ECHO pending History of PE and DVT - holding coumadin for now - INR 1.9 today ESRD - getting dialysis M, W, F Gout- continue allopurinol Code status: full code
[2019-06-19] MEDS ORDERED: SUGAMMADEX SODIUM 500 MG/5 ML VIAL ONE (16:41)
[2019-06-19] MEDS ORDERED: Ondansetron HCl/PF 4 MG/2 ML Vial IVP PRN (17:53)
[2019-06-19] MEDS ORDERED: Promethazine HCl 25 MG/ML VIAL IM PRN ×2 (17:53→20:02)
[2019-06-19] MEDS ORDERED: Promethazine HCl 25 MG/ML VIAL SLOW IVP PRN (17:53)
--- NOTE | 2019-06-19 18:25 | RAD ---
INTRAOPERATIVE FLUOROSCOPIC IMAGES OF THE ABDOMEN: 06/19/19 HISTORY: Evaluate for foreign body. Patient is post surgery. COMPARISON: None. FINDINGS: Twelve intraoperative fluoroscopic images of the four quadrants of the abdomen are submitted for inte rpretation. Images demonstrate skin clips overlying The right upper quadrant. Drainage catheter is in place overlying the right upper quadrant. Surgical clips also overlie the right upper quadrant. Ther e are multiple metallic sutures seen overlying the right lower quadrant with several linear metallic densities seen just to the left of the midline adjacent to the lower lumbar spine which also may be r elated to metallic sutures in this region. Vascular calcifications are seen in the abdominal aorta and involving the iliac arteries. Degenerative changes are noted in the spine. IMPRESSION: 1. Postsurgical changes of the abdomen with multiple radiopaque sutures and skin clips as well a s surgical clips overlying the right upper quadrant. 2. Drainage catheter overlies the right upper quadrant. 3. No obvious radiopaque foreign body is seen, and again the multiple linear metallic densities overlying the medial left lower quadrant probably due to metallic suture material. FLUOROSCOPY: Total fluoroscopy time is 11 seconds with total dose of 4.3 mGy. POS: RONAK
[2019-06-19 18:50] LABS: INR-International Normal Ratio 1.4; PTT 44.7 SEC (22.9-36.1); Prothrombin Time 17.4 SEC (12.0-14.7)
--- NOTE | 2019-06-19 18:52 | OP ---
DATE OF PROCEDURE: 06/19/2019 PREOPERATIVE DIAGNOSES: 1. Acute cholecystitis and cholelithiasis. 2. History of end-stage renal disease, dialysis dependent. POSTOPERATIVE DIAGNOSES: 1. Acute cholecystitis and cholelithiasis. 2. History of end-stage renal disease, dialysis dependent. PROCEDURES PERFORMED: 1. Attempted laparoscopic cholecystectomy. 2. Open cholecystectomy. ANESTHESIA: General endotracheal. ESTIMATED BLOOD LOSS: 100 mL. FLUIDS GIVEN: 400 mL of crystalloids. COUNTS: Sponge and instrument counts were verified as correct x2. COMPLICATIONS: None apparent at the time of operation. INDICATIONS FOR OPERATION: This is an 78-year-old man, history of end-stage renal disease, who presented with abdominal pain, nausea, and vomiting. Clinical radiographic examination was consistent with acute cholecystitis with cholelithiasis. The patient is coagulopathic on warfarin with INR 3.1. He was evaluated by Cardiology, cleared for surgery. Vitamin K 2.5 mg was given yesterday. INR today was 1.9. The patient was brought to operating room for a laparoscopic cholecystectomy. Findings were consistent with extensive intraabdominal adhesions, difficulty with abdominal insufflation. DESCRIPTION OF PROCEDURE: Informed consent was obtained from the patient, brought to the operating room and placed in supine position. Following general anesthesia, abdomen was sterilely prepped and draped in the usual fashion. The skin above the umbilicus was infiltrated with 0.25% Marcaine with epinephrine. A small transverse curvilinear supraumbilical incision was made using 11 scalpel. The umbilical stalk was grasped with Jaime and elevated. A 5 mm Visiport was introduced through the incision, advanced into the peritoneal cavity with gentle insufflation. Intraabdominal pressure was noted at 2 mmHg. The abdomen was insufflated with 2 L of CO2 gas. Attempt to transilluminate the right upper quadrant was tedious. We managed to gain a window through an avascular plane on the adhesions, we were then able to transilluminate the falciform ligament. Under direct laparoscopy, a 12 mm epigastric port was introduced after the overlying skin was infiltrated with 0.25% Marcaine with epinephrine. Due to extensive amount of intraabdominal adhesions, it was difficult to transilluminate the remainder of the right upper quadrant. Multiple attempts to gain access around the adhesions did not reveal any plane that would facilitate adhesiolysis. Decision was made, therefore, to convert this to open. To achieve this, a right subcostal incision was made using 10 scalpel. Incision was carried down through subcutaneous tissues maintaining hemostasis using cautery. Fascia was incised along the line of incision and muscle was serially divided using cautery with good hemostasis. Peritoneum was then entered between hemostats using Metzenbaum scissors. The peritoneal incision was then extended along the line of incision. Bookwalter retractor was put in place to gain exposure. I was able to bluntly dissect out omental adhesions to allow visualization of the gallbladder, which was grasped with a ring forceps and elevated. The gallbladder was then partially taken down in a retrograde fashion using cautery. I was then able to apply a second ring forceps at the Ru's pouch, which was retracted laterally. The cystic duct was carefully dissected free from surrounding structures and divided between clips applying 2 clips proximally and 1 clip at the junction of the cystic duct and gallbladder. Cystic artery dissected free from surrounding structures and divided between clips in a similar fashion. The remainder of the gallbladder was removed from the liver bed using cautery and passed off the operative field following transmission to Pathology. Operative site was inspected for hemostasis. The gallbladder fossa was oozy of venous blood. Hemostasis was readily achieved using Marilynn. A #19 Yinka drain was introduced in the subhepatic space and allowed to exit the abdominal cavity through separate stab incision. The drain was secured to anterior abdominal wall using 2-0 silk suture. Finding no other pathology, exploration was terminated. All ports and instruments were removed and accounted for. Sponge counts were also reported as correct x2. Peritoneum was approximated using a running stitch of 2-0 Vicryl. The fascia was then approximated using a running stitch of #1 single stranded PDS. Subcutaneous tissues were irrigated clear with saline solution, perfected hemostasis using cautery. Deep subcutaneous tissues were approximated using interrupted sutures of 2-0 Vicryl. Skin incisions were closed using jenelle. The supraumbilical incision was closed using 4-0 Monocryl suture in a subcuticular fashion. Dermabond was applied over this incision. The patient tolerated this operation without any apparent complication and was returned to recovery room in satisfactory condition. Job ID: [id number]
[2019-06-19] MEDS ORDERED: HYDROmorphone 2 MG/ML VIAL ONE (20:00)
[2019-06-19] MEDS ORDERED: diphenhydrAMINE 50 MG/ML VIAL IM PRN (20:02)
[2019-06-19] MEDS ORDERED: diphenhydrAMINE 50 MG/ML VIAL IVP PRN (20:02)
[2019-06-19] MEDS ORDERED: Naloxone HCl 0.4 mg/ml Vial IV PRN (20:02)
[2019-06-19] MEDS ORDERED: HYDROmorphone 10 mg/100 ml CADD IVPB PRN (20:02)
[2019-06-19] MEDS ORDERED: diphenhydrAMINE 25 MG CAP PO PRN (20:02)
[2019-06-19] MEDS ORDERED: Communication Order-Pharmacy FS SCH (20:15)
[2019-06-19] MEDS: Rosuvastatin 20 MG TAB PO SCH (21:54)
[2019-06-19] MEDS: Ketorolac Tromethamine 30 MG/ML VIAL IVP SCH (23:28)
[2019-06-20 05:08] LABS: ALT (SGPT) 11 U/L (8-55); ALT (SGPT) 12 U/L (8-55); AST (SGOT) 21 U/L (5-34); Albumin 2.4 g/dL (3.4-4.8); Alkaline Phosphatase 96 U/L (40-110); Alkaline Phosphatase 97 U/L (40-110); Anion Gap 20 mmol/L (10-20); BUN (Urea Nitrogen) 12 mg/dL (8.4-25.7); Bilirubin, Direct 0.5 mg/dL (0.1-0.3); Calc. Creatinine Clearance 21 mL/min (70-130); Calcium 9.4 mg/dL (7.8-10.44); Carbon Dioxide 26 mmol/L (23-31); Chloride 100 mmol/L (98-107); Estimated GFR-MDRD 13; Globulin 4.1 g/dL (2.4-3.5); Glucose 99 mg/dL (83-110); Potassium 4.3 mmol/L (3.5-5.1); Protein, Total 6.5 g/dL (5.8-8.1); Sodium 142 mmol/L (136-145)
[2019-06-20 05:28] LABS: Band 6 % (5-11); Lymphocytes 11 % (21-51); MDiff Complete? YES; Mean Corpuscular HGB CONC 31.1 g/dL (32.0-36.0); Mean Corpuscular Hemoglobin 25.7 pg (27.0-31.0); Mean Corpuscular Volume 82.5 fL (78.0-98.0); Mean Platelet Volume 9.1 fL (7.4-10.4); Monocytes 10 % (0-10); Neutrophil 73 % (42-75); Platelet Count 177 thou/uL (130-400); RBC Distribution Width 15.4 % (11.5-14.5); Red Blood Cell (RBC) Count 4.68 mill/uL (4.70-6.10); White Blood Cell (WBC) Count 7.4 thou/uL (4.8-10.8)
[2019-06-20] MEDS: Ketorolac Tromethamine 30 MG/ML VIAL IVP SCH ×4 (05:58→23:53)
--- NOTE | 2019-06-20 08:52 | PRG ---
DATE OF SERVICE: 06/20/2019 SUBJECTIVE: Mr. Estevez is an 78-year-old black male with known history of ESRD-recent diagnosis of calciphylaxis and recently underwent an open cholecystectomy. This was done under Dr. Osborne. This a.m., he is feeling better. There is no indication for any dialytic intervention today. Denies any abdominal pain except for slight postop pain. OBJECTIVE: VITAL SIGNS: Blood pressure 105/46, heart rate 75, respiratory rate 18, temperature 96.7, and pulse ox 95%. GENERAL: Noted to be awake, alert, supine, obese, not in distress. SKIN: Adequate turgor. HEENT: He has a pinkish conjunctivae. Anicteric sclerae. NECK: No neck mass. No carotid bruits. No JVD. CHEST: No deformities. LUNGS: Clear breath sounds. HEART: Normal sinus rhythm. No murmur. No gallops. No rubs. ABDOMEN: Globular, soft, nontender. No masses. EXTREMITIES: No edema. No deformities. MEDICATIONS: Medications of June 20, 2019 was reviewed. LABORATORY DATA: Laboratories of June 20, 2019; sodium 142, potassium 4.3, chloride 100, carbon dioxide 26, BUN 12, creatinine 5.36, calcium 9.4, AST 21, ALT 11, albumin 2.4. White count 7.4, hemoglobin 12. ASSESSMENT AND PLAN: 1. End-stage renal disease, stable. We will continue current Monday, Monday, and Monday hemodialysis. Fluid removal only as tolerated. 2. Hyperphosphatemia-Renvela 1600 mg one tablet t.i.d. with meals has been initiated. 3. Calciphylaxis. Continuing sodium thiosulfate 25 g IV every hemodialysis for a total of 3 months duration. 4. Cholelithiasis/cholecystitis-patient status post open cholecystectomy, doing well. 5. Recheck basic met and CBC in a.m. Job ID: [id number]
[2019-06-20] MEDS: Famotidine 20 MG TAB PO SCH (09:54)
[2019-06-20] MEDS: Midodrine HCl 5 MG TAB PO SCH ×3 (09:54→21:21)
[2019-06-20] MEDS: Sevelamer Carbonate 800 MG TAB PO SCH ×3 (09:54→18:24)
[2019-06-20] MEDS ORDERED: traMADol HCl 50 MG TAB PO PRN (10:42)
--- NOTE | 2019-06-20 10:49 | PRG ---
DATE OF SERVICE: 06/20/2019 SUBJECTIVE: Mr. Estevez underwent cholecystectomy yesterday. He did well. Due to scar tissue, it had to be done as an open procedure. He is doing well today. OBJECTIVE: VITAL SIGNS: Blood pressure 105/46, pulse 75 and regular. LUNGS: Clear. CARDIAC: Normal S1, normal S2. ABDOMEN: Soft and nontender. EXTREMITIES: No edema. ASSESSMENT: 1. End-stage renal disease. 2. Status cholecystectomy for cholecystitis. 3. History of orthostatic hypotension. 4. History of deep venous thrombosis. PLAN: 1. He is on midodrine for orthostatic hypotension. 2. Coumadin is on hold. INR is 1.4. 3. Start heparin subcu. 4. Resume Coumadin tomorrow. Job ID: [id number]
[2019-06-20] MEDS: Acetaminophen 325 MG TAB PO SCH ×3 (12:14→23:53)
--- NOTE | 2019-06-20 12:37 | PRG ---
DATE OF SERVICE: 06/20/2019 SUBJECTIVE: Mr. Estevez is an 78-year-old man with history of significant coronary artery disease, who is postop day #1, status post attempted laparoscopic converted to open cholecystectomy. The patient is awake and alert today. He reports adequate pain control. He has not used his PULP AND PAPER TESTER since last night. OBJECTIVE: VITAL SIGNS: This morning include blood pressure 111/53, pulse 70, respiratory rate 14, temperature 96.1 degrees Fahrenheit, oxygen saturation is 95% on room air. HEART: Reveals regular rate and rhythm. LUNGS: Clear to auscultation bilaterally. Breathing, regular and nonlabored. ABDOMEN: Soft and obese with moderate incisional tenderness to palpation. No gross peritoneal signs on examination. Incisions otherwise remain intact, clean, dry. [place] drain returns serosanguineous fluid about 150 mL since placement yesterday. LABORATORY FINDINGS: Today include a CBC with 7400 white blood cells, hemoglobin and hematocrit stable at 12.0 and 38.6 respectively. Platelet count is 177,000. Metabolic profile; sodium 142, potassium 4.3, chloride is 100, bicarb is 26, BUN is 12, creatinine is 5.36, glucose is 99. AST and ALT are normal at 21 and 12 respectively. Total bilirubin is also normal at 1.0. IMPRESSION: 1. Postop day #1, status post open cholecystectomy. 2. Stable chronic end-stage renal disease. PLAN: 1. Start clear liquid diet. 2. Increase activity per Physical and Occupational Therapy. 3. Discontinue PULP AND PAPER TESTER and initiate oral analgesics. 4. Above findings and plan discussed with the patient who indicates understanding of information given. I have answered all his questions. Job ID: [id number]
--- NOTE | 2019-06-20 15:27 | PDOC.HOSPP ---
- Subjective Encounter Date: 06/20/19 Encounter Time: 09:00 Subjective: The patient is doing better. No abdominal pain, nausea and vomiting. He has drain in place. Surgery started as laparoscopic and converted to open. Patient states he wants to ambulate but was told not to today - Objective Vital Signs & Weight: Vital Signs (12 hours) Temp Pulse Resp BP Pulse Ox 06/20/19 11:12 96.1 F L 70 14 111/53 L 95 06/20/19 08:00 95 06/20/19 07:51 96.7 F L 75 18 105/46 L 95 06/20/19 03:57 96.4 F L 77 18 95/42 L 97 Weight Admit Weight 290 lb 3 oz Weight 290 lb 3 oz I&O: 06/19/19 06/20/19 06/21/19 06:59 06:59 06:59 Intake Total 1140 620 Output Total 0 925 Balance 1140 -305 Result Diagrams: 06/20/19 04:12 06/20/19 04:12 Hospitalist ROS - Review of Systems Constitutional: denies: chills Eyes: denies: pain, vision change - Medication Medications: Active Medications Generic Name Dose Route Start Last Admin Trade Name Freq PRN Reason Stop Dose Admin Acetaminophen 650 mg 06/20/19 12:00 06/20/19 12:14 Tylenol PO 650 mg Q6HR BENNIE Administration Famotidine 20 mg 06/18/19 09:00 06/20/19 09:54 Pepcid PO 20 mg 0900 BENNIE Administration Sodium Thiosulfate 25 gm/ 200 mls @ 200 mls/hr 06/18/19 10:17 06/19/19 09:34 Sodium Chloride IVPB 200 mls WILLCALL PRN Administration EACH HEMODIALYSIS Ketorolac Tromethamine 15 mg 06/19/19 23:59 06/20/19 12:13 Toradol IVP 06/21/19 23:59 15 mg Q6HR BENNIE Administration Midodrine 5 mg 06/18/19 15:00 06/20/19 09:54 Proamatine PO 5 mg TID BENNIE Administration Rosuvastatin Calcium 20 mg 06/18/19 21:00 06/19/19 21:54 Crestor PO 20 mg HS BENNIE Administration Sevelamer Carbonate 1,600 mg 06/18/19 12:00 06/20/19 09:54 Renvela PO Not Given TID-WM BENNIE - Exam General Appearance: NAD, awake alert Eye: PERRL, anicteric sclera ENT: normocephalic atraumatic, no oropharyngeal lesions Neck: no JVD Heart: RRR, no murmur, no gallops, no rubs Respiratory: CTAB, no wheezes, no rales, no ronchi Gastrointestinal: soft, normal bowel sounds Gastrointestinal - other findings: bile drain in place. Mild RUQ and RLQ tenderness Extremities: no edema, 1+ LE edema Skin: no lesions, no rashes Hosp A/P - Plan This is an 78 year old male who presented with nausea/vomiting during dialysis, ultrasound showing evidence of acute cholecystitis #Acute cholecystitis - s/p cholecystectomy - s/p cholecystectomy. Drain in place, being managed by surgery - start heparin SC -PT/OT - continue famotidine bid Elevated troponin - type II NSTEMi - had some EKG changes. No chest pain currently. Dr. Rossi consulted and is following - ECHO pending History of PE and DVT - INR 1.4 - resume coumadin when deemed okay by general surgery ESRD - getting dialysis M, W, F Gout- continue allopurinol DVT prophylaxis: resume heparin SC Code status: full code
[2019-06-20] MEDS: traMADol HCl 50 MG TAB PO SCH ×2 (15:42→21:49)
[2019-06-20] MEDS: Heparin 5,000 UNITS/ML VIAL SC SCH ×2 (15:44→21:19)
[2019-06-20] MEDS: Rosuvastatin 20 MG TAB PO SCH (21:22)
--- NOTE | 2019-06-21 01:14 | PRG ---
DATE OF SERVICE: 06/21/2019 SUBJECTIVE: An 78-year-old male, status post open cholecystectomy yesterday. He remains hemodynamically stable without complaint of any abdominal pain. OBJECTIVE: VITAL SIGNS: Temperature is 97.4, heart rate is 72, blood pressure 113/53, oxygen saturation 92% on room air. No acute distress. GENERAL: I had to wake him up in the room. ABDOMEN: Soft. He has no tenderness. No rebound tenderness. No guarding. No rigidity. No pain to palpation. There are specifically no peritoneal signs. PLAN: We reviewed the lab work. We will continue the current plan and follow up again in the morning. Job ID: [id number]
[2019-06-21 04:36] LABS: #Eosinphils 0.1 thou/uL (0.0-0.7); #Lymphocytes 1.3 thou/uL (1.20-3.40); #Monocytes 0.8 thou/uL (0.11-0.59); #Neutrophils 4.4 thou/uL (1.40-6.50); %Basophils 0.1 % (0.0-1.0); %Eosinophils 1.8 % (0.0-10.0); %Lymphocytes 19.5 % (21.0-51.0); %Neutrophils 66.7 % (42.0-75.0); Hemoglobin 11.1 g/dL (14.0-18.0); Mean Corpuscular HGB CONC 30.3 g/dL (32.0-36.0); Mean Corpuscular Hemoglobin 24.6 pg (27.0-31.0); Mean Corpuscular Volume 81.2 fL (78.0-98.0); Mean Platelet Volume 9.4 fL (7.4-10.4); Platelet Count 173 thou/uL (130-400); RBC Distribution Width 15.3 % (11.5-14.5); Red Blood Cell (RBC) Count 4.51 mill/uL (4.70-6.10); White Blood Cell (WBC) Count 6.6 thou/uL (4.8-10.8)
[2019-06-21 04:56] LABS: ALT (SGPT) Less than 7 U/L (8-55); AST (SGOT) 23 U/L (5-34); Albumin 2.4 g/dL (3.4-4.8); Alkaline Phosphatase 96 U/L (40-110); Anion Gap 18 mmol/L (10-20); BUN (Urea Nitrogen) 18 mg/dL (8.4-25.7); Bilirubin, Total 0.6 mg/dL (0.2-1.2); Calc. Creatinine Clearance 15 mL/min (70-130); Calcium 9.6 mg/dL (7.8-10.44); Carbon Dioxide 28 mmol/L (23-31); Chloride 99 mmol/L (98-107); Estimated GFR-MDRD 9; Globulin 3.9 g/dL (2.4-3.5); Glucose 88 mg/dL (83-110); Potassium 3.7 mmol/L (3.5-5.1); Protein, Total 6.3 g/dL (5.8-8.1); Sodium 141 mmol/L (136-145)
[2019-06-21] MEDS: Acetaminophen 325 MG TAB PO SCH ×4 (05:30→23:50)
[2019-06-21] MEDS: Ketorolac Tromethamine 30 MG/ML VIAL IVP SCH (05:30)
[2019-06-21] MEDS: traMADol HCl 50 MG TAB PO SCH ×3 (05:32→21:17)
--- NOTE | 2019-06-21 08:52 | PRG ---
DATE OF SERVICE: 06/21/2019 SUBJECTIVE: Mr. Estevez is undergoing dialysis. He is feeling well. No complaints. OBJECTIVE: VITAL SIGNS: His blood pressure 125/57, pulse 87 and regular. LUNGS: Clear. CARDIAC: Normal S1 and S2. ABDOMEN: Soft and nontender. ASSESSMENT: 1. Labile hypertension, stable. 2. History of deep venous thrombosis. 3. Recent cholecystectomy. PLAN: 1. He is going to go back on Coumadin. 2. He is on subcutaneous heparin now. 3. Okay to me to go to surgical floor. Job ID: [id number]
--- NOTE | 2019-06-21 09:51 | PRG ---
DATE OF SERVICE: 06/21/2019 SUBJECTIVE: Mr. Esetvez is an 78-year-old black male with ESRD and on maintenance hemodialysis. He is undergoing hemodialysis today. Fluid removal only as tolerated. He came in with abdominal pain associated with nausea. He underwent an open cholecystectomy. He was also being treated for his presumed calciphylaxis. No other complaints today. No chest pain or shortness of breath. The patient is doing well postop. Surgery is following. OBJECTIVE: VITAL SIGNS: Blood pressure 125/57, heart rate 87, respiratory rate 18, temperature 97.5, pulse ox 94%. GENERAL: The patient is awake, alert, comfortable, not in overt distress. SKIN: Adequate turgor. HEENT: Pinkish conjunctivae. Anicteric sclerae. No neck mass. No carotid bruits. No JVD. CHEST: No deformities. LUNGS: Clear breath sounds. HEART: Normal sinus rhythm. No murmur. No gallops. No rubs. ABDOMEN: Globular, soft, nontender. No masses. Please note, the patient has surgical incision on the right upper quadrant. EXTREMITIES: No edema. No deformities. MEDICATIONS: Of June 21, 2019, were reviewed. LABORATORY DATA: Laboratories of June 21, 2019: White count 6.6, hemoglobin 11.1. Sodium 141, potassium 3.7, chloride 99, carbon dioxide 28, BUN 18, creatinine 7.08, calcium 9.6, glucose 88, AST 23, ALT less than 7, and albumin 2.4. PTH is 132. ASSESSMENT AND PLAN: 1. End-stage renal disease, stable. Continuing current 3 times a week hemodialysis. Fluid removal as tolerated. 2. Calciphylaxis - continuing sodium thiosulfate 25 g IV every hemodialysis. Our plan is for a total of 3 months. He does still have the subcutaneous nodules noted on the bilateral hip joint areas. 3. Status post open cholecystectomy, doing well. Surgery is following. 4. Overall agree with current management. Recheck basic metabolics and CBC in a.m. Job ID: [id number]
--- NOTE | 2019-06-21 11:53 | PRG ---
DATE OF SERVICE: 06/21/2019 SUBJECTIVE: Mr. Estevez is an 78 years old male, status post open cholecystectomy postop day #2. The patient is currently on dialysis and has a history of coronary artery disease. Postop, the patient tolerated with surgery well. Postop, the patient has been doing good. Pain is well controlled, hemodynamically stable with the drainage limited around 100 for 24 hours. he has not yet having bowel, but he passes some gas. Pain is well controlled. Currently, the patient is on dialysis. Vital signs, stable. Abdomen is soft, nondistended. Surgery site, suture is intact. No drainage. No discharge. MARCE drain is serous color. PLAN: We will continue supportive care. Continue pain control. We will advance the patient's diet today. Discontinue MARCE drain. General Surgery will continue to follow up tomorrow. Job ID: [id number] MTDD
[2019-06-21] MEDS: Midodrine HCl 5 MG TAB PO SCH ×3 (12:48→21:21)
[2019-06-21] MEDS: Sevelamer Carbonate 800 MG TAB PO SCH ×3 (12:51→17:54)
[2019-06-21] MEDS: Famotidine 20 MG TAB PO SCH (12:51)
[2019-06-21] MEDS: Polyethylene Glycol 3350 17 GM Packet PO SCH (12:52)
[2019-06-21] MEDS: Senokot S 8.6-50 MG TAB PO SCH ×2 (12:52→21:17)
[2019-06-21] MEDS: Heparin 5,000 UNITS/ML VIAL SC SCH ×2 (12:52→14:30)
--- NOTE | 2019-06-21 14:45 | PDOC.HOSPP ---
- Subjective Encounter Date: 06/21/19 Encounter Time: 14:41 Subjective: The patient says he feels full. He says he was fed too much food after dialysis and he doesn't usually eat that much but felt he was being forced to eat more. Patient is extremely tired. GB drain pulled today - Objective Vital Signs & Weight: Vital Signs (12 hours) Temp Pulse Resp BP Pulse Ox 06/21/19 14:03 114/51 L 06/21/19 12:56 97/39 L 06/21/19 12:46 78 18 87/36 L 95 06/21/19 11:27 97.6 F 78 18 89/38 L 06/21/19 07:24 97.5 F L 87 18 125/57 L 94 L 06/21/19 04:21 97.3 F L 68 16 138/53 L 93 L Weight Admit Weight 290 lb 3 oz Weight 291 lb 6.4 oz I&O: 06/20/19 06/21/19 06/22/19 06:59 06:59 06:59 Intake Total 620 721.0 Output Total 925 75 15 Balance -305 646.0 -15 Result Diagrams: 06/21/19 04:02 06/21/19 04:02 Hospitalist ROS - Review of Systems Constitutional: denies: fever, chills Gastrointestinal: denies: nausea, vomiting - Medication Medications: Active Medications Generic Name Dose Route Start Last Admin Trade Name Freq PRN Reason Stop Dose Admin Acetaminophen 650 mg 06/20/19 12:00 06/21/19 12:52 Tylenol PO Not Given Q6HR BENNIE Famotidine 20 mg 06/18/19 09:00 06/21/19 12:51 Pepcid PO 20 mg 0900 BENNIE Administration Heparin Sodium (Porcine) 5,000 units 06/20/19 15:00 06/21/19 14:30 Heparin SC 5,000 units TID BENNIE Administration Sodium Thiosulfate 25 gm/ 200 mls @ 200 mls/hr 06/18/19 10:17 06/21/19 11:45 Sodium Chloride IVPB 200 mls WILLCALL PRN Administration EACH HEMODIALYSIS Midodrine 5 mg 06/18/19 15:00 06/21/19 12:48 Proamatine PO 5 mg TID BENNIE Administration Polyethylene Glycol 17 gm 06/21/19 09:00 06/21/19 12:52 Miralax PO 17 gm DAILY BENNIE Administration Rosuvastatin Calcium 20 mg 06/18/19 21:00 06/20/19 21:22 Crestor PO 20 mg HS BENNIE Administration Senna/Docusate Sodium 1 tab 06/21/19 09:00 06/21/19 12:52 Senokot S PO 1 tab BID BENNIE Administration Sevelamer Carbonate 1,600 mg 06/18/19 12:00 06/21/19 13:59 Renvela PO 1,600 mg TID-WM BENNIE Administration Sodium Chloride 10 ml 06/17/19 22:40 06/20/19 18:24 Flush - Normal Saline IVF 10 ml PRN PRN Administration Saline Flush Tramadol HCl 50 mg 06/20/19 14:00 06/21/19 14:02 Ultram PO 50 mg Q8HR BENNIE Administration - Exam General Appearance: NAD, awake alert Eye: PERRL, anicteric sclera ENT: normocephalic atraumatic, no oropharyngeal lesions Neck: supple, symmetric, no JVD, no thyromegaly Heart: RRR, no murmur, no gallops, no rubs, normal peripheral pulses, diminshed peripheral pulses, murmur present, II/IV, III/IV Respiratory: CTAB, no wheezes, no rales, no ronchi Gastrointestinal: soft, non-tender, non-distended, normal bowel sounds Gastrointestinal - other findings: MARCE drain removed Extremities: no cyanosis, no clubbing, no edema Skin: normal turgor, no lesions, no rashes Neurological: cranial nerve grossly intact, no focal deficits, no new deficit, facial droop Hosp A/P - Plan This is an 78 year old male who presented with nausea/vomiting during dialysis, ultrasound showing evidence of acute cholecystitis #Acute cholecystitis - s/p cholecystectomy - s/p cholecystectomy 06/19. Drain is removed -PT/OT - continue famotidine bid - PT recommending d/c home with home health Elevated troponin - type II NSTEMi - had some EKG changes. No chest pain currently. Dr. Rossi consulted, no further recs for now - ECHO showed normal EF per Dr. Rossi History of PE and DVT - INR 1.4 - resume coumadin tonight, check INR tomorrow ESRD - getting dialysis M, W, F Gout- continue allopurinol DVT prophylaxis: coumadin Code status: full code
--- NOTE | 2019-06-21 15:24 | EKG ---
Test Reason : STAT Blood Pressure : / mmHG Vent. Rate : 094 BPM Atrial Rate : 094 BPM P-R Int : 160 ms QRS Dur : 170 ms QT Int : 448 ms P-R-T Axes : 070 -88 038 degrees QTc Int : 560 ms Sinus rhythm with occasional Premature ventricular complexes Right bundle branch block Left anterior fascicular block Bifascicular block Abnormal ECG When compared with ECG of 17-JUN-2019 17:33, (Unconfirmed) Premature ventricular complexes are now Present Premature atrial complexes are no longer Present Confirmed by DR. Demetrius KWON ([id number]) on 06/21/2019 3:24:45 PM Referred By: KRISTA Confirmed By:DR. Demetrius KWON
[2019-06-21] MEDS: Warfarin Sodium 5 MG TAB PO SCH (17:08)
[2019-06-21] MEDS: Rosuvastatin 20 MG TAB PO SCH (21:17)
[2019-06-22] MEDS: traMADol HCl 50 MG TAB PO SCH ×3 (05:19→21:05)
[2019-06-22] MEDS: Acetaminophen 325 MG TAB PO SCH ×4 (05:19→23:49)
[2019-06-22 05:49] LABS: #Basophils 0.1 thou/uL (0.0-0.2); #Eosinphils 0.2 thou/uL (0.0-0.7); #Lymphocytes 1.4 thou/uL (1.20-3.40); #Monocytes 0.7 thou/uL (0.11-0.59); #Neutrophils 4.8 thou/uL (1.40-6.50); %Basophils 1.1 % (0.0-1.0); %Lymphocytes 19.5 % (21.0-51.0); %Monocytes 10.2 % (0.0-10.0); %Neutrophils 66.3 % (42.0-75.0); Hemoglobin 10.8 g/dL (14.0-18.0); Mean Corpuscular HGB CONC 30.2 g/dL (32.0-36.0); Mean Corpuscular Hemoglobin 24.5 pg (27.0-31.0); Mean Corpuscular Volume 81.3 fL (78.0-98.0); Mean Platelet Volume 9.7 fL (7.4-10.4); Platelet Count 169 thou/uL (130-400); RBC Distribution Width 15.5 % (11.5-14.5); Red Blood Cell (RBC) Count 4.38 mill/uL (4.70-6.10); White Blood Cell (WBC) Count 7.2 thou/uL (4.8-10.8)
[2019-06-22 05:55] LABS: INR-International Normal Ratio 1.3; Prothrombin Time 16.2 SEC (12.0-14.7)
[2019-06-22 06:01] LABS: Anion Gap 16 mmol/L (10-20); BUN (Urea Nitrogen) 11 mg/dL (8.4-25.7); Calc. Creatinine Clearance 21 mL/min (70-130); Calcium 9.9 mg/dL (7.8-10.44); Carbon Dioxide 28 mmol/L (23-31); Chloride 99 mmol/L (98-107); Estimated GFR-MDRD 13; Glucose 78 mg/dL (83-110); Sodium 139 mmol/L (136-145)
[2019-06-22] MEDS: Polyethylene Glycol 3350 17 GM Packet PO SCH (09:17)
[2019-06-22] MEDS: Senokot S 8.6-50 MG TAB PO SCH ×2 (09:17→20:54)
[2019-06-22] MEDS: Famotidine 20 MG TAB PO SCH (09:17)
[2019-06-22] MEDS: Sevelamer Carbonate 800 MG TAB PO SCH ×3 (09:17→16:19)
[2019-06-22] MEDS: Midodrine HCl 5 MG TAB PO SCH ×3 (10:38→20:54)
--- NOTE | 2019-06-22 10:55 | PRG ---
DATE OF SERVICE: 06/22/2019 SUBJECTIVE: Mr. Estevez is an 78-year-old black male with ESRD, was admitted for nausea and vomiting. He was found to have an acute gallbladder. He underwent an open cholecystectomy. We are following him up for his maintenance hemodialysis. He underwent dialysis without any problem yesterday. This morning, he voices no new complaints. He is tolerating p.o. OBJECTIVE: VITAL SIGNS: Blood pressure 124/80, heart rate 77, respiratory rate 16, temperature 98.2, and pulse ox 94% on room air. GENERAL: Awake, alert, comfortable, obese. SKIN: Adequate turgor. HEENT: Pinkish conjunctivae. Anicteric sclerae. NECK: No neck mass. No carotid bruits. No JVD. CHEST: No deformities. LUNGS: Clear breath sounds. No wheezing. No crackles. HEART: Normal sinus rhythm. No murmur. No gallops. No rubs. ABDOMEN: Globular, soft, and nontender. No masses. Positive for surgical wound. EXTREMITIES: No edema. No deformities. NEUROLOGIC: Decreased motor in lower extremities. MEDICATIONS: Medications of June 22, 2019, were reviewed. LABORATORY DATA: Laboratories of June 22, 2019; white count 7.2, hemoglobin 10.8. Sodium 139, potassium 4, chloride 99, carbon dioxide 28, BUN is 11, creatinine 5.22, glucose 78, and calcium 9.9. ASSESSMENT AND PLAN: 1. End-stage renal disease, stable, tolerating current hemodialysis regimen on Monday, Monday, and Monday. Fluid removal as tolerated. 2. Acute abdomen - the patient underwent open cholecystectomy and is doing well, tolerating p.o. 3. Calciphylaxis. Continue to optimize renal osteodystrophy management. In addition is receiving sodium thiosulfate 25 g IV every hemodialysis. The total duration will be 3 months. Job ID: [id number]
--- NOTE | 2019-06-22 11:49 | PDOC.HOSPP ---
- Subjective Encounter Date: 06/22/19 Encounter Time: 08:45 Subjective: Expresses no complaint...+Constipation.. - Objective Vital Signs & Weight: Vital Signs (12 hours) Temp Pulse Resp BP Pulse Ox 06/22/19 07:47 98.2 F 77 16 124/80 97 06/22/19 03:17 98.3 F 67 16 95/66 95 Weight Admit Weight 290 lb 3 oz Weight 294 lb 8.601 oz I&O: 06/21/19 06/22/19 06/23/19 06:59 06:59 06:59 Intake Total 721.0 240 Output Total 75 15 Balance 646.0 225 Result Diagrams: 06/22/19 05:33 06/22/19 05:33 Hospitalist ROS - Medication Medications: Active Medications Generic Name Dose Route Start Last Admin Trade Name Freq PRN Reason Stop Dose Admin Acetaminophen 650 mg 06/20/19 12:00 06/22/19 05:19 Tylenol PO 650 mg Q6HR BENNIE Administration Famotidine 20 mg 06/18/19 09:00 06/22/19 09:17 Pepcid PO 20 mg 0900 BENNIE Administration Sodium Thiosulfate 25 gm/ 200 mls @ 200 mls/hr 06/18/19 10:17 06/21/19 11:45 Sodium Chloride IVPB 200 mls WILLCALL PRN Administration EACH HEMODIALYSIS Midodrine 5 mg 06/18/19 15:00 06/22/19 10:38 Proamatine PO 5 mg TID BENNIE Administration Polyethylene Glycol 17 gm 06/21/19 09:00 06/22/19 09:17 Miralax PO 17 gm DAILY BENNIE Administration Rosuvastatin Calcium 20 mg 06/18/19 21:00 06/21/19 21:17 Crestor PO 20 mg HS BENNIE Administration Senna/Docusate Sodium 1 tab 06/21/19 09:00 06/22/19 09:17 Senokot S PO 1 tab BID BENNIE Administration Sevelamer Carbonate 1,600 mg 06/18/19 12:00 06/22/19 09:17 Renvela PO 1,600 mg TID-WM BENNIE Administration Sodium Chloride 10 ml 06/17/19 22:40 06/20/19 18:24 Flush - Normal Saline IVF 10 ml PRN PRN Administration Saline Flush Tramadol HCl 50 mg 06/20/19 14:00 01/11/20 05:19 Ultram PO 50 mg Q8HR BENNIE Administration Warfarin Sodium 5 mg 06/21/19 17:00 06/21/19 17:08 Coumadin PO 5 mg MoWeFr BENNIE Administration - Exam Neck: no JVD Heart: irregular Respiratory: CTAB Gastrointestinal: soft Extremities: 1+ LE edema (+right leg wound..) Neurological: no weakness Psychiatric: normal affect Hosp A/P (1) S/P cholecystectomy Code(s): Z90.49 - ACQUIRED ABSENCE OF OTHER SPECIFIED PARTS OF DIGESTIVE TRACT Status: Acute (2) Gout Code(s): M10.9 - GOUT, UNSPECIFIED Status: Acute (3) History of pulmonary embolism Code(s): Z86.711 - PERSONAL HISTORY OF PULMONARY EMBOLISM Status: Acute (4) History of pulmonary embolism Code(s): Z86.711 - PERSONAL HISTORY OF PULMONARY EMBOLISM Status: Acute (5) ESRD (end stage renal disease) Code(s): N18.6 - END STAGE RENAL DISEASE Status: Acute (6) Elevated troponin Code(s): R79.89 - OTHER SPECIFIED ABNORMAL FINDINGS OF BLOOD CHEMISTRY Status : Acute (7) Hypertension Code(s): I10 - ESSENTIAL (PRIMARY) HYPERTENSION Status: Chronic - Plan f/u with nephrology & general surgery.. PT subtherapeutic continue heparin, coumadin
--- NOTE | 2019-06-22 12:34 | PRG ---
DATE OF SERVICE: 06/22/2019 SUBJECTIVE: Mr. Esteevz is an 78-year-old male, status post open cholecystectomy, postop day 3. Currently, the patient reports pain is well controlled. He tolerated with his regular diet. He is able to pass some gas, but not yet have bowel. His vital signs are stable. OBJECTIVE: GENERAL: Currently, the patient is lying in bed, comfortable with no acute respiratory distress. VITAL SIGNS: Stable. ABDOMEN: Soft. Expected some tenderness with deep palpation, but no sign of peritonitis. Bowel sounds active. PLAN: We will continue supportive care. Continue pain control. Continue DVT prophylaxis. General Surgery will continue to follow up. Job ID: [id number]
[2019-06-22] MEDS: Warfarin Sodium 2.5 MG TAB PO SCH (16:17)
[2019-06-22] MEDS: Rosuvastatin 20 MG TAB PO SCH (20:54)
[2019-06-23 05:16] LABS: INR-International Normal Ratio 1.6; Prothrombin Time 18.9 SEC (12.0-14.7)
[2019-06-23] MEDS: Acetaminophen 325 MG TAB PO SCH ×4 (05:28→23:13)
[2019-06-23] MEDS: traMADol HCl 50 MG TAB PO SCH ×3 (05:28→21:03)
[2019-06-23] MEDS: Senokot S 8.6-50 MG TAB PO SCH ×2 (08:55→20:43)
[2019-06-23] MEDS: Polyethylene Glycol 3350 17 GM Packet PO SCH (08:55)
[2019-06-23] MEDS: Famotidine 20 MG TAB PO SCH (08:55)
[2019-06-23] MEDS: Midodrine HCl 5 MG TAB PO SCH ×3 (09:06→20:43)
[2019-06-23] MEDS: Sevelamer Carbonate 800 MG TAB PO SCH ×3 (09:11→16:39)
--- NOTE | 2019-06-23 09:45 | PDOC.HOSPP ---
- Subjective Encounter Date: 06/23/19 Encounter Time: 08:00 Subjective: No specific complaint.. - Objective Vital Signs & Weight: Vital Signs (12 hours) Temp Pulse Resp BP Pulse Ox 06/23/19 07:30 97.7 F 86 14 140/80 94 L 06/23/19 04:11 97.6 F 82 18 138/84 96 06/22/19 23:22 97.8 F 80 18 124/88 97 Weight Admit Weight 290 lb 3 oz Weight 294 lb 8.601 oz I&O: 06/22/19 06/23/19 06/24/19 06:59 06:59 06:59 Intake Total 240 350 Output Total 15 Balance 225 350 Result Diagrams: 06/22/19 05:33 06/22/19 05:33 Hospitalist ROS - Medication Medications: Active Medications Generic Name Dose Route Start Last Admin Trade Name Freq PRN Reason Stop Dose Admin Acetaminophen 650 mg 06/20/19 12:00 06/23/19 05:28 Tylenol PO Not Given Q6HR BENNIE Famotidine 20 mg 06/18/19 09:00 06/23/19 08:55 Pepcid PO 20 mg 0900 BENNIE Administration Sodium Thiosulfate 25 gm/ 200 mls @ 200 mls/hr 06/18/19 10:17 06/21/19 11:45 Sodium Chloride IVPB 200 mls WILLCALL PRN Administration EACH HEMODIALYSIS Midodrine 5 mg 06/18/19 15:00 06/23/19 09:06 Proamatine PO 5 mg TID BENNIE Administration Polyethylene Glycol 17 gm 06/21/19 09:00 06/23/19 08:55 Miralax PO 17 gm DAILY BENNIE Administration Rosuvastatin Calcium 20 mg 06/18/19 21:00 06/22/19 20:54 Crestor PO 20 mg HS BENNIE Administration Senna/Docusate Sodium 1 tab 06/21/19 09:00 06/23/19 08:55 Senokot S PO 1 tab BID BENNIE Administration Sevelamer Carbonate 1,600 mg 06/18/19 12:00 06/23/19 09:11 Renvela PO Not Given TID-WM BENNIE Sodium Chloride 10 ml 06/17/19 22:40 06/20/19 18:24 Flush - Normal Saline IVF 10 ml PRN PRN Administration Saline Flush Tramadol HCl 50 mg 06/20/19 14:00 06/23/19 05:28 Ultram PO Not Given Q8HR BENNIE Warfarin Sodium 2.5 mg 06/22/19 17:00 06/22/19 16:17 Coumadin PO 2.5 mg SuTuThSa BENNIE Administration Warfarin Sodium 5 mg 06/21/19 17:00 06/21/19 17:08 Coumadin PO 5 mg MoWeFr BENNIE Administration - Exam Neck: no JVD Heart: RRR Respiratory: CTAB Gastrointestinal: soft Extremities: 1+ LE edema (Right leg wound.) Psychiatric: normal affect Hosp A/P (1) S/P cholecystectomy Code(s): Z90.49 - ACQUIRED ABSENCE OF OTHER SPECIFIED PARTS OF DIGESTIVE TRACT Status: Acute (2) Gout Code(s): M10.9 - GOUT, UNSPECIFIED Status: Acute (3) History of pulmonary embolism Code(s): Z86.711 - PERSONAL HISTORY OF PULMONARY EMBOLISM Status: Acute (4) History of pulmonary embolism Code(s): Z86.711 - PERSONAL HISTORY OF PULMONARY EMBOLISM Status: Acute (5) ESRD (end stage renal disease) Code(s): N18.6 - END STAGE RENAL DISEASE Status: Acute (6) Elevated troponin Code(s): R79.89 - OTHER SPECIFIED ABNORMAL FINDINGS OF BLOOD CHEMISTRY Status : Acute (7) Hypertension Code(s): I10 - ESSENTIAL (PRIMARY) HYPERTENSION Status: Chronic - Plan f/u with nephrology & general surgery.. PT subtherapeutic continue heparin, coumadin. For HD tomorrow.
--- NOTE | 2019-06-23 11:20 | PRG ---
DATE OF SERVICE: 06/23/2019 SUBJECTIVE: Mr. Estevez is an 78-year-old black male with ESRD, who was initially admitted for nausea and abdominal pain. He underwent exploratory laparotomy and open cholecystectomy. We are following him up for his management of his ESRD. He did receive dialysis 2 days ago. There is no indication for any emergent dialysis with this patient today. The patient still has not had any bowel movement. For that reason, he is being given dulcolax suppository as well as lactulose 30 mL now. No complaints of chest pain or shortness of breath. OBJECTIVE: VITAL SIGNS: Blood pressure 140/80, heart rate 86, respiratory rate 14, temperature 97.7, pulse ox 94%. GENERAL: The patient is awake, alert, supine, comfortable, obese. SKIN: Adequate turgor. HEENT: Pinkish conjunctivae. Anicteric sclerae. NECK: No neck mass. No carotid bruits. No JVD. CHEST: No deformities. LUNGS: Clear breath sounds. HEART: Normal sinus rhythm. No murmur. No gallops. No rubs. ABDOMEN: Globular, soft, nontender. No masses. He has a surgical wound on the right upper quadrant area. EXTREMITIES: No edema. No deformities. MEDICATIONS: Medications of June 23, 2019, were reviewed. LABORATORY DATA: Laboratories of June 22, 2019, white count 7.2, hemoglobin 10.8, sodium 139, potassium 4, chloride 99, carbon dioxide 28, BUN 11, creatinine 5.22, calcium 9.9. ASSESSMENT AND PLAN: 1. End-stage renal disease, stable. We will continue current hemodialysis regimen on Monday, Monday, and Monday. The patient is scheduled for dialysis tomorrow. 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 He is receiving 25 g IV every hemodialysis. We will continue this for a total of 3 months. 3. Acute cholecystitis/cholelithiasis-status post open cholecystectomy. 4. Agree with current management. Recheck basic metabolic panel and CBC in the a.m. Job ID: [id number]
[2019-06-23] MEDS ORDERED: Sevelamer Carbonate 800 MG TAB PO SCH (12:00)
--- NOTE | 2019-06-23 12:37 | PRG ---
DATE OF SERVICE: 06/23/2019 SUBJECTIVE: Mr. Estevez is 78 years old male, status post open cholecystectomy, postop day 4. The patient reports pain is well controlled. He tolerated with his regular diet. He passed some gas, but not yet have bowel. OBJECTIVE: VITAL SIGNS: His vital signs are stable. GENERAL: Currently, the patient is lying in bed comfortable with no acute respiratory distress. ABDOMEN: Soft. Expected some tender to deep palpation postop with no signs of peritonitis. Bowel sounds active. PLAN: Continue supportive care. Continue pain control. Continue DVT prophylaxis. The patient will have lactulose for bowel today. General Surgery will sign off from here. The patient's discharge plan will be discredited per primary team. The patient will be followed up with Dr. Osborne on July 02 at 2 p.m. for staple removal and checkup. Dr. Mueller is okay with the plan. Job ID: [id number] MTDD
[2019-06-23] MEDS: Bisacodyl 10 MG SUPP PR SCH ×2 (16:44→16:46)
[2019-06-23] MEDS: Warfarin Sodium 2.5 MG TAB PO SCH (18:19)
[2019-06-23] MEDS: Rosuvastatin 20 MG TAB PO SCH (20:43)
[2019-06-24 05:17] LABS: #Eosinphils 0.2 thou/uL (0.0-0.7); #Lymphocytes 1.5 thou/uL (1.20-3.40); #Monocytes 0.8 thou/uL (0.11-0.59); #Neutrophils 4.8 thou/uL (1.40-6.50); %Basophils 0.5 % (0.0-1.0); %Lymphocytes 19.8 % (21.0-51.0); %Monocytes 11.3 % (0.0-10.0); %Neutrophils 65.3 % (42.0-75.0); Hemoglobin 11.5 g/dL (14.0-18.0); Mean Corpuscular HGB CONC 30.7 g/dL (32.0-36.0); Mean Corpuscular Hemoglobin 24.6 pg (27.0-31.0); Mean Corpuscular Volume 80.2 fL (78.0-98.0); Platelet Count 208 thou/uL (130-400); RBC Distribution Width 15.7 % (11.5-14.5); Red Blood Cell (RBC) Count 4.66 mill/uL (4.70-6.10); White Blood Cell (WBC) Count 7.3 thou/uL (4.8-10.8)
[2019-06-24 05:23] LABS: Prothrombin Time 22.3 SEC (12.0-14.7)
[2019-06-24 05:35] LABS: Anion Gap 18 mmol/L (10-20); BUN (Urea Nitrogen) 29 mg/dL (8.4-25.7); Calc. Creatinine Clearance 12 mL/min (70-130); Calcium 10.2 mg/dL (7.8-10.44); Carbon Dioxide 27 mmol/L (23-31); Chloride 97 mmol/L (98-107); Estimated GFR-MDRD 7; Glucose 88 mg/dL (83-110); Potassium 4.2 mmol/L (3.5-5.1); Sodium 138 mmol/L (136-145)
[2019-06-24] MEDS: Acetaminophen 325 MG TAB PO SCH ×5 (05:53→23:50)
[2019-06-24] MEDS: traMADol HCl 50 MG TAB PO SCH ×3 (05:53→21:30)
--- NOTE | 2019-06-24 07:31 | PRG ---
DATE OF SERVICE: 06/24/2019 SUBJECTIVE: Mr. Estevez is an 78-year-old black male with ESRD and was admitted for nausea and abdominal pain. He did undergo an open cholecystectomy. He is feeling better. He was constipated for the last few days, but made his first bowel movement last night. No complaints of chest pain or shortness of breath. I have arranged this patient to be dialyzed today. OBJECTIVE: VITAL SIGNS: Blood pressure 146/82, heart rate 85, respiratory rate 16, temperature 97.3, pulse ox 96%. GENERAL: Noted to be awake, alert, supine, comfortable, obese. SKIN: Adequate turgor. HEENT: He has a pinkish conjunctivae. Anicteric sclerae. No neck mass. No carotid bruits. No JVD. CHEST: No deformities. LUNGS: Clear breath sounds. No wheezing. No crackles. HEART: Normal sinus rhythm. No murmur. No gallops. No rubs. ABDOMEN: Globular, soft, nontender. No masses. Positive for surgical scar. EXTREMITIES: No edema, no deformities. Left bilateral hip showed subcutaneous nodule, slightly tender. MEDICATIONS: Medications of June 24, 2019, was reviewed. LABORATORY DATA: Laboratories of June 24, 2019, white count 7.3, hemoglobin 11.5. Sodium 138, potassium 4.2, chloride 97, carbon dioxide 27, BUN 29, creatinine 8.91, glucose 88, and calcium 10.2. ASSESSMENT AND PLAN: 1. Endstage renal disease, stable. We will continue current Monday, Monday, and Monday hemodialysis regimen. Fluid removal only as tolerated. 2. Calciphylaxis-continuing sodium thiosulfate at 25 g IV every hemodialysis. Duration is a total of 3 months. 3. Nausea, abdominal pain, resolved with cholecystectomy. 4. Renal osteodystrophy, currently on calcitriol and phosphate binders. Job ID: [id number] [facility]
[2019-06-24] MEDS: Famotidine 20 MG TAB PO SCH (08:35)
[2019-06-24] MEDS: Sevelamer Carbonate 800 MG TAB PO SCH ×3 (08:35→18:48)
[2019-06-24] MEDS: Polyethylene Glycol 3350 17 GM Packet PO SCH (08:36)
[2019-06-24] MEDS: Senokot S 8.6-50 MG TAB PO SCH ×2 (08:37→20:23)
[2019-06-24] MEDS: Midodrine HCl 5 MG TAB PO SCH ×3 (08:37→20:25)
--- NOTE | 2019-06-24 10:35 | PDOC.HOSPP ---
- Subjective Encounter Date: 06/24/19 Encounter Time: 10:34 Subjective: ALERT, NO COMPLAints - Objective Vital Signs & Weight: Vital Signs (12 hours) Temp Pulse Resp BP Pulse Ox 06/24/19 08:10 95 06/24/19 07:11 98.1 F 73 18 160/96 H 95 Weight Admit Weight 290 lb 3 oz Weight 287 lb 2 oz I&O: 06/23/19 06/24/19 06/25/19 06:59 06:59 06:59 Intake Total 350 500 Balance 350 500 Result Diagrams: 06/24/19 04:40 06/24/19 04:40 Hospitalist ROS - Medication Medications: Active Medications Generic Name Dose Route Start Last Admin Trade Name Freq PRN Reason Stop Dose Admin Acetaminophen 650 mg 06/20/19 12:00 06/24/19 05:53 Tylenol PO Not Given Q6HR BENNIE Famotidine 20 mg 06/18/19 09:00 06/24/19 08:35 Pepcid PO 20 mg 0900 BENNIE Administration Sodium Thiosulfate 25 gm/ 200 mls @ 200 mls/hr 06/18/19 10:17 06/21/19 11:45 Sodium Chloride IVPB 200 mls WILLCALL PRN Administration EACH HEMODIALYSIS Midodrine 5 mg 06/18/19 15:00 06/24/19 08:37 Proamatine PO Not Given TID BENNIE Ondansetron HCl 4 mg 06/17/19 22:40 06/23/19 09:46 Zofran IVP 4 mg Q6H PRN Administration Nausea/Vomiting Polyethylene Glycol 17 gm 06/21/19 09:00 06/24/19 08:36 Miralax PO Not Given DAILY BENNIE Rosuvastatin Calcium 20 mg 06/18/19 21:00 06/23/19 20:43 Crestor PO 20 mg HS BENNIE Administration Senna/Docusate Sodium 1 tab 06/21/19 09:00 06/24/19 08:37 Senokot S PO Not Given BID BENNIE Sevelamer Carbonate 1,600 mg 06/18/19 12:00 06/24/19 08:35 Renvela PO 1,600 mg TID-WM BENNIE Administration Sodium Chloride 10 ml 06/17/19 22:40 06/20/19 18:24 Flush - Normal Saline IVF 10 ml PRN PRN Administration Saline Flush Tramadol HCl 50 mg 06/20/19 14:00 06/24/19 05:53 Ultram PO Not Given Q8HR [facility] Warfarin Sodium 2.5 mg 06/22/19 17:00 06/23/19 18:19 Coumadin PO 2.5 mg SuTuThSa [facility] Administration Warfarin Sodium 5 mg 06/21/19 17:00 06/21/19 17:08 Coumadin PO 5 mg MoWeFr [facility] Administration - Exam General Appearance: awake alert Neck: no JVD Heart: RRR, no murmur Respiratory: CTAB Gastrointestinal: soft, non-distended, normal bowel sounds Extremities: no edema Hosp A/P (1) Hypertension Code(s): I10 - ESSENTIAL (PRIMARY) HYPERTENSION Status: Chronic (2) ESRD (end stage renal disease) Code(s): N18.6 - END STAGE RENAL DISEASE Status: Acute (3) Elevated troponin Code(s): R79.89 - OTHER SPECIFIED ABNORMAL FINDINGS OF BLOOD CHEMISTRY Status : Acute (4) Nausea and vomiting Code(s): R11.2 - NAUSEA WITH VOMITING, UNSPECIFIED Status: Acute (5) Chronic anticoagulation Code(s): Z79.01 - [facility] (CURRENT) USE OF ANTICOAGULANTS Status: Chronic (6) Dyslipidemia Code(s): E78.5 - HYPERLIPIDEMIA, UNSPECIFIED Status: Chronic (7) S/P cholecystectomy Code(s): Z90.49 - ACQUIRED ABSENCE OF OTHER SPECIFIED PARTS OF DIGESTIVE TRACT Status: Acute - Plan HD later today on po meds INR therapeutic poss DC Gianluca
[2019-06-24] MEDS: Warfarin Sodium 5 MG TAB PO SCH (18:46)
[2019-06-24] MEDS: Rosuvastatin 20 MG TAB PO SCH (20:26)
[2019-06-25] MEDS: traMADol HCl 50 MG TAB PO SCH ×2 (05:16→17:02)
[2019-06-25] MEDS: Acetaminophen 325 MG TAB PO SCH ×2 (05:16→16:21)
[2019-06-25] MEDS: Polyethylene Glycol 3350 17 GM Packet PO SCH (08:51)
[2019-06-25] MEDS: Sevelamer Carbonate 800 MG TAB PO SCH ×3 (08:51→17:02)
[2019-06-25] MEDS: Famotidine 20 MG TAB PO SCH (08:52)
[2019-06-25] MEDS: Senokot S 8.6-50 MG TAB PO SCH (08:52)
--- NOTE | 2019-06-25 13:16 | DIS ---
DATE OF ADMISSION: 06/17/2019 DATE OF DISCHARGE: 06/25/2019 PRIMARY CARE PROVIDER: Dr. Noemy Rubalcava. DISPOSITION: Discharged to home. FINAL DIAGNOSES: End-stage renal disease, requiring hemodialysis; dyslipidemia; hypertension; long-term use of anticoagulants due to history of deep venous thrombosis, pulmonary embolism; nausea and vomiting, resolved; acute cholecystitis with cholelithiasis. CONSULTATIONS: 1. Dr. Abdoulaye Porter, Nephrology. 2. Dr. Holly Rossi, Cardiology. 3. Dr. Donald Osborne, General Surgery. PROCEDURES: On 06/19/2019, cholecystectomy by Dr. Donald Osborne. The path report revealed cholecystitis and cholelithiasis. HOSPITAL COURSE: The patient admitted with nausea, vomiting, and abdominal pain. The patient had tender right upper quadrant. His admitting laboratory, PT/INR was 3.4. White count was normal at 7.0, hemoglobin 11.9, platelet count 219,000. Chemistries, comprehensive metabolic profile showed normal electrolytes, creatinine 4.31, BUN 7. He had elevated troponins at 0.038, 0.052, 0.036, considered secondary to end-stage renal disease. His lipase was elevated. Abdominal ultrasound revealed cholelithiasis with findings of acute cholecystitis. He agreed with proceeding to cholecystectomy. The patient underwent a cholecystectomy. During his hospital stay, he continued to have his routine hemodialysis. He improved during his hospital stay and is currently being discharged home with Home Health on the medicines as indicated. His most recent laboratory; creatinine 8.91, BUN 29, lytes balanced. White count 7.2, hemoglobin 10.8, platelet count 169,000. His Coumadin anticoagulation has been reinstituted. He is back up to a 2.0 INR. He is being discharged with followup by PCP in 3 days with a PT/INR, to continue his routine 3 times a week hemodialysis. Follow up with General Surgery for his cholecystectomy to be arranged. Job ID: [id number]
[2019-06-25 13:38] VITALS: BMI 35.9
[2019-06-25 15:32] VITALS: BP 139/84; TEMP 98.5
--- NOTE | 2019-06-25 15:37 | PRG ---
DATE OF SERVICE: 06/25/2019 SUBJECTIVE: Mr. Estevez is an 78-year-old man, who is postop day #6, status post open cholecystectomy. He is awake and alert today reports no abdominal pain. He is tolerating general diet having normal bowel and urinary function. OBJECTIVE: VITAL SIGNS: Today includes blood pressure 136/85, pulse is 84, respiratory rate is 18, temperature 98.6 degrees Fahrenheit, and oxygen saturation is 95% on room air. ABDOMEN: Soft, nontender, and nondistended. Incision is intact, clean, and dry. He has no peritoneal signs on examination. IMPRESSION AND PLAN: Postop day #6, status post open cholecystectomy. Otherwise, hemodynamically stable. The patient is stable for discharge at the discretion of Primary Service. He sees me in the surgery clinic on 07/02/2019. Leah may be removed at that visit. Job ID: [id number]
[2019-06-25] MEDS: Midodrine HCl 5 MG TAB PO SCH ×2 (16:21→17:02)
[2019-06-25] MEDS: Warfarin Sodium 2.5 MG TAB PO SCH (17:02)
== END 2019-06-25 17:12 | disposition home health service (06) | DRG 414 ==
LOC: ERS 17:31 → OBSVTOIN 20:30 → 2NO 20:30 → SJJU 06-21 17:42
PROVIDERS: ADMIT Family Medicine; ATTEND Family Medicine
PROC: 5A1D70Z Performance of Urinary Filtration, Intermittent, Less than 6 Hours Per Day (ICD-10-PCS; 2019-06-17)
PROC: 0FT40ZZ Resection of Gallbladder, Open Approach (ICD-10-PCS; principal; 2019-06-19)
PROC: 0FJ44ZZ Inspection of Gallbladder, Percutaneous Endoscopic Approach (ICD-10-PCS; 2019-06-19)
DX: K80.00 Calculus of gallbladder with acute cholecystitis without obstruction (principal); N18.6 End stage renal disease; I21.A1 Myocardial infarction type 2; I13.2 Hypertensive heart and chronic kidney disease with heart failure and with stage 5 chronic kidney disease, or end stage renal disease; I45.2 Bifascicular block; M10.9 Gout, unspecified; I50.9 Heart failure, unspecified; E66.9 Obesity, unspecified; E78.5 Hyperlipidemia, unspecified; F41.9 Anxiety disorder, unspecified; E83.39 Other disorders of phosphorus metabolism; F32.9 Major depressive disorder, single episode, unspecified; I25.10 Atherosclerotic heart disease of native coronary artery without angina pectoris; I73.9 Peripheral vascular disease, unspecified; M25.851 Other specified joint disorders, right hip; M25.852 Other specified joint disorders, left hip; N25.0 Renal osteodystrophy; K59.00 Constipation, unspecified; Z99.2 Dependence on renal dialysis; Z86.718 Personal history of other venous thrombosis and embolism; Z86.711 Personal history of pulmonary embolism; Z88.1 Allergy status to other antibiotic agents; Z88.8 Allergy status to other drugs, medicaments and biological substances; Z90.49 Acquired absence of other specified parts of digestive tract; Z87.891 Personal history of nicotine dependence; Z68.35 Body mass index [BMI] 35.0-35.9, adult; Z79.01 Long term (current) use of anticoagulants; Z79.899 Other long term (current) drug therapy; I25.2 Old myocardial infarction
CPT/HCPCS: 36415; 71045; 74018; 76000; 76705; 80048; 80053; 82553; 83690; 83970; 84100; 84484; 85025; 85610; 85730; 86850; 86870; 86880; 86900; 86901; 86922; 88304; 90935; 93005; 93010; 93306; 96374; B4083; G0257; J0171; J0690; J1170; J1644; J1885; J2001; J2370; J2405; J2704; J3010; J3430; J3490; S0020

== ENCOUNTER 2019-07-09 12:32 | Emergency (ER) | payer MEDICARE ==
[2019-07-09 14:30] LABS: #Lymphocytes 1.5 thou/uL (1.20-3.40); #Monocytes 1.2 thou/uL (0.11-0.59); #Neutrophils 6.4 thou/uL (1.40-6.50); %Basophils 0.3 % (0.0-1.0); %Eosinophils 0.4 % (0.0-10.0); %Lymphocytes 16.3 % (21.0-51.0); %Monocytes 13.4 % (0.0-10.0); %Neutrophils 69.6 % (42.0-75.0); Hemoglobin 12.3 g/dL (14.0-18.0); Mean Corpuscular HGB CONC 31.6 g/dL (32.0-36.0); Mean Corpuscular Hemoglobin 24.8 pg (27.0-31.0); Mean Corpuscular Volume 78.5 fL (78.0-98.0); Mean Platelet Volume 9.6 fL (7.4-10.4); Platelet Count 204 thou/uL (130-400); Red Blood Cell (RBC) Count 4.97 mill/uL (4.70-6.10); White Blood Cell (WBC) Count 9.2 thou/uL (4.8-10.8)
[2019-07-09 14:55] LABS: ALT (SGPT) 19 U/L (8-55); AST (SGOT) 45 U/L (5-34); Albumin 2.8 g/dL (3.4-4.8); Alkaline Phosphatase 157 U/L (40-110); Anion Gap 25 mmol/L (10-20); BUN (Urea Nitrogen) 16 mg/dL (8.4-25.7); Bilirubin, Total 0.6 mg/dL (0.2-1.2); Calc. Creatinine Clearance 0 mL/min (70-130); Carbon Dioxide 28 mmol/L (23-31); Chloride 93 mmol/L (98-107); Estimated GFR-MDRD 11; Globulin 4.7 g/dL (2.4-3.5); Glucose 69 mg/dL (83-110); Lipase 54 U/L (8-78); Potassium 3.5 mmol/L (3.5-5.1); Sodium 141 mmol/L (136-145)
[2019-07-09 15:07] LABS: Protein, Total 7.5 g/dL (5.8-8.1)
[2019-07-09 15:08] LABS: Calcium 12.1 mg/dL (7.8-10.44)
== END 2019-07-09 17:02 | disposition home or self-care (01) ==
LOC: ERS 12:32
DX: R53.1 Weakness (principal); R11.2 Nausea with vomiting, unspecified; M10.9 Gout, unspecified; I13.2 Hypertensive heart and chronic kidney disease with heart failure and with stage 5 chronic kidney disease, or end stage renal disease; I50.9 Heart failure, unspecified; E78.5 Hyperlipidemia, unspecified; E66.9 Obesity, unspecified; N18.6 End stage renal disease; I25.2 Old myocardial infarction; Z87.891 Personal history of nicotine dependence
CPT/HCPCS: 36415; 80053; 83690; 85025; 94760

== ENCOUNTER 2019-07-13 20:57 | Observation (INO) | payer MEDICARE ==
[2019-07-13] MEDS ORDERED: Aspirin Chewable 81 MG TAB ONE (21:04)
[2019-07-13] MEDS ORDERED: Meclizine HCl 25 MG TAB ONE (21:31)
[2019-07-13 23:16] LABS: Troponin I 0.085 ng/mL (< 0.028)
[2019-07-13] MEDS ORDERED: Calcium Carbonate 500 MG ChewTAB PO PRN (23:25)
[2019-07-13] MEDS ORDERED: Ondansetron PF 4 MG/2 ML Vial IVP PRN (23:25)
[2019-07-13] MEDS ORDERED: Ondansetron ODT 4 MG TAB PO PRN (23:25)
--- NOTE | 2019-07-13 23:54 | HP ---
PRIMARY CARE PHYSICIAN: Dr. Rubalcava. CHIEF COMPLAINT: Generalized weakness. HISTORY OF PRESENT ILLNESS: The patient is an 78-year-old male with end-stage renal disease, on hemodialysis; history of DVT and atrial fibrillation, on anticoagulation with recent cholecystectomy for acute cholecystitis, presented to the emergency room with generalized weakness through [facility]. He was transferred to this facility for hospital admission. The patient was discharged approximately 2 weeks ago after open cholecystectomy. He has been feeling generally weak over the last 1 to 2 weeks. He presented to the emergency room 2 days ago with generalized weakness after hemodialysis. He was discharged home with outpatient followup. He presented again to [facility] today with the same complaint. He states that he fell yesterday while he was trying to get into the car post dialysis. He denies significant injuries. He had generalized pain, [id number] in intensity. He states that his pain is resolved. He is wheelchair bound. He has history of chronic bilateral hip wounds, which were attributed to calciphylaxis in the past. He underwent hemodialysis yesterday. He denies any chest pain, palpitations, blurring of vision, facial asymmetry, weakness and numbness of one extremity more than the other. He was transferred to this facility per patient's request. PAST MEDICAL HISTORY: 1. End-stage renal disease, on hemodialysis Monday, Monday, and Monday, managed by Dr. Porter. 2. Chronic diastolic heart failure. 3. Hypertension. 4. Hyperlipidemia. 5. History of DVT, on anticoagulation. 6. Paroxysmal atrial fibrillation, on anticoagulation. 7. History of orthostatic hypotension. 8. Recent acute cholecystitis, requiring open cholecystectomy. 9. 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 PAST SURGICAL HISTORY: 1. Recent open cholecystectomy. 2. Dialysis access. 3. Small bowel resection. ALLERGIES: THE PATIENT IS ALLERGIC TO CLINDAMYCIN, AMOXICILLIN, AND AMPICILLIN. CURRENT HOME MEDICATIONS: The patient does not remember any of his home medications. He was discharged on following medications 2 weeks ago, 1. Allopurinol 100 mg every two days. 2. Tums 1000 mg twice a day. 3. Gabapentin 300 mg at bedtime. 4. Midodrine 7.5 mg three times a day. 5. Tramadol as needed. 6. [place] as needed. 7. Calcitriol 0.25 mcg daily. 8. Vitamin D3 of 1000 units daily. 9. Pepcid 20 mg daily. 10. MiraLAX 17 g daily. 11. Crestor 20 mg at bedtime. 12. Senokot-S two tablets as needed. 13. Renvela 1600 mg three times a day. 14. Coumadin as directed. SOCIAL HISTORY: The patient currently lives at home with his family. He is wheelchair dependent. He also has electric scooter. Full code. DPOA - Patient makes his own decision with the help of his family. FAMILY HISTORY: One brother with diabetes. REVIEW OF SYSTEMS: All other review of systems were reviewed and were found negative. PHYSICAL EXAMINATION: VITAL SIGNS: Temperature 97.5, respirations of 18, pulse rate of 79 with a blood pressure 126/68, O2 saturations 95% on room air. GENERAL: An 78-year-old male with generalized weakness. HEENT: Head, atraumatic and normocephalic. Sclerae anicteric. Moist mucous membranes. No oral lesion. NECK: Supple. No JVD. No carotid bruit. LUNGS: Showed diminished air entry at bilateral bases. No rales, wheezing, or rhonchi. HEART: S1, S2 present. Regular rate and rhythm. No rubs or gallops. ABDOMEN: Soft, nontender. Bowel sounds present. Partially healed cholecystectomy scar. He still has an open wound approximately 2 inches in length without any drainage or erythema. EXTREMITIES: There is 1+ edema in bilateral lower extremity. He has probably lipoma in his left leg approximately 2 x 2 cm in diameter. SKIN: He has multiple skin dressing on his bilateral hip. We will reassess with Wound Care. PERIPHERAL VASCULAR: Radial pulses palpable bilaterally. NEUROLOGIC: Grossly nonfocal. Moves all 4 extremities. Power was 5/5 in all extremities. PSYCHIATRIC: The patient is alert, awake, oriented x3. LABORATORY FINDINGS: Please note, the labs are obtained from [facility]. TSH was 3.0. Troponin was 0.13. BNP was 72. Magnesium 2.1. Chemistry showed sodium 140, potassium 3.5, chloride 94, bicarb of 29, BUN 12, creatinine 5.0. CRP was 288. INR was 6.0. Lactic acid 1.9. Hemoglobin 11.5, hematocrit 37.0. EKG by my review showed sinus rhythm with PAC, premature atrial complexes with left axis deviation and right bundle-branch block. Chest x-ray at [facility] was negative for acute findings. CT scan of the abdomen and pelvis without contrast at [facility] was negative for acute findings. IMPRESSION: 1. Generalized weakness with frequent falls, multifactorial. 2. End-stage renal disease, on hemodialysis Monday, Monday, and Monday. Last dialysis on 12 July. The patient follows Dr. Porter. 3. Chronic anticoagulation with supratherapeutic INR. 4. Recent acute cholecystitis, requiring open laparoscopic cholecystectomy with partial wound dehiscence. 5. Orthostatic hypotension, on midodrine. 6. Hyperlipidemia. 7. Gout. 8. Calciphylaxis. 9. History of deep venous thrombosis and atrial fibrillation, on anticoagulation. 10. Elevated troponin, suspected type 2 myocardial infarction. PLAN: The patient will be monitored on the telemetry unit. We will trend troponins. Anticoagulation will be held. Home medication needs to be verified. Dr. Porter will be consulted for dialysis management. We will consult case liner for possible placement. We will hold vitamin K due to no active bleeding. Recheck labs in a.m. Echocardiogram from last month showed ejection fraction 50% to 55% with mild aortic insufficiency. General surgery will be consulted. We will also consult Wound Care for multiple bilateral chronic wounds. Physical Therapy and Occupational Therapy will be consulted as well. Job ID: [id number] [facility]
[2019-07-14] MEDS ORDERED: Midodrine HCl 5 MG TAB PO SCH (01:00)
[2019-07-14] MEDS ORDERED: Sodium Chloride 0.9% 250 ML IV SCH (01:00)
[2019-07-14 01:54] LABS: Troponin I 0.114 ng/mL (< 0.028)
[2019-07-14 04:13] LABS: #Basophils 0.1 thou/uL (0.0-0.2); #Eosinphils 0.1 thou/uL (0.0-0.7); #Lymphocytes 1.5 thou/uL (1.20-3.40); #Monocytes 0.9 thou/uL (0.11-0.59); #Neutrophils 5.6 thou/uL (1.40-6.50); %Basophils 0.9 % (0.0-1.0); %Eosinophils 0.9 % (0.0-10.0); %Lymphocytes 18.7 % (21.0-51.0); %Neutrophils 68.5 % (42.0-75.0); Hemoglobin 10.8 g/dL (14.0-18.0); Mean Corpuscular HGB CONC 29.5 g/dL (32.0-36.0); Mean Corpuscular Hemoglobin 24.4 pg (27.0-31.0); Mean Corpuscular Volume 82.7 fL (78.0-98.0); Mean Platelet Volume 10.4 fL (7.4-10.4); Platelet Count 198 thou/uL (130-400); RBC Distribution Width 16.6 % (11.5-14.5); Red Blood Cell (RBC) Count 4.43 mill/uL (4.70-6.10); White Blood Cell (WBC) Count 8.2 thou/uL (4.8-10.8)
[2019-07-14 04:19] LABS: ALT (SGPT) 15 U/L (8-55); AST (SGOT) 34 U/L (5-34); Albumin 2.5 g/dL (3.4-4.8); Alkaline Phosphatase 139 U/L (40-110); Anion Gap 20 mmol/L (10-20); BUN (Urea Nitrogen) 15 mg/dL (8.4-25.7); Bilirubin, Total 0.8 mg/dL (0.2-1.2); Calc. Creatinine Clearance 0 mL/min (70-130); Calcium 11.5 mg/dL (7.8-10.44); Carbon Dioxide 27 mmol/L (23-31); Chloride 96 mmol/L (98-107); Estimated GFR-MDRD 12; Globulin 4.8 g/dL (2.4-3.5); Glucose 79 mg/dL (83-110); Potassium 3.8 mmol/L (3.5-5.1); Protein, Total 7.3 g/dL (5.8-8.1); Sodium 139 mmol/L (136-145)
[2019-07-14 04:21] LABS: Prothrombin Time 66.9 SEC (12.0-14.7)
[2019-07-14 04:31] LABS: INR-International Normal Ratio 8.1
[2019-07-14] MEDS ORDERED: Phytonadione 10 MG/ML AMP PO SCH (04:45)
--- NOTE | 2019-07-14 04:54 | PDOC.EVN ---
Event Note - Event Note Event Note: RN called - INR 8.1 PLAN: 2.5 mg PO Vit K Also start gentle IVF with D5 due to hypoglycemia
[2019-07-14] MEDS ORDERED: Dextrose 5 % And 0.9 % NaCl 1,000 ML IV SCH (05:00)
[2019-07-14 07:43] LABS: Troponin I 0.097 ng/mL (< 0.028)
[2019-07-14] MEDS ORDERED: Aspirin 81 mg Enteric Coated Tablet ONE (08:03)
[2019-07-14] MEDS ORDERED: Famotidine 20 MG TAB ONE (08:03)
[2019-07-14] MEDS: Midodrine HCl 5 MG TAB PO SCH ×3 (08:04→20:14)
[2019-07-14] MEDS: Aspirin 81 mg Enteric Coated Tablet PO SCH (08:07)
[2019-07-14] MEDS ORDERED: Famotidine 20 MG TAB PO SCH (09:00)
[2019-07-14] MEDS: Senokot S 8.6-50 MG TAB PO SCH ×2 (10:20→20:14)
--- NOTE | 2019-07-14 10:20 | CON ---
DATE OF CONSULTATION: 07/14/2019 REQUESTING PHYSICIAN: Mateusz Sánchez MD REASON FOR CONSULTATION: Wound dehiscence. HISTORY OF PRESENT ILLNESS: This is an 78-year-old male with multiple comorbidities who underwent an open cholecystectomy approximately 3 weeks ago. He presented to an outside hospital due to general weakness over the last 2 weeks. He was transferred to [facility] at the patient's request. He has a history of calciphylaxis with chronic bilateral hip wounds. He undergoes hemodialysis for end-stage renal disease on Monday, Monday, and Monday. His most recent episode of weakness was attempting to get out of his wheelchair after dialysis. PAST MEDICAL HISTORY: 1. End-stage renal disease. 2. Chronic heart failure. 3. Hypertension. 4. Hyperlipidemia. 5. History of DVT. 6. Calciphylaxis. 7. Recent open cholecystectomy. PAST SURGICAL HISTORY: 1. Open cholecystectomy. 2. Dialysis access. 3. Exploratory laparotomy with bowel resection. ALLERGIES: AMOXICILLIN, CLINDAMYCIN, AND AMPICILLIN. HOME MEDICATIONS: 1. Allopurinol. 2. Gabapentin. 3. Midodrine. 4. Tramadol as needed. 5. [place] as needed. 6. Pepcid 20 mg daily. 7. Crestor. 8. Renvela. 9. Coumadin. SOCIAL HISTORY: The patient currently lives at home with his family. He is wheelchair dependent. He denies alcohol or illicit drug use. He endorses a previous history of smoking approximately 10 years ago. FAMILY HISTORY: Diabetes. PHYSICAL EXAMINATION: VITAL SIGNS: T 97.5, HR 79, BP 126/68, RR 18, SpO2 95% on room air. GENERAL: Alert and oriented. Morbidly obese. Appears chronically ill. HEENT: Normocephalic and atraumatic. Sclerae anicteric. NECK: Supple. No masses or jugular venous distention. LUNGS: Poor air entry. Generally clear. CARDIAC: Regular rate and rhythm. ABDOMEN: Soft, nondistended. Approximately 8 cm area of superficial wound dehiscence from his subcostal incision. No evidence of infection. EXTREMITIES: Mild pitting edema in bilateral lower extremities. SKIN: Multiple dressings around his hip. Examined with areas of calciphylaxis. VASCULAR: Radial pulses 2+. Dorsalis pedis pulses 1+. NEUROLOGIC: No focal deficits. LABORATORY DATA: Laboratory analysis reviewed. Shows a normal white blood cell count of 8.2 without left shift or bandemia. He has an elevated INR of 8.1. Creatinine elevated at 5.43. Hypercalcemia at 11.5. Elevated troponins (0.085, 0.114, 0.097). IMAGING: Chest x-ray at outside hospital showed no acute findings. ASSESSMENT: An 78-year-old male with multiple comorbidities, status post recent open cholecystectomy with superficial wound dehiscence. RECOMMENDATIONS: Agree with admission to Medicine service to evaluate and manage his medical comorbidities. Wound examined, cleansed, and dressed with wet-to- dry dressing at bedside. Recommend Wound Care consultation for additional recommendations. Consider coordinating home health for wound care. We will follow peripherally. Please call for any further questions. Job ID: [id number] [facility] HOSPITALFranchesca
[2019-07-14] MEDS ORDERED: Epoetin (ESRD) 20,000 UNITS/ML SC SCH (11:30)
[2019-07-14] MEDS ORDERED: EPOETIN ALFA-EPBX (ESRD) 4,000 UNIT/ML VIAL SC SCH (11:45)
[2019-07-14] MEDS ORDERED: Acetaminophen 325 MG TAB ONE (11:51)
[2019-07-14] MEDS: Acetaminophen 325 MG TAB PO PRN (11:53)
--- NOTE | 2019-07-14 11:55 | PRG ---
DATE OF SERVICE: 07/14/2019 SUBJECTIVE: Mr. Estevez is an 78-year-old black male, who was admitted for frequent falls and general deconditioning. According to the patient, he was going to have a blood draw yesterday, has not been he has fallen. This has happened several times. We are following up this patient for his maintenance hemodialysis. His next dialysis will be tomorrow; Monday, Monday, and Monday. He denies any chest pain or shortness of breath. He does still complain of diffuse pain. On examination of his bilateral hip lesions, he has this flat nodular lesion secondary to a presumed calciphylaxis. He continues to receive medications for this with his dialysis - sodium thiosulfate 25 g IV every dialysis. OBJECTIVE: VITAL SIGNS: Blood pressure is noted at 130/70 and heart rate 70. GENERAL: Noted to be awake, alert, obese, sitting comfortable, not in overt distress. SKIN: Adequate turgor. HEENT: He has slightly pale conjunctivae. Anicteric sclerae. NECK: No neck mass. No carotid bruits. No JVD. CHEST: No deformities. LUNGS: Decreased breath sounds. No wheezing. No crackles. HEART: Normal sinus rhythm. No murmur. No gallops. No rubs. ABDOMEN: Globular, soft, and nontender. No masses. EXTREMITIES: No edema. No deformities. Skin exam - shows bilateral nodular lesions on both hip joint areas. MEDICATIONS: Medications of July 14, 2019, was reviewed. LABORATORY DATA: Laboratories of July 14, 2019, white count 8.2 and hemoglobin 10.8. Sodium 139, potassium 3.8, chloride 96, carbon dioxide 27, BUN 15, creatinine 5.43, calcium 11.5, AST 34, ALT 15, and albumin 2.5. ASSESSMENT AND PLAN: 1. End-stage renal disease. Continue current hemodialysis regimen of 3 times a week - 4 hours each treatment. 2. Calciphylaxis - sodium thiosulfate 25 g IV every hemodialysis. 3. Chronic hypotension. The patient on midodrine 5 mg p.o. t.i.d. 4. Mild hypercalcemia. Consider discontinuing Tums with the patient. 5. We will check CBC, basic metabolic, intact PTH, and phosphorus in a.m. Overall prognosis remains guarded. Job ID: [id number]
[2019-07-14 12:08] LABS: Prothrombin Time 66.9 SEC (12.0-14.7)
[2019-07-14 12:18] LABS: INR-International Normal Ratio 8.1
[2019-07-14 17:15] VITALS: BMI 34.4
[2019-07-14] MEDS ORDERED: Senokot S 8.6-50 MG TAB PO PRN (17:19)
[2019-07-14] MEDS ORDERED: traMADol HCl 50 MG TAB PO PRN (17:19)
--- NOTE | 2019-07-14 17:24 | PDOC.HOSPP ---
- Subjective Encounter Date: 07/14/19 Encounter Time: 14:00 Subjective: no bleeding per rectum or hemoptysis or hematemesis no sob, has pain in his hips - Objective Vital Signs & Weight: Vital Signs (12 hours) Temp Pulse Resp BP Pulse Ox 07/14/19 17:15 97.3 F L 64 18 141/67 H 96 Weight Weight 275 lb 11.2 oz Result Diagrams: 07/14/19 03:49 07/14/19 03:49 Hospitalist ROS - Medication Medications: Active Medications Generic Name Dose Route Start Last Admin Trade Name Freq PRN Reason Stop Dose Admin Acetaminophen 650 mg 07/13/19 23:25 07/14/19 11:53 Tylenol PO 650 mg Q4H PRN Administration Headache/Fever/Mild Pain (1-3) Aspirin 81 mg 07/14/19 09:00 07/14/19 08:07 Ecotrin PO 81 mg DAILY BENNIE Administration Dextrose/Sodium Chloride 1,000 mls @ 50 mls/hr 07/14/19 05:00 07/14/19 05:35 D5 0.9% Ns IV 07/15/19 00:59 1,000 mls .Q20H BENNIE Administration Midodrine 5 mg 07/14/19 09:00 07/14/19 08:04 Proamatine PO 5 mg TID BENNIE Administration Senna/Docusate Sodium 2 tab 07/14/19 09:00 07/14/19 10:20 Senokot S PO 2 tab BID BENNIE Administration - Exam General Appearance: awake alert, ill appearing Eye: PERRL, anicteric sclera ENT: no oropharyngeal lesions, dry oral mucosa Neck: supple, no JVD Heart: RRR, no murmur Respiratory: no wheezes, no rales Gastrointestinal: soft, non-tender, non-distended, normal bowel sounds Extremities: no cyanosis, no edema Neurological: cranial nerve grossly intact, no focal deficits Hosp A/P (1) Recurrent falls Code(s): R29.6 - REPEATED FALLS Status: Acute (2) Coagulopathy Status: Acute (3) Calciphylaxis Code(s): E83.59 - OTHER DISORDERS OF CALCIUM METABOLISM Status: Chronic (4) History of pulmonary embolism Code(s): Z86.711 - PERSONAL HISTORY OF PULMONARY EMBOLISM Status: Chronic (5) Dyslipidemia Code(s): E78.5 - HYPERLIPIDEMIA, UNSPECIFIED Status: Chronic (6) ESRD (end stage renal disease) on dialysis Code(s): N18.6 - END STAGE RENAL DISEASE; Z99.2 - DEPENDENCE ON RENAL DIALYSIS Status: Chronic (7) Gout Code(s): M10.9 - GOUT, UNSPECIFIED Status: Chronic Qualifiers: Gout site: multiple sites (8) Physical deconditioning Code(s): R53.81 - OTHER MALAISE Status: Chronic (9) Secondary hyperparathyroidism of renal origin Code(s): N25.81 - SECONDARY HYPERPARATHYROIDISM OF RENAL ORIGIN Status: Chronic - Plan recieved a dose of vit K no active bleeding now, will hold off on Kcentra/ffp for now is scheduled for HD in am will need placement continue home meds as adv, midodrine prognosis is guarded
[2019-07-14] MEDS ORDERED: Allopurinol 100 MG TAB PO SCH (17:30)
[2019-07-14] MEDS ORDERED: Prevnar 13-Val Conj/PF 0.5 ML SYRINGE IM ONE (18:00)
[2019-07-14] MEDS: Gabapentin 300 MG CAP PO SCH (20:14)
[2019-07-14] MEDS: Rosuvastatin 20 MG TAB PO SCH (20:14)
[2019-07-15 05:11] LABS: Anion Gap 18 mmol/L (10-20); BUN (Urea Nitrogen) 19 mg/dL (8.4-25.7); Calc. Creatinine Clearance 15 mL/min (70-130); Carbon Dioxide 24 mmol/L (23-31); Chloride 99 mmol/L (98-107); Estimated GFR-MDRD 10; Glucose 84 mg/dL (83-110); Phosphorus 4.8 mg/dL (2.3-4.7); Potassium 3.7 mmol/L (3.5-5.1); Sodium 137 mmol/L (136-145)
[2019-07-15 06:49] LABS: Prothrombin Time 48.5 SEC (12.0-14.7)
[2019-07-15 07:03] LABS: #Eosinphils 0.1 thou/uL (0.0-0.7); #Lymphocytes 1.2 thou/uL (1.20-3.40); #Monocytes 0.6 thou/uL (0.11-0.59); #Neutrophils 3.9 thou/uL (1.40-6.50); %Basophils 0.3 % (0.0-1.0); %Eosinophils 2.2 % (0.0-10.0); %Lymphocytes 20.8 % (21.0-51.0); %Monocytes 10.7 % (0.0-10.0); Hemoglobin 9.9 g/dL (14.0-18.0); Mean Corpuscular HGB CONC 29.7 g/dL (32.0-36.0); Mean Corpuscular Hemoglobin 24.3 pg (27.0-31.0); Mean Corpuscular Volume 81.9 fL (78.0-98.0); Mean Platelet Volume 9.5 fL (7.4-10.4); Platelet Count 216 thou/uL (130-400); RBC Distribution Width 16.8 % (11.5-14.5); Red Blood Cell (RBC) Count 4.05 mill/uL (4.70-6.10); White Blood Cell (WBC) Count 5.9 thou/uL (4.8-10.8)
[2019-07-15 07:18] LABS: INR-International Normal Ratio 5.4
--- NOTE | 2019-07-15 09:08 | PRG ---
DATE OF SERVICE: 07/15/2019 SUBJECTIVE: Mr. Estevez is 78-year-old black male with ESRD and was initially admitted due to two frequent falls and general deconditioning. He was also complaining of pain around his bilateral hip area, where he has the calciphylaxis. This morning, he voices no new complaints. He denies any chest pain or shortness of breath. OBJECTIVE: VITAL SIGNS: Blood pressure is 131/58, heart rate 58, respiratory rate 18, temperature 97, pulse oximetry 95%. GENERAL: He is noted to be awake, alert, supine, obese, not in distress. SKIN: Adequate turgor. HEENT: He has a slightly pale conjunctivae. Anicteric sclerae. No neck mass. No carotid bruits. No JVD. CHEST: No deformities. LUNGS: Clear breath sounds. HEART: Normal sinus rhythm. No murmurs, gallops, or rubs. ABDOMEN: Globular, soft, nontender. No masses. Hip joint area positive for nodular lesions. EXTREMITIES: Bilateral extremities, no edema, no deformities. MEDICATIONS: Medications of July 15, 2019, was reviewed. LABORATORY DATA: Laboratories of July 15, 2019, white count 5.9, hemoglobin 9.9, sodium 137, potassium 3.7, chloride 99, carbon dioxide 24, BUN 19, creatinine 6.8, calcium is 11, phosphorus is 4.8, PTH is 47.2. ASSESSMENT AND PLAN: 1. Hyperphosphatemia. Continue current Renvela 1600 mg t.i.d. with meals. 2. End-stage renal disease, stable. We will continue current Monday, Monday, and Monday hemodialysis regimen. Fluid removal as tolerated. 3. Calciphylaxis. Continue sodium thiosulfate 25 g IV every hemodialysis. 4. Anemia currently on weekly Epogen. Job ID: [id number]
[2019-07-15] MEDS: Sevelamer Carbonate 800 MG TAB PO SCH ×4 (09:39→17:19)
[2019-07-15] MEDS: Midodrine HCl 5 MG TAB PO SCH ×3 (09:40→20:33)
[2019-07-15 09:58] LABS: HBSAg Index 0.32 S/CO (0-0.99); Hep B Surf Ag Non-Reactive S/CO (NonReactive)
[2019-07-15] MEDS ORDERED: Heparin 10,000 UNITS/ 10 ML VIAL ONE (11:57)
--- NOTE | 2019-07-15 14:54 | PDOC.HOSPP ---
- Subjective Encounter Date: 07/15/19 Encounter Time: 10:45 Subjective: awake, oriented well this am says he has been falling multiple times at home and once at HD center he normally uses his electric scooter to move around and can mobilize himself into his chair to ambulate. - Objective Vital Signs & Weight: Vital Signs (12 hours) Temp Pulse Pulse Pulse Resp BP BP 07/15/19 11:20 66 68 116/58 L 118/62 07/15/19 09:11 57 L 67 117/61 114/73 07/15/19 07:57 97.0 F L 58 L 18 07/15/19 03:00 95.5 F L 58 L 23 H BP Pulse Ox 07/15/19 11:20 07/15/19 09:11 07/15/19 07:57 131/58 L 95 07/15/19 03:00 130/60 93 L Weight Admit Weight 275 lb 11.2 oz Weight 275 lb 11.2 oz Result Diagrams: 07/15/19 06:14 07/15/19 04:12 Hospitalist ROS - Medication Medications: Active Medications Generic Name Dose Route Start Last Admin Trade Name Freq PRN Reason Stop Dose Admin Acetaminophen 650 mg 07/13/19 23:25 07/14/19 11:53 Tylenol PO 650 mg Q4H PRN Administration Headache/Fever/Mild Pain (1-3) Allopurinol 100 mg 07/14/19 17:30 07/14/19 20:14 Zyloprim PO 100 mg Q2DAYS BENNIE Administration Aspirin 81 mg 07/14/19 09:00 07/14/19 08:07 Ecotrin PO 81 mg DAILY BENNIE Administration Epoetin Michael-epbx 7,500 unit 07/14/19 11:45 07/14/19 18:40 Retacrit SC 7,500 unit .Q7D BENNIE Administration Gabapentin 300 mg 07/14/19 21:00 07/14/19 20:14 Neurontin PO 300 mg HS BENNIE Administration Midodrine 5 mg 07/14/19 09:00 07/15/19 09:40 Proamatine PO 5 mg TID BENNIE Administration Rosuvastatin Calcium 20 mg 07/14/19 21:00 07/14/19 20:14 Crestor PO 20 mg HS BENNIE Administration Senna/Docusate Sodium 2 tab 07/14/19 09:00 07/14/19 20:14 Senokot S PO 2 tab BID BENNIE Administration Sevelamer Carbonate 1,600 mg 07/15/19 08:00 07/15/19 11:15 Renvela PO Not Given TID-WM BENNIE - Exam General Appearance: awake alert Eye: PERRL, anicteric sclera ENT: no oropharyngeal lesions, moist mucosa Neck: supple, no JVD Heart: RRR, no murmur Respiratory: no wheezes, no rales Gastrointestinal: soft, non-tender, non-distended, normal bowel sounds Extremities: no cyanosis, 1+ LE edema Neurological: cranial nerve grossly intact, no focal deficits Hosp A/P (1) Recurrent falls Code(s): R29.6 - REPEATED FALLS Status: Acute (2) Coagulopathy Status: Acute (3) Calciphylaxis Code(s): E83.59 - OTHER DISORDERS OF CALCIUM METABOLISM Status: Chronic (4) History of pulmonary embolism Code(s): Z86.711 - PERSONAL HISTORY OF PULMONARY EMBOLISM Status: Chronic (5) Dyslipidemia Code(s): E78.5 - HYPERLIPIDEMIA, UNSPECIFIED Status: Chronic (6) ESRD (end stage renal disease) on dialysis Code(s): N18.6 - END STAGE RENAL DISEASE; Z99.2 - DEPENDENCE ON RENAL DIALYSIS Status: Chronic (7) Gout Code(s): M10.9 - GOUT, UNSPECIFIED Status: Chronic Qualifiers: Gout site: multiple sites (8) Physical deconditioning Code(s): R53.81 - OTHER MALAISE Status: Chronic (9) Secondary hyperparathyroidism of renal origin Code(s): N25.81 - SECONDARY HYPERPARATHYROIDISM OF RENAL ORIGIN Status: Chronic - Plan recieved a dose of vit K on 07/14/2019, inr is trending down to around 5 this am. no active bleeding now, is getting HD now. hemostable will need rehab placement, to restart coumadin at 3mg on same days as before from 07/17/2019. continue home meds as adv, midodrine may dc anytime if rehab placement is ready. d/w Mr Gilbert [facility].
[2019-07-15] MEDS: HYDROcodone/Acetaminophen 5/325 mg Tablet PO PRN (17:00)
[2019-07-15] MEDS: Calcitriol 0.25 MCG CAP PO SCH (17:07)
[2019-07-15] MEDS: Polyethylene Glycol 3350 17 GM Packet PO SCH (17:08)
[2019-07-15] MEDS: Famotidine 20 MG TAB PO SCH (17:08)
[2019-07-15] MEDS: Senokot S 8.6-50 MG TAB PO SCH ×2 (17:10→20:32)
[2019-07-15] MEDS: Aspirin 81 mg Enteric Coated Tablet PO SCH (17:11)
[2019-07-15] MEDS: Rosuvastatin 20 MG TAB PO SCH (20:33)
[2019-07-15] MEDS: Gabapentin 300 MG CAP PO SCH (20:33)
[2019-07-15] MEDS: Acetaminophen 325 MG TAB PO PRN (21:59)
[2019-07-16 04:28] LABS: Prothrombin Time 40.6 SEC (12.0-14.7)
[2019-07-16 04:35] LABS: INR-International Normal Ratio 4.3
--- NOTE | 2019-07-16 08:09 | PRG ---
DATE OF SERVICE: 07/16/2019 SERVICE: Renal Medicine. SUBJECTIVE: Mr. Estevez is an 78-year-old white male on dialysis and was admitted due to frequent fall. We are following him up for his maintenance hemodialysis. He is doing well. He received dialysis yesterday. He has also been treated for his calciphylaxis. OBJECTIVE: VITAL SIGNS: Blood pressure 114/57, heart rate 62, respiratory rate 18, temperature 96.2, and pulse ox 96%. GENERAL: Noted to be awake, alert, comfortable, not in distress. Obese. SKIN: Adequate turgor. HEENT: Pinkish conjunctivae. Anicteric sclerae. NECK: No neck mass. No carotid bruits. No JVD. CHEST: No deformities. LUNGS: Clear breath sounds. HEART: Normal sinus rhythm. No murmurs. No gallops. No rubs. ABDOMEN: Globular, soft, and nontender. No masses. EXTREMITIES: No edema. No deformities. He does have a subcutaneous nodules on both hips. MEDICATIONS: Medications of July 16, 2019, were reviewed. LABORATORY DATA: Laboratories of July 15, 2019; hemoglobin 9.9. Sodium 137, potassium 3.7, chloride 99, carbon dioxide 24, BUN 19, creatinine 6.8, and phosphorus 4.8. PTH 47.2. ASSESSMENT AND PLAN: 1. End-stage renal disease, stable. We will continue current hemodialysis regimen. Fluid removal only as tolerated. Tolerating said treatment. 2. Calciphylaxis. Continuing sodium thiosulfate 25 g IV every hemodialysis. We are [facility] for [facility] facility. Long discussion with family, explaining to them the facility in [place] and we will consider ambulance transportation as needed. Job ID: [id number]
[2019-07-16] MEDS: Calcitriol 0.25 MCG CAP PO SCH (08:21)
[2019-07-16] MEDS: Aspirin 81 mg Enteric Coated Tablet PO SCH (08:21)
[2019-07-16] MEDS: Midodrine HCl 5 MG TAB PO SCH ×2 (08:22→14:31)
[2019-07-16] MEDS: Famotidine 20 MG TAB PO SCH (08:22)
[2019-07-16] MEDS: Senokot S 8.6-50 MG TAB PO SCH (08:24)
[2019-07-16] MEDS: Polyethylene Glycol 3350 17 GM Packet PO SCH (08:24)
[2019-07-16 11:33] VITALS: BP 130/60; TEMP 97.5
[2019-07-16] MEDS: Sevelamer Carbonate 800 MG TAB PO SCH (11:33)
[2019-07-16] MEDS: HYDROcodone/Acetaminophen 5/325 mg Tablet PO PRN (11:33)
--- NOTE | 2019-07-16 12:11 | PDOC.HOSPP ---
- Subjective Encounter Date: 07/16/19 Encounter Time: 10:00 Subjective: awake, no sob or abd pain family at bedside, want to take him home and donot want rehab/snf placement - Objective Vital Signs & Weight: Vital Signs (12 hours) Temp Pulse Resp BP BP Pulse Ox 07/16/19 11:28 97.5 F L 69 17 130/60 94 L 07/16/19 08:16 97.3 F L 63 19 134/65 98 07/16/19 03:42 96.2 F L 62 18 114/57 L 96 Weight Admit Weight 275 lb 11.2 oz Weight 275 lb 5.718 oz I&O: 07/15/19 07/16/19 07/17/19 06:59 06:59 06:59 Intake Total 780 Output Total 400 Balance 380 Result Diagrams: 07/15/19 06:14 07/15/19 04:12 Hospitalist ROS - Medication Medications: Active Medications Generic Name Dose Route Start Last Admin Trade Name Freq PRN Reason Stop Dose Admin Acetaminophen 650 mg 07/13/19 23:25 07/15/19 21:59 Tylenol PO 650 mg Q4H PRN Administration Headache/Fever/Mild Pain (1-3) Hydrocodone Bitart/Acetaminophen 1 tab 07/14/19 17:19 07/16/19 11:33 [place] 5/325 PO 1 tab Q6HR PRN Administration Moderate to Severe Pain (6-10) Allopurinol 100 mg 07/14/19 17:30 07/14/19 20:14 Zyloprim PO 100 mg Q2DAYS BENNIE Administration Aspirin 81 mg 07/14/19 09:00 07/16/19 08:21 Ecotrin PO 81 mg DAILY BENNIE Administration Calcitriol 0.25 mcg 07/15/19 09:00 07/16/19 08:21 Rocaltrol PO 0.25 mcg DAILY BENNIE Administration Cholecalciferol 1,000 units 07/15/19 09:00 07/16/19 08:21 Vitamin D3 PO 1,000 units DAILY BENNIE Administration Epoetin Michael-epbx 7,500 unit 07/14/19 11:45 07/14/19 18:40 Retacrit SC 7,500 unit .Q7D BENNIE Administration Famotidine 20 mg 07/15/19 09:00 07/16/19 08:22 Pepcid PO 20 mg DAILY BENNIE Administration Gabapentin 300 mg 07/14/19 21:00 07/15/19 20:33 Neurontin PO 300 mg HS BENNIE Administration Sodium Thiosulfate 25 gm/ 200 mls @ 100 mls/hr 07/15/19 09:00 07/15/19 14:00 Sodium Chloride IVPB 200 mls WILLCALL BENNIE Administration Midodrine 5 mg 07/14/19 09:00 07/16/19 08:22 Proamatine PO 5 mg TID BENNIE Administration Polyethylene Glycol 17 gm 07/15/19 09:00 07/16/19 08:24 Miralax PO Not Given DAILY BENNIE Rosuvastatin Calcium 20 mg 07/14/19 21:00 07/15/19 20:33 Crestor PO 20 mg HS BENNIE Administration Senna/Docusate Sodium 2 tab 07/14/19 09:00 07/16/19 08:24 Senokot S PO Not Given BID BENNIE Sevelamer Carbonate 1,600 mg 07/15/19 08:00 07/16/19 11:33 Renvela PO 1,600 mg TID-WM BENNIE Administration Tramadol HCl 50 mg 07/14/19 17:19 07/15/19 20:33 Ultram PO 50 mg QID PRN Administration Pain - Exam General Appearance: awake alert Eye: PERRL, anicteric sclera ENT: no oropharyngeal lesions, moist mucosa Neck: supple, no JVD Heart: RRR, no murmur Respiratory: no wheezes, no rales Gastrointestinal: soft, non-tender, non-distended, normal bowel sounds Extremities: no cyanosis, 1+ LE edema Neurological: cranial nerve grossly intact, no focal deficits Hosp A/P (1) Recurrent falls Code(s): R29.6 - REPEATED FALLS Status: Acute (2) Coagulopathy Status: Acute (3) Calciphylaxis Code(s): E83.59 - OTHER DISORDERS OF CALCIUM METABOLISM Status: Chronic (4) History of pulmonary embolism Code(s): Z86.711 - PERSONAL HISTORY OF PULMONARY EMBOLISM Status: Chronic (5) Dyslipidemia Code(s): E78.5 - HYPERLIPIDEMIA, UNSPECIFIED Status: Chronic (6) ESRD (end stage renal disease) on dialysis Code(s): N18.6 - END STAGE RENAL DISEASE; Z99.2 - DEPENDENCE ON RENAL DIALYSIS Status: Chronic (7) Gout Code(s): M10.9 - GOUT, UNSPECIFIED Status: Chronic Qualifiers: Gout site: multiple sites (8) Physical deconditioning Code(s): R53.81 - OTHER MALAISE Status: Chronic (9) Secondary hyperparathyroidism of renal origin Code(s): N25.81 - SECONDARY HYPERPARATHYROIDISM OF RENAL ORIGIN Status: Chronic - Plan recieved a dose of vit K on 07/14/2019, inr is trending down to around 5 this am. no active bleeding now, is getting HD now. hemostable will need rehab placement, to restart coumadin at 3mg on same days as before from 07/17/2019. continue home meds as adv, midodrine may dc home anytime per patient and families wishes. d/w Mr Gilbert [employer]. Has multiple medical issues and deconditioning Will need hospital bed at home to prevent decubitus and freq position changes and to elevate head end of bed to 30 degrees to prevent aspiration.
--- NOTE | 2019-07-16 17:15 | DIS ---
DATE OF ADMISSION: 07/13/2019 DATE OF DISCHARGE: 07/16/2019 DISCHARGE DISPOSITION: Home with [facility]. PRIMARY DISCHARGE DIAGNOSES: 1. Coagulopathy, resolved. This is secondary to him being on Coumadin. 2. Recurrent falls. 3. History of chronic calciphylaxis with ulcerations on both hips. 4. History of pulmonary embolism, on Coumadin. 5. End-stage renal disease, on hemodialysis. 6. Dyslipidemia. 7. Gout. 8. Chronic deconditioning with the patient being wheelchair bound. PROCEDURES DONE DURING HOSPITALIZATION: Hemoglobin and hematocrit 10 and 33, platelet count 216, MCV is 81, white count of 5.9. Initial INR was 6.5, then it inderjit up to 8.1, today's INR is 4.3. BUN 19, creatinine 6.8, phosphorus 4.8, albumin 2.5. Intact PTH 47.2. HBS antigen nonreactive. DISCHARGE MEDICATIONS: 1. Allopurinol 100 mg p.o. every 2 days. 2. Gabapentin 200 mg p.o. at bedtime. 3. Midodrine 7.5 mg p.o. three times daily. 4. Ultram 50 mg p.o. three times daily p.r.n. 5. Calcitriol 0.25 mcg p.o. daily. 6. Vitamin D3, 1000 units p.o. daily. 7. [place] p.r.n. for pain. 8. MiraLAX 17 g daily. 9. Crestor 20 mg p.o. at bedtime. 10. Senokot-S 2 tablets p.o. twice daily p.r.n. 11. Renvela 1600 mg p.o. three times daily. 12. Coumadin 2.5 mg p.o. on Monday, Monday, , Monday to start from today. ALLERGIES: CLINDAMYCIN, AMOXICILLIN, AND PENICILLIN. DISCHARGE PLAN: The patient to follow up with Dr. Rubalcava in 3 days. BRIEF COURSE DURING HOSPITALIZATION: The patient initially was brought to emergency room after he fell multiple times and he also fell while the family was trying to get him into a car after dialysis. In view of this history, the patient was placed under observation. His initial INR was 6, later it inderjit up to 8. He did not have any active bleeding. In view of the persistent elevation in INR, he was given 2.5 mg of oral vitamin K. His INR is slowly coming down to 4 this morning. He is advised to start half a dose of Coumadin from tomorrow. He has known history of PE. He also has history of paroxysmal atrial fibrillation. During his brief stay here, the patient has had consultation with Dr. Porter and has had hemodialysis done. He was also seen by Parker Mulligan, general surgeon for history of bilateral hip ulcers with calciphylaxis. Per General Surgery, Wound Care consultation was arranged. He has otherwise remained hemodynamically stable. The patient normally ambulates very little and helps with transfers to wheelchair. PT consultation was requested here. The patient also was suggested to go to rehab, but the patient and family have declined this option. Home Health with [facility] has been arranged. He needs to work with physical therapy with the home health agency. Please note, the patient needs close monitoring of his INR with a new dose of Coumadin at 2.[address] Rubalcava, his primary care physician, who also manages his Coumadin. Please note, I have seen and examined the patient on the day of discharge. Job ID: [id number]
== END 2019-07-16 14:59 | disposition home or self-care (01) ==
LOC: ERS 20:57 → ERHOLD 22:23 → 2NO 07-14 17:23
PROVIDERS: ADMIT Internal Medicine; ATTEND Internal Medicine
DX: D68.9 Coagulation defect, unspecified (principal); R29.6 Repeated falls; I11.0 Hypertensive heart disease with heart failure; I50.32 Chronic diastolic (congestive) heart failure; I48.0 Paroxysmal atrial fibrillation; E78.5 Hyperlipidemia, unspecified; M10.9 Gout, unspecified; I95.1 Orthostatic hypotension; E83.52 Hypercalcemia; N25.81 Secondary hyperparathyroidism of renal origin; Z79.01 Long term (current) use of anticoagulants; Z79.899 Other long term (current) drug therapy; Z86.711 Personal history of pulmonary embolism; Z87.891 Personal history of nicotine dependence; Z88.0 Allergy status to penicillin; Z88.1 Allergy status to other antibiotic agents; Z99.2 Dependence on renal dialysis; Z99.3 Dependence on wheelchair
CPT/HCPCS: 80048; 80053; 83970; 84100; 84484 ×3; 85025 ×2; 85610 ×4; 87340; 90670; 93005; 96372; 97112; 97139 ×4; 97535; 99285; G0009; G0378 ×5; Q5105; 36415; 90471; J1644; J3430; J3490; J8597

== ENCOUNTER 2019-07-20 18:05 | Observation (INO) | payer MEDICARE ==
[2019-07-20 19:48] LABS: #Eosinphils 0.1 thou/uL (0.0-0.7); #Lymphocytes 1.1 thou/uL (1.20-3.40); #Monocytes 0.9 thou/uL (0.11-0.59); #Neutrophils 5.1 thou/uL (1.40-6.50); %Basophils 0.4 % (0.0-1.0); %Lymphocytes 15.5 % (21.0-51.0); %Monocytes 12.5 % (0.0-10.0); %Neutrophils 70.5 % (42.0-75.0); Hemoglobin 11.7 g/dL (14.0-18.0); Mean Corpuscular HGB CONC 30.5 g/dL (32.0-36.0); Mean Corpuscular Hemoglobin 24.8 pg (27.0-31.0); Mean Corpuscular Volume 81.2 fL (78.0-98.0); Mean Platelet Volume 8.7 fL (7.4-10.4); Platelet Count 263 thou/uL (130-400); RBC Distribution Width 17.4 % (11.5-14.5); Red Blood Cell (RBC) Count 4.74 mill/uL (4.70-6.10); White Blood Cell (WBC) Count 7.2 thou/uL (4.8-10.8)
--- NOTE | 2019-07-20 19:49 | CT ---
CT OF BRAIN PERFORMED WITHOUT CONTRAST ENHANCEMENT: 07/20/19 HISTORY: Slurred speech, facial droop. There is generalized ventricular and sulcal prominence. There are no signs of intracerebral hemorrhag e or extra-axial fluid collections. No mass lesion or mass effect. Mastoid air cells and visualized sinuses are clear. There is fairly extensive vascular calcifications noted. IMPRESSION: No acute intracranial abnormalities. [place] [facility] [place]
--- NOTE | 2019-07-20 20:04 | RAD ---
XR Chest 1 View Portable HISTORY: Altered mental status COMPARISON: 06/17/2019 FINDINGS: The heart size is normal. The lungs are well expanded without focal areas of consolidation, pneumothorax or pleural effusions. IMPRESSION: No radiographic evidence of acute cardiopulmonary process.
[2019-07-20 20:05] LABS: ALT (SGPT) 12 U/L (8-55); AST (SGOT) 23 U/L (5-34); Albumin 2.4 g/dL (3.4-4.8); Alkaline Phosphatase 151 U/L (40-110); Anion Gap 14 mmol/L (10-20); BUN (Urea Nitrogen) 11 mg/dL (8.4-25.7); Bilirubin, Total 0.6 mg/dL (0.2-1.2); Calc. Creatinine Clearance 0 mL/min (70-130); Carbon Dioxide 31 mmol/L (23-31); Chloride 96 mmol/L (98-107); Estimated GFR-MDRD 14; Globulin 4.7 g/dL (2.4-3.5); Glucose 74 mg/dL (83-110); Potassium 3.7 mmol/L (3.5-5.1); Protein, Total 7.1 g/dL (5.8-8.1); Sodium 137 mmol/L (136-145)
[2019-07-20 20:08] LABS: Calcium 12.2 mg/dL (7.8-10.44)
[2019-07-20 20:46] LABS: CKMB 1.3 ng/mL (0-6.6)
[2019-07-20] MEDS ORDERED: Morphine 4 MG/ML VIAL ONE (21:10)
[2019-07-20 22:21] LABS: PTT 85.9 SEC (22.9-36.1)
[2019-07-20 22:23] LABS: INR-International Normal Ratio 6.3
[2019-07-20] MEDS ORDERED: Phytonadione 10 MG/ML AMP ONE (23:00)
[2019-07-20 23:08] LABS: Troponin I 0.093 ng/mL (< 0.028)
[2019-07-21] MEDS ORDERED: Acetaminophen 325 MG TAB PO PRN
[2019-07-21] MEDS ORDERED: Senokot S 8.6-50 MG TAB PO PRN
[2019-07-21] MEDS ORDERED: HYDROcodone/Acetaminophen 5/325 mg Tablet PO PRN (00:02)
[2019-07-21] MEDS ORDERED: traMADol HCl 50 MG TAB PO PRN (00:02)
[2019-07-21] MEDS ORDERED: Sodium Chloride 0.45% 250 ML IV SCH (01:30)
[2019-07-21 02:09] LABS: Troponin I 0.084 ng/mL (< 0.028)
[2019-07-21] MEDS: Sodium Chloride 0.9% 1,000 ML IV SCH ×2 (02:57→22:42)
[2019-07-21 03:18] VITALS: BMI 35.4
[2019-07-21 07:03] LABS: #Eosinphils 0.1 thou/uL (0.0-0.7); #Lymphocytes 1.7 thou/uL (1.20-3.40); #Monocytes 1.3 thou/uL (0.11-0.59); #Neutrophils 5.5 thou/uL (1.40-6.50); %Basophils 0.1 % (0.0-1.0); %Eosinophils 1.2 % (0.0-10.0); %Lymphocytes 19.9 % (21.0-51.0); %Monocytes 14.9 % (0.0-10.0); %Neutrophils 63.9 % (42.0-75.0); Hemoglobin 9.6 g/dL (14.0-18.0); Mean Corpuscular HGB CONC 31.1 g/dL (32.0-36.0); Mean Corpuscular Hemoglobin 25.9 pg (27.0-31.0); Mean Corpuscular Volume 83.2 fL (78.0-98.0); Mean Platelet Volume 8.7 fL (7.4-10.4); Platelet Count 245 thou/uL (130-400); RBC Distribution Width 17.2 % (11.5-14.5); White Blood Cell (WBC) Count 8.6 thou/uL (4.8-10.8)
[2019-07-21 07:09] LABS: Prothrombin Time 60.5 SEC (12.0-14.7)
[2019-07-21 07:17] LABS: INR-International Normal Ratio 7.1
[2019-07-21 07:23] LABS: Anion Gap 14 mmol/L (10-20); BUN (Urea Nitrogen) 14 mg/dL (8.4-25.7); Calc. Creatinine Clearance 21 mL/min (70-130); Calcium 11.8 mg/dL (7.8-10.44); Carbon Dioxide 30 mmol/L (23-31); Cardiac Risk 3.6 (Less than 4.5); Chloride 99 mmol/L (98-107); Cholesterol 72 mg/dl (< 200 Desired); Estimated GFR-MDRD 13; Glucose 76 mg/dL (83-110); HDL Cholesterol 20 mg/dL (>60 Neg Risk); LDL Cholesterol, Calculated 40 mg/dL; Potassium 3.6 mmol/L (3.5-5.1); Sodium 139 mmol/L (136-145); Triglycerides 60 mg/dL (Less than 150)
--- NOTE | 2019-07-21 07:49 | HP ---
CHIEF COMPLAINT: Change in mental status. HISTORY OF PRESENT ILLNESS: The patient is an 78-year-old male, who just recently was discharged from the hospital for hypercoagulation, who presents to the hospital with change in mental status. The patient's family, whose was at the bedside states that the patient was seemed to be confused and had some slurred speech Monday morning. The patient was brought into the hospital since the family got concerned and the patient appeared to be more confused to them, so they brought him to the hospital for further evaluation. According to the family, there is no nausea, vomiting, diarrhea, fevers, or chills. There was a recommendation to take the patient to a rehab facility. However, the patient's family refused stated that they had enough care to take care of the patient at home. The patient gets dialysis on Monday, Monday, and Monday. According to the family, they only clear his blood. They do not remove fluid. According to the family, he has been eating and drinking and has been doing okay. PAST MEDICAL HISTORY: As of the following; 1. He has a history of end-stage renal disease, on dialysis. 2. He has chronic diastolic heart failure. 3. Hypertension. 4. Hyperlipidemia. 5. DVT, on anticoagulation. 6. Paroxysmal atrial fibrillation, on anticoagulation. 7. History of orthostatic hypotension. 8. History of acute cholecystitis. 9. 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 PAST SURGICAL HISTORY: 1. He has had a recent open cholecystectomy. 2. Dialysis access. 3. Small bowel resection. ALLERGIES: HE IS ALLERGIC TO CLINDAMYCIN, OXACILLIN, AND AMPICILLIN. MEDICATIONS: He is on; 1. Allopurinol 100 mg twice a day. 2. Tums 1000 mg twice a day. 3. Gabapentin 300 mg daily. 4. Midodrine 7.5 three times a day. 5. Tramadol as needed. 6. Lorman as needed. 7. Calcitriol 0.25 mcg daily. 8. Vitamin D3 of 1000 units daily. 9. Pepcid 20 mg daily. 10. MiraLAX 17 g daily. 11. Crestor 20 mg daily. 12. Senokot two tabs as needed. 13. Renvela 1600 mg t.i.d. 14. Coumadin. SOCIAL HISTORY: He currently lives at home with family. He is a wheelchair dependent. However, currently, he is bed-bound. He is a full code, which is stated by his daughter. No history of alcohol use or drug use per family. FAMILY HISTORY: One brother has diabetes. REVIEW OF SYSTEMS: All negative except for the ones mentioned above in the HPI. PHYSICAL EXAMINATION: VITAL SIGNS: Are as of the following; his temperature of 96.2, pulse 68, respiratory rate 16, oxygen saturations 100% on room air, and blood pressure 136/70. GENERAL: He is awake, alert, and oriented x3. Does not appear in any distress. HEENT: Normocephalic, atraumatic. Pupils are equal and reactive to light. The patient's oral cavity, he appears to be dehydrated. NECK: No lymphadenopathy noted. Cardiovascular: S1 and S2 present. No murmurs, rubs, or gallops. LUNGS: Clear to auscultation. No rhonchi or wheezes noted. ABDOMEN: Soft and nontender. Bowel sounds are present x2. He does have an umbilical incision, which is packed. EXTREMITIES: Mild trace pitting edema to bilateral lower extremity. Pedal pulses are present x2. NEUROVASCULAR: There are no focal deficits noted. SKIN: He does have 3 major decubitus ulcers, couple of small open skin scabs and he also has one around his abdominal area that is his cholecystectomy incision, which is being packed. LABORATORY RESULTS: As of the following; WBCs of 7.2, hemoglobin of 11.7, hematocrit of 38.5, and platelets of 263. Chemistry; sodium of 137, potassium of 3.7, BUN of 11, and creatinine of 4.82. His calcium was 12.2. Lactic acid 2.1. Troponins are mildly in indeterminate range. IMAGING DATA: He did have a CT brain and a chest x-ray. The CT brain did not show any acute intracranial abnormalities and the chest x-ray did not show any radiological indications of any cardiopulmonary process. ASSESSMENT AND PLAN: The patient is an 78-year-old male, who presents to the hospital with change in mental status. 1. Acute metabolic encephalopathy. The patient upon evaluation in the ER was completely awake, alert, and oriented x3. His CT head was negative. We will get an MRI brain, unlikely to be stroke. However, we will do a stroke workup on this patient. He has had an echocardiogram, which was a month ago. I will not repeat the echocardiogram. We will get carotid Dopplers just to make sure that there is nothing that his carotids are okay. His last echocardiogram indicated an ejection fraction of 50% to 55%. He had no evidence of valvular stenosis or regurgitation. 2. Hypercalcemia. The patient has a history of calciphylaxis, however, the patient clinically appeared dehydrated. I will start him on some gentle hydration and we will continue to monitor. We will also check a PTH and a vitamin D level. He may require additional supplements of calcitonin to decrease his calcium levels down. However, I will start some gentle hydration and recheck calcium in the morning. 3. Indeterminate troponins. The patient denies any chest pain. I will continue to monitor. They are within his range of his previous numbers. 4. Hypercoagulable. His INR was 6.3. We did give him a vitamin K 2.5 mg. He has no signs of bleeding. We will recheck PT/INR in the morning and continue to monitor and hold his Coumadin for now. 5. Deep venous thrombosis prophylaxis. The patient is already anticoagulated. We will continue to monitor. Job ID: [id number]
[2019-07-21] MEDS ORDERED: Calcitriol 0.25 MCG CAP PO SCH (09:00)
[2019-07-21] MEDS: Heparin 5,000 UNITS/ML VIAL SC SCH ×3 (09:25→22:41)
[2019-07-21] MEDS: Sevelamer Carbonate 800 MG TAB PO SCH ×3 (10:12→16:03)
[2019-07-21] MEDS: Midodrine HCl 5 MG TAB PO SCH ×3 (10:12→22:40)
[2019-07-21] MEDS: Aspirin 81 mg Enteric Coated Tablet PO SCH (10:12)
[2019-07-21] MEDS: Polyethylene Glycol 3350 17 GM Packet PO SCH (10:15)
--- NOTE | 2019-07-21 11:01 | PDOC.HOSPP ---
- Subjective Encounter Date: 07/21/19 Encounter Time: 10:00 Subjective: this morning he is awake, responds well to verbal questions, knows he in the hospital no specific weakness in any extremities. says he is hungry and wants to eat. No pain in his buttock or hip areas where ulcers are present. - Objective Vital Signs & Weight: Vital Signs (12 hours) Temp Pulse Resp BP BP Pulse Ox 07/21/19 07:50 97.4 F L 68 15 119/62 94 L 07/21/19 04:17 96.2 F L 07/21/19 04:00 68 16 136/70 100 07/21/19 01:42 120/67 07/21/19 00:25 97.1 F L 80 14 88/52 L 98 Weight Weight 283 lb 6.4 oz I&O: 07/20/19 07/21/19 07/22/19 06:59 06:59 06:59 Intake Total 570 Balance 570 Result Diagrams: 07/21/19 06:55 07/21/19 06:55 Additional Labs: Accuchecks 07/20/19 18:44 POC Glucose 74 Hospitalist ROS - Medication Medications: Active Medications Generic Name Dose Route Start Last Admin Trade Name Freq PRN Reason Stop Dose Admin Aspirin 81 mg 07/21/19 09:00 07/21/19 10:12 Ecotrin PO 81 mg DAILY BENNIE Administration Calcitriol 0.25 mcg 07/21/19 09:00 07/21/19 10:12 Rocaltrol PO 0.25 mcg DAILY BENNIE Administration Heparin Sodium (Porcine) 5,000 units 07/21/19 09:00 07/21/19 09:25 Heparin SC Not Given TID BENNIE Sodium Chloride 1,000 mls @ 50 mls/hr 07/20/19 23:00 07/21/19 02:57 Normal Saline 0.9% IV Not Given .Q20H BENNIE Midodrine 7.5 mg 07/21/19 09:00 07/21/19 10:12 Proamatine PO 7.5 mg TID BENNIE Administration Polyethylene Glycol 17 gm 07/21/19 09:00 07/21/19 10:15 Miralax PO 17 gm DAILY BENNIE Administration Sevelamer Carbonate 1,600 mg 07/21/19 08:00 07/21/19 10:12 Renvela PO 1,600 mg TID-WM BENNIE Administration - Exam General Appearance: awake alert Eye: PERRL, anicteric sclera ENT: no oropharyngeal lesions, moist mucosa Neck: supple, no JVD Heart: RRR, no murmur Respiratory: no wheezes, no rales Gastrointestinal: soft, non-tender, non-distended, normal bowel sounds Extremities: no cyanosis, 1+ LE edema Neurological: cranial nerve grossly intact, no focal deficits Hosp A/P (1) Acute metabolic encephalopathy Code(s): G93.41 - METABOLIC ENCEPHALOPATHY Status: Resolved (2) Coagulopathy Status: Acute (3) Calciphylaxis Code(s): E83.59 - OTHER DISORDERS OF CALCIUM METABOLISM Status: Chronic (4) Dyslipidemia Code(s): E78.5 - HYPERLIPIDEMIA, UNSPECIFIED Status: Chronic (5) ESRD (end stage renal disease) on dialysis Code(s): N18.6 - END STAGE RENAL DISEASE; Z99.2 - DEPENDENCE ON RENAL DIALYSIS Status: Chronic (6) Gout Code(s): M10.9 - GOUT, UNSPECIFIED Status: Chronic Qualifiers: Gout site: multiple sites (7) History of deep venous thrombosis or pulmonary embolus Code(s): CXH5430 - Status: Chronic (8) Hypertension Code(s): I10 - ESSENTIAL (PRIMARY) HYPERTENSION Status: Chronic Qualifiers: Hypertension type: essential hypertension Qualified Code(s): I10 - Essential (primary) hypertension (9) Physical deconditioning Code(s): R53.81 - OTHER MALAISE Status: Chronic - Plan no clinical signs of cva encephalopathy is clearing up has coagulopathy with no current bleeding, recieved vit k 2.5mg x1 dose PT/OT to mobilize as tolerated continue midodrine, asp, crestor, sevelamer, gabapentin, allopurinol will likely need placement to swing bed or snf, not sure if he has had 3 midnight stays to qualify if not to rehab. CM consultation, also APS referal if needed, not sure if family can take care of him, has multiple medical issues and is bedbound with assistance for transfers.
--- NOTE | 2019-07-21 11:59 | MRI ---
MRI BRAIN: 07/21/2019 PROVIDED CLINICAL HISTORY: Slurred speech and facial droop. FINDINGS: The ventricular system appears normal in size and morphology. There is no evidence for intracranial h emorrhage or mass effect. There is no evidence for restricted diffusion to suggest recent infarction. Chronic microvascular ischemic changes are seen involving the cerebral white matter. Appropriate joaquina w voids are seen within the major intracranial vessels. The extracranial soft tissues and calvarial m arrow signal appear normal. IMPRESSION: No evidence for an acute intracranial abnormality. POS: LATOSHA
--- NOTE | 2019-07-21 15:00 | CON ---
DATE OF CONSULTATION: 07/21/2019 CONSULTING PHYSICIAN: Hospitalist Service. IMPRESSION: Mild encephalopathy secondary to his renal failure and age, nothing focal on exam. PLAN: He will be discharged at your discretion. HISTORY OF PRESENT ILLNESS: Mr. Estevez is an 78-year-old male with a past history of end-stage renal disease, hypertension, intermittent atrial fibrillation, on anticoagulation, who is essentially a wheelchair bound. He was brought in by his family because they thought he was acting somewhat different than normal. He had a CT scan of the brain done, which was unremarkable other than age-related changes. He reports at this time he feels like he is normal for himself. He had no complaints of headache, nausea, vomiting, vertigo, lateralized weakness, or numbness. PAST HISTORY: 1. End-stage renal disease. 2. Diastolic heart failure. 3. Hypertension. 4. Hyperlipidemia. 5. DVT. 6. Paroxysmal atrial fibrillation. 7. Orthostatic hypotension. PAST SURGICAL HISTORY: 1. Recent cholecystectomy. 2. Small bowel resection. MEDICATIONS: List was reviewed, which also includes [place]. SOCIAL HISTORY: He lives at home with family. There is no tobacco or alcohol use. FAMILY HISTORY: Noncontributory. REVIEW OF SYSTEMS: Ten-system review of systems is otherwise negative. PHYSICAL EXAMINATION: GENERAL: He is a large, overweight elderly man, lying in bed, in no acute distress. VITAL SIGNS: Blood pressure 136/70, pulse 68, respirations 16, and temperature 96.2. He has 100% saturations on room air. HEENT: Pupils are equal. Conjunctivae clear. Oropharynx clear. NECK: No lymphadenopathy. EXTREMITIES: There is peripheral edema in both legs. NEUROLOGIC: He was alert and cooperative. He was oriented x3. He followed commands appropriately. Speech was a bit difficult to understand at times due to his lack of dentition. Cranial nerve exam did not show any lateralized deficits. He had antigravity strength in all 4 extremities. Sensation was intact. There was asterixis present on postural extension. Gait is not testable. LABORATORY STUDIES: Unremarkable CBC and serum chemistries other than a creatinine of 4.82. IMAGING STUDIES: CT of the brain was reviewed and appears unremarkable. SUMMARY: An elderly man with multiple medical problems and likely some mild dementia, who has some signs of metabolic stress with asterixis on exam, likely due to his underlying renal failure, little else to offer. Job ID: [id number]
[2019-07-21] MEDS ORDERED: Atorvastatin Calcium 40 MG TAB PO SCH (21:00)
[2019-07-21] MEDS ORDERED: Gabapentin 100 MG CAP PO SCH (21:00)
[2019-07-21] MEDS ORDERED: Rosuvastatin 20 MG TAB PO SCH (21:00)
[2019-07-22 06:17] LABS: INR-International Normal Ratio 3.4
--- NOTE | 2019-07-22 07:45 | PDOC.HOSPP ---
- Subjective Encounter Date: 07/22/19 Encounter Time: 09:00 Subjective: Patient without complaint. Still responding a little slower to questions than normal, but mostly back to normal per family present in the room. - Objective Vital Signs & Weight: Vital Signs (12 hours) Temp Pulse Resp BP Pulse Ox 07/22/19 04:00 96 F L 62 16 156/70 H 94 L 07/22/19 00:00 97.4 F L 61 16 171/74 H 95 07/21/19 20:00 97.3 F L 67 14 165/73 H 92 L Weight Weight 283 lb 6.4 oz I&O: 07/21/19 07/22/19 07/23/19 06:59 06:59 06:59 Intake Total 570 Balance 570 Result Diagrams: 07/21/19 06:55 07/21/19 06:55 Hospitalist ROS - Review of Systems Constitutional: denies: fever, chills Respiratory: denies: cough, shortness of breath Cardiovascular: denies: chest pain, palpitations Gastrointestinal: denies: nausea, vomiting, abdominal pain - Medication Medications: Active Medications Generic Name Dose Route Start Last Admin Trade Name Freq PRN Reason Stop Dose Admin Aspirin 81 mg 07/21/19 09:00 07/21/19 10:12 Ecotrin PO 81 mg DAILY BENNIE Administration Calcitriol 0.25 mcg 07/21/19 09:00 07/21/19 10:12 Rocaltrol PO 0.25 mcg DAILY BENNIE Administration Gabapentin 200 mg 07/21/19 21:00 07/21/19 22:39 Neurontin PO 200 mg HS BENNIE Administration Sodium Chloride 1,000 mls @ 50 mls/hr 07/20/19 23:00 07/21/19 22:42 Normal Saline 0.9% IV 1,000 mls .Q20H BENNIE Administration Midodrine 7.5 mg 07/21/19 09:00 07/21/19 22:40 Proamatine PO Not Given TID BENNIE Polyethylene Glycol 17 gm 07/21/19 09:00 07/21/19 10:15 Miralax PO 17 gm DAILY BENNIE Administration Rosuvastatin Calcium 20 mg 07/21/19 21:00 07/21/19 22:40 Crestor PO 20 mg HS BENNIE Administration Sevelamer Carbonate 1,600 mg 07/21/19 08:00 07/21/19 16:03 Renvela PO 1,600 mg TID-WM BENNIE Administration Tramadol HCl 50 mg 07/21/19 00:02 07/21/19 15:04 Ultram PO 50 mg QID PRN Administration Moderate Pain (4-6) - Exam General Appearance: NAD General - other findings: obese ENT: moist mucosa Heart: RRR, no murmur, no gallops, no rubs Respiratory: CTAB, no wheezes, no rales, no ronchi Gastrointestinal: soft, non-tender, non-distended, normal bowel sounds Psychiatric: normal affect, normal behavior Hosp A/P (1) Acute metabolic encephalopathy Code(s): G93.41 - METABOLIC ENCEPHALOPATHY Status: Resolved (2) Coagulopathy Status: Acute (3) Gout Code(s): M10.9 - GOUT, UNSPECIFIED Status: Chronic (4) History of pulmonary embolism Code(s): Z86.711 - PERSONAL HISTORY OF PULMONARY EMBOLISM Status: Chronic (5) Calciphylaxis Code(s): E83.59 - OTHER DISORDERS OF CALCIUM METABOLISM Status: Chronic (6) Chronic anticoagulation Code(s): Z79.01 - PUMP MECHANIC (CURRENT) USE OF ANTICOAGULANTS Status: Chronic (7) Dyslipidemia Code(s): E78.5 - HYPERLIPIDEMIA, UNSPECIFIED Status: Chronic (8) ESRD (end stage renal disease) on dialysis Code(s): N18.6 - END STAGE RENAL DISEASE; Z99.2 - DEPENDENCE ON RENAL DIALYSIS Status: Chronic (9) Hypertension Code(s): I10 - ESSENTIAL (PRIMARY) HYPERTENSION Status: Chronic Qualifiers: Hypertension type: essential hypertension Qualified Code(s): I10 - Essential (primary) hypertension (10) Osteoarthritis Code(s): M19.90 - UNSPECIFIED OSTEOARTHRITIS, UNSPECIFIED SITE Status: Chronic (11) Secondary hyperparathyroidism of renal origin Code(s): N25.81 - SECONDARY HYPERPARATHYROIDISM OF RENAL ORIGIN Status: Chronic - Plan Encephalopathy resolved, MRI neg for stroke INR down below 4, no bleeding, ok to d/c home, family doesn't want SNF. Would like to test INR at home, uncertain if can get monitor Has HH set up already. D/C home.
[2019-07-22] MEDS: Sevelamer Carbonate 800 MG TAB PO SCH ×3 (09:00→19:16)
[2019-07-22] MEDS ORDERED: Allopurinol 100 MG TAB PO SCH (09:00)
[2019-07-22] MEDS: Midodrine HCl 5 MG TAB PO SCH ×2 (09:08→15:43)
--- NOTE | 2019-07-22 09:14 | PRG ---
DATE OF SERVICE: 07/22/2019 SUBJECTIVE: Mr. Estevez is an 78-year-old black male with ESRD and was admitted for mental status change. Imaging of the brain, CT scan and MRI were all negative. He is now mentating much better this morning. Feeling this all could be related to be drug-induced from his previous intake of his gabapentin. The patient voices no new complaints today. OBJECTIVE: VITAL SIGNS: Blood pressure is 119/62, heart rate 64, respiratory rate 14, temperature 97.3, pulse ox 97%. GENERAL: The patient is awake, alert, comfortable, obese, not in distress. SKIN: Adequate turgor. HEENT: He has slightly pale conjunctivae. Anicteric sclerae. NECK: No neck mass. No carotid bruits. No JVD. CHEST: No deformities. LUNGS: Clear breath sounds. No wheezing. No crackles. HEART: Normal sinus rhythm. No murmur. No gallops. No rubs. ABDOMEN: Globular, soft, and nontender. No masses. EXTREMITIES: Trace edema. MEDICATIONS: Medications of July 22, 2019, were reviewed. LABORATORY DATA: Laboratories of July 21, 2019: White count 8.6, hemoglobin 9.6. Sodium 139, potassium 3.6, chloride 99, carbon dioxide 20, BUN 14, creatinine 5.21, calcium is 11.8, PTH is 89.8. ASSESSMENT AND PLAN: 1. Hypercalcemia. We will hold off calcitriol temporarily. 2. End-stage renal disease, stable. We will continue current hemodialysis regimen, Monday, Monday, and Monday. Fluid removal only as tolerated by the patient. Tolerating said treatment. 3. Calciphylaxis. Continue sodium thiosulfate 25 g IV every hemodialysis. The plan is to give it to him for a total of 3 months. 4. Overall, agree with current management. Job ID: [id number]
[2019-07-22] MEDS ORDERED: traMADol HCl 50 MG TAB PO PRN (09:37)
--- NOTE | 2019-07-22 14:45 | DIS ---
DATE OF ADMISSION: 07/21/2019 DATE OF DISCHARGE: 07/22/2019 PRIMARY CARE PHYSICIAN: Dr. Rubalcava. REASON FOR ADMISSION: Altered mental status. DIAGNOSES AT DISCHARGE: 1. Acute metabolic encephalopathy, resolving. 2. Coagulopathy from too much Coumadin. 3. Gout. 4. History of pulmonary embolism. 5. Calciphylaxis. 6. Chronic anticoagulation. 7. Dyslipidemia. 8. End-stage renal disease, on dialysis. 9. Hypertension. 10. Osteoarthritis. 11. Secondary hyperparathyroidism of renal origin. PROCEDURES: 1. CT of the brain without contrast showing no acute intracranial abnormalities. 2. MRI of the brain without contrast showing no evidence of acute intracranial abnormality. CONSULTATIONS: Neurology, Dr. Rodgers. SUMMARY OF HOSPITAL COURSE: This is an 78-year-old male, recently discharged from the hospital for hypercoagulation, who presented to the hospital with changes in mental status. Family stated the patient seemed to be confused and had some slurred speech. He was brought to the hospital. In the hospital, he was noted to be a little bit slow in his responses, but otherwise nonfocal neurologic exam. He had negative CT and MRI. Neurology was consulted and determined this was likely due to his end-stage renal disease and possibly some early dementia. It was recommended the patient go to a group home facility or rehab facility. However, the family previously states they can take care of him at home, they already have home health set up. They do have concerns about home health has not been able to check the INRs regularly and they had hard time getting him into the clinic to get those done. They are asking about the possibility of getting a home INR monitor. The patient was noted to have an elevated INR of 6.3 on admission. He had no bleeding. This was treated and down to 3.4 at the time of discharge, and his Coumadin is still being held. DISCHARGE MANAGEMENT: Discharged to home with Home Health. ACTIVITY: As tolerated. DIET: Healthy heart, low-sodium diet with texture chopped and extra sauce and gravy. THERAPY: Occupational and physical therapy at home and INR checks either via monitor or home health draw if possible. DISCHARGE MEDICATIONS: 1. Coumadin 2.5 mg decreased to three times a week instead of four times a week. This is to be resumed after INR recheck and INR below 3. 2. Renvela 1600 mg three times a day. 3. Gabapentin 200 mg at night. 4. Vitamin D3, 1000 units daily. 5. Calcitriol 0.25 mcg daily. 6. Allopurinol 100 mg daily. 7. Midodrine 7.5 mg three times a day. 8. Rosuvastatin 20 mg at night. 9. Tramadol as needed for pain. TIME SPENT: Arranging the details of this discharge took 32 minutes. Job ID: [id number]
[2019-07-22 15:32] VITALS: BP 109/55; TEMP 97.6
[2019-07-22] MEDS: Aspirin 81 mg Enteric Coated Tablet PO SCH (15:42)
[2019-07-22] MEDS: Polyethylene Glycol 3350 17 GM Packet PO SCH (15:44)
[2019-07-22] MEDS: Sodium Chloride 0.9% 1,000 ML IV SCH (15:48)
[2019-07-22] MEDS: Heparin 5,000 UNITS/ML VIAL SC SCH (19:15)
== END 2019-07-22 17:10 | disposition home health service (06) ==
LOC: ERS 18:05 → 2SE 07-21 00:23
PROVIDERS: ADMIT Internal Medicine; ATTEND Emergency Medicine
DX: G93.41 Metabolic encephalopathy (principal); I13.2 Hypertensive heart and chronic kidney disease with heart failure and with stage 5 chronic kidney disease, or end stage renal disease; N18.6 End stage renal disease; I50.32 Chronic diastolic (congestive) heart failure; N25.81 Secondary hyperparathyroidism of renal origin; D68.8 Other specified coagulation defects; T45.515A Adverse effect of anticoagulants, initial encounter; E78.5 Hyperlipidemia, unspecified; I48.0 Paroxysmal atrial fibrillation; I95.1 Orthostatic hypotension; E83.52 Hypercalcemia; I25.2 Old myocardial infarction; L89.223 Pressure ulcer of left hip, stage 3; L89.322 Pressure ulcer of left buttock, stage 2; L89.153 Pressure ulcer of sacral region, stage 3; E83.59 Other disorders of calcium metabolism; M10.9 Gout, unspecified; M19.90 Unspecified osteoarthritis, unspecified site; Z86.711 Personal history of pulmonary embolism; Z86.718 Personal history of other venous thrombosis and embolism; Z87.891 Personal history of nicotine dependence; Z79.01 Long term (current) use of anticoagulants; Z79.899 Other long term (current) drug therapy; Z88.0 Allergy status to penicillin; Z88.1 Allergy status to other antibiotic agents; Z90.49 Acquired absence of other specified parts of digestive tract; Z99.3 Dependence on wheelchair
CPT/HCPCS: 70450; 70551; 71045; 80048; 80053; 80061; 82140; 82306; 82553; 82962; 83605; 83880; 83970; 84484 ×3; 85025 ×2; 85610 ×3; 85730; 87040; 93005; 96361 ×2; 96372; 96374; 97139 ×4; 97535; 99285; G0378 ×4; 36415; 36416; J2270; J3430; J3490

== ENCOUNTER 2019-08-04 17:45 | Inpatient (IN) | payer MEDICARE ==
[~2019-08-04 17:45] MED LIST: Iopamidol-370 76% 500 ML 1 ML ONE
[2019-08-04] MEDS ORDERED: Morphine 4 MG/ML VIAL ONE (18:57)
--- NOTE | 2019-08-04 19:06 | RAD ---
Chest one view HISTORY: Chest pain. COMPARISON: 07/20/2019. FINDINGS: Cardiac silhouette and pulmonary vasculature are unremarkable. Mediastinum is midline. No c onfluent airspace consolidation or evidence of pneumothorax. IMPRESSION: No active cardiopulmonary abnormalities are demonstrated.
[2019-08-04 19:07] LABS: #Basophils 0.1 thou/uL (0.0-0.2); #Eosinphils 0.1 thou/uL (0.0-0.7); #Lymphocytes 1.7 thou/uL (1.20-3.40); #Monocytes 1.2 thou/uL (0.11-0.59); #Neutrophils 7.1 thou/uL (1.40-6.50); %Basophils 0.5 % (0.0-1.0); %Monocytes 11.7 % (0.0-10.0); %Neutrophils 69.8 % (42.0-75.0); Hemoglobin 10.7 g/dL (14.0-18.0); Mean Corpuscular HGB CONC 31.1 g/dL (32.0-36.0); Mean Corpuscular Hemoglobin 25.7 pg (27.0-31.0); Mean Corpuscular Volume 82.5 fL (78.0-98.0); Mean Platelet Volume 8.6 fL (7.4-10.4); Platelet Count 302 thou/uL (130-400); RBC Distribution Width 17.9 % (11.5-14.5); Red Blood Cell (RBC) Count 4.18 mill/uL (4.70-6.10); White Blood Cell (WBC) Count 10.2 thou/uL (4.8-10.8)
[2019-08-04 19:22] LABS: ALT (SGPT) 24 U/L (8-55); AST (SGOT) 45 U/L (5-34); Albumin 2.3 g/dL (3.4-4.8); Alkaline Phosphatase 145 U/L (40-110); Anion Gap 18 mmol/L (10-20); BUN (Urea Nitrogen) 11 mg/dL (8.4-25.7); Bilirubin, Total 0.7 mg/dL (0.2-1.2); Calc. Creatinine Clearance 0 mL/min (70-130); Calcium 11.8 mg/dL (7.8-10.44); Carbon Dioxide 30 mmol/L (23-31); Chloride 93 mmol/L (98-107); Estimated GFR-MDRD 11; Glucose 79 mg/dL (83-110); Lipase 60 U/L (8-78); Potassium 3.3 mmol/L (3.5-5.1); Protein, Total 7.3 g/dL (5.8-8.1); Sodium 138 mmol/L (136-145)
--- NOTE | 2019-08-04 20:01 | CT ---
CT abdomen and pelvis with IV contrast CT leg is with IV contrast HISTORY: Abdomen and pelvic pain. Ulceration into hips and buttocks. COMPARISON: 08/26/2018. FINDINGS: Mild atelectasis at the lung bases. Dystrophic calcification within the posterior segment r ight liver lobe is stable. Gallbladder is now surgically absent. Inferior vena cava and portal vein are very decompressed. There is prominent calcification throughout the arterial structures. Postopera tive changes of the lower anterior abdominal wall. Fat protrudes through the right anterolateral wall through a muscular defect is similar in appearance to the previous study. Prominent degenerative changes of lumbar spine. Kidneys are atrophied. Mild fecal distention of the r ectum. Urinary bladder is decompressed. Large area of dystrophic calcification within the subcutaneous fat of the right lower quadrant anteri toña. At the anterior aspect of the right upper quadrant, skin defect is apparent with minimal stranding in the underlying subcutaneous fat. At the right lower back, a slightly more pronounced are a of skin ulceration is present with underlying shallow superficial subcutaneous fat stranding and small pockets of gas. Chronic appearing fat stranding and dystrophic calcification posterior to the r ight ischio ring is present without internal gas or fluid pocket. Muscular atrophy about the right quadriceps. Each femur is intact without aggressive osseous erosions . IMPRESSION: Skin ulceration and mild subcutaneous edema is seen at the right upper quadrant, right fl ank, and right buttocks. No internal fluid pockets or aggressive osseous destruction evident. Severe atherosclerosis. Chronic-type findings are stable.
[2019-08-04] MEDS ORDERED: metroNIDAZOLE 500 MG/100 ML BAG ONE (23:08)
[2019-08-05 01:34] VITALS: BMI 34.4
[2019-08-05] MEDS ORDERED: Dextrose 5% in Water 1,000 ML IV PRN (01:52)
[2019-08-05] MEDS ORDERED: HumaLOG 300 UNITS/3 ML VIAL SC PRN ×2 (01:52)
[2019-08-05] MEDS ORDERED: hydrALAZINE 20 MG/ML VIAL SLOW IVP PRN (01:52)
[2019-08-05] MEDS ORDERED: Ondansetron PF 4 MG/2 ML Vial IVP PRN (01:52)
[2019-08-05] MEDS ORDERED: Ondansetron ODT 4 MG TAB PO PRN (01:52)
[2019-08-05] MEDS ORDERED: Vancomycin HCl 1 GM in Sodium Chloride 0.9% 250 ML 300 ML IVPB SCH (01:52)
[2019-08-05] MEDS ORDERED: Dextrose 50% Abboject 50 ML SYRINGE SLOW IVP PRN (01:52)
[2019-08-05] MEDS: Sodium Chloride 0.9% 1,000 ML IV SCH (03:19)
[2019-08-05] MEDS ORDERED: Cefepime 1 GM in Sodium Chloride 0.9% 100 ML IVPB SCH (04:00)
--- NOTE | 2019-08-05 05:53 | HP ---
PRIMARY CARE PROVIDER: Dr. Noemy Rubalcava. PRIMARY LINTER TENDER: Dr. Porter. CHIEF COMPLAINT: Multiple decubitus ulcers of the buttocks and legs. HISTORY OF PRESENT ILLNESS: This is an 78-year-old male, who presents to [facility] accompanied by his son, who reports multiple draining wounds from the legs and buttock region over the last several days. The patient with a history of prior chronic decubitus ulcerations, worsening in the last month and a half after undergoing a cholecystectomy in June 2019. The patient has been increasingly immobile and currently bed-bound according to the son. The patient had previously used electric scooter, but is unable to mobilize to even transfer currently. The patient is also transported to his hemodialysis sessions after EMS personnel are notified, requiring two-person assist for transfer in the last month and a half. The patient was recently started on oral antibiotics, per son's report initiated in the last 48 hours. The patient complains of general body aches and some pain in his buttock and his hips. The son reports receiving home health services through [facility] approximately two times per week, but states that the attention to the ulcers has been minimal. No documented fever, chills, or changed appetite. The patient admits to frustration with decreasing physical ability over the last 2 to 3 months. In the emergency room, the patient underwent evaluation, meeting sepsis criteria due to elevated lactic acid level and multiple open wounds on the lower extremities and buttock region. The patient received intravenous fluid x3 L in addition to vancomycin 2 g IV x1 with metronidazole, ciprofloxacin, and morphine sulfate. The patient was transferred to the medical floor for further evaluation. PAST MEDICAL HISTORY: 1. End-stage renal disease with hemodialysis on Monday, Monday, and Monday. 2. Pulmonary embolus, on chronic anticoagulation with Coumadin. 3. History of deep venous thrombosis. 4. Gout. 5. Hypertension. 6. Hyperlipidemia. 7. Morbid obesity. 8. Nonambulatory status. 9. History of atrial fibrillation. 10. Myocardial infarction. 11. Orthostatic hypotension. PAST SURGICAL HISTORY: 1. Status post left leg surgery. 2. Status post partial bowel resection. 3. Status post AV fistula placement. 4. Status post open cholecystectomy in June 2019. CURRENT MEDICATIONS: 1. Allopurinol 100 mg p.o. b.i.d. 2. Tums 1000 mg p.o. b.i.d. 3. Gabapentin 300 mg p.o. daily. 4. Midodrine 7.5 mg p.o. t.i.d. 5. Tramadol p.r.n. 6. [place] p.r.n. 7. Calcitriol 0.25 mcg p.o. daily. 8. Vitamin D3 of 1000 units p.o. daily. 9. Pepcid 20 mg p.o. daily. 10. Crestor 20 mg p.o. daily. 11. Senokot two tablets p.o. b.i.d. p.r.n. 12. Renvela 1600 mg p.o. t.i.d. 13. Coumadin 2.5 mg on Monday, Monday, , and Monday, decreasing to three times per week. ALLERGIES: CLINDAMYCIN AND AMOXICILLIN. FAMILY HISTORY: Positive for diabetes mellitus. SOCIAL HISTORY: Resides in the [place], [place] area, living near his son and [id number]. Previously wheelchair dependent, currently bed-bound. No current alcohol, tobacco, or illicit drug use. REVIEW OF SYSTEMS: CONSTITUTIONAL: Negative for weight loss or gain, ability to conduct usual activities. SKIN: Negative for rash, itching. EYES: Negative for double vision, pain. ENT/MOUTH: Negative for nose bleeding, neck stiffness, pain, tenderness. CARDIOVASCULAR: Negative for palpitations, dyspnea on exertion, orthopnea. RESPIRATORY: Negative for shortness of breath, wheezing, cough, hemoptysis, fever or night sweats. GASTROINTESTINAL: Negative for poor appetite, abdominal pain, heartburn, nausea, vomiting, constipation, or diarrhea. GENITOURINARY: Negative for urgency, frequency, dysuria, nocturia. MUSCULOSKELETAL: Negative for pain, swelling. NEUROLOGIC/PSYCHIATRIC: Negative for anxiety, depression. ALLERGY/IMMUNOLOGIC: Negative for skin rash, bleeding tendency. Otherwise negative except as stated per HPI. PHYSICAL EXAMINATION: VITAL SIGNS: On admission, blood pressure 100/62, pulse 74, respiratory rate 22, temperature 97.8 degrees Fahrenheit, and O2 saturation 98% on room air. GENERAL APPEARANCE: This is an 78-year-old male, alert, responsive, in [id number] distress. HEENT: Pupils are equal, round, and reactive to light and accommodation. Extraocular muscles are intact. No scleral icterus. No conjunctival injection. Nares are patent. OP is clear. Teeth in poor repair. NECK: Supple. No cervical adenopathy. No thyromegaly. No carotid bruits. No JVD appreciated. Cervical spine with full active and passive range of motion. No meningeal signs noted. CHEST: Lungs are clear to auscultation bilaterally. CARDIOVASCULAR: S1 and S2 with distant heart sounds. No murmur, rub, or gallop appreciated. ABDOMEN: Obese with open wound on the mid abdomen consistent with previous cholecystectomy. Dehiscence of multiple sites with purulence along previous surgical incision. EXTREMITIES: Warm and dry with fair turgor. Mild edema noted to the ankle region. Pulses are palpable and diminished bilaterally at the dorsalis pedis, posterior tibial, and popliteal arteries bilaterally. Capillary refill is less than 2 seconds. NEUROLOGIC: Cranial nerves 2 through 12 are grossly intact. Not observed ambulatory during this exam. SKIN: Shows multiple chronic decubitus ulcerations of bilateral buttock and posterior thigh regions in various stages from grade 2 to grade 3. PERTINENT LABORATORY AND X-RAY FINDINGS: Sodium 138, potassium 3.3, chloride 93, CO2 of 30, BUN 11, creatinine 6.15, estimated GFR of 11, and glucose 79. Lactic acid level ranged between 3.0 to 3.3, calcium 11.8, AST 45, ALT of 24, alkaline phosphatase 145, albumin 2.3, and lipase 60. CBC showed a white blood cell count of 10.2, hemoglobin 11, hematocrit 35, platelet count 302, with 70% neutrophils. Influenza A and B antigen dated 08/04/2019, negative. Bacterial cultures of the bilateral hip and left lower extremity pending at the time of this dictation. Portable chest x-ray dated 08/04/2019, showed no acute cardiopulmonary process. CT of the abdomen and pelvis dated 08/04/2019, showed skin ulceration and mild subcutaneous edema in the right upper quadrant, right flank, and right buttocks. EKG dated 08/04/2019, by my interpretation shows sinus mechanism with heart rates in the 90s. Right bundle branch block pattern noted. Left axis deviation. ASSESSMENT AND PLAN: 1. Sepsis secondary to multiple decubitus ulcerations. The patient will be admitted to the medical floor. We will continue antibiotic coverage with vancomycin 1 g IV q.24 hours with additional cefepime 1 g IV q.12 hours. Consult Wound Care and General Surgery Service in the a.m. for evaluation and local care. Continue turning protocol. 2. End-stage renal disease with hemodialysis. We will consult Nephrology Service for timing of next hemodialysis session. No current evidence to suggest acute volume overload. 3. Hypercalcemia. Suspect secondary to #2. Avoid calcium supplementation. Continue intravenous normal saline at 50 mL/hour. Repeat calcium level in the a.m. 4. Hypokalemia. Mild. Repeat potassium level in the a.m. 5. Deconditioning and bed-bound status. We will obtain PT/OT evaluation in the a.m. General turning protocol. Fall risk precautions. 6. Prophylaxis. SCDs while in bed. Pepcid 20 mg p.o. b.i.d. Wound Care consult in the a.m. 7. Code status is full. Surrogate medical decision maker is patient's son. Job ID: [id number]
[2019-08-05] MEDS: Sevelamer Carbonate 800 MG TAB PO SCH ×3 (07:44→16:45)
[2019-08-05] MEDS: Famotidine 20 MG TAB PO SCH (08:05)
[2019-08-05] MEDS ORDERED: Vancomycin HCl 750 MG in Sodium Chloride 0.9% 250 ML 250 ML IVPB SCH (10:00)
[2019-08-05] MEDS ORDERED: Vancomycin HCl 1 GM in Premix Bag 1 BAG IVPB SCH (10:00)
[2019-08-05] MEDS ORDERED: Vancomycin HCl 1.5 GM in Sodium Chloride 0.9% 250 ML 300 ML IVPB SCH (10:00)
[2019-08-05] MEDS ORDERED: Vancomycin HCl 1.25 GM in Sodium Chloride 0.9% 250 ML 250 ML IVPB SCH (10:00)
[2019-08-05] MEDS ORDERED: HOLD VANCOMYCIN FOR LEVEL >20 FS SCH (10:00)
[2019-08-05] MEDS ORDERED: SODIUM THIOSULFATE IVPB SCH (10:15)
[2019-08-05] MEDS ORDERED: ADMIXTURE FEE IVPB SCH (10:15)
[2019-08-05] MEDS: Acetaminophen 500 MG TAB PO PRN (12:32)
[2019-08-05 16:38] LABS: Mean Corpuscular HGB CONC 31.7 g/dL (32.0-36.0); Mean Corpuscular Volume 81.8 fL (78.0-98.0); Mean Platelet Volume 8.7 fL (7.4-10.4); Platelet Count 238 thou/uL (130-400); RBC Distribution Width 18.3 % (11.5-14.5); Red Blood Cell (RBC) Count 3.48 mill/uL (4.70-6.10); White Blood Cell (WBC) Count 8.1 thou/uL (4.8-10.8)
[2019-08-05 16:44] LABS: Prothrombin Time 68.3 SEC (12.0-14.7)
[2019-08-05 16:57] LABS: Lactic Acid 1.2 mmol/L (0.5-2.2)
[2019-08-05 16:58] LABS: INR-International Normal Ratio 8.3
[2019-08-05 16:59] LABS: ALT (SGPT) 18 U/L (8-55); AST (SGOT) 31 U/L (5-34); Albumin 1.9 g/dL (3.4-4.8); Alkaline Phosphatase 124 U/L (40-110); Anion Gap 9 mmol/L (10-20); BUN (Urea Nitrogen) 13 mg/dL (8.4-25.7); Bilirubin, Total 0.5 mg/dL (0.2-1.2); Calc. Creatinine Clearance 17 mL/min (70-130); Calcium 10.9 mg/dL (7.8-10.44); Carbon Dioxide 31 mmol/L (23-31); Chloride 100 mmol/L (98-107); Estimated GFR-MDRD 11; Globulin 4.1 g/dL (2.4-3.5); Glucose 109 mg/dL (83-110); Sodium 137 mmol/L (136-145)
[2019-08-05 17:29] LABS: Anisocytosis SLIGHT = 6-15 cells (100X) (0-5/hpf); Eosinophils 3 % (0-10); Hypochromia SLIGHT = 6-15 cells (100X) (0-5/hpf); Lymphocytes 16 % (21-51); MDiff Complete? YES; Monocytes 8 % (0-10); Neutrophil 73 % (42-75); Platelet Morphology Comment Appears Adequate; Polychromasia SLIGHT = 2-3 cells (100X) (0-2/hpf); Target Cells SLIGHT = 2-5 cells (100X) (0-1/hpf)
--- NOTE | 2019-08-05 17:32 | PDOC.EVN ---
Event Note - Event Note Event Note: encounter time: 08/05/2019 10:00AM inherited patient this morning. Has multiple decubitus ulcers and abdominal wound dehiscence. Based on pictures on presentation, appears to be granulation tissue however difficult to tele marketing executive by pictures alone. Pending evaluation by surgery and wound care. Meanwhile on antibiotics. #asymptomatic hypoglycemia -has been NPO for possible surgical debridment -however, verbal communication by surgery to nurse to restart diet -improved immediately after giving orange juice #supratherapeutic INR -paged at 17:20 regarding supratherapeutic INR ~ 8 -patient on warfarin, which has been held -no active bleeding Plan: -hold warfarin -will give vitamin K considering drop in HgB though no overt bleeding -if bleeds profusely, administer FFP -H&H q6h x 3 #ESRD -held dialysis due to hypoglycemia; however, resumed after patient restarted on diet -dialysis center requested to monitor for signs of hypoglycemia and check BG q1h during dialysis;
[2019-08-05] MEDS ORDERED: Phytonadione 10 MG in Sodium Chloride 0.9% 50 ML IVPB SCH (17:45)
[2019-08-05 17:53] LABS: Vancomycin, Random 13.6 ug/mL (See Comment)
--- NOTE | 2019-08-05 17:58 | PRG ---
DATE OF SERVICE: 08/05/2019 SERVICE: Renal Medicine. SUBJECTIVE: Mr. Estevez is an 78-year-old black male with ESRD, admitted for decubitus ulcers of the buttocks and legs. 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 He is undergoing hemodialysis today. We are following him up for his maintenance hemodialysis. REVIEW OF SYSTEMS: No chest pain. No shortness of breath. Positive for leg and buttock ulcerations. No nausea. No vomiting. Denies any fever or chills. No productive cough. No syncopal episode. No gross hematuria. No dysuria. No urinary frequency. MEDICATIONS: The patient is currently on: 1. Cefepime 1 g IV daily. 2. Famotidine 20 mg q.a.m. 3. Rosuvastatin 10 mg at bedtime. 4. Sevelamer 800 mg p.o. t.i.d. 5. Sodium thiosulfate 25 g IV every dialysis. 6. Vancomycin sliding scale. OBJECTIVE: VITAL SIGNS: Blood pressure is noted at 83/50, heart rate 70. GENERAL: Awake, alert, comfortable, not in overt distress. SKIN: Adequate turgor. HEENT: Slightly pale conjunctivae. Anicteric sclerae. NECK: No neck mass. No carotid bruits. No JVD. CHEST: No deformities. LUNGS: Clear breath sounds. HEART: Normal sinus rhythm. No murmur. No gallops. No rubs. ABDOMEN: Globular, soft, and nontender. No masses. EXTREMITIES: No edema. Positive for ulceration. LABORATORY DATA: Laboratories of August 05, 2019: White count 8.1, hemoglobin 9. Sodium 137, potassium 3, chloride 100, carbon dioxide 31, BUN 13, creatinine 6.16, GFR 11 mL/minute, glucose 109, calcium 10.9, albumin 1.9. ASSESSMENT AND PLAN: 1. Chronic ulcerations, buttocks and legs - most likely this is calciphylaxis. We are continuing sodium thiosulfate 25 g IV every hemodialysis. Overall, prognosis remains poor with calciphylaxis. 2. End-stage renal disease, stable. We will continue current hemodialysis regimen on Monday, Monday, and Monday. So far, he is tolerating said treatment. 3. Anemia. Resume Epogen 7500 units subcutaneously every week. Job ID: [id number]
[2019-08-05] MEDS: Rosuvastatin 10 MG TAB PO SCH (21:07)
[2019-08-05] MEDS ORDERED: Lorazepam 2 MG/ML VIAL IM SCH (23:00)
--- NOTE | 2019-08-05 23:03 | PDOC.EVN ---
Event Note - Event Note Event Note: RN called - Pt has AMS with agitation. No IV access due to hard stick. s/po dialysis today. Received IV Vit K earlier Will get CT brain Repeat PT/INR in AM
[2019-08-05] MEDS ORDERED: Lorazepam 0.5 MG TAB PO SCH (23:15)
--- NOTE | 2019-08-05 23:55 | CT ---
Head CT without contrast 08/05/2019: COMPARISON: 07/20/2019 HISTORY: Altered mental status TECHNIQUE: Axial CT imaging at 5 mm intervals from vertex through skull base without contrast FINDINGS: The study is slightly limited by motion. There is atherosclerotic calcification of the cave rnous carotid arteries and distal vertebral arteries. The imaged paranasal sinuses and mastoid air cells are well-aerated. No intracranial hemorrhage, midline shift, or mass effect. IMPRESSION: No acute findings.
[2019-08-06] MEDS: Sodium Chloride 0.9% 1,000 ML IV SCH ×3 (00:01→16:43)
--- NOTE | 2019-08-06 00:20 | CON ---
DATE OF CONSULTATION: HISTORY OF PRESENT ILLNESS: The patient is currently on the Medicine floor. He was admitted earlier today for sepsis secondary to multiple decubitus ulcerations. He also suffers from end-stage renal disease, on hemodialysis; hypercalcemia; hypokalemia; deconditioning; and bed-bound. The patient was reportedly brought to the emergency department today after having several days of draining wounds on his legs, buttocks, sacral area, and abdomen. Upon evaluation in the emergency department, it was felt the patient met sepsis criteria. He was given IV antibiotics of vancomycin, metronidazole, and ciprofloxacin. We have been asked to evaluate his wounds for possible surgical intervention. The patient is known to us as Dr. Osborne did his cholecystectomy on 06/19/2019. The family reports that postoperatively the patient has become more and more deconditioned, less mobile to the point now not even doing transfers on his own. ALLERGIES: CLINDAMYCIN AND PENICILLIN. CURRENT MEDICATIONS: 1. Allopurinol. 2. Tums. 3. Gabapentin. 4. Midodrine. 5. Tramadol. 6. [place]. 7. Calcitriol. 8. Vitamin D3. 9. Pepcid. 10. Crestor. 11. Renvela. 12. Coumadin. PAST MEDICAL HISTORY: 1. End-stage renal disease with hemodialysis Monday, Monday, and Monday. 2. Pulmonary embolus on chronic anticoagulation, on Coumadin. 3. History of DVT. 4. Gout. 5. Hypertension. 6. Hyperlipidemia. 7. Morbid obesity. 8. Nonambulatory status. 9. History of atrial fibrillation. 10. Myocardial infarction. 11. Orthostatic hypotension. PAST SURGICAL HISTORY: Surgery on left leg, right arm AV fistula placement, partial bowel resection, and open cholecystectomy. SOCIAL HISTORY: The patient denies drug, tobacco, or alcohol use. He lives in the [place] area near his son and [id number]. OBJECTIVE: VITAL SIGNS: Temperature is 97.6, heart rate 67, blood pressure 107/64, respirations 20, and oxygen saturations 98% on room air. GENERAL: The patient is resting comfortably in bed. He is just arrived back to his room from dialysis. The patient appears in no distress, but states that he is tired of being around people today. He did somewhat cooperate for my exam. RESPIRATIONS: Appear nonlabored. ABDOMEN: Dressing was taken down, which showed wound dehiscence of his open cholecystectomy site that appeared superficial in nature. The patient on his abdomen, his right flank, and multiple spots on his extremities show decubitus ulcers ranging from stage II to unstageable. ASSESSMENT: 1. Suspected sepsis secondary to multiple decubitus ulcers. The patient is afebrile and has normal white blood cell count and no bandemia. 2. Multiple pressure ulcers in varying stages and size and location. 3. End-stage renal disease, on hemodialysis. 4. Electrolyte abnormalities. PLAN: Plan will be to have Wound Care do meticulous wound care to these various sites. Continue antibiotics, electrolyte replacement, and encourage Physical and Occupational Therapy to assist in recovery from his deconditioning. The patient also needs significant nutrition. We will recommend dietary consultation with paper testing supervisor, again meticulous daily wound care. At this time, there are no surgical indications and our recommendation would be that the patient will be discharged to a skilled facility as he does not appear to have the means to care for himself at home any longer. The evaluation and examination were discussed with Dr. Osborne prior to this dictation. Job ID: [id number]
[2019-08-06] MEDS ORDERED: Midodrine HCl 5 MG TAB PO SCH ×2 (00:30→01:15)
[2019-08-06 02:08] LABS: Hemoglobin 9.3 g/dL (14.0-18.0)
[2019-08-06] MEDS ORDERED: Cefepime 0.5 GM in Sodium Chloride 0.9% 100 ML IVPB SCH (04:00)
[2019-08-06 06:02] LABS: #Eosinphils 0.1 thou/uL (0.0-0.7); #Lymphocytes 1.1 thou/uL (1.20-3.40); #Monocytes 1.3 thou/uL (0.11-0.59); #Neutrophils 7.1 thou/uL (1.40-6.50); %Eosinophils 1.3 % (0.0-10.0); %Lymphocytes 10.9 % (21.0-51.0); %Monocytes 13.7 % (0.0-10.0); Hemoglobin 8.7 g/dL (14.0-18.0); Mean Corpuscular HGB CONC 30.9 g/dL (32.0-36.0); Mean Corpuscular Hemoglobin 25.4 pg (27.0-31.0); Mean Corpuscular Volume 82.2 fL (78.0-98.0); Mean Platelet Volume 8.5 fL (7.4-10.4); Platelet Count 228 thou/uL (130-400); RBC Distribution Width 18.5 % (11.5-14.5); Red Blood Cell (RBC) Count 3.44 mill/uL (4.70-6.10); White Blood Cell (WBC) Count 9.6 thou/uL (4.8-10.8)
[2019-08-06 06:06] LABS: INR-International Normal Ratio 2.6; Prothrombin Time 27.5 SEC (12.0-14.7)
[2019-08-06 06:22] LABS: Anion Gap 12 mmol/L (10-20); BUN (Urea Nitrogen) 7 mg/dL (8.4-25.7); Calc. Creatinine Clearance 24 mL/min (70-130); Calcium 10.1 mg/dL (7.8-10.44); Carbon Dioxide 30 mmol/L (23-31); Chloride 99 mmol/L (98-107); Estimated GFR-MDRD 16; Glucose 81 mg/dL (83-110); Magnesium 1.8 mg/dL (1.6-2.6); Sodium 138 mmol/L (136-145)
[2019-08-06] MEDS: Acetaminophen/Codeine 30-300mg Tablet PO PRN (09:08)
[2019-08-06] MEDS: Sevelamer Carbonate 800 MG TAB PO SCH ×3 (09:10→18:13)
[2019-08-06] MEDS: Famotidine 20 MG TAB PO SCH (09:10)
--- NOTE | 2019-08-06 10:45 | PDOC.HOSPP ---
- Subjective Encounter Date: 08/06/19 Encounter Time: 10:43 Subjective: awake, alert, rambling conversation - Objective Vital Signs & Weight: Vital Signs (12 hours) Temp Pulse Resp BP Pulse Ox 08/06/19 09:10 98 08/06/19 07:28 97.2 F L 67 18 132/78 98 Weight Admit Weight 275 lb 1.6 oz Weight 275 lb 1.6 oz I&O: 08/05/19 08/06/19 08/07/19 06:59 06:59 06:59 Intake Total 840 Balance 840 Result Diagrams: 08/06/19 05:24 08/06/19 05:24 Additional Labs: Accuchecks 08/06/19 08/05/19 08/05/19 04:54 21:04 15:40 POC Glucose 82 75 91 08/05/19 08/05/19 12:14 11:37 POC Glucose 73 69 L Hospitalist ROS - Medication Medications: Active Medications Generic Name Dose Route Start Last Admin Trade Name Freq PRN Reason Stop Dose Admin Acetaminophen 1,000 mg 08/05/19 01:52 08/05/19 12:32 Tylenol PO 1,000 mg Q6H PRN Administration Mild Pain (1-3) Acetaminophen/Codeine Phosphate 1 tab 08/06/19 09:04 08/06/19 09:08 Tylenol #3 PO 1 tab Q4H PRN Administration Pain Famotidine 20 mg 08/05/19 09:00 08/06/19 09:10 Pepcid PO 20 mg QAM BENNIE Administration Sodium Chloride 1,000 mls @ 50 mls/hr 08/05/19 01:52 08/06/19 00:01 Normal Saline 0.9% IV Not Given .Q20H BENNIE Cefepime HCl 0.5 gm/ Sodium 100 mls @ 200 mls/hr 08/06/19 04:00 08/06/19 04: 29 Chloride IVPB Not Given [id number] BENNIE Vancomycin HCl 1 gm/ Device 200 mls @ 200 mls/hr 08/05/19 10:00 08/05/19 21: 26 IVPB 200 mls WILLCALL BENNIE Administration Rosuvastatin Calcium 10 mg 08/05/19 21:00 08/05/19 21:07 Crestor PO 10 mg HS BENNIE Administration Sevelamer Carbonate 800 mg 08/05/19 08:00 08/06/19 09:10 Renvela PO 800 mg TID-WM BENNIE Administration - Exam General Appearance: awake alert Neck: no JVD Heart: RRR, no murmur Respiratory: CTAB Gastrointestinal: soft, normal bowel sounds Extremities: 1+ LE edema Skin - other findings: draining decub ulcers Hosp A/P (1) Sepsis Code(s): A41.9 - SEPSIS, UNSPECIFIED ORGANISM Status: Acute Qualifiers: Sepsis type: sepsis due to unspecified organism Sepsis acute organ dysfunction status: without acute organ dysfunction Qualified Code(s): A41.9 - Sepsis, unspecified organism (2) Decubital ulcer Code(s): L89.90 - PRESSURE ULCER OF UNSPECIFIED SITE, UNSPECIFIED STAGE Status : Acute Qualifiers: Pressure injury location: contiguous region involving buttock and hip Pressure injury stage: stage 3 (3) Dyslipidemia Code(s): E78.5 - HYPERLIPIDEMIA, UNSPECIFIED Status: Chronic (4) ESRD (end stage renal disease) on dialysis Code(s): N18.6 - END STAGE RENAL DISEASE; Z99.2 - DEPENDENCE ON RENAL DIALYSIS Status: Chronic - Plan wound care wound/blood C&S mult bacteria cont broad spectrum antibx requested central line per surgery morphine iv prior to wound care
--- NOTE | 2019-08-06 13:12 | PRG ---
DATE OF SERVICE: 08/06/2019 SUBJECTIVE: Mr. Estevez is an 78-year-old black male with ESRD on maintenance hemodialysis. He did not finish his dialysis yesterday, became very agitated. He was admitted for ulcerations of the back and legs. This is secondary to calciphylaxis. OBJECTIVE: VITAL SIGNS: Blood pressure 120/63, heart rate 69, respiratory rate 18, temperature 97.4, and pulse ox 95%. GENERAL: The patient is awake, comfortable, and obese. SKIN: Adequate turgor. HEENT: He has slightly pale conjunctivae. Anicteric sclerae. NECK: No neck mass. No carotid bruits. No JVD. CHEST: No deformities. LUNGS: Clear breath sounds. HEART: Normal sinus rhythm. No murmur. No gallops. No rubs. ABDOMEN: Globular, soft, and nontender. BACK: Positive for ulcerations. LEGS: Positive for ulcerations. MEDICATIONS: Medications of August 06, 2019 were reviewed. LABORATORY DATA: Laboratories of August 06, 2019 showed white count 9.6, hemoglobin 8.7. Sodium 138, potassium 3, chloride 99, carbon dioxide 30, BUN 7, and creatinine 4.38, calcium 10.1, and magnesium 1.8. ASSESSMENT AND PLAN: 1. Calciphylaxis-currently on sodium thiosulfate 25 g IV every dialysis. 2. End-stage renal disease. We will continue current Monday, Monday, and Monday dialysis. Again, fluid removal as tolerated by the patient. 3. Anemia. We will start the patient on Epogen if this has not been ordered yet at 7500 units subcu every week. Job ID: [id number]
--- NOTE | 2019-08-06 13:18 | RAD ---
Portable chest: HISTORY: Central line placement COMPARISON: 08/04/2019 FINDINGS: Lung malone are clear. Heart and mediastinum appear unremarkable. Vascularity is normal. Visualized osseous structures unremarkable. Central line via the left subclavian vein has tip overlying the junction of brachiocephalic vein and SVC overlying right upper mediastinum. IMPRESSION: No acute finding
[2019-08-06] MEDS ORDERED: Warfarin Sodium 2.5 MG TAB PO SCH (17:00)
--- NOTE | 2019-08-06 19:54 | OP ---
DATE OF PROCEDURE: 08/06/2019 PREOPERATIVE DIAGNOSES: 1. Chronic renal failure, dialysis dependent. 2. Multiple soft tissue wounds secondary to calciphylaxis. 3. Septicemia, need for IV access. POSTOPERATIVE DIAGNOSES: 1. Chronic renal failure, dialysis dependent. 2. Multiple soft tissue wounds secondary to calciphylaxis. 3. Septicemia, need for IV access. PROCEDURE PERFORMED: Placement of left subclavian triple-lumen central venous catheter. INDICATION FOR PROCEDURE: An 78-year-old man with history of chronic renal disease, on dialysis. The patient has developed multiple soft tissue wounds, requiring treatment. Additionally, he was diagnosed with septicemia, requiring IV antibiotic therapy. Multiple efforts to secure dependable peripheral IV access has been unsuccessful. I was asked to place a central venous catheter to facilitate therapeutic interventions. DESCRIPTION OF PROCEDURE: Informed consent was obtained from the patient's daughter. The patient was placed in supine position. Left chest wall was sterilely prepped and draped in usual fashion. The skin below the left clavicle was anesthetized with 1% lidocaine. The left subclavian vein was cannulated with an 18-gauge introducer needle returning dark venous blood. Guidewire was passed through the needle and advanced to the left subclavian vein without resistance. Needle was withdrawn over the guidewire. A stab incision was made adjacent to the guidewire using 11 scalpel. Dilator was advanced over the guidewire dilating the subcutaneous tissues. Dilator was removed, and a triple-lumen central venous catheter was advanced over the guidewire and placed in the left subclavian vein without resistance stopping at the 18 cm aury. Guidewire was removed. Dark venous blood was aspirated from all 3 ports, which were individually flushed with saline. Catheter was secured to anterior chest wall using 3-0 silk suture at 2 points. Sterile dressings were applied. The patient tolerated the procedure without any apparent complication and remains hemodynamically stable following completion of the procedure. Chest x-ray will be obtained to confirm placement and exclude any pneumothorax. Job ID: [id number]
[2019-08-06] MEDS: Rosuvastatin 10 MG TAB PO SCH (20:32)
[2019-08-06] MEDS: Morphine 4 MG/ML VIAL SLOW IVP PRN (20:39)
[2019-08-07] MEDS: Cefepime 0.5 GM, Admixture Fee 1 EACH in Sodium Chloride 0.9% 100 ML IVPB SCH (04:38)
[2019-08-07] MEDS: Sodium Chloride 0.9% 1,000 ML IV SCH ×2 (06:40→15:01)
[2019-08-07] MEDS: Morphine 4 MG/ML VIAL SLOW IVP SCH (09:39)
[2019-08-07] MEDS: Famotidine 20 MG TAB PO SCH (09:44)
[2019-08-07] MEDS: Sevelamer Carbonate 800 MG TAB PO SCH ×3 (09:44→18:05)
[2019-08-07 10:46] LABS: Vancomycin, Random 15.4 ug/mL (See Comment)
--- NOTE | 2019-08-07 14:04 | PRG ---
DATE OF SERVICE: 08/07/2019 HISTORY OF PRESENT ILLNESS: The patient was admitted for sepsis secondary to multiple decubitus ulcerations. He also suffers from end-stage renal disease, on hemodialysis Monday, Monday, and Monday with Dr. Porter, hypercalcemia, hypokalemia, anemia on Epogen, calciphylaxis, deconditioning, and bed-bound. The patient was given IV antibiotics of vancomycin, metronidazole, and ciprofloxacin in the emergency department. We were on board for evaluation of his wounds for possible surgical evaluation. The patient is known to Dr. Osborne, who did his cholecystectomy on 06/19/2019. The family reports that postoperatively the patient has become more and more deconditioned. Family has thought about SNF, he would like to pursue this after surgical debridement of his ulcerations. OBJECTIVE: VITAL SIGNS: Temperature 97.5, pulse 72, respirations 20, 100% oxygen saturation on room air, and blood pressure 121/66. CONSTITUTIONAL: The patient is obese, lying in bed. HEAD: Normocephalic and atraumatic. RESPIRATORY: No tachypnea. No respiratory distress. SKIN: Wounds properly covered at this time, did not inspect as we did this yesterday. Skin is warm and intact. EXTREMITIES: Full range of motion. LABORATORY DATA: White blood cell count on 08/06 was 9.6, hemoglobin 8.7, sodium 138, potassium 3.0, BUN 7, creatinine 4.38, p.o. glucose 92. ASSESSMENT: 1. Multiple decubitus ulcers. 2. Multiple pressure ulcers in various stages and size and location. 3. End-stage renal disease, on hemodialysis. 4. Electrolyte abnormalities. 5. Calciphylaxis. 6. Anemia of chronic disease, on Epogen. PLAN: Plan to continue wound care to the decubitus ulcers and nonhealing lesions. We will continue antibiotics at this time. We will continue to encourage physical therapy and occupational therapy. Discussed the risks versus benefits of procedure for the patient, and family as well as the patient would like to pursue surgical intervention for the decubitus ulcers. He will continue with physical therapy and occupational therapy and will need to be placed in a snf facility or rehabilitation center upon discharge. He will require this for proper healing of his wounds. The patient agrees with this as so does family. The evaluation and examination were discussed with Dr. Osborne at bedside. Job ID: [id number]
[2019-08-07] MEDS ORDERED: Vancomycin HCl 1 GM in Premix Bag 1 BAG IVPB SCH (14:15)
--- NOTE | 2019-08-07 14:15 | PRG ---
DATE OF SERVICE: 08/06/2019 SUBJECTIVE: The patient is currently on the Medicine floor. He was admitted yesterday for sepsis secondary to multiple decubitus ulcerations. He also suffers from end-stage renal disease, on hemodialysis; hypercalcemia; hypokalemia; deconditioning; and bed-bound. The patient was reportedly brought to the emergency department yesterday after having several days of draining wounds on his legs, buttocks, sacral area, and abdomen. Upon evaluation in the emergency department , it was felt the patient met sepsis criteria. He is given IV antibiotics of vancomycin, metronidazole, and ciprofloxacin. We have been asked to evaluate his wounds for possible surgical intervention. The patient is known to us as Dr. Osborne did his cholecystectomy on 06/19/2019. The family reports that postoperatively the patient has become more and more deconditioned, left mobile to the point now not even doing transfers on his own. OBJECTIVE: VITAL SIGNS: Temperature is 97.6, heart rate 67, blood pressure 107 /64, respirations 20, and oxygen sat 98% on room air. GENERAL: The patient is resting comfortably in bed. He has just arrived to his room from dialysis. The patient appears in no distress, but states that he is tired of being around people today. He did somewhat cooperate for my exam. RESPIRATIONS: Appear nonlabored. ABDOMEN: Dressing was taken down, which showed wound dehiscences of his open cholecystectomy site that appeared superficial in nature. The patient on his abdomen, his right flank, and multiple spots on his extremities show decubitus ulcers ranging from stage II to unstageable. ASSESSMENT: 1. Suspect sepsis secondary to multiple decubitus ulcers. The patient is afebrile and has normal white blood cell count and had no bandemia. 2. Multiple pressure ulcers in varying stages and size and location. 3. End-stage renal disease, on hemodialysis. 4. Electrolyte abnormalities. PLAN: The plan is to start the patient on antibiotics, cefepime. Also to put in a central line. He will be started on morphine for possible pain. He will receive his Monday, Monday, and Monday dialysis and will be visited by Wound Care for his wound. This pt seen and evaluated with Dr. Osborne at bedside. Job ID: [id number] [facility]
--- NOTE | 2019-08-07 16:48 | PDOC.HOSPP ---
- Subjective Encounter Date: 08/07/19 Encounter Time: 16:46 Subjective: alert, sacraal pain especcially with wound care - Objective Vital Signs & Weight: Weight Admit Weight 275 lb 1.6 oz Weight 275 lb 1.6 oz I&O: 08/06/19 08/07/19 08/08/19 06:59 06:59 06:59 Intake Total 840 1505 200 Output Total 0 Balance 840 1505 200 Result Diagrams: 08/06/19 05:24 08/06/19 05:24 Additional Labs: Accuchecks 08/07/19 08/07/19 08/06/19 10:55 06:07 20:33 POC Glucose 92 73 77 Hospitalist ROS - Medication Medications: Active Medications Generic Name Dose Route Start Last Admin Trade Name Freq PRN Reason Stop Dose Admin Acetaminophen 1,000 mg 08/05/19 01:52 08/05/19 12:32 Tylenol PO 1,000 mg Q6H PRN Administration Mild Pain (1-3) Acetaminophen/Codeine Phosphate 1 tab 08/06/19 09:04 08/06/19 09:08 Tylenol #3 PO 1 tab Q4H PRN Administration Pain Famotidine 20 mg 08/05/19 09:00 08/07/19 09:44 Pepcid PO 20 mg QAM BENNIE Administration Sodium Chloride 1,000 mls @ 50 mls/hr 08/05/19 01:52 08/07/19 15:01 Normal Saline 0.9% IV Not Given .Q20H BENNIE Cefepime HCl 0.5 gm/ 100 mls @ 200 mls/hr 08/07/19 04:00 08/07/19 04:38 Miscellaneous Medication 1 IVPB 100 mls each/ Sodium Chloride Q24HR@0400 BENNIE Administration Morphine Sulfate 4 mg 08/07/19 09:00 08/07/19 09:39 Morphine SLOW IVP 4 mg DAILY BENNIE Administration Morphine Sulfate 4 mg 08/06/19 10:51 08/06/19 20:39 Morphine SLOW IVP 4 mg Q4H PRN Administration Pain Ondansetron HCl 4 mg 08/05/19 01:52 08/07/19 07:47 Zofran IVP 4 mg Q6H PRN Administration Nausea/Vomiting Rosuvastatin Calcium 10 mg 08/05/19 21:00 08/06/19 20:32 Crestor PO 10 mg HS BENNIE Administration Sevelamer Carbonate 800 mg 08/05/19 08:00 08/07/19 12:17 Renvela PO Not Given TID-WM BENNIE - Exam General Appearance: awake alert Neck: no JVD Heart: RRR, no murmur Respiratory: CTAB Gastrointestinal: soft, normal bowel sounds Extremities: 1+ LE edema Skin - other findings: decubitus ulcers Hosp A/P (1) Sepsis Code(s): A41.9 - SEPSIS, UNSPECIFIED ORGANISM Status: Acute Qualifiers: Sepsis type: sepsis due to unspecified organism Sepsis acute organ dysfunction status: without acute organ dysfunction Qualified Code(s): A41.9 - Sepsis, unspecified organism (2) Decubital ulcer Code(s): L89.90 - PRESSURE ULCER OF UNSPECIFIED SITE, UNSPECIFIED STAGE Status : Acute Qualifiers: Pressure injury location: contiguous region involving buttock and hip Pressure injury stage: stage 3 (3) Dyslipidemia Code(s): E78.5 - HYPERLIPIDEMIA, UNSPECIFIED Status: Chronic (4) ESRD (end stage renal disease) on dialysis Code(s): N18.6 - END STAGE RENAL DISEASE; Z99.2 - DEPENDENCE ON RENAL DIALYSIS Status: Chronic (5) Calciphylaxis cutis Code(s): E83.59 - OTHER DISORDERS OF CALCIUM METABOLISM Status: Acute (6) Hypercalcemia associated with chronic dialysis Code(s): E83.52 - HYPERCALCEMIA Status: Acute - Plan wound care wound/blood C&S mult bacteria cont broad spectrum antibx only pos blood culture is Coag neg staph-probable contaminate difficult to decide at this point if antibx are beneficial-personally doubt it morphine iv prior to wound care
--- NOTE | 2019-08-07 17:04 | PRG ---
DATE OF SERVICE: 08/07/2019 SUBJECTIVE: Mr. Estevez is an 78-year-old black male with ESRD currently on maintenance hemodialysis. He is currently undergoing hemodialysis at the present time and tolerating said treatment. He was also admitted for nonhealing ulceration of the back and legs. He has a diagnosis of calciphylaxis. He is currently receiving sodium thiosulfate 25 g IV three times a week. No other complaints today. OBJECTIVE: VITAL SIGNS: Blood pressure 121/66, heart rate 72, respiratory rate 20, O2 saturation is 100%, temperature 97.5. GENERAL: The patient is awake, alert, comfortable, not in overt distress. SKIN: Adequate turgor. HEENT: He has a slightly pale conjunctivae. Anicteric sclerae. NECK: No neck mass. No carotid bruits. No JVD. CHEST: No deformities. LUNGS: Clear breath sounds. HEART: Normal sinus rhythm. No murmurs. No gallops. No rubs. ABDOMEN: Globular, soft, nontender. No masses. EXTREMITIES: No edema. MEDICATIONS: Medications of August 07, 2019, reviewed. LABORATORY DATA: Laboratories of August 06, 2019; white count 9.6, hemoglobin 8.7. Sodium 138, potassium 3, chloride 99, carbon dioxide 30, BUN 7, creatinine 4.38, glucose 81, calcium 10.1, magnesium 1.8. ASSESSMENT AND PLAN: 1. Calciphylaxis-patient has nonhealing ulceration of the back and legs. Continue sodium thiosulfate 25 g IV every hemodialysis. We will give this for a total of 3 months. He is to receive a month's treatment. 2. End-stage renal disease, stable. Continue current hemodialysis regimen. Fluid removal only as tolerated. 3. Anemia. Continue weekly Epogen with this patient. P.r.n. blood transfusion for hemoglobin less than 7. Overall prognosis remains guarded. Job ID: [id number]
[2019-08-07] MEDS: Midodrine HCl 5 MG TAB PO SCH ×2 (17:42→21:08)
[2019-08-07 19:06] LABS: INR-International Normal Ratio 1.5; Prothrombin Time 17.7 SEC (12.0-14.7)
[2019-08-07 19:07] LABS: PTT 44.3 SEC (22.9-36.1)
[2019-08-07] MEDS: Morphine 4 MG/ML VIAL SLOW IVP PRN (21:08)
[2019-08-07] MEDS: Rosuvastatin 10 MG TAB PO SCH (21:08)
--- NOTE | 2019-08-08 00:46 | PRG ---
DATE OF SERVICE: 08/07/2019 SUBJECTIVE: The patient was seen this evening during rounds. He was resting comfortably and asleep with no signs of acute distress. Nursing reported no acute events. Coags completed this afternoon, demonstrated the patient had an INR of 1.5. We will recheck it again tomorrow. Also, the patient received a type and screen. OBJECTIVE: VITAL SIGNS: Temperature 97.4, pulse 83, respirations 18, oxygen saturation 100% on room air, and blood pressure 113/74. GENERAL: Well-appearing elderly male, lying in bed, asleep, but no signs of acute distress. PULMONARY: Equal chest rise and fall. No signs of acute respiratory distress. ASSESSMENT: 1. Multiple decubitus ulcers in various stages and sizes on the patient's dorsal aspect of his body. 2. End-stage renal disease, on dialysis. 3. Electrolyte abnormalities. PLAN: The patient will be n.p.o. at midnight. He is likely to go to the OR tomorrow morning with Dr. Osborne for debridement of multiple decubitus ulcers. We will repeat blood work in the morning. Job ID: [id number]
[2019-08-08] MEDS: Cefepime 0.5 GM, Admixture Fee 1 EACH in Sodium Chloride 0.9% 100 ML IVPB SCH (04:04)
[2019-08-08 06:27] LABS: INR-International Normal Ratio 1.4; Prothrombin Time 17.5 SEC (12.0-14.7)
[2019-08-08 06:33] LABS: Band 2 % (5-11); Eosinophils 1 % (0-10); Lymphocytes 15 % (21-51); MDiff Complete? YES; Mean Corpuscular HGB CONC 30.9 g/dL (32.0-36.0); Mean Corpuscular Hemoglobin 25.3 pg (27.0-31.0); Mean Corpuscular Volume 81.6 fL (78.0-98.0); Mean Platelet Volume 8.7 fL (7.4-10.4); Monocytes 8 % (0-10); Neutrophil 74 % (42-75); Platelet Count 200 thou/uL (130-400); Platelet Morphology Comment Appears Adequate; RBC Distribution Width 19.1 % (11.5-14.5); Red Blood Cell (RBC) Count 3.15 mill/uL (4.70-6.10); White Blood Cell (WBC) Count 8.9 thou/uL (4.8-10.8)
[2019-08-08 06:41] LABS: Anion Gap 11 mmol/L (10-20); BUN (Urea Nitrogen) 5 mg/dL (8.4-25.7); Calc. Creatinine Clearance 32 mL/min (70-130); Calcium 9.5 mg/dL (7.8-10.44); Carbon Dioxide 29 mmol/L (23-31); Chloride 103 mmol/L (98-107); Estimated GFR-MDRD 22; Glucose 82 mg/dL (83-110); Magnesium 1.7 mg/dL (1.6-2.6); Potassium 3.3 mmol/L (3.5-5.1); Sodium 140 mmol/L (136-145)
[2019-08-08 06:49] LABS: Phosphorus 1.7 mg/dL (2.3-4.7)
[2019-08-08] MEDS: Sodium Chloride 0.9% 1,000 ML IV SCH (08:30)
[2019-08-08] MEDS: Famotidine 20 MG TAB PO SCH (09:00)
[2019-08-08] MEDS: Morphine 4 MG/ML VIAL SLOW IVP SCH (09:35)
[2019-08-08] MEDS: Midodrine HCl 5 MG TAB PO SCH ×3 (09:35→20:39)
[2019-08-08] MEDS ORDERED: PROPOFOL 200 MG/20 ML VIAL ONE (10:56)
[2019-08-08] MEDS ORDERED: Esmolol 100 MG/10 ML VIAL ONE (10:56)
[2019-08-08] MEDS ORDERED: Rocuronium Bromide 10 MG/ML (10ML VIAL) ONE (10:56)
[2019-08-08] MEDS ORDERED: PHENYLEPHRINE-NS 100 MCG/ML 10 ML SYRINGE ONE (10:56)
[2019-08-08] MEDS ORDERED: Succinylcholine Chloride 20 MG/ML 10 ml SYRINGE FS ONE (10:56)
[2019-08-08] MEDS ORDERED: EPHEDRINE 25 MG/5 ML SYRINGE ONE (10:56)
[2019-08-08] MEDS ORDERED: Fentanyl 100 MCG/2 ML VIAL ONE ×2 (11:28→14:38)
[2019-08-08] MEDS ORDERED: Phenylephrine 10 MG/ML VIAL ONE (11:28)
[2019-08-08] MEDS ORDERED: SUGAMMADEX SODIUM 200 MG/2 ML VIAL ONE (11:28)
[2019-08-08] MEDS ORDERED: Potassium Phosphate 30 MMOL, Magnesium Sulfate 2 GM in Sodium Chloride 0.9% 250 ML 250 ML IVPB SCH (11:30)
[2019-08-08] MEDS ORDERED: Cefepime 0.5 GM, Admixture Fee 1 EACH in Sodium Chloride 0.9% 100 ML IVPB SCH ×2 (13:00)
[2019-08-08] MEDS ORDERED: Ondansetron HCl/PF 4 MG/2 ML Vial IVP PRN (13:09)
[2019-08-08] MEDS ORDERED: PACU-Morphine 4MG/ML VIAL SLOW IVP PRN (13:09)
[2019-08-08] MEDS ORDERED: Morphine 4 MG/ML VIAL ONE (14:22)
--- NOTE | 2019-08-08 14:43 | OP ---
DATE OF PROCEDURE: 08/08/2019 PREOPERATIVE DIAGNOSES: 1. Multiple decubitus ulcers, bilateral sacroiliac and bilateral hips. 2. Calciphylaxis. 3. Chronic renal failure, dialysis dependent. 4. 18 x 4.5 x 2.2 cm plus 3 x 2.5 x 2 cm right sacroiliac and 3.2 x 4.7 x 1.5 cm right hip wounds. 5. 2.7 x 5.6 x 2.5 left sacroiliac plus 3.8 x 4.9 x 3.3 left hip wounds. POSTOPERATIVE DIAGNOSES: 1. Multiple decubitus ulcers, bilateral sacroiliac and bilateral hips. 2. Calciphylaxis. 3. Chronic renal failure, dialysis dependent. 4. 18 x 4.5 x 2.2 cm plus 3 x 2.5 x 2 cm right sacroiliac and 3.2 x 4.7 x 1.5 cm right hip wounds. 5. 2.7 x 5.6 x 2.5 left sacroiliac plus 3.8 x 4.9 x 3.3 left hip wounds. OPERATION PERFORMED: 1. Excisional debridement of multiple above-stated wounds. 2. Irrigation of wounds and temporary closure with wound VAC. ANESTHESIA: General endotracheal. ESTIMATED BLOOD LOSS: 100 mL. FLUIDS GIVEN: 600 mL crystalloids. COUNTS: Sponge and instrument counts were verified as correct x2. COMPLICATIONS: None apparent. INDICATIONS FOR OPERATION: This is an 78-year-old man with history of chronic renal failure, who has developed multiple decubiti in the aforementioned areas secondary to calciphylaxis. The wound has failed bedside conservative management per Wound Care. As a result, the patient was brought to the operating room today for excisional debridement of the multiple wounds. Findings are consistent with multiple decubiti in the aforementioned areas. The necrosis extends to the subcutaneous tissue, but does not involve fascia. DESCRIPTION OF PROCEDURE: Informed consent was obtained from the patient. He was brought to the operating room and placed in supine position. Following general anesthesia, the patient was placed in the prone position. The bilateral gluteal and proximal lower extremities were widely sterilely prepped and draped in usual fashion. Attention was turned to each individual wound, where the necrotic wounds were circumferentially excised down to the base using the scalpel, alternated with scissors. Hemostasis was achieved using cautery. Necrotic tissues are passed off for transmission to Pathology. Once all wounds have been debrided down to viable tissue. The wound bases were copiously irrigated with saline with the pulse lavage. Hemostasis was achieved using cautery. Temporary wound closures were obtained using wound VAC. The patient tolerated the operation without any apparent complication and was returned to the recovery room in satisfactory condition. Job ID: [id number]
--- NOTE | 2019-08-08 16:33 | PRG ---
DATE OF SERVICE: 08/08/2019 SUBJECTIVE: Mr. Estevez is an 78-year-old black male with ESRD and admitted for nonhealing decubitus ulcers. He has a working diagnosis of calciphylaxis. He had a surgical procedure, where excisional debridement of the multiple above wounds was done. Irrigation of the wound with temporary closure with wound VAC was applied. He voices no new complaints. He denies any chest pain or shortness of breath. OBJECTIVE: VITAL SIGNS: Blood pressure 109/70, heart rate 69, respiratory rate 20, pulse ox 100%. GENERAL: Awake, alert, supine, obese, not in distress. SKIN: Adequate turgor. HEENT: Slightly pale conjunctivae. Anicteric sclerae. NECK: No neck mass. No carotid bruits. No JVD. CHEST: No deformities. LUNGS: Clear breath sounds. HEART: Normal sinus rhythm. No murmur. No gallops. No rubs. ABDOMEN: Globular, soft, nontender. No masses. EXTREMITIES: No edema. MEDICATIONS: Medications of August 08, 2019, were reviewed. LABORATORY DATA: Laboratories of August 08, 2019; white count 8.1, hemoglobin 8. Sodium 140, potassium 3.3, chloride 103, carbon dioxide 29, BUN 5, creatinine 3.29, phosphorus 1.7, calcium is 9.5, and magnesium 1.7. ASSESSMENT AND PLAN: 1. Mild hypophosphatemia-phosphate binders have been discontinued for the patient. 2. Calciphylaxis. Continue current sodium thiosulfate 25 g IV every hemodialysis. Please note the patient also underwent surgical debridement of the said lesions. 3. Anemia. Continuing weekly Epogen. P.r.n. blood transfusion for hemoglobin less than 7. Job ID: [id number]
--- NOTE | 2019-08-08 18:46 | PDOC.HOSPP ---
- Subjective Encounter Date: 08/08/19 Encounter Time: 18:45 Subjective: patient denies fever chills or malaise, refers pain is well controlled - Objective Vital Signs & Weight: Vital Signs (12 hours) Temp Pulse Resp BP Pulse Ox 08/08/19 18:00 75 18 120/78 100 08/08/19 16:45 97.5 F L 71 18 121/77 100 08/08/19 16:22 94.2 F L 66 18 116/59 L 100 08/08/19 15:55 69 20 109/70 100 08/08/19 15:35 72 20 98/65 100 08/08/19 15:00 72 20 100/47 L 100 08/08/19 08:00 94 L 08/08/19 07:19 97.6 F 74 22 H 102/65 94 L Weight Admit Weight 275 lb 1.6 oz Weight 275 lb 1.6 oz I&O: 08/07/19 08/08/19 08/09/19 06:59 06:59 06:59 Intake Total 1505 740 600 Output Total 0 Balance 1505 740 600 Result Diagrams: 08/08/19 06:01 08/08/19 06:01 Hospitalist ROS - Review of Systems All other systems reviewed; all pertinent +/- noted in HPI/Subj - Medication Medications: Active Medications Generic Name Dose Route Start Last Admin Trade Name Freq PRN Reason Stop Dose Admin Acetaminophen 1,000 mg 08/05/19 01:52 08/05/19 12:32 Tylenol PO 1,000 mg Q6H PRN Administration Mild Pain (1-3) Acetaminophen/Codeine Phosphate 1 tab 08/06/19 09:04 08/06/19 09:08 Tylenol #3 PO 1 tab Q4H PRN Administration Pain Famotidine 20 mg 08/05/19 09:00 08/08/19 09:00 Pepcid PO Not Given QAM BENNIE Sodium Chloride 1,000 mls @ 50 mls/hr 08/05/19 01:52 08/08/19 08:30 Normal Saline 0.9% IV 1,000 mls .Q20H BENNIE Administration Midodrine 7.5 mg 08/07/19 15:00 08/08/19 14:30 Proamatine PO Not Given TID BENNIE Ondansetron HCl 4 mg 08/05/19 01:52 08/07/19 07:47 Zofran IVP 4 mg Q6H PRN Administration Nausea/Vomiting Rosuvastatin Calcium 10 mg 08/05/19 21:00 08/07/19 21:08 Crestor PO 10 mg HS BENNIE Administration - Exam Eye: PERRL, anicteric sclera ENT: normocephalic atraumatic, no oropharyngeal lesions Neck: supple, symmetric, no JVD Heart: RRR, no murmur, no gallops, no rubs Respiratory: CTAB, no wheezes, no rales, no ronchi Gastrointestinal: soft, non-tender, non-distended, normal bowel sounds Psychiatric: normal affect, normal behavior, A&O x 3 Hosp A/P (1) Sepsis Code(s): A41.9 - SEPSIS, UNSPECIFIED ORGANISM Status: Acute Qualifiers: Sepsis type: sepsis due to unspecified organism Sepsis acute organ dysfunction status: without acute organ dysfunction Qualified Code(s): A41.9 - Sepsis, unspecified organism (2) Decubital ulcer Code(s): L89.90 - PRESSURE ULCER OF UNSPECIFIED SITE, UNSPECIFIED STAGE Status : Acute Qualifiers: Pressure injury location: contiguous region involving buttock and hip Pressure injury stage: stage 3 (3) Calciphylaxis cutis Code(s): E83.59 - OTHER DISORDERS OF CALCIUM METABOLISM Status: Acute (4) Dyslipidemia Code(s): E78.5 - HYPERLIPIDEMIA, UNSPECIFIED Status: Chronic (5) ESRD (end stage renal disease) on dialysis Code(s): N18.6 - END STAGE RENAL DISEASE; Z99.2 - DEPENDENCE ON RENAL DIALYSIS Status: Chronic - Plan -continue iv abx -pain management -wound care -continue home meds for chronic conditons
[2019-08-08] MEDS: Morphine 2 MG/ML SYRINGE SLOW IVP PRN (19:11)
[2019-08-08] MEDS: Rosuvastatin 10 MG TAB PO SCH (20:39)
--- NOTE | 2019-08-08 23:53 | PRG ---
DATE OF SERVICE: 08/08/2019 SUBJECTIVE: The patient was seen this evening during rounds. He was sitting up in bed, resting comfortably and asleep, but no signs of acute distress. Nursing reported no acute events. The patient is postoperative day #0 after excisional debridement of multiple wounds to his bilateral sacroiliac and bilateral hips. Wounds were irrigated and temporarily closed with a wound VAC. OBJECTIVE: VITAL SIGNS: Temperature 97.5, pulse 75, respirations 18, oxygen saturation 100% on room air, blood pressure 120/78. GENERAL: Well-appearing elderly male, sitting up in bed, asleep with no signs of acute distress. PULMONARY: Equal chest rise and fall. No signs of acute respiratory distress. ASSESSMENT: Postoperative day #0 after excisional debridement of multiple wounds of the bilateral sacroiliac and hip with irrigation and temporary closure with wound VAC. PLAN: Continue current diet and pain regimen. Continue wound care to continue managing wound. We will evaluate him at the next wound VAC change. Other medical management by primary team. Job ID: [id number]
[2019-08-09] MEDS: Cefepime 0.5 GM, Admixture Fee 1 EACH in Sodium Chloride 0.9% 100 ML IVPB SCH (03:44)
[2019-08-09] MEDS: Sodium Chloride 0.9% 1,000 ML IV SCH (03:44)
[2019-08-09] MEDS: Midodrine HCl 5 MG TAB PO SCH ×3 (08:47→22:17)
[2019-08-09] MEDS: Famotidine 20 MG TAB PO SCH (08:48)
[2019-08-09] MEDS: Morphine 2 MG/ML SYRINGE SLOW IVP PRN ×3 (08:50→22:32)
[2019-08-09] MEDS ORDERED: Heparin 10,000 UNITS/ 10 ML VIAL ONE (09:41)
--- NOTE | 2019-08-09 12:34 | PDOC.GSPN ---
Surgery Progress Note: Subj - Subjective Narrative: The patient was seen post op day 1 of his bilateral sacroiliac and hip decubitus ulcer removal. He was lying down in bed and appeared to be in no acute distress. He reports some pain. Surgery Progress Note: Obj - Vital signs Vital signs: Vital Signs - Most Recent Temp Pulse Resp BP Pulse Ox 97.3 F L 81 14 124/72 98 08/09/19 07:40 08/09/19 07:40 08/09/19 07:40 08/09/19 07:40 08/09/19 09:00 - Physical Exam General: no distress Respiratory: normal respiratory effort Surgery Progress Note: Results - Labs Result Diagrams: 08/11/19 05:35 08/11/19 05:35 Lab results: Laboratory Results - last 24 hr 08/09/19 06:51 POC Glucose 84 Surgery Progress Note: A/P - Plan Plan: Assessment: Postoperative day 1 after excisional debridement of multiple wounds of the bilateral sacroiliac and hip with irrigation and temporary closure with wound VAC. Plan: Continue current diet and pain regimen. Continue wound care. Will evaluate at the next wound VAC change. Other medical management by primary team. Addendum - Physician - Physician Attestation Date/Time: 08/11/19 [id number] I personally performed or re-performed the physical examination and medical decision making. I have verified all student documentation or findings, including history, physical exam and/or medical decision making.
--- NOTE | 2019-08-09 13:37 | PDOC.HOSPP ---
- Subjective Encounter Date: 08/09/19 Encounter Time: 10:00 Subjective: patient seen on f/u, is oriented only to person, complains of some pain on his back, denies fever chills or n/v - Objective Vital Signs & Weight: Vital Signs (12 hours) Temp Pulse Resp BP Pulse Ox 08/09/19 09:00 98 08/09/19 07:40 97.3 F L 81 14 124/72 98 Weight Admit Weight 275 lb 1.6 oz Weight 275 lb 1.6 oz I&O: 08/08/19 08/09/19 08/10/19 06:59 06:59 06:59 Intake Total 740 600 Balance 740 600 Result Diagrams: 08/08/19 06:01 08/08/19 06:01 Additional Labs: Accuchecks 08/09/19 06:51 POC Glucose 84 Hospitalist ROS - Review of Systems All other systems reviewed; all pertinent +/- noted in HPI/Subj - Medication Medications: Active Medications Generic Name Dose Route Start Last Admin Trade Name Freq PRN Reason Stop Dose Admin Acetaminophen 1,000 mg 08/05/19 01:52 08/05/19 12:32 Tylenol PO 1,000 mg Q6H PRN Administration Mild Pain (1-3) Acetaminophen/Codeine Phosphate 1 tab 08/06/19 09:04 08/06/19 09:08 Tylenol #3 PO 1 tab Q4H PRN Administration Pain Famotidine 20 mg 08/05/19 09:00 08/09/19 08:48 Pepcid PO 20 mg QAM BENNIE Administration Sodium Chloride 1,000 mls @ 50 mls/hr 08/05/19 01:52 08/09/19 03:44 Normal Saline 0.9% IV Not Given .Q20H BENNIE Cefepime HCl 0.5 gm/ 100 mls @ 200 mls/hr 08/09/19 04:00 08/09/19 03:44 Miscellaneous Medication 1 IVPB 100 mls each/ Sodium Chloride Q24HR@0400 BENNIE Administration Midodrine 7.5 mg 08/07/19 15:00 08/09/19 08:47 Proamatine PO 7.5 mg TID BENNIE Administration Morphine Sulfate 2 mg 08/08/19 17:06 08/09/19 08:50 Morphine SLOW IVP 2 mg Q4H PRN Administration Breakthrough Pain Ondansetron HCl 4 mg 08/05/19 01:52 08/07/19 07:47 Zofran IVP 4 mg Q6H PRN Administration Nausea/Vomiting Rosuvastatin Calcium 10 mg 08/05/19 21:00 08/08/19 20:39 Crestor PO 10 mg HS BENNIE Administration Sodium Chloride 10 ml 08/05/19 02:26 08/08/19 19:12 Flush - Normal Saline IVF 10 ml PRN PRN Administration Saline Flush - Exam General Appearance: NAD Eye: PERRL, anicteric sclera ENT: normocephalic atraumatic, no oropharyngeal lesions Neck: supple, symmetric, no JVD Heart: RRR, no murmur, no gallops, no rubs Respiratory: CTAB, no wheezes, no rales, no ronchi, normal chest expansion Gastrointestinal: soft, non-tender, non-distended, normal bowel sounds Neurological: cranial nerve grossly intact, no focal deficits, no new deficit Psychiatric: normal affect, normal behavior, oriented to person Hosp A/P (1) Sepsis Code(s): A41.9 - SEPSIS, UNSPECIFIED ORGANISM Status: Acute Qualifiers: Sepsis type: sepsis due to unspecified organism Sepsis acute organ dysfunction status: without acute organ dysfunction Qualified Code(s): A41.9 - Sepsis, unspecified organism (2) Decubital ulcer Code(s): L89.90 - PRESSURE ULCER OF UNSPECIFIED SITE, UNSPECIFIED STAGE Status : Acute Qualifiers: Pressure injury location: contiguous region involving buttock and hip Pressure injury stage: stage 3 (3) Calciphylaxis cutis Code(s): E83.59 - OTHER DISORDERS OF CALCIUM METABOLISM Status: Acute (4) Dyslipidemia Code(s): E78.5 - HYPERLIPIDEMIA, UNSPECIFIED Status: Chronic (5) ESRD (end stage renal disease) on dialysis Code(s): N18.6 - END STAGE RENAL DISEASE; Z99.2 - DEPENDENCE ON RENAL DIALYSIS Status: Chronic - Plan -s/p I&D on 08/08 -continue iv abx -pain management - continue w wound care -continue home meds for chronic conditons -following surgeon recommendations -continue h/d per gate watch recpmmendations
--- NOTE | 2019-08-09 17:14 | PRG ---
DATE OF SERVICE: 08/09/2019 SUBJECTIVE: Mr. Estevez is an 78-year-old white male, currently undergoing hemodialysis. He is tolerating said treatment. 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 He underwent a surgical debridement. He is doing better. No new complaints. He is tolerating the current dialysis regimen. OBJECTIVE: VITAL SIGNS: Blood pressure 127/70, heart rate 74, respiratory rate 14, temperature 97.5, pulse ox 99%. GENERAL: Awake, alert, comfortable, not in distress. SKIN: Adequate turgor. HEENT: Pale conjunctivae, anicteric sclerae. NECK: No neck mass. No carotid bruits. No JVD. CHEST: No deformities. LUNGS: Clear breath sounds. HEART: Normal sinus rhythm. No murmurs, gallops, or rubs. ABDOMEN: Globular. Soft. Nontender. No masses. EXTREMITIES: No edema. No deformities. MEDICATIONS: Medications of August 09, 2019, reviewed. LABORATORY DATA: August 08, 2019; white count 8.9, hemoglobin 8, sodium 140, potassium 3.3, chloride 103, carbon dioxide 29, BUN 5, creatinine 3.29, phosphorus 1.7. ASSESSMENT AND PLAN: 1. Hypophosphatemia, off Renvela. We will recheck phosphorus in a.m. 2. Anemia, continuing weekly Epogen. P.r.n. blood transfusion. 3. End-stage renal disease, stable. Continue 3 times a week hemodialysis, Monday, Monday, and Monday. 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 5. Recheck basic metabolic panel and CBC and phosphorus in a.m. Job ID: [id number]
[2019-08-09 17:22] LABS: #Eosinphils 0.1 thou/uL (0.0-0.7); #Lymphocytes 1.4 thou/uL (1.20-3.40); #Monocytes 0.7 thou/uL (0.11-0.59); #Neutrophils 5.7 thou/uL (1.40-6.50); %Basophils 0.4 % (0.0-1.0); %Eosinophils 1.3 % (0.0-10.0); %Monocytes 9.4 % (0.0-10.0); %Neutrophils 71.9 % (42.0-75.0); Mean Corpuscular HGB CONC 31.3 g/dL (32.0-36.0); Mean Corpuscular Hemoglobin 25.4 pg (27.0-31.0); Mean Corpuscular Volume 81.3 fL (78.0-98.0); Mean Platelet Volume 8.9 fL (7.4-10.4); Platelet Count 199 thou/uL (130-400); RBC Distribution Width 19.6 % (11.5-14.5); Red Blood Cell (RBC) Count 3.16 mill/uL (4.70-6.10); White Blood Cell (WBC) Count 7.9 thou/uL (4.8-10.8)
[2019-08-09 17:45] LABS: Anion Gap 11 mmol/L (10-20); BUN (Urea Nitrogen) 6 mg/dL (8.4-25.7); Calc. Creatinine Clearance 28 mL/min (70-130); Calcium 9.2 mg/dL (7.8-10.44); Carbon Dioxide 27 mmol/L (23-31); Chloride 105 mmol/L (98-107); Estimated GFR-MDRD 19; Glucose 94 mg/dL (83-110); Potassium 3.7 mmol/L (3.5-5.1); Sodium 139 mmol/L (136-145)
[2019-08-09] MEDS: Rosuvastatin 10 MG TAB PO SCH (22:18)
[2019-08-10] MEDS: Sodium Chloride 0.9% 1,000 ML IV SCH ×2 (00:03→20:27)
[2019-08-10] MEDS: Cefepime 0.5 GM, Admixture Fee 1 EACH in Sodium Chloride 0.9% 100 ML IVPB SCH (03:06)
[2019-08-10 06:10] LABS: #Eosinphils 0.2 thou/uL (0.0-0.7); #Lymphocytes 1.7 thou/uL (1.20-3.40); #Monocytes 0.9 thou/uL (0.11-0.59); #Neutrophils 5.3 thou/uL (1.40-6.50); %Basophils 0.1 % (0.0-1.0); %Eosinophils 1.9 % (0.0-10.0); %Lymphocytes 20.9 % (21.0-51.0); %Monocytes 11.4 % (0.0-10.0); %Neutrophils 65.6 % (42.0-75.0); Hemoglobin 7.6 g/dL (14.0-18.0); Mean Corpuscular HGB CONC 31.2 g/dL (32.0-36.0); Mean Corpuscular Hemoglobin 25.4 pg (27.0-31.0); Mean Corpuscular Volume 81.6 fL (78.0-98.0); Mean Platelet Volume 9.4 fL (7.4-10.4); Platelet Count 160 thou/uL (130-400); RBC Distribution Width 19.4 % (11.5-14.5); Red Blood Cell (RBC) Count 2.98 mill/uL (4.70-6.10)
[2019-08-10 06:31] LABS: Anion Gap 10 mmol/L (10-20); BUN (Urea Nitrogen) 4 mg/dL (8.4-25.7); Calc. Creatinine Clearance 37 mL/min (70-130); Calcium 9.1 mg/dL (7.8-10.44); Carbon Dioxide 30 mmol/L (23-31); Chloride 102 mmol/L (98-107); Estimated GFR-MDRD 26; Glucose 87 mg/dL (83-110); Phosphorus 2.2 mg/dL (2.3-4.7); Potassium 3.8 mmol/L (3.5-5.1); Sodium 138 mmol/L (136-145)
[2019-08-10] MEDS: Famotidine 20 MG TAB PO SCH (08:55)
[2019-08-10] MEDS: Midodrine HCl 5 MG TAB PO SCH ×3 (08:56→20:27)
[2019-08-10] MEDS: Acetaminophen/Codeine 30-300mg Tablet PO PRN (09:29)
[2019-08-10] MEDS: Morphine 4 MG/ML VIAL SLOW IVP PRN (13:33)
--- NOTE | 2019-08-10 15:56 | PDOC.HOSPP ---
- Subjective Encounter Date: 08/10/19 Encounter Time: 15:55 Subjective: Patient is oriented only to person currently. He has no complaints other than some pain at back of hips which occurs during wound vac suction per grand- daughter. Per family member, patient got ulcers after cholecystectomy where he was hardly ambulating and was using a power chair and blisters had ripped open - Objective Vital Signs & Weight: Vital Signs (12 hours) Temp Pulse Resp BP Pulse Ox 08/10/19 08:00 91 L 08/10/19 07:40 98.2 F 84 20 107/67 91 L 08/10/19 04:43 99 Weight Admit Weight 275 lb 1.6 oz Weight 275 lb 1.6 oz I&O: 08/09/19 08/10/19 08/11/19 06:59 06:59 06:59 Intake Total 600 1650 Balance 600 1650 Result Diagrams: 08/10/19 05:45 08/10/19 05:45 Hospitalist ROS - Review of Systems Constitutional: denies: fever, chills - Medication Medications: Active Medications Generic Name Dose Route Start Last Admin Trade Name Freq PRN Reason Stop Dose Admin Acetaminophen 1,000 mg 08/05/19 01:52 08/05/19 12:32 Tylenol PO 1,000 mg Q6H PRN Administration Mild Pain (1-3) Acetaminophen/Codeine Phosphate 1 tab 08/06/19 09:04 08/10/19 09:29 Tylenol #3 PO 1 tab Q4H PRN Administration Pain Famotidine 20 mg 08/05/19 09:00 08/10/19 08:55 Pepcid PO 20 mg QAM BENNIE Administration Sodium Chloride 1,000 mls @ 50 mls/hr 08/05/19 01:52 08/10/19 00:03 Normal Saline 0.9% IV 1,000 mls .Q20H BENNIE Administration Cefepime HCl 0.5 gm/ 100 mls @ 200 mls/hr 08/09/19 04:00 08/10/19 03:06 Miscellaneous Medication 1 IVPB 100 mls each/ Sodium Chloride Q24HR@0400 BENNIE Administration Midodrine 7.5 mg 08/07/19 15:00 08/10/19 15:40 Proamatine PO 7.5 mg TID BENNIE Administration Morphine Sulfate 4 mg 08/08/19 11:10 08/10/19 13:33 Morphine SLOW IVP 4 mg [email or web address] [email or web address] Administration PAIN WITH DRESSING CHANGES Morphine Sulfate 2 mg 08/08/19 17:06 08/09/19 22:32 Morphine SLOW IVP 2 mg Q4H PRN Administration Breakthrough Pain Ondansetron HCl 4 mg 08/05/19 01:52 08/07/19 07:47 Zofran IVP 4 mg Q6H PRN Administration Nausea/Vomiting Rosuvastatin Calcium 10 mg 08/05/19 21:00 08/09/19 22:18 Crestor PO 10 mg HS BENNIE Administration Sodium Chloride 10 ml 08/05/19 02:26 08/08/19 19:12 Flush - Normal Saline IVF 10 ml PRN PRN Administration Saline Flush - Exam General Appearance: NAD, awake alert Eye: negative: PERRL, anicteric sclera, scleral icterus ENT: no oropharyngeal lesions Neck: no JVD Heart: RRR, no murmur, no gallops, no rubs Respiratory: CTAB, no wheezes, no rales, no ronchi Gastrointestinal: soft, non-tender, non-distended, normal bowel sounds, no hepatomegaly Extremities: no cyanosis, no clubbing, no edema Skin: normal turgor, no lesions, no rashes Skin - other findings: difficult to observe ulcers since patient unable to turn on his own Neurological: cranial nerve grossly intact, normal sensation to touch, no focal deficits, no new deficit Hosp A/P - Plan CT abdomen 08/04: skin ulceration and mild subcutaneous edema at the RUQ, right flank, right buttocks Chest X ray 08/04: no acute findings CT brain 08/05: no acute findings Chest X ray 08/06: no acute findings This is an 78 year old male who presented with 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 Cultures growing Proteus, E faecalis, E faecium, Strep agalactiae, and Farrah - currently on vanc and cefepime. Will transition to IV ampicillin since seems to be sensitive to all three organisms - ID consult - PT/OT ESRD- continue dialysis Anemia - likely from kidney disease - Hb 7.8 - will trend CBC Code status: full code
[2019-08-10] MEDS: Ampicillin 2 GM in Sodium Chloride 0.9% 100 ML IVPB SCH (17:59)
[2019-08-10] MEDS: Rosuvastatin 10 MG TAB PO SCH (20:28)
[2019-08-10] MEDS: Morphine 2 MG/ML SYRINGE SLOW IVP PRN (21:16)
[2019-08-11] MEDS: Ampicillin 2 GM in Sodium Chloride 0.9% 100 ML IVPB SCH ×3 (00:05→12:06)
[2019-08-11] MEDS: Cefepime 0.5 GM, Admixture Fee 1 EACH in Sodium Chloride 0.9% 100 ML IVPB SCH (04:22)
[2019-08-11 05:59] LABS: Mean Corpuscular HGB CONC 31.8 g/dL (32.0-36.0); Mean Corpuscular Hemoglobin 26.1 pg (27.0-31.0); Mean Corpuscular Volume 82.1 fL (78.0-98.0); Mean Platelet Volume 9.4 fL (7.4-10.4); Platelet Count 184 thou/uL (130-400); RBC Distribution Width 19.8 % (11.5-14.5); Red Blood Cell (RBC) Count 3.07 mill/uL (4.70-6.10); White Blood Cell (WBC) Count 7.8 thou/uL (4.8-10.8)
[2019-08-11 06:17] LABS: Anion Gap 10 mmol/L (10-20); BUN (Urea Nitrogen) 7 mg/dL (8.4-25.7); Calc. Creatinine Clearance 26 mL/min (70-130); Carbon Dioxide 30 mmol/L (23-31); Chloride 102 mmol/L (98-107); Estimated GFR-MDRD 18; Glucose 71 mg/dL (83-110); Potassium 4.1 mmol/L (3.5-5.1); Sodium 138 mmol/L (136-145)
[2019-08-11] MEDS: Midodrine HCl 5 MG TAB PO SCH ×3 (08:45→20:57)
[2019-08-11] MEDS: Famotidine 20 MG TAB PO SCH (08:46)
[2019-08-11] MEDS: Morphine 4 MG/ML VIAL SLOW IVP PRN (10:38)
--- NOTE | 2019-08-11 15:09 | CON ---
DATE OF CONSULTATION: 08/11/2019 REASON FOR CONSULTATION: Decubitus ulcers with question regarding management. HISTORY OF PRESENT ILLNESS: An 78-year-old gentleman whom I had seen in May last year when he presented with a history of gout, ischemic cardiomyopathy, hypertension and end-stage renal disease presumably due to nephrosclerosis on hemodialysis through an AV fistula in the right upper extremity. We were asked to see him because of inflammatory nodules in the skin of lower extremities of proximal aspect as well as an open wound in the right lower leg, which had been present for the month before admission and had not improved with oral antimicrobial therapy. Our impression then was that the patient had inflammatory nodules in the right and left thigh with hyperphosphatemia and normal calcium with elevated PTH with the possibility of calciphylaxis as the more likely scenario. Since then, the management of his phosphorus has improved significantly and the ulcers in the lower extremities have healed. He was admitted on June 25 of this year because of acute cholecystitis. Basically, he had presented with nausea, vomiting, and abdominal pain with tender right upper quadrant. The gallbladder resection pathology demonstrated chronic, but not acute cholecystitis. He also had a history of pulmonary embolism in the past with DVT and had been on warfarin and his INR was felt to be therapeutic upon discharge. On July 16 of this year, he was admitted with episodes of falls in the home setting. His INR was found to be elevated at 6 and then went up to 8 without any evidence of active bleeding. He was given vitamin K orally with improvement in the INR. On July 22, he developed altered mental status, slurred speech. CT and MRI of brain did not show any acute findings and the possibility of delirium superimposed on underlying dementia was considered. He was discharged on Coumadin, Renvela, gabapentin, vitamin D (Calcitriol), allopurinol, midodrine, rosuvastatin, and tramadol. At this time, he presented on August 04, brought in because of worsening wounds with drainage, those were present in the gluteal region mostly. There is also an open wound from the cholecystectomy with purulent drainage. Other findings on admission included a BP of 120/40, pulse 97, temperature 97.6. The exam was remarkable for the partial dehiscence of the cholecystectomy incision with purulent material. There were 8 pressure wounds in the gluteal region, posterior thighs, mostly grade 3 with some discharge. LABORATORY DATA: Other findings on admission; white cell count 8.1, hemoglobin 9.0, platelets 238 with 16% lymphocytes, 70% neutrophils. INR was initially 8.3 and that was decreased to subtherapeutic levels. Phosphorus is markedly decreased from previous values to 1.7. Calcium was normal at 9.5 and alkaline phosphatase 124, but other liver tests were normal. Albumin was quite decreased at 1.9, which is lower than his baseline. Currently, Mr. Estevez is easily arousable. He was sleeping when I went in the room. He was able to establish eye contact. His replies were sluggish, monosyllabic. He could not tell me where he was, although he said the city of [place]. He could not tell me the date. He could not remember any details of his recent medical history. He was able to follow commands after some insistence. PAST MEDICAL HISTORY: His medical history includes ischemic cardiomyopathy, hypertension, end-stage renal disease presumably secondary to nephrosclerosis, arteriosclerosis, dementia, possibly vascular dementia. Deep vein thrombosis with pulmonary embolism in the past, gout, hemodialysis with an AV fistula for many years now. PAST SURGICAL HISTORY: Recent cholecystectomy for acute cholecystitis in clinical diagnosis but that was not confirmed in the pathology exam. The patient had partial resection of colon for unclear reasons. SOCIAL HISTORY: He states he lives in [place]. Never smoker. Retired. It is not clear at the moment if he is in [place] in his own house or if he is in the long-term. ALLERGIES: AMOXICILLIN WITH DIARRHEA AND CLINDAMYCIN WITH HIVES. FAMILY HISTORY: Noncontributory. CURRENT MEDICATIONS: P.r.n. medications, he is on ampicillin and cefepime, Pepcid, hydralazine, morphine, vancomycin. PHYSICAL EXAMINATION: VITAL SIGNS: T-max 97.9, blood pressure 120/60, pulse 80, respirations 15 to 20, O2 saturation 96. SKIN: Demonstrates the dehiscence of the cholecystectomy incision with fresh granulation tissue. A number of other small wounds which appear improved compared with previous findings. The patient has abdominal wounds, which have necrotic base, those have been debrided by Dr. Osborne and on the , the wound appearance is much improved, although somewhat desiccated base. He has an AV fistula in the right upper extremity, a peripheral IV access and does not have a Pisano catheter. No lymphadenopathy. HEENT: Ocular movements conjugate. Sclerae are beige in color. Conjunctivae are pink. Oral cavity with no [place] teeth remaining. Oral mucosa normal. NECK: Supple. No jugular vein distention. LUNGS: Symmetric air entry. No crackles. No wheezing noted. CARDIOVASCULAR: S1 and S2 with a soft aortic murmur. Regular rate. No S3. ABDOMEN: Not distended, soft. No evidence of organomegaly. No ascites or bladder distention. EXTREMITIES: Evidence of osteoarthrosis in multiple joints. He is diffusely weak, seems to be able to move extremities. He has hyporeflexia, but no clonus. Plantar responses are indifferent. Pulses are diminished in dorsalis pedis. He has edema in lower extremities about 2+. NEUROLOGIC: He is awake. He knew his name, but that is the extent of his orientation. He did follow commands after insistence. He would reply to kill questions with monosyllabic yes or no answers. LABORATORY DATA: The followup labs demonstrate, sodium 138 and potassium of 4.2, CO2 of 30. White cell count 7.8, hemoglobin 8.0, platelets 184. Microbiology with 1/2 sets of blood cultures with coagulase-negative Staph likely contaminant. The wounds with Proteus mirabilis, group B strep, Enterococcus avium, Farrah krusei. ASSESSMENT: 1. Ischemic cardiomyopathy, vascular dementia, end-stage renal disease, likely due to arteriosclerosis, hypertension. 2. Presumptive diagnosis of calciphylaxis. This has not been documented with Pathology. The latest pathology has nonspecific findings. 3. Improvement of the previous lesions, now with development of new ones which appear to be located in the gluteal region. Particularly in the right side, those have been debrided. DISCUSSION: The lesions, they have been debrided and now they have a fresh-appearing base. The possibility of calciphylaxis has not been ruled out, but they appear more consistent with pressure ulcerations at this moment and some necrosis of the fat tissue associated with pressure injury. The one thing arguing against this interpretation is that they follow very linear distribution along the crease in the upper limits of the gluteal region. Those are not in general areas of maximum pressure. Pressure ulcer tend to concentrate in lower segment of the gluteal area. With the pathologic diagnosis of calciphylaxis, sometimes it is difficult. All the measures have been introduced, particularly the improvement in the calcium phosphorus product in view of the appearance of the wound that would argue that antimicrobial therapy is not required for the moment and we would discontinue antimicrobials. If the patient develops necrosis again of those same lesions, then the diagnosis of calciphylaxis would be more likely. Job ID: [id number]
--- NOTE | 2019-08-11 16:32 | PDOC.HOSPP ---
- Subjective Encounter Date: 08/11/19 Encounter Time: 14:00 Subjective: Patient's pain has improved in his hips. He has no other complaints. He is more alert today - Objective Vital Signs & Weight: Vital Signs (12 hours) Temp Pulse Resp BP Pulse Ox 08/11/19 08:00 97.9 F 80 15 122/64 96 Weight Admit Weight 275 lb 1.6 oz Weight 275 lb 1.6 oz I&O: 08/10/19 08/11/19 08/12/19 06:59 06:59 06:59 Intake Total 1650 Balance 1650 Result Diagrams: 08/11/19 05:35 08/11/19 05:35 Hospitalist ROS - Review of Systems Constitutional: denies: fever, chills - Medication Medications: Active Medications Generic Name Dose Route Start Last Admin Trade Name Freq PRN Reason Stop Dose Admin Acetaminophen 1,000 mg 08/05/19 01:52 08/05/19 12:32 Tylenol PO 1,000 mg Q6H PRN Administration Mild Pain (1-3) Acetaminophen/Codeine Phosphate 1 tab 08/06/19 09:04 08/10/19 09:29 Tylenol #3 PO 1 tab Q4H PRN Administration Pain Famotidine 20 mg 08/05/19 09:00 08/11/19 08:46 Pepcid PO 20 mg QAM BENNIE Administration Sodium Chloride 1,000 mls @ 50 mls/hr 08/05/19 01:52 08/10/19 20:27 Normal Saline 0.9% IV 1,000 mls .Q20H BENNIE Administration Midodrine 7.5 mg 08/07/19 15:00 08/11/19 15:52 Proamatine PO 7.5 mg TID BENNIE Administration Morphine Sulfate 4 mg 08/08/19 11:10 08/11/19 10:38 Morphine SLOW IVP 4 mg [email or web address] [email or web address] Administration PAIN WITH DRESSING CHANGES Morphine Sulfate 2 mg 08/08/19 17:06 08/10/19 21:16 Morphine SLOW IVP 2 mg Q4H PRN Administration Breakthrough Pain Ondansetron HCl 4 mg 08/05/19 01:52 08/07/19 07:47 Zofran IVP 4 mg Q6H PRN Administration Nausea/Vomiting Rosuvastatin Calcium 10 mg 08/05/19 21:00 08/10/19 20:28 Crestor PO 10 mg HS BENNIE Administration Sodium Chloride 10 ml 08/05/19 02:26 08/08/19 19:12 Flush - Normal Saline IVF 10 ml PRN PRN Administration Saline Flush - Exam General Appearance: NAD, awake alert General - other findings: obese Eye: PERRL, anicteric sclera ENT: normocephalic atraumatic, no oropharyngeal lesions Neck: supple, no JVD Heart: RRR, no murmur, no gallops Respiratory: CTAB, no wheezes, no rales, no ronchi Gastrointestinal: soft, non-tender, non-distended, normal bowel sounds, no hepatomegaly Extremities: no cyanosis, no clubbing, 1+ LE edema Skin: normal turgor, no lesions, no rashes Hosp A/P - Plan CT abdomen 08/04: skin ulceration and mild subcutaneous edema at the RUQ, right flank, right buttocks Chest X ray 08/04: no acute findings CT brain 08/05: no acute findings Chest X ray 08/06: no acute findings This is an 78 year old male who presented with 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 Cultures growing Proteus, E faecalis, E faecium, Strep agalactiae, and Farrah - currently on vanc and cefepime. Transitioned to IV ampicillin since seems to be sensitive to all three organisms, discontinued today - ID consulted - PT/OT ESRD- continue dialysis Anemia - likely from kidney disease - Hb improved to 8 Dispo: will place CM consult for d/c planning Code status: full code
[2019-08-11] MEDS ORDERED: traMADol HCl 50 MG TAB PO PRN (16:38)
[2019-08-11] MEDS: Sodium Chloride 0.9% 1,000 ML IV SCH (17:45)
[2019-08-11] MEDS: Rosuvastatin 10 MG TAB PO SCH (20:57)
[2019-08-11] MEDS: Morphine 2 MG/ML SYRINGE SLOW IVP PRN (21:43)
[2019-08-12] MEDS: Acetaminophen 500 MG TAB PO PRN (00:41)
[2019-08-12] MEDS: Morphine 2 MG/ML SYRINGE SLOW IVP PRN ×2 (06:05→21:17)
[2019-08-12] MEDS: Midodrine HCl 5 MG TAB PO SCH ×3 (08:45→20:33)
--- NOTE | 2019-08-12 08:46 | PRG ---
DATE OF SERVICE: 08/12/2019 SUBJECTIVE: Mr. Estevez is an 78-year-old black male with history of ESRD, on maintenance hemodialysis, and recent diagnosis of calciphylaxis. He also has had a surgical debridement of his decubitus ulcers and leg ulcers. He is currently undergoing dialysis and tolerating said treatment. OBJECTIVE: VITAL SIGNS: Blood pressure is noted at 133/78, heart rate 70, respiratory rate 18, temperature 97.3, pulse ox 100%. GENERAL: The patient is awake, alert, comfortable, not in distress. SKIN: Adequate turgor. HEENT: He has a slightly pale conjunctivae. Anicteric sclerae. No neck mass. No carotid bruits. No JVD. CHEST: No deformities. LUNGS: Clear breath sounds. No wheezing. No crackles. HEART: Normal sinus rhythm. No murmurs, no gallops, no rubs. ABDOMEN: Globular, soft, nontender. No masses. EXTREMITIES: No edema, no deformities. MEDICATIONS: Of August 12, 2019, reviewed. LABORATORY DATA: Laboratories of August 11, 2019: Hemoglobin 8. Sodium 138, potassium 4.1, chloride 102, carbon dioxide 30, BUN 7, creatinine 3.94, calcium 10. On August 10, 2019, phosphorus 2.2. ASSESSMENT AND PLAN: 1. Hypophosphatemia, improving phosphorus, off binders. 2. End-stage renal disease, stable. We will continue current Monday, Monday, and Monday hemodialysis regimen, fluid removal as tolerated. 3. Anemia, continuing weekly Epogen with the patient - p.r.n. blood transfusion. 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 Job ID: [id number]
[2019-08-12] MEDS ORDERED: Heparin 10,000 UNITS/ 10 ML VIAL ONE (11:54)
[2019-08-12] MEDS: Famotidine 20 MG TAB PO SCH (12:55)
[2019-08-12] MEDS: Acetaminophen/Codeine 30-300mg Tablet PO PRN (16:06)
[2019-08-12] MEDS: Sodium Chloride 0.9% 1,000 ML IV SCH (16:07)
[2019-08-12 18:13] LABS: HBSAg Index 0.28 S/CO (0-0.99); Hep B Surf Ag Non-Reactive S/CO (NonReactive)
[2019-08-12] MEDS: Rosuvastatin 10 MG TAB PO SCH (20:39)
[2019-08-13 07:43] VITALS: BP 139/77; TEMP 97.7
[2019-08-13] MEDS: Morphine 4 MG/ML VIAL SLOW IVP PRN ×2 (08:54→16:33)
[2019-08-13] MEDS: Famotidine 20 MG TAB PO SCH (08:58)
[2019-08-13] MEDS: Midodrine HCl 5 MG TAB PO SCH ×2 (08:58→15:27)
[2019-08-13] MEDS ORDERED: Lidocaine 4% Topical Sol 50 ML BOT TOP PRN (12:30)
[2019-08-13] MEDS ORDERED: Lidocaine 4% Topical Sol 50 ML BOT TOP SCH (12:30)
[2019-08-13] MEDS ORDERED: EPOETIN ALFA-EPBX (ESRD) 4,000 UNIT/ML VIAL SC SCH (13:00)
--- NOTE | 2019-08-13 14:09 | DIS ---
DATE OF ADMISSION: 08/04/2019 DATE OF DISCHARGE: 08/13/2019 DISCHARGE DIAGNOSES: Sepsis secondary to bilateral hip ulcer, status post debridement; hypokalemia; anemia; endstage renal disease; possible dementia. CONSULTATIONS: Nephrology with Dr. Jose Porter, General Surgery with Dr. Donald Osborne, Infectious Disease with Dr. Senthil Fontanez. PROCEDURES: surgical debridement of bilateral sacroiliac and hip wounds on 08/08 BRIEF HISTORY OF PRESENT ILLNESS: This is an 78-year-old male with past medical history of ESRD, who had presented to the emergency room with several days of draining wounds on his legs, buttocks, sacral area, and abdomen. Upon presentation to the ER, the patient had a white blood cell count of elevated lactic acid level of 3.3 on admission. The patient was given 3 L of fluids in addition to 2 g of vancomycin, metronidazole, Cipro, and morphine. He was admitted for further workup. HOSPITAL COURSE: Possible sepsis secondary to multiple decubitus ulcers:. The patient was initially started on broad-spectrum antibiotics. General Surgery was consulted and the patient underwent surgical debridement of his wounds on the . He was noted to have right sacroiliac and right hip wounds as well as left sacroiliac and left hip wounds. He underwent irrigation of wounds and temporary closure with a wound VAC. The patient's bacterial cultures came back positive for Proteus, Strep agalactiae, Enterococcus avium, Enterococci faecalis. The patient did receive IV vancomycin and cefepime until August 10. Infectious Disease was consulted on the and recommended discontinuing his antibiotics. On discharge, patient's wounds appear clean and exhibit no signs of infections. He will continue with wound care as an outpatient and continue to receive the wound VAC. ESRD: Nephrology was consulted and the patient was receiving dialysis while in the hospital. There was a question of possible calciphylaxis. The patient was receiving sodium thiosulfate with each dialysis. History of PE: The patient's Coumadin was held during his admission. This will be restarted on discharge. Hypercalcemia: The patient had presented with a calcium of 11 in the hospital. His calcium phosphate binder was discontinued. His calcium levels have resolved to normal and his phosphate level is low at 2.2 on the . This will be held on discharge and patient should have followup calcium and phosphorus levels done as an outpatient. Possible dementia: Per family members, the patient has been confused for the past 8 months and asked the same questions repeatedly. The patient is not oriented to the month or the year. He knows his daughter's name and his son-in-law's name. I recommended that the patient see a body team member on discharge for assessment of dementia. Daughter states the patient does seem to have mood swings at night and get agitated. Therefore, he will be discharged on Seroquel b.i.d. p.r.n. for agitation/hallucinations. Anemia: The patient's hemoglobin is 8 on the day of discharge, which is stable. There are no signs of bleeding. DISCHARGE PHYSICAL EXAMINATION: VITAL SIGNS: Temperature 97.1, heart rate 81, respiratory rate 18, O2 saturation 98% on room air, blood pressure 126/83. GENERAL: The patient is morbidly obese. He is oriented to name only. CVS: Regular rate and rhythm with no murmurs, rubs, or gallops. LUNGS: Clear to auscultation bilaterally. ABDOMEN: Positive bowel sounds, soft, nontender, nondistended. EXTREMITIES: The patient has bilateral hip ulcers, which are clean. Do not look infected. He has a wound VAC in place. PERTINENT LABORATORY DATA: CBC, 08/10: Shows hemoglobin 8.0, hematocrit 25.2. BMP 08/10: Shows a creatinine of 3.94. Phosphorus : , 2.2. Hepatitis B serology: 08/11, is nonreactive. IMAGING: Chest x-ray on 08/04: no acute findings. CT abdomen, 08/04: shows skin ulceration, mild subcutaneous edema at the right upper quadrant, right flank and right buttocks. CT brain on 08/05: no acute findings. Chest x-ray on 08/06: no acute findings. DISCHARGE CONDITION: Stable for discharge to [facility]. ACTIVITY: The patient is bed-bound at baseline. He will require PT on discharge and wound care as well. DIET: Renal diet. DISCHARGE MEDICATIONS: New prescriptions: Seroquel 12.5 mg p.o. b.i.d. Discontinued medications: Sevelamer. All other home medications were resumed. DISCHARGE INSTRUCTIONS: The patient is to follow up with his PCP in a week. He should continue getting dialysis on Monday, Monday, and Monday, and continue with Epogen as an outpatient. He should follow up with wound care. He should have repeat phosphorus levels and calcium levels checked in a week. Job ID: [id number]
[2019-08-13] MEDS: Acetaminophen/Codeine 30-300mg Tablet PO PRN (16:22)
--- NOTE | 2019-08-15 22:29 | PQF ---
RANGEL CHRISTIAN VINCENT U [id number] CLINICAL DOCUMENTATION CLARIFICATION FORM: POST DISCHARGE Addendum to original discharge summary date: ____ Late entry note date: __ DATE:08/15/2019 ATTN:DONALD OSBORNE Please exercise your independent, professional judgment in responding to the clarification form. Clinical indicators are provided on the bottom of this form for your review Please check appropriate box(s): [ x ] Excisional Debridement: [ ] Excised [ ] Cut away [ ] Other: Depth / layer: (deepest layer of debridement): [x ] Skin[x ] SubQ Tissue [ ] Fascia [ ] Muscle [ ] Tendon [ ] Bone Appearance of wound: (e.g., down to fresh bleeding tissue, etc.)___ Margins: (please specify): / x x Instruments used: [ ] Scissors [ ] Scalpel [ ] Curette [ ] Soft tissue clipper [ ] Other: [ ] Non-excisional Debridement: (Removal by flushing, brushing, chemical, or washing) Depth / layer: (deepest layer of debridement): [ ] Skin[ ] Subcutaneous [ ] Fascia [ ] Muscle [ ] Tendon [ ] Bone [ ] Other procedure diagnosis [ ] Unable to determine For continuity of documentation, please document condition throughout progress notes and discharge summary. Thank You. CLINICAL INDICATORS - SIGNS / SYMPTOMS / LABS Multiple decubitus ulcers bilateral sacroiliac and bilateral hips-Documented in OP note on 08/08 by Donald Osborne DO Excisional debridement of multiple above stated wounds-Documented in OP note on 08/08 by Donald Osborne DO The bilateral gluteal and proximal lower extremities were widly sterily prepped and draped in usual fashion-Documented in OP note on 08/08 by Donald Osborne DO Attention was turned to each individual wound where the necrotic wounds were circumferentially excised down to the base using the scalpel, alternated with scissors-Documented in OP note on 08/08 by Donald Osborne DO Necrotic tissue are passed off for transmission to pathology-Documented in OP note on 08/08 by Donald Osborne DO RISK FACTORS Multiple decubitus ulcers bilateral sacroiliac and bilateral hips-Documented in OP note on 08/08 by Donald Osborne DO TREATMENTS: Irrigation of wound and temporary closure with wound VAC-Documented in OP note on 08/08 by Donald Osborne DO Hemostasis was achieved using cautery--Documented in OP note on 08/08 by Donald Osborne DO [employer] Win[employer] View[employer] (This form is maintained as a part of the permanent medical record) 2014 [employer], [employer]. All Rights Reserved [email or web address]
--- NOTE | 2019-08-17 18:08 | EKG ---
Test Reason : Blood Pressure : / mmHG Vent. Rate : 098 BPM Atrial Rate : 098 BPM P-R Int : 160 ms QRS Dur : 168 ms QT Int : 422 ms P-R-T Axes : 050 -87 008 degrees QTc Int : 538 ms Normal sinus rhythm Left axis deviation Right bundle branch block Abnormal ECG Confirmed by MARIELLE MONTENEGRO, LEYDA Odom ([id number]), editor & co founder YINKA MENDOZA ([id number]) on 08/17/2019 6:07:50 PM Referred By: Confirmed By:LEYDA PALOMARES MD
== END 2019-08-13 17:19 | DRG 853 ==
LOC: ERS 17:45 → T4-A 22:13
PROVIDERS: ADMIT Family Medicine; ATTEND Internal Medicine
PROC: 5A1D70Z Performance of Urinary Filtration, Intermittent, Less than 6 Hours Per Day (ICD-10-PCS; 2019-08-04)
PROC: 0JH63XZ Insertion of Tunneled Vascular Access Device into Chest Subcutaneous Tissue and Fascia, Percutaneous Approach (ICD-10-PCS; principal; 2019-08-06)
PROC: 02HV33Z Insertion of Infusion Device into Superior Vena Cava, Percutaneous Approach (ICD-10-PCS; 2019-08-06)
PROC: 0JB90ZZ Excision of Buttock Subcutaneous Tissue and Fascia, Open Approach (ICD-10-PCS; 2019-08-08)
PROC: 0JBM0ZZ Excision of Left Upper Leg Subcutaneous Tissue and Fascia, Open Approach (ICD-10-PCS; 2019-08-08)
PROC: 0JBL0ZZ Excision of Right Upper Leg Subcutaneous Tissue and Fascia, Open Approach (ICD-10-PCS; 2019-08-08)
PROC: 0JB70ZZ Excision of Back Subcutaneous Tissue and Fascia, Open Approach (ICD-10-PCS; 2019-08-08)
DX: A41.9 Sepsis, unspecified organism (principal); L89.323 Pressure ulcer of left buttock, stage 3; L89.313 Pressure ulcer of right buttock, stage 3; N18.6 End stage renal disease; I12.0 Hypertensive chronic kidney disease with stage 5 chronic kidney disease or end stage renal disease; E87.6 Hypokalemia; Z86.711 Personal history of pulmonary embolism; Z86.718 Personal history of other venous thrombosis and embolism; E78.5 Hyperlipidemia, unspecified; E66.01 Morbid (severe) obesity due to excess calories; Z68.34 Body mass index [BMI] 34.0-34.9, adult; I25.2 Old myocardial infarction; I48.91 Unspecified atrial fibrillation; Z90.49 Acquired absence of other specified parts of digestive tract; Z88.1 Allergy status to other antibiotic agents; Z83.3 Family history of diabetes mellitus; E83.52 Hypercalcemia; E83.59 Other disorders of calcium metabolism; D63.1 Anemia in chronic kidney disease; E83.39 Other disorders of phosphorus metabolism; M10.9 Gout, unspecified; I25.5 Ischemic cardiomyopathy; F01.50 Vascular dementia, unspecified severity, without behavioral disturbance, psychotic disturbance, mood disturbance, and anxiety
CPT/HCPCS: 36415; 36416; 70450; 71045; 74177; 80048; 80053; 80202; 82140; 83605; 83690; 83735; 84100; 84443; 85007; 85025; 85027; 85610; 85730; 86850; 86870; 86880; 86900; 86901; 87040; 87070; 87077; 87149; 87186; 87205; 87340; 87804; 88305; 88312; 90935; 93005; 96361; 96365; 96366; 96367; 96375; G0257; J0290; J0692; J0744; J1644; J2060; J2270; J2370; J2405; J2704; J3010; J3370; J3430; J3475; J3490; J7050; Q5105; Q9967

== ENCOUNTER 2019-08-19 14:21 | Inpatient (IN) | payer MEDICARE ==
[2019-08-19] MEDS ORDERED: Dextrose 50% Abboject 50 ML SYRINGE ONE (14:50)
[2019-08-19] MEDS ORDERED: Norepinephrine 8 MG/0.9% NS 250 ML ONE (16:05)
--- NOTE | 2019-08-19 17:12 | RAD ---
EXAM: CHEST ONE VIEW PORTABLE: History: Hypoglycemia. Follow up central line placement. FINDINGS: Left central line, jugular venous catheter has been placed. No confluent pneumonia, overt edema, or p leural effusion. No pneumothorax. IMPRESSION: Left central line placement without pneumothorax. Atherosclerosis of the aorta with ectasia. POS: [facility]
[2019-08-19] MEDS ORDERED: Fentanyl 100 MCG/2 ML VIAL ONE (18:09)
[2019-08-19 18:19] LABS: Base Excess-Venous 4.3 mmol/L (-2.0 to 3.0); Bicarbonate (HCO3v) 30.4 mmol/L (22.0-28.0); CO2 Tension (PvCO2) 51.2 mmHg (40.0-50.0); Calcium, Ionized 1.31 mmol/L (See Comments:); Chloride 97 mmol/L (98-107); Hemoglobin - Calc 11.4 g/dL (14.0-18.0); Potassium 2.7 mmol/L (3.5-5.1); Sodium 139 mmol/L (138-145); vO2 Saturation-calc 76.5 % (60.0-85.0)
[2019-08-19] MEDS ORDERED: Magnesium 2 GM/50 ML BAG (IN WATER) ONE (18:37)
[2019-08-19] MEDS ORDERED: Hydrocortisone Sod Succ/PF 100 mg/2 ml Vial ONE (18:37)
[2019-08-19] MEDS ORDERED: Potassium Chloride 40 MEQ in Sodium Chloride 0.9% 250 ML 250 ML IVPB SCH (18:45)
[2019-08-19 18:59] LABS: Anion Gap 9 mmol/L (10-20); BUN (Urea Nitrogen) 5 mg/dL (8.4-25.7); Calc. Creatinine Clearance 0 mL/min (70-130); Calcium 9.2 mg/dL (7.8-10.44); Carbon Dioxide 33 mmol/L (23-31); Chloride 100 mmol/L (98-107); Estimated GFR-MDRD 22; Magnesium 1.6 mg/dL (1.6-2.6); Sodium 139 mmol/L (136-145)
--- NOTE | 2019-08-19 19:05 | HP ---
PRIMARY CARE PHYSICIAN: Dr. Rubalcava. CHIEF COMPLAINT: Hypoglycemia and altered mental status. HISTORY OF PRESENT ILLNESS: This is an 78-year-old male, who presents as a transfer from [facility]. The patient's daughter and son-in-law are at the bedside and are providing history. The patient has underlying slurred speech and possible dementia and is not able to give much history at all. Currently, the patient was discharged from the hospital here at the beginning of this month about 8 days ago and he was discharged to [facility] with wound VACs in place. Apparently after a few days, doctor there noted that there was not much drainage and the wound VACs were discontinued. The patient has been having some nausea and vomiting for the last 3 days per the daughter, but otherwise he has been in his normal mental state with difficult to understand speech due to no teeth, but interactive. The patient was brought to dialysis today by his son-in-law. After unspecified length of dialysis, he was noted to have some decreased responsiveness. They did check a blood sugar and found it to be very low and so, they sent him over to the [facility]. In the ER at the [facility], he was found to have hypoglycemia. He had a hypothermia, temperature of 90 and he was hypotensive. Vitals from the emergency room were not available. He was given a 30 mL/kg fluid bolus with some improvement in his pressures. He was noted to have a leukocytosis of 20,000. He was given vancomycin and 2 g of cefepime. He was also started on Shiloh Hugger and was transferred over here. Here, his temperature had come up to 93.3 and is continued on the Shiloh Hugger and becoming more responsive over time. However, his blood pressures dropped into the 70s systolic here, so he had a central line placed and they are starting Levophed on him now. The patient was noted to have right-sided abdominal wound that was draining some fluid along with his sacral ulcers were also draining some yellowish fluid. He is being admitted to the ICU. REVIEW OF SYSTEMS: Unable to obtain secondary to the patient's mental status. See HPI for all known symptoms. PAST MEDICAL HISTORY: All history taken from the family and the chart as the patient is unable to participate. 1. End-stage renal disease, on hemodialysis Mondays, Wednesdays and Fridays, overseen by Dr. Porter. 2. Pulmonary embolism, on chronic anticoagulation with Coumadin. 3. History of DVT. 4. Gout. 5. Hypertension. 6. Hyperlipidemia. 7. Morbid obesity. 8. Chronic sacral decubitus ulcers with surgical debridement recently. 9. Nonambulatory status. 10. Chronic atrial fibrillation. 11. History of myocardial infarction with coronary artery disease. 12. Orthostatic hypotension. 13. Possible dementia. PAST SURGICAL HISTORY: 1. Left leg surgery. 2. Partial bowel resection. 3. AV fistula placement. 4. Open cholecystectomy. SOCIAL HISTORY: The patient resides currently in [facility], taken care of by his daughter and son-in-law. Previously wheelchair dependent, but now is bed-bound. No alcohol, tobacco, or illicit drug use. FAMILY HISTORY: Positive for diabetes mellitus. ALLERGIES: CLINDAMYCIN AND AMOXICILLIN. CURRENT MEDICATIONS: 1. Gabapentin 100 mg twice a day. 2. Warfarin 1 mg daily. 3. Allopurinol 100 mg daily. 4. Docusate sodium 100 mg q.8 hours as needed. 5. Tylenol with codeine No.3, 1-2 tablets every 4 hours as needed. 6. Renvela, unknown dose. 7. Carvedilol 6.25 mg twice a day. 8. Isosorbide mononitrate 30 mg twice a day. 9. Amlodipine 10 mg daily. 10. Famotidine 20 mg daily. 11. Torsemide 10 mg orally as needed. 12. Clonidine 0.1 mg once a day at bedtime. 13. Calcitriol 0.25 mcg daily. 14. Potassium chloride extended release 20 mEq daily. PHYSICAL EXAMINATION: VITAL SIGNS: Blood pressure 102/52, now starting Levophed at 5 mcg/minute, pulse 75. Respirations listed at 6, but actually breathing about 16 on my count. Temperature 94.5, O2 saturation 100% on room air. GENERAL: This is a well-developed, well-nourished male who is edentulous, has slurred speech and is hard to understand, does follow some commands. He is somewhat sleepy, but easily arousable. HEENT: Pupils are equal, round, and reactive to light. Oropharynx with dry mucous membranes. No lesions. NECK: Supple. No lymphadenopathy. No thyroid nodules or enlargement. No JVD. HEART: Regular rate and rhythm. No murmurs, rubs, or gallops. LUNGS: Clear to auscultation bilaterally. No wheezes, crackles, or rhonchi. ABDOMEN: Soft, nontender to palpation. Normoactive bowel sounds. No hepatosplenomegaly or other masses. He does have a wound with a dressing on it on the right side of his abdomen. EXTREMITIES: No clubbing, cyanosis, or edema. SKIN: The patient has multiple sacral ulcers with dressings on them currently, with some yellowish exudate into the dressings. NEUROLOGIC: The patient is moving all of his extremities. He has no facial droop. PSYCHIATRIC: The patient knows his name, does not oriented to be on that at this time. LABORATORY DATA: CBC; white blood cell count 20,000 with 90% neutrophils, 2 bands, hemoglobin 9.1, hematocrit 32.0, platelet count 186. PT is 17.6, INR 1.5, aPTT greater than 250 right after he got out of dialysis. Complete metabolic panel is notable for potassium of 3.1, carbon dioxide of 33, BUN of 5, creatinine of 2.85. Glucose of 54, now was up to 103 after treatment in the [facility], now back down to 61, so D10 drip is being started. AST 652, alkaline phosphatase 205, albumin of 1.8. The rest of his CMP is normal. Brain natriuretic peptide is normal. CK-MB is normal. Troponin is mildly indeterminate at 0.032. IMAGING STUDIES: Chest x-ray, I did review the chest x-ray done in the emergency room along with the radiologist's report, it does show now a left central line placement without pneumothorax. There is no evidence of pulmonary edema, pulmonary effusions, or infiltrates visible. EKG done in the [facility] shows a normal sinus rhythm with some premature atrial complexes, some right bundle branch block and left axis deviation. ASSESSMENT: 1. Sepsis with septic shock. Most likely source is the patient's sacral wounds, however, he is also on dialysis, he could have a bacteremia from other source as well. We will continue cefepime and vancomycin with renal dosing and we will continue Levophed and wean off as tolerated. The patient's blood pressure is starting to come up now, so we may be able to start weaning that soon. 2. Severe sacral decubitus ulcer, status post recent I and D. We will have Wound Care evaluate and see if he needs replacement of the wound VACs. 3. Hypothermia. We will continue Shiloh Hugger. 4. Hypoglycemia. We will give D10W IV and check fingerstick blood sugars every hour in the ICU. Can back off once we get his blood sugar stabilized. 5. End-stage renal disease. We will notify Dr. Porter and have dialysis as tolerated. 6. Hypokalemia. The patient apparently is on potassium supplementation regularly. ER doctor just rechecked the potassium and it is down to 2.7, so he is starting IV potassium and will need to be rechecked and give replacement as needed and we will likely need to restart his home potassium. 7. GI prophylaxis. Put the patient on Pepcid twice a day. 8. Deep venous thrombosis prophylaxis. We will continue the patient's Coumadin. 9. Hypertension. We will hold antihypertensives for now. 10. Gout. We will continue the patient's allopurinol. 11. Orthostatic hypotension. We will resume the patient's midodrine. 12. Paroxysmal atrial fibrillation, on Coumadin. 13. Hyperlipidemia. Resume the patient's statin. 14. Severe protein calorie malnutrition. 15. Code status. The patient is a full code. His medical power of assistant attorney general is his daughter, her name is Radha Braun. She is considering after getting him current medical issues resolved and eventually taking him home on hospice. I will have Palliative Care and discuss with her and then she can discuss that further with Case Management later on in this hospitalization. Job ID: [id number]
[2019-08-19 19:14] LABS: Glucose 53 mg/dL (83-110); Potassium 2.8 mmol/L (3.5-5.1)
[2019-08-19] MEDS ORDERED: HYDROcodone/Acetaminophen 5/325 mg Tablet PO PRN ×2 (19:37)
[2019-08-19] MEDS ORDERED: Ondansetron PF 4 MG/2 ML Vial IVP PRN ×2 (19:37→20:42)
[2019-08-19] MEDS ORDERED: Ondansetron ODT 4 MG TAB SL PRN (19:37)
[2019-08-19] MEDS ORDERED: Acetaminophen 325 MG TAB PO PRN (19:37)
[2019-08-19] MEDS ORDERED: Sodium Chloride 0.9% 1,000 ML IV SCH (19:37)
[2019-08-19] MEDS ORDERED: Dextrose 5% in Water 1,000 ML IV PRN (20:42)
[2019-08-19] MEDS ORDERED: Guaifenesin DM 100-10/5 ML UDCUP PO PRN (20:42)
[2019-08-19] MEDS ORDERED: Vancomycin HCl 1 GM in Sodium Chloride 0.9% 250 ML 250 ML IVPB SCH (20:42)
[2019-08-19] MEDS ORDERED: Norepinephrine 8 MG/0.9% NS 250 ML IVPB SCH (20:42)
[2019-08-19] MEDS ORDERED: Acetaminophen 650 MG Suppository PR PRN (20:42)
[2019-08-19] MEDS ORDERED: Ondansetron ODT 4 MG TAB PO PRN (20:42)
[2019-08-19] MEDS ORDERED: Senokot S 8.6-50 MG TAB PO PRN (20:42)
[2019-08-19] MEDS: Rosuvastatin 20 MG TAB PO SCH (21:00)
[2019-08-19] MEDS: Midodrine HCl 5 MG TAB PO SCH (21:00)
[2019-08-19 21:09] LABS: Lactic Acid 2.3 mmol/L (0.5-2.2)
[2019-08-19 21:28] VITALS: BMI 34.2
[2019-08-19] MEDS ORDERED: Cefepime 2 GM in Sodium Chloride 0.9% 100 ML IVPB SCH (22:00)
[2019-08-19] MEDS: Famotidine/PF 20 mg/2ml Vial SLOW IVP SCH (22:28)
[2019-08-20] MEDS ORDERED: Dextrose 5 % And 0.9 % NaCl 500 ML IV SCH (01:30)
[2019-08-20 05:03] LABS: INR-International Normal Ratio 1.4; Prothrombin Time 17.4 SEC (12.0-14.7)
[2019-08-20 05:16] LABS: Anion Gap 12 mmol/L (10-20); BUN (Urea Nitrogen) 6 mg/dL (8.4-25.7); Calc. Creatinine Clearance 29 mL/min (70-130); Calcium 9.5 mg/dL (7.8-10.44); Carbon Dioxide 31 mmol/L (23-31); Chloride 100 mmol/L (98-107); Estimated GFR-MDRD 20; Glucose 80 mg/dL (83-110); Potassium 3.7 mmol/L (3.5-5.1); Sodium 139 mmol/L (136-145)
[2019-08-20 05:26] LABS: #Lymphocytes 0.9 thou/uL (1.20-3.40); #Monocytes 0.4 thou/uL (0.11-0.59); #Neutrophils 16.5 thou/uL (1.40-6.50); %Basophils 0.1 % (0.0-1.0); %Eosinophils 0.1 % (0.0-10.0); %Lymphocytes 5.1 % (21.0-51.0); %Monocytes 2.2 % (0.0-10.0); %Neutrophils 92.5 % (42.0-75.0); Hemoglobin 9.3 g/dL (14.0-18.0); Mean Corpuscular Hemoglobin 25.6 pg (27.0-31.0); Mean Corpuscular Volume 85.4 fL (78.0-98.0); Mean Platelet Volume 9.5 fL (7.4-10.4); Platelet Count 193 thou/uL (130-400); Red Blood Cell (RBC) Count 3.63 mill/uL (4.70-6.10); White Blood Cell (WBC) Count 17.8 thou/uL (4.8-10.8)
[2019-08-20 09:20] LABS: Vancomycin, Trough 11.4 ug/mL
--- NOTE | 2019-08-20 09:57 | PDOC.HOSPP ---
- Subjective Encounter Date: 08/20/19 Encounter Time: 10:30 Subjective: Weaning levophed this AM as BP has been good. No events overnight. - Objective Vital Signs & Weight: Vital Signs (12 hours) Temp Pulse Ox 08/20/19 07:15 99 08/20/19 07:00 97.9 F 08/20/19 04:00 98.4 F 08/19/19 23:00 98.6 F Weight Weight 274 lb 4.8 oz Most Recent Monitor Data Heart Rate from ECG 73 NIBP 136/58 NIBP BP-Mean 84 Respiration from ECG 17 SpO2 98 I&O: 08/19/19 08/20/19 08/21/19 06:59 06:59 06:59 Intake Total 1189 0 Output Total 0 0 Balance 1189 0 Result Diagrams: 08/20/19 04:15 08/20/19 04:15 Additional Labs: Accuchecks 08/20/19 08/20/19 08/20/19 08:17 06:35 04:19 POC Glucose 96 83 80 08/20/19 08/20/19 08/19/19 02:38 00:22 21:27 POC Glucose 82 65 L 89 08/19/19 08/19/19 18:24 15:53 POC Glucose 54 L* 61 L Hospitalist ROS - Review of Systems ROS unobtainable: due to mental status - Medication Medications: Active Medications Generic Name Dose Route Start Last Admin Trade Name Freq PRN Reason Stop Dose Admin Famotidine 20 mg 08/19/19 21:00 08/19/19 22:28 Pepcid SLOW IVP 20 mg QPM BENNIE Administration Dextrose/Sodium Chloride 500 mls @ 50 mls/hr 08/20/19 01:30 08/20/19 07:32 D5 0.9% Ns IV 08/20/19 11:29 Not Given .Q10H BENNIE Midodrine 7.5 mg 08/19/19 21:00 08/19/19 21:00 Proamatine PO Not Given TID BENNIE Rosuvastatin Calcium 20 mg 08/19/19 21:00 08/19/19 21:00 Crestor PO Not Given HS BENNIE - Exam General Appearance: NAD General - other findings: sleepy but arousable ENT: moist mucosa Heart: RRR, no murmur, no gallops, no rubs Respiratory: CTAB, no wheezes, no rales, no ronchi Gastrointestinal: soft, non-tender, non-distended, normal bowel sounds Gastrointestinal - other findings: dressing to right abd wound C/D/I Psychiatric: normal affect, normal behavior Psychiatric - other findings: Sleepy, slurred speech which is normal for him Hosp A/P (1) Severe sepsis with septic shock Code(s): A41.9 - SEPSIS, UNSPECIFIED ORGANISM; R65.21 - SEVERE SEPSIS WITH SEPTIC SHOCK Status: Acute (2) Acute metabolic encephalopathy Code(s): G93.41 - METABOLIC ENCEPHALOPATHY Status: Acute (3) Hypoglycemia Code(s): E16.2 - HYPOGLYCEMIA, UNSPECIFIED Status: Acute (4) Hypothermia Code(s): T68.XXXA - HYPOTHERMIA, INITIAL ENCOUNTER Status: Acute (5) Sacral decubitus ulcer, stage III Code(s): L89.153 - PRESSURE ULCER OF SACRAL REGION, STAGE 3 Status: Acute (6) Chronic anticoagulation Code(s): Z79.01 - SNF (CURRENT) USE OF ANTICOAGULANTS Status: Chronic (7) Dyslipidemia Code(s): E78.5 - HYPERLIPIDEMIA, UNSPECIFIED Status: Chronic (8) ESRD (end stage renal disease) on dialysis Code(s): N18.6 - END STAGE RENAL DISEASE; Z99.2 - DEPENDENCE ON RENAL DIALYSIS Status: Chronic (9) Gout Code(s): M10.9 - GOUT, UNSPECIFIED Status: Chronic Qualifiers: Gout site: multiple sites (10) History of deep venous thrombosis or pulmonary embolus Code(s): JEB3741 - Status: Chronic (11) Hypertension Code(s): I10 - ESSENTIAL (PRIMARY) HYPERTENSION Status: Chronic Qualifiers: Hypertension type: essential hypertension Qualified Code(s): I10 - Essential (primary) hypertension (12) Secondary hyperparathyroidism of renal origin Code(s): N25.81 - SECONDARY HYPERPARATHYROIDISM OF RENAL ORIGIN Status: Chronic - Plan Blood pressure improved, weaning off Levophed. On Cefepime and Vancomycin since 08/19/2019 Blood cultures from [facility] pending Blood glucose stable on continuous D10W infusion. DVT proph: on coumadin, though subtherapeutic
--- NOTE | 2019-08-20 10:07 | CON ---
DATE OF CONSULTATION: SERVICE: Renal Medicine. HISTORY OF PRESENT ILLNESS: Mr. Estevez is an 78-year-old black male with known history of ESRD and currently on maintenance hemodialysis on Monday, Monday, and Monday. He was admitted due to hypoglycemia and altered mental status. The patient was also felt to be septic. He had a leukocytosis of 22,000. For that reason, he was started on IV antibiotics. We are being consulted for his regular dialysis sessions. Of note, this patient has also significant history of calciphylaxis and currently being treated with sodium thiosulfate. REVIEW OF SYSTEMS: Decreased appetite. Decreased energy level. No nausea. No vomiting. No diarrhea. No constipation. ? of fever. Positive for mental status change. No diarrhea. No constipation. No gross hematuria. No abdominal pain. Positive for joint pains. PAST MEDICAL HISTORY: Includes; 1. History of ESRD, on maintenance hemodialysis. 2. Calciphylaxis. 3. Chronic decubitus ulcers. 4. Status post CHF. 5. Status post DVT. 6. Hypertension. 7. Morbid obesity. 8. Gout. 9. Status post thrombosis of left upper extremity. 10. Chronic hypertension. PAST SURGICAL HISTORY: Status post surgical debridement, status post exploratory laparotomy, status post cuffed dialysis catheter placement, status post cardiac cath, and status post AV fistula placement. MEDICATIONS: Currently on; 1. Tylenol 650 mg q.4. 2. Cefepime 500 mg IV q.24 hours. 3. Sodium thiosulfate 25 g IV every hemodialysis. 4. Midodrine 7.5 mg p.o. t.i.d. 5. Levophed drip. 6. Morphine sulfate 2 mg IV q.4 as needed. 7. Zofran p.r.n. 8. Seroquel 25 mg at bedtime p.r.n. 9. Rosuvastatin 20 mg tablet at bedtime. 10. Coumadin as directed. ALLERGIES: CLINDAMYCIN - RASH, AMOXICILLIN AND PENICILLIN - NAUSEA AND DIARRHEA. TRAUMA: None. IMMUNIZATIONS: Up-to-date. HOSPITALIZATIONS: Please see past medical history. FAMILY HISTORY: No family history of ESRD. SOCIAL HISTORY: The patient is currently in a jail in [place]. He is single and . He lives a sedentary lifestyle. No alcohol. No IV drug abuse. Status post multiple blood transfusions. Several children. FAMILY HISTORY: No family history of ESRD. PHYSICAL EXAMINATION: VITAL SIGNS: Blood pressure 97/70, heart rate is 70. Repeat blood pressure showed 136/58, heart rate 73, respiratory rate 17, and O2 saturations 98%. GENERAL: The patient is awake, lethargic, not in overt distress, morbidly obese. SKIN: Adequate turgor. HEENT: Slightly pale conjunctivae. Anicteric sclerae. NECK: No neck mass. No carotid bruits. No JVD. CHEST: No deformities. LUNGS: Clear breath sounds. HEART: Normal sinus rhythm. No murmur. No gallops. No rubs. ABDOMEN: Globular, soft, and nontender. No masses. BACK: Positive for decubitus ulcers. EXTREMITIES: No edema. Positive for ulcerations on the thigh. LABORATORY DATA: Laboratories of August 20, 2019; white count 17.8, hemoglobin 9.3. Sodium 139, potassium 3.7, chloride 100, carbon dioxide 31, BUN 6, creatinine 3.52, glucose 80, and calcium 9.5. ASSESSMENT AND PLAN: 1. End-stage renal disease, stable. We will continue current Monday, Monday, and Monday hemodialysis regimen. I do not find any indication for any emergent hemodialysis today. He is not volume overloaded. Potassium is within normal limits. 2. Chronic decubitus ulcers - on IV antibiotics. The patient is noted to be wet. For that reason, we will consult Wound Care and we will see their recommendations. He may need to go back on wound VAC. 3. Calciphylaxis - continue sodium thiosulfate 25 g IV every hemodialysis. 4. Anemia. Consider restarting back Epogen at 7500 units subcu every week. Case discussed at length with the patient's daughter. Overall, prognosis remains guarded. Job ID: [id number]
[2019-08-20] MEDS ORDERED: HOLD VANCOMYCIN FOR LEVEL >20 FS SCH (10:15)
[2019-08-20] MEDS ORDERED: Vancomycin HCl 1.5 GM in Sodium Chloride 0.9% 250 ML 300 ML IVPB SCH (10:15)
[2019-08-20] MEDS ORDERED: Vancomycin HCl 1.25 GM in Sodium Chloride 0.9% 250 ML 250 ML IVPB SCH (10:15)
[2019-08-20] MEDS ORDERED: Vancomycin HCl 750 MG in Sodium Chloride 0.9% 250 ML 250 ML IVPB SCH (10:15)
[2019-08-20] MEDS: Midodrine HCl 5 MG TAB PO SCH ×3 (10:43→21:59)
[2019-08-20] MEDS: Morphine 2 MG/ML SYRINGE SLOW IVP PRN ×2 (11:41→17:59)
[2019-08-20] MEDS: Cefepime 0.5 GM, Admixture Fee 1 EACH in Sodium Chloride 0.9% 100 ML IVPB SCH (12:33)
--- NOTE | 2019-08-20 14:19 | CON ---
DATE OF CONSULTATION: 08/20/2019 SERVICE: Pulmonary Medicine. REASON FOR CONSULTATION: ICU patient. HISTORY OF PRESENT ILLNESS: The patient is an 78-year-old male with past medical history significant for severe debility. He is bedbound and has multiple decubitus ulcers present. He came to us from a nursing facility. Ultimately, he had some hypoglycemia and altered mentation. He was discovered to have septic shock. He was given a couple of liters of fluid, but his blood pressure remained low. He was hypothermic. He was placed in the ICU. After a central line was placed, he required some pressors. Overnight, his blood pressures have firmed up fantastically. He has been weaned off his pressors. He cannot provide any additional elements of the presenting history. PAST MEDICAL HISTORY: 1. End-stage renal disease. 2. History of pulmonary embolism, on chronic anticoagulation. 3. Hypertension. 4. Dyslipidemia. 5. Decubitus ulcers with history of requiring surgical debridement. 6. Debility with bedbound status. 7. Atrial fibrillation, chronic. 8. Coronary artery disease. 9. Dementia. 10. Orthostatic hypotension. 11. Gout. 12. Morbid obesity. PAST SURGICAL HISTORY: 1. Partial bowel resection. 2. Left leg surgery. 3. AV fistula placement. 4. Cholecystectomy, open. SOCIAL HISTORY: He currently resides in [facility]. He is completely dependent on others for his ADLs. He is bedbound. He has no access to alcohol, tobacco, or illicit drugs. FAMILY HISTORY: Noncontributory. ALLERGIES: 1. CLINDAMYCIN. 2. AMOXICILLIN. MEDICATIONS: List of his inpatient medications was reviewed. No specific updates were made at this time. REVIEW OF SYSTEMS: This cannot be obtained as the patient has encephalopathy and likely dementia at baseline. PHYSICAL EXAMINATION: VITAL SIGNS: Afebrile, pulse 70, blood pressure 115/61, respirations 21, saturation 96%, currently on room air. GENERAL: The patient is awake and alert. He attends. HEENT: Normocephalic and atraumatic. Sclerae are white. Conjunctivae are pink. Oral mucosa is moist without lesions. LUNGS: Decent air entry. I do not hear any rhonchi. Minimal dependent crackles are noted. HEART: Normal rate. Regular. ABDOMEN: Soft, nontender, and nondistended. Bowel sounds are positive. He does have some bilateral induration under his pannus, which I believe is from chronic stasis. MUSCULOSKELETAL: No cyanosis or clubbing. There is diffuse 1 to 2+ pitting throughout. NEUROLOGIC: Grossly nonfocal. LABORATORY DATA: WBC 17.8, hemoglobin 9.3, platelets 193,000. INR 1.4. A pH 7.38, pCO2 of 51, pO2 of 43. Creatinine 3.52. Basic metabolic profile is otherwise unremarkable. Lactic acid 2.4 and is downtrending. His blood sugar was in the 50s, but is improved to the 100s with a little bit of D5 NS. IMAGING STUDIES: Chest x-ray demonstrates left-sided IJ central venous catheter terminates in very good position. There is a widened carinal angle suggestive of a little left atrial dilation. The left hemidiaphragm is elevated. This accentuates interstitial markings on the left. Otherwise, I do not see any consolidating lesions or effusions present. ASSESSMENT: 1. Septic shock. 2. Soft tissue infection, suspected. 3. Metabolic encephalopathy, resolved. 4. End-stage renal disease. DISCUSSION AND PLAN: I will put in a Palliative Care consultation. We will continue his empiric antibiotics. He can be transitioned to the floor once pressors are weaned away. When he is on the floor, he will have no further requirements for inpatient Pulmonary or Critical Care opinion, and I will sign off. That being said, looking at the trajectory of this patient's clinical course over the last 6 months, even under the best of circumstances, he is likely close to the end of his life. At this point, however, he has no further requirements for inpatient Pulmonary or Critical Care opinion, and I will sign off once he leaves the ICU. 70 minutes have been devoted to this patient in various activities. I personally reviewed all imaging studies and laboratory data noted within this document. For fifty percent of this time, I was interacting with the patient at the bedside or coordinating care with the care team. For the remainder of the time I was immediately available to the patient in the hospital unit. Job ID: [id number] [id number]
[2019-08-20] MEDS ORDERED: Warfarin Sodium 2.5 MG TAB PO SCH (17:00)
[2019-08-20] MEDS: Rosuvastatin 20 MG TAB PO SCH (21:59)
[2019-08-20] MEDS: Famotidine/PF 20 mg/2ml Vial SLOW IVP SCH (22:00)
[2019-08-21 04:47] LABS: INR-International Normal Ratio 1.5; Prothrombin Time 18.1 SEC (12.0-14.7)
[2019-08-21 05:01] LABS: #Lymphocytes 1.2 thou/uL (1.20-3.40); #Monocytes 0.9 thou/uL (0.11-0.59); #Neutrophils 10.4 thou/uL (1.40-6.50); %Basophils 0.2 % (0.0-1.0); %Eosinophils 0.3 % (0.0-10.0); %Lymphocytes 9.2 % (21.0-51.0); %Monocytes 7.5 % (0.0-10.0); %Neutrophils 82.8 % (42.0-75.0); Hemoglobin 8.4 g/dL (14.0-18.0); Mean Corpuscular HGB CONC 29.9 g/dL (32.0-36.0); Mean Corpuscular Hemoglobin 25.5 pg (27.0-31.0); Mean Corpuscular Volume 85.2 fL (78.0-98.0); Mean Platelet Volume 9.8 fL (7.4-10.4); Platelet Count 151 thou/uL (130-400); RBC Distribution Width 22.1 % (11.5-14.5); Red Blood Cell (RBC) Count 3.29 mill/uL (4.70-6.10); White Blood Cell (WBC) Count 12.5 thou/uL (4.8-10.8)
[2019-08-21 05:05] LABS: Anion Gap 10 mmol/L (10-20); BUN (Urea Nitrogen) 9 mg/dL (8.4-25.7); Calc. Creatinine Clearance 23 mL/min (70-130); Calcium 9.8 mg/dL (7.8-10.44); Carbon Dioxide 31 mmol/L (23-31); Chloride 101 mmol/L (98-107); Estimated GFR-MDRD 16; Glucose 97 mg/dL (83-110); Potassium 3.3 mmol/L (3.5-5.1); Sodium 139 mmol/L (136-145)
[2019-08-21] MEDS: Morphine 2 MG/ML SYRINGE SLOW IVP PRN (07:51)
[2019-08-21] MEDS: Midodrine HCl 5 MG TAB PO SCH ×3 (07:56→20:24)
[2019-08-21 09:23] LABS: Vancomycin, Random 10.1 ug/mL (See Comment)
[2019-08-21] MEDS ORDERED: Epoetin (ESRD) 20,000 UNITS/ML SC SCH (09:30)
--- NOTE | 2019-08-21 09:49 | PRG ---
DATE OF SERVICE: 08/21/2019 SUBJECTIVE: Mr. Estevez is an 78-year-old black male with ESRD and admitted for ? of sepsis. He has underlying wound and currently has received IV antibiotics and wound VAC in the past. We are following him up for his hemodialysis. I have scheduled him for his regular dialysis today. In addition, he has a known diagnosis of calciphylaxis and is receiving sodium thiosulfate 25 g IV every dialysis. No new complaints today. No chest pain or shortness of breath. He does have decreased appetite. OBJECTIVE: VITAL SIGNS: Blood pressure 100/70, heart rate 84, respiratory rate 20, temperature 97.4, and pulse ox 94%. GENERAL: Noted to be awake, alert, supine, lethargic, not in distress, obese. SKIN: Adequate turgor. HEENT: Slightly pale conjunctivae. Anicteric sclerae. NECK: No neck mass. No carotid bruits. No JVD. CHEST: No deformities. LUNGS: Clear breath sounds. HEART: Normal sinus rhythm. No murmur. No gallops. No rubs. ABDOMEN: Globular, soft, and nontender. No masses. EXTREMITIES: No edema. No deformities. BACK: Positive for decubitus ulcers. MEDICATIONS: Medications of August 21, 2019, were reviewed. LABORATORY DATA: Laboratories of August 21, 2019; white count 12.5, hemoglobin 8.4. Sodium 139, potassium 3.3, chloride 101, carbon dioxide 31, BUN 9, creatinine 4.42, glucose 97, and calcium 9.8. ASSESSMENT AND PLAN: 1. End-stage renal disease. We will continue current Monday, Monday, and Monday hemodialysis. Fluid removal only as tolerated. We will minimize fluid removal today due to the low blood pressure. 2. Anemia. Start Epogen 7500 units subcu every week. 3. Calciphylaxis - sodium thiosulfate 25 g IV daily. 4. Decubitus ulcer/infection - on empiric IV antibiotics. Surgical consult has been done. Agree with current management. Overall, prognosis remains guarded. Job ID: [id number] [facility]
[2019-08-21] MEDS ORDERED: Heparin 10,000 UNITS/ 10 ML VIAL ONE (09:54)
[2019-08-21] MEDS: HYDROcodone/Acetaminophen 5/325 mg Tablet PO PRN (10:14)
--- NOTE | 2019-08-21 10:18 | PDOC.HOSPP ---
- Subjective Encounter Date: 08/21/19 Encounter Time: 14:00 Subjective: Patient seen in dialysis. A bit confused and asking why he can't leave. Easily redirectable once I explained that he needed to finish dialysis first. - Objective Vital Signs & Weight: Vital Signs (12 hours) Temp Pulse Resp BP Pulse Ox 08/21/19 08:00 94 L 08/21/19 07:52 97.4 F L 84 20 122/38 L 94 L 08/21/19 06:41 97.3 F L 84 18 113/79 94 L 08/21/19 04:00 98.0 F 08/21/19 00:00 98.4 F Weight Admit Weight 274 lb 4.8 oz Weight 274 lb 4.8 oz Most Recent Monitor Data Heart Rate from ECG 73 NIBP 116/60 NIBP BP-Mean 78 Respiration from ECG 18 SpO2 99 I&O: 08/20/19 08/21/19 08/22/19 06:59 06:59 06:59 Intake Total 1189 861 Output Total 0 0 Balance 1189 861 Result Diagrams: 08/21/19 04:20 08/21/19 04:20 Additional Labs: Accuchecks 08/21/19 08/20/19 08/20/19 04:30 22:00 15:39 POC Glucose 98 110 115 H 08/20/19 10:19 POC Glucose 105 Hospitalist ROS - Review of Systems ROS unobtainable: due to mental status - Medication Medications: Active Medications Generic Name Dose Route Start Last Admin Trade Name Freq PRN Reason Stop Dose Admin Cholecalciferol 1,000 units 08/21/19 09:00 08/21/19 07:56 Vitamin D3 PO 1,000 units DAILY BENNIE Administration Famotidine 20 mg 08/19/19 21:00 08/20/19 22:00 Pepcid SLOW IVP 20 mg QPM BENNIE Administration Cefepime HCl 0.5 gm/ 100 mls @ 200 mls/hr 08/20/19 13:00 08/20/19 12:33 Miscellaneous Medication 1 IVPB 100 mls each/ Sodium Chloride Q24HR BENNIE Administration Midodrine 7.5 mg 08/19/19 21:00 08/21/19 07:56 Proamatine PO 7.5 mg TID BENNIE Administration Morphine Sulfate 2 mg 08/19/19 20:42 08/21/19 07:51 Morphine SLOW IVP 2 mg Q4H PRN Administration Severe Pain (7-10) Rosuvastatin Calcium 20 mg 08/19/19 21:00 08/20/19 21:59 Crestor PO 20 mg HS BENNIE Administration Warfarin Sodium 2.5 mg 08/20/19 17:00 08/20/19 15:21 Coumadin PO 2.5 mg TuThSa@1700 BENNIE Administration - Exam General Appearance: NAD, awake alert ENT: moist mucosa Heart: RRR, no murmur, no gallops, no rubs Respiratory: CTAB, no wheezes, no rales, no ronchi Gastrointestinal: soft, non-tender, non-distended, normal bowel sounds Psychiatric - other findings: mildly agitated, not oriented, no complaints Hosp A/P (1) Severe sepsis with septic shock Code(s): A41.9 - SEPSIS, UNSPECIFIED ORGANISM; R65.21 - SEVERE SEPSIS WITH SEPTIC SHOCK Status: Acute (2) Acute metabolic encephalopathy Code(s): G93.41 - METABOLIC ENCEPHALOPATHY Status: Acute (3) Hypoglycemia Code(s): E16.2 - HYPOGLYCEMIA, UNSPECIFIED Status: Acute (4) Hypothermia Code(s): T68.XXXA - HYPOTHERMIA, INITIAL ENCOUNTER Status: Acute (5) Sacral decubitus ulcer, stage III Code(s): L89.153 - PRESSURE ULCER OF SACRAL REGION, STAGE 3 Status: Acute (6) Chronic anticoagulation Code(s): Z79.01 - CONDUIT CLEANER (CURRENT) USE OF ANTICOAGULANTS Status: Chronic (7) Dyslipidemia Code(s): E78.5 - HYPERLIPIDEMIA, UNSPECIFIED Status: Chronic (8) ESRD (end stage renal disease) on dialysis Code(s): N18.6 - END STAGE RENAL DISEASE; Z99.2 - DEPENDENCE ON RENAL DIALYSIS Status: Chronic (9) Gout Code(s): M10.9 - GOUT, UNSPECIFIED Status: Chronic Qualifiers: Gout site: multiple sites (10) History of deep venous thrombosis or pulmonary embolus Code(s): QML3683 - Status: Chronic (11) Hypertension Code(s): I10 - ESSENTIAL (PRIMARY) HYPERTENSION Status: Chronic Qualifiers: Hypertension type: essential hypertension Qualified Code(s): I10 - Essential (primary) hypertension (12) Secondary hyperparathyroidism of renal origin Code(s): N25.81 - SECONDARY HYPERPARATHYROIDISM OF RENAL ORIGIN Status: Chronic - Plan Blood pressure improved, weaned off Levophed. On Cefepime and Vancomycin since 08/19/2019 Blood cultures from [place] pending- no growth to date. Blood glucose stabilized and off IV glucose for now. Will ask Dr. Fontanez for recommendations on abx going from here. DVT proph: on coumadin, though subtherapeutic
[2019-08-21] MEDS: Cefepime 0.5 GM, Admixture Fee 1 EACH in Sodium Chloride 0.9% 100 ML IVPB SCH (12:17)
[2019-08-21] MEDS ORDERED: Haloperidol Lactate 5 MG/ML VIAL SLOW IVP PRN (15:36)
[2019-08-21] MEDS ORDERED: Haloperidol Lactate 5 MG/ML VIAL IM PRN (16:00)
[2019-08-21] MEDS: EPOETIN ALFA-EPBX (ESRD) 4,000 UNIT/ML VIAL SC SCH (16:04)
[2019-08-21] MEDS: Vancomycin 1 GM in Premix Bag 1 BAG IVPB SCH (16:05)
--- NOTE | 2019-08-21 17:21 | CON ---
DATE OF CONSULTATION: REASON FOR CONSULTATION: Hypothermia and sepsis. HISTORY OF PRESENT ILLNESS: An 78-year-old whom I had seen in the past with a history of gout, ischemic cardiomyopathy, hypertension, end-stage renal disease, and cognitive dysfunction, who has been admitted a few times with multiple areas of skin ulceration in the lower part of the body, starting at the pelvis and down to the lower extremities. Initially, the patient presented with inflammatory nodules in the right and left thigh with hyperphosphatemia, normal calcium, elevated PTH with concern for calciphylaxis. Since then, phosphorus management has improved significantly. Ulcers in the lower extremities appeared to have healed and now the patient has had an episode of cholecystitis basically with nausea, vomiting, abdominal pain, and tender right upper quadrant; however, the pathology did not show acute cholecystitis, so it is possible that the symptoms were related to an alternate process. The patient has a history of deep vein thrombosis and pulmonary embolism in the past and has been on warfarin. On 07/16, he had a few falls in the home setting. INR was high. On 07/22, he had altered mental status and slurred speech. MRI of brain did not show any acute findings. On 08/10, he presented with various areas of skin breakdown in the pelvic gluteal region. We felt that those could be either calciphylaxis or pressure ulcerations. Pathology was nonspecific. When I saw the patient, the lesions had a quite fresh appearance. We did not recommend antimicrobial therapy. Now, he presents with hypothermia and hypoglycemia. The initial findings of BP 183/49, pulse 74, respirations 15, and O2 saturation 98. The findings in the exam showed the patient to be oriented to time, self, and place. Dry oral mucosa. Lungs were clear. Heart examination described as normal. Abdominal examination with no abnormal findings. The progress of the skin lesions demonstrated round-shaped left-sided gluteal lesion, measuring about 4 x 3 cm, with a necrotic base. This is clearly worse than when compared with the last exam at the beginning of the month. A few other smaller areas of ulceration and then a very superficial abrasion like lesion in the gluteal region in the lower segment. In the left side of the hip, there is a round-shaped ulcer about stage III with a healthier appearing base except for a margin of a sort of a grayish necrotic tissue, which appears to be superficial. In the left thigh, there is this round-shaped area of ulceration, which is quite deep with necrotic base surrounding it. This did obvious atrophy of the dermis and subcutaneous tissue with hyperpigmentation, indurated areas as well. In the right upper extremity right at the elbow, there is linear area of ulceration which is stage III at least with necrotic base covering about 75% of the bottom. There are a few other areas of ulceration noted as well. Currently, Mr. Estevez is awake. He does not appear to be in distress. He mumbles unintelligible words. He will try to follow some commands, but is diffusely weak. He establishes eye contact for a brief period of time. He has not had any reported diarrhea. The indwelling Pisano catheter has been removed in the floor and he has a peripheral IV access. MEDICAL HISTORY: 1. Ischemic cardiomyopathy. 2. Hypertension. 3. ESRD, presumably secondary to nephrosclerosis. 4. Dementia, likely vascular dementia. 5. DVT with pulmonary embolism, on warfarin. 6. Gout. 7. Multiple areas of skin ulcerations, which could be consistent with calciphylaxis. 8. Hemodialysis and AV fistula for many years now. SURGICAL HISTORY: 1. Cholecystectomy with no findings of acute cholecystitis on pathology and exam. 2. He had a biopsy of one of the skin lesions with nonspecific path report. SOCIAL HISTORY: He is in a fdc now. Never smoker. Retired. ALLERGIES: CLINDAMYCIN AND AMOXICILLIN, NOT TRUE. ONLY CLINDAMYCIN WITH A TRUE HYPERSENSITIVITY REACTION REPORTED. FAMILY HISTORY: Noncontributory. CURRENT MEDICATIONS: 1. P.r.n. medications. 2. Cefepime. 3. Retacrit. 4. Pepcid. 5. Glucagon. 6. Robitussin. 7. Morphine. 8. Vancomycin. 9. Sliding scale. 10. Levophed, which has been discontinued. 11. Seroquel. 12. Crestor. 13. Also, he is on broad-spectrum coverage with cefepime and vancomycin. PHYSICAL EXAMINATION: GENERAL: Mr. Estevez was awake. He would establish eye contact. VITAL SIGNS: His T-max 98.6, now is 97.3; blood pressure 111/49, pulse 84. On arrival, he was hypothermic at around 90. O2 saturation 94 as high as 100 when he came in. SKIN: Multiple areas of ulceration as described above, though the more worrisome ones are located in the lateral aspect of the upper extremity in the right side and the thigh on the left side. Those are the ones with a worse appearing base in terms of the extent of necrosis, does not have Pisano catheter. HEENT: His ocular movements are conjugate. Sclerae are kind of dia colored. Pupils are equal. Somewhat pale conjunctivae. Oral cavity with no elim ira teeth remaining. LUNGS: With symmetric air entry. No crackles or wheezing. HEART: S1 and S2. Regular rate. No S3 or S4. ABDOMEN: Soft with tenderness. He is able to verify that tenderness in various areas, mostly in the lower quadrants. EXTREMITIES: The patient is diffusely weak and is quite flaccid. He is not able to move the right lower extremity. Pulses are diminished in dorsalis pedis. Cap refill is delayed. No joint inflammatory activity noted. Pulses are in the popliteals are faintly palpable. NEUROLOGIC: He establishes eye contact. He could not tell me his name or where he was. He is not oriented at the moment. Speech is quite garbled and I could not understand his replies to questions. LABORATORY DATA: White cell count 17.8, now down to 12.5; hemoglobin 9.3; and platelets 193 with 92% neutrophils. INR is 1.4 on arrival and now 1.5. ABG, pH 7.38, pCO2 of 51, and pO2 of 42. Sodium 139 and creatinine 4.42. Microbiology with pending sample results at the moment. Chest x-ray without any acute infiltrates. ASSESSMENT: 1. Ischemic cardiomyopathy. 2. Peripheral vascular disease. 3. Cognitive dysfunction, likely due to vascular dementia. 4. End-stage renal disease, on hemodialysis. 5. Chronic ulcers in lower extremities, which are consistent with calciphylaxis, particularly in the vis-a-vis. 6. Previously documented hyperphosphatemia and normal calcium levels with elevated PTH. To me, this appears to be the more likely scenario here. Now, he presents with hypothermia and hypotension, which improved with fluid resuscitation and broad-spectrum antimicrobial coverage. DISCUSSION: Differential diagnosis includes sepsis from bacteremia, originating from one of the lesions in his lower extremities versus thromboembolism in view of the subtherapeutic level of the patient's warfarin. An intraabdominal inflammatory process is not ruled out in view of the tenderness on palpation. Pneumonia is less likely, although not completely ruled out. Rule out since the patient initially on admission may not have overt infiltrate demonstrable on chest x-ray, so followup chest imaging studies would be advisable. The patients who have calciphylaxis in general have a poor prognosis and keep having recurrent episodes of infection, at times with bacteremia and there is a high [id number] term mortality rate. In this regard, a consideration of palliative care which should be discussed with patient's family if possible. Continue broad-spectrum coverage. Consider a CT abdomen and pelvis depending on clinical progress, although I do not think it would change his overall outcome. I think that he had his last abdomen and pelvis CT on 08/04, which is quite recent, and nothing really obviously abnormal in the intra-abdominal compartment was identified, so I do not think we need to carry out the study again. So in summary, as I believe the ulcers are the likely origin of this patient's sepsis and I would treat with the usual course of antimicrobials. Consider his discharge planning with oral doxycycline and Omnicef or cefpodoxime or just plain doxycycline by itself. Job ID: [id number]
[2019-08-21] MEDS: Acetaminophen 325 MG TAB PO PRN (20:24)
[2019-08-21] MEDS: Rosuvastatin 20 MG TAB PO SCH (20:25)
[2019-08-21] MEDS: Famotidine/PF 20 mg/2ml Vial SLOW IVP SCH (20:25)
[2019-08-22] MEDS: Dextrose 50% Abboject 50 ML SYRINGE SLOW IVP PRN ×2 (03:26→06:17)
[2019-08-22 06:22] LABS: INR-International Normal Ratio 1.6; Prothrombin Time 19.1 SEC (12.0-14.7)
[2019-08-22] MEDS: Midodrine HCl 5 MG TAB PO SCH ×3 (08:13→21:28)
--- NOTE | 2019-08-22 08:46 | PDOC.HOSPP ---
- Subjective Encounter Date: 08/22/19 Encounter Time: 11:00 Subjective: Patient unchanged. No complaints. Not oriented. - Objective Vital Signs & Weight: Vital Signs (12 hours) Temp Pulse Resp BP Pulse Ox 08/22/19 08:00 97.5 F L 76 18 94 L 08/22/19 03:05 97.4 F L 74 16 131/82 94 L Weight Admit Weight 274 lb 4.8 oz Weight 274 lb 4.8 oz Most Recent Monitor Data Heart Rate from ECG 73 NIBP 116/60 NIBP BP-Mean 78 Respiration from ECG 18 SpO2 99 I&O: 08/21/19 08/22/19 08/23/19 06:59 06:59 06:59 Intake Total 861 Output Total 0 Balance 861 Result Diagrams: 08/21/19 04:20 08/21/19 04:20 Additional Labs: Accuchecks 08/22/19 08/22/19 08/21/19 05:59 03:12 20:29 POC Glucose 67 L 59 L* 36 L* 08/21/19 11:33 POC Glucose 84 Hospitalist ROS - Review of Systems ROS unobtainable: due to mental status - Medication Medications: Active Medications Generic Name Dose Route Start Last Admin Trade Name Freq PRN Reason Stop Dose Admin Acetaminophen 650 mg 08/19/19 20:42 08/21/19 20:24 Tylenol PO 650 mg Q4H PRN Administration Headache/Fever/Mild Pain (1-3) Hydrocodone Bitart/Acetaminophen 2 tab 08/19/19 20:42 08/21/19 10:14 [place] 5/325 PO 2 tab Q4H PRN Administration Severe Pain (7-10) Cholecalciferol 1,000 units 08/21/19 09:00 08/22/19 08:13 Vitamin D3 PO 1,000 units DAILY BENNIE Administration Dextrose/Water 25 gm 08/19/19 20:42 08/22/19 06:17 Dextrose 50% SLOW IVP 25 gm PRN PRN Administration Hypoglycemia Epoetin Michael-epbx 7,500 unit 08/21/19 12:00 08/21/19 16:04 Retacrit SC 7,500 unit Q7D BENNIE Administration Famotidine 20 mg 08/19/19 21:00 08/21/19 20:25 Pepcid SLOW IVP 20 mg QPM BENNIE Administration Haloperidol Lactate 1 mg 08/21/19 16:00 08/21/19 16:12 Haldol IM 1 mg Q4H PRN Administration Agitation Cefepime HCl 0.5 gm/ 100 mls @ 200 mls/hr 08/20/19 13:00 08/21/19 12:17 Miscellaneous Medication 1 IVPB 100 mls each/ Sodium Chloride Q24HR BENNIE Administration Vancomycin HCl 1 gm/ Device 200 mls @ 200 mls/hr 08/20/19 10:15 08/21/19 16: 05 IVPB 200 mls WILLCALL BENNIE Administration Sodium Thiosulfate 25 gm/ 200 mls @ 100 mls/hr 08/21/19 12:00 08/21/19 16:05 Sodium Chloride IVPB 200 mls MoWeFr BENNIE Administration Midodrine 7.5 mg 08/19/19 21:00 08/22/19 08:13 Proamatine PO 7.5 mg TID BENNIE Administration Morphine Sulfate 2 mg 08/19/19 20:42 08/21/19 07:51 Morphine SLOW IVP 2 mg Q4H PRN Administration Severe Pain (7-10) Rosuvastatin Calcium 20 mg 08/19/19 21:00 08/21/19 20:25 Crestor PO 20 mg HS BENNIE Administration Warfarin Sodium 2.5 mg 08/20/19 17:00 08/20/19 15:21 Coumadin PO 2.5 mg TuThSa@1700 BENNIE Administration - Exam General Appearance: NAD, awake alert ENT: moist mucosa Heart: RRR, no murmur, no gallops, no rubs Respiratory: CTAB, no wheezes, no rales, no ronchi Gastrointestinal: soft, non-tender, non-distended, normal bowel sounds Psychiatric: oriented to person. negative: oriented to place, oriented to time Psychiatric - other findings: baseline slurred speech Hosp A/P (1) Severe sepsis with septic shock Code(s): A41.9 - SEPSIS, UNSPECIFIED ORGANISM; R65.21 - SEVERE SEPSIS WITH SEPTIC SHOCK Status: Acute (2) Acute metabolic encephalopathy Code(s): G93.41 - METABOLIC ENCEPHALOPATHY Status: Acute (3) Hypoglycemia Code(s): E16.2 - HYPOGLYCEMIA, UNSPECIFIED Status: Acute (4) Hypothermia Code(s): T68.XXXA - HYPOTHERMIA, INITIAL ENCOUNTER Status: Acute (5) Sacral decubitus ulcer, stage III Code(s): L89.153 - PRESSURE ULCER OF SACRAL REGION, STAGE 3 Status: Acute (6) Chronic anticoagulation Code(s): Z79.01 - PARTNER (CURRENT) USE OF ANTICOAGULANTS Status: Chronic (7) Dyslipidemia Code(s): E78.5 - HYPERLIPIDEMIA, UNSPECIFIED Status: Chronic (8) ESRD (end stage renal disease) on dialysis Code(s): N18.6 - END STAGE RENAL DISEASE; Z99.2 - DEPENDENCE ON RENAL DIALYSIS Status: Chronic (9) Gout Code(s): M10.9 - GOUT, UNSPECIFIED Status: Chronic Qualifiers: Gout site: multiple sites (10) History of deep venous thrombosis or pulmonary embolus Code(s): [id number] - Status: Chronic (11) Hypertension Code(s): I10 - ESSENTIAL (PRIMARY) HYPERTENSION Status: Chronic Qualifiers: Hypertension type: essential hypertension Qualified Code(s): I10 - Essential (primary) hypertension (12) Secondary hyperparathyroidism of renal origin Code(s): N25.81 - SECONDARY HYPERPARATHYROIDISM OF RENAL ORIGIN Status: Chronic - Plan Blood pressure improved, weaned off Levophed. On Cefepime and Vancomycin since 08/19/2019 Blood cultures from [facility] negative. Blood glucose stabilized and off IV glucose for now. Appreciate Dr. Fontanez' assistance. Consulted Dr Mueller for wound debridement, he examined, discussed with patient' s daughter, and recommended against further treatment, palliative care/hospice recommended. I discussed with daughter and she did agree to DNAR. Still wants to take home and get dialysis for a couple weeks before making decision on hospice. DVT proph: on coumadin--> switch to low dose Eliquis due to calcyphylaxis.
--- NOTE | 2019-08-22 09:34 | PRG ---
DATE OF SERVICE: 08/22/2019 SUBJECTIVE: Mr. Estevez is an 78-year-old black male with ESRD on maintenance hemodialysis, initially admitted for a decubitus ulcers and ?of sepsis. Decubitus was noted to be related to his underlying calciphylaxis. He continued to receive sodium thiosulfate with dialysis. He was quite confused during dialysis yesterday and he was severely agitated. He did receive some Ativan and Haldol. This morning, he is more coherent and comfortable and not in distress. OBJECTIVE: VITAL SIGNS: Blood pressure is noted at 131/82, heart rate 74, respiratory rate 16, temperature 97.4, pulse ox 94%. GENERAL: Noted to be awake, alert, comfortable, not in distress. SKIN: Adequate turgor. HEENT: Slightly pale conjunctivae. Anicteric sclerae. NECK: No neck mass. No carotid bruits. No JVD. CHEST: No deformities. LUNGS: Clear breath sounds. HEART: Normal sinus rhythm. No murmur. No gallops. No rubs. ABDOMEN: Globular, soft, nontender. No masses. EXTREMITIES: Trace edema. BACK: Shows some decubitus ulcers. MEDICATIONS: Medications of August 22, 2019, reviewed. LABORATORY DATA: Laboratories of August 21, 2019; white count 12.5, hemoglobin 8.4. Sodium 139, potassium 3.3, chloride 101, carbon dioxide 31, BUN 9, creatinine 4.42, glucose 67. ASSESSMENT: 1. End-stage renal disease. We will continue current Monday, Monday, Monday hemodialysis. Again, fluid removal only as tolerated. 2. Calciphylaxis-The patient currently on sodium thiosulfate at 25 g IV every dialysis. 3. Anemia, on weekly Epogen. P.r.n. blood transfusion for hemoglobin less than 7. ?of sepsis. Infectious Disease following. RECOMMENDATION: 1. To continue IV antibiotics. His overall prognosis remains guarded due to his underlying calciphylaxis. 2. Continue supportive care. Job ID: [id number]
[2019-08-22] MEDS: Morphine 2 MG/ML SYRINGE SLOW IVP PRN (10:22)
[2019-08-22] MEDS: Cefepime 0.5 GM, Admixture Fee 1 EACH in Sodium Chloride 0.9% 100 ML IVPB SCH (14:12)
[2019-08-22] MEDS: Apixaban 2.5 MG TAB PO SCH (21:28)
[2019-08-22] MEDS: Rosuvastatin 20 MG TAB PO SCH (21:28)
[2019-08-22] MEDS: Famotidine/PF 20 mg/2ml Vial SLOW IVP SCH (21:29)
[2019-08-22] MEDS: Acetaminophen 325 MG TAB PO PRN (21:29)
[2019-08-23 06:44] LABS: #Eosinphils 0.1 thou/uL (0.0-0.7); #Lymphocytes 1.9 thou/uL (1.20-3.40); #Monocytes 0.9 thou/uL (0.11-0.59); #Neutrophils 5.5 thou/uL (1.40-6.50); %Basophils 0.4 % (0.0-1.0); %Eosinophils 1.3 % (0.0-10.0); %Lymphocytes 22.1 % (21.0-51.0); %Neutrophils 65.2 % (42.0-75.0); Hemoglobin 8.5 g/dL (14.0-18.0); Mean Corpuscular HGB CONC 30.7 g/dL (32.0-36.0); Mean Corpuscular Volume 84.7 fL (78.0-98.0); Mean Platelet Volume 9.8 fL (7.4-10.4); Platelet Count 128 thou/uL (130-400); RBC Distribution Width 22.1 % (11.5-14.5); Red Blood Cell (RBC) Count 3.25 mill/uL (4.70-6.10); White Blood Cell (WBC) Count 8.5 thou/uL (4.8-10.8)
[2019-08-23 07:07] LABS: Anion Gap 10 mmol/L (10-20); BUN (Urea Nitrogen) 10 mg/dL (8.4-25.7); Calc. Creatinine Clearance 27 mL/min (70-130); Carbon Dioxide 31 mmol/L (23-31); Chloride 103 mmol/L (98-107); Estimated GFR-MDRD 18; Glucose 87 mg/dL (83-110); Potassium 3.9 mmol/L (3.5-5.1); Sodium 140 mmol/L (136-145)
[2019-08-23 08:22] LABS: Anisocytosis SLIGHT = 6-15 cells (100X) (0-5/hpf); MDiff Complete? YES; Platelet Morphology Comment Appears Decreased; Polychromasia SLIGHT = 2-3 cells (100X) (0-2/hpf); Target Cells MARKED = >16 cells (100X) (0-1/hpf)
[2019-08-23] MEDS: Midodrine HCl 5 MG TAB PO SCH ×3 (08:25→21:05)
[2019-08-23] MEDS: Apixaban 2.5 MG TAB PO SCH ×2 (08:25→21:08)
[2019-08-23 08:31] LABS: Vancomycin, Random 11.9 ug/mL (See Comment)
--- NOTE | 2019-08-23 09:29 | CON ---
DATE OF CONSULTATION: 08/22/2019 SUBJECTIVE: Mr. Estevez is an 78-year-old male, on dialysis. He is nonambulatory. He lives at home, cared for by his family. He goes to dialysis [address] Osborne in June performed open cholecystectomy. He has had debridement of multiple wounds in both lateral thighs, buttocks, sacrum. He had in June 2019 laparoscopic converted to open cholecystectomy and has an open wound at that subcostal incision. This will not heal. I have been asked to see him regarding these wounds. He has end-stage renal disease, on maintenance dialysis. Dialysis access has been provided by Dr. Palafox, which has been durable. The patient has a cognitive impairment. As I am evaluating the patient, the patient's son-in-law was in the room. During this encounter, I spoke on the son-in-law's telephone with the patient's daughter, who has power of tax associate attorney. There are other family members which have not seen him and do not visit him frequently that are involved in decision-making process, but the patient's daughter, whom I spoke to on the phone has power of tax associate attorney. The patient is cooperative, but anytime he is touched or moved, he is in pain. He has wounds as described on both lateral thighs, sacrum, and buttocks. He has a pannus with calciphylaxis changes that have not ulcerated the skin, but has a large underlying indurated mass. He has an open right subcostal cholecystectomy wound about 6 cm in length and 3 or 4 cm in depth. ASSESSMENT AND PLAN: End-stage renal disease, calciphylaxis, immobile, chronic pain. I have discussed with the patient's son-in-law and per telephone with the patient's daughter treatment options. The patient has remained a full code to date. I have talked to them about these wounds that calciphylaxis has a poor prognosis and that further debridement is not warranted. Wound Care can continue, but these wounds will get bigger. I have talked to them about DNR status. I have talked to Joanne Maya MD, Palliative Care discussed with them end of life decisions, comfort measures, DNR issues, hospice care. I have talked to them about discontinuing dialysis. The daughter became tearful during the encounter realizing that he is in a lot of pain and she does not want him to suffer. She asked about discontinuing dialysis and we discussed that and I think that is their inclination. I have talked to Dr. Latif, the hospitalist, regarding this conversation. At this point, I will see him as needed. I would recommend palliative care, hospice, DNR status, discontinuing dialysis. Job ID: [id number]
[2019-08-23] MEDS ORDERED: Heparin 10,000 UNITS/ 10 ML VIAL ONE (13:10)
[2019-08-23] MEDS: Cefepime 0.5 GM, Admixture Fee 1 EACH in Sodium Chloride 0.9% 100 ML IVPB SCH (14:22)
[2019-08-23] MEDS: HYDROcodone/Acetaminophen 5/325 mg Tablet PO PRN (14:34)
--- NOTE | 2019-08-23 17:05 | PDOC.HOSPP ---
- Subjective Encounter Date: 08/23/19 Encounter Time: 08:40 Subjective: Pt seen for followup re: acute metabolic encephalopathy. Not answering questions, could not complete ROS. - Objective Vital Signs & Weight: Vital Signs (12 hours) Temp Pulse Resp BP Pulse Ox 08/23/19 09:45 96 08/23/19 08:58 97.4 F L 72 20 93/50 L 96 08/23/19 08:00 96 Weight Admit Weight 274 lb 4.8 oz Weight 274 lb 4.8 oz Most Recent Monitor Data Heart Rate from ECG 73 NIBP 116/60 NIBP BP-Mean 78 Respiration from ECG 18 SpO2 99 I&O: 08/22/19 08/23/19 08/24/19 06:59 06:59 06:59 Intake Total 480 360 Balance 480 360 Result Diagrams: 08/23/19 06:30 08/23/19 06:30 Additional Labs: Accuchecks 08/23/19 08/23/19 08/23/19 11:48 04:33 00:51 POC Glucose 87 53 L* 74 08/22/19 08/21/19 08/21/19 19:27 22:15 22:14 POC Glucose 58 L* 73 83 Labs and MARs reviewed by me Hospitalist ROS - Review of Systems ROS unobtainable: due to mental status - Medication Medications: Active Medications Generic Name Dose Route Start Last Admin Trade Name Freq PRN Reason Stop Dose Admin Acetaminophen 650 mg 08/19/19 20:42 08/22/19 21:29 Tylenol PO 650 mg Q4H PRN Administration Headache/Fever/Mild Pain (1-3) Hydrocodone Bitart/Acetaminophen 2 tab 08/19/19 20:42 08/23/19 14:34 [place] 5/325 PO 2 tab Q4H PRN Administration Severe Pain (7-10) Apixaban 2.5 mg 08/22/19 21:00 08/23/19 08:25 Eliquis PO 2.5 mg BID BENNIE Administration Cholecalciferol 1,000 units 08/21/19 09:00 08/23/19 08:24 Vitamin D3 PO 1,000 units DAILY BENNIE Administration Dextrose/Water 25 gm 08/19/19 20:42 08/22/19 06:17 Dextrose 50% SLOW IVP 25 gm PRN PRN Administration Hypoglycemia Epoetin Michael-epbx 7,500 unit 08/21/19 12:00 08/21/19 16:04 Retacrit SC 7,500 unit Q7D BENNIE Administration Famotidine 20 mg 08/19/19 21:00 08/22/19 21:29 Pepcid SLOW IVP 20 mg QPM BENNIE Administration Haloperidol Lactate 1 mg 08/21/19 16:00 08/21/19 16:12 Haldol IM 1 mg Q4H PRN Administration Agitation Cefepime HCl 0.5 gm/ 100 mls @ 200 mls/hr 08/20/19 13:00 08/23/19 14:22 Miscellaneous Medication 1 IVPB Not Given each/ Sodium Chloride Q24HR BENNIE Vancomycin HCl 1 gm/ Device 200 mls @ 200 mls/hr 08/20/19 10:15 08/21/19 16: 05 IVPB 200 mls WILLCALL BENNIE Administration Sodium Thiosulfate 25 gm/ 200 mls @ 100 mls/hr 08/21/19 12:00 08/23/19 15:28 Sodium Chloride IVPB 200 mls MoWeFr BENNIE Administration Midodrine 7.5 mg 08/19/19 21:00 08/23/19 14:49 Proamatine PO 7.5 mg TID BENNIE Administration Morphine Sulfate 2 mg 08/19/19 20:42 08/22/19 10:22 Morphine SLOW IVP 2 mg Q4H PRN Administration Severe Pain (7-10) Rosuvastatin Calcium 20 mg 08/19/19 21:00 08/22/19 21:28 Crestor PO 20 mg HS BENNIE Administration Sodium Chloride 10 ml 08/19/19 19:37 08/23/19 08:31 Flush - Normal Saline IVF 10 ml PRN PRN Administration Saline Flush - Exam General Appearance: NAD Eye: anicteric sclera ENT: moist mucosa Neck: supple Heart: RRR Respiratory: CTAB, no rales Gastrointestinal: soft, non-tender Skin - other findings: wounds as documented Psychiatric: normal affect Hosp A/P - Plan - Assessment (1) Acute metabolic encephalopathy Code(s): G93.41 - METABOLIC ENCEPHALOPATHY Status: Acute (2) Sacral decubitus ulcer, stage III Code(s): L89.153 - PRESSURE ULCER OF SACRAL REGION, STAGE 3 Status: Acute (3) Gout Code(s): M10.9 - GOUT, UNSPECIFIED Status: Chronic Qualifiers: Gout site: multiple sites (4) Chronic anticoagulation Code(s): Z79.01 - ALF (CURRENT) USE OF ANTICOAGULANTS Status: Chronic (5) Dyslipidemia Code(s): E78.5 - HYPERLIPIDEMIA, UNSPECIFIED Status: Chronic (6) Hypertension Code(s): I10 - ESSENTIAL (PRIMARY) HYPERTENSION Status: Chronic Qualifiers: Hypertension type: essential hypertension Qualified Code(s): I10 - Essential (primary) hypertension (7) ESRD (end stage renal disease) on dialysis Code(s): N18.6 - END STAGE RENAL DISEASE; Z99.2 - DEPENDENCE ON RENAL DIALYSIS Status: Chronic (8) History of deep venous thrombosis or pulmonary embolus Code(s): MBE1926 - Status: Chronic (9) Secondary hyperparathyroidism of renal origin Code(s): N25.81 - SECONDARY HYPERPARATHYROIDISM OF RENAL ORIGIN Status: Chronic (10) Severe sepsis with septic shock Code(s): A41.9 - SEPSIS, UNSPECIFIED ORGANISM; R65.21 - SEVERE SEPSIS WITH SEPTIC SHOCK Status: Resolved - Plan Continue cefepime and vancomycin. ID following. No plans for debridement. Pt started on Eliquis (was on warfarin).
[2019-08-23] MEDS: Vancomycin 1 GM in Premix Bag 1 BAG IVPB SCH (17:30)
[2019-08-23] MEDS ORDERED: Doxycycline 100 MG CAP PO SCH (21:00)
[2019-08-23] MEDS: Rosuvastatin 20 MG TAB PO SCH (21:04)
[2019-08-23] MEDS: Acetaminophen 325 MG TAB PO PRN (21:05)
[2019-08-23] MEDS: Famotidine/PF 20 mg/2ml Vial SLOW IVP SCH ×2 (21:06→21:13)
[2019-08-24] MEDS: HYDROcodone/Acetaminophen 5/325 mg Tablet PO PRN ×3 (08:13→19:03)
[2019-08-24] MEDS: Midodrine HCl 5 MG TAB PO SCH ×3 (08:14→20:53)
[2019-08-24] MEDS: Apixaban 2.5 MG TAB PO SCH ×2 (08:14→20:53)
--- NOTE | 2019-08-24 08:24 | RAD ---
Chest one view HISTORY: Cough. COMPARISON: 08/29/2019. FINDINGS: Cardiac silhouette is magnified by projection. Pulmonary vasculature accentuated by shallow inspiration. Mediastinum is midline with aortic calcification. No lobar consolidation or evidence of pneumothorax. Marked elevation of the left humeral head. Central venous catheter no longer visible. IMPRESSION: Interval removal of the central venous catheter. Atherosclerosis. Chronic left rotator cuff tear.
--- NOTE | 2019-08-24 16:30 | PDOC.HOSPP ---
- Subjective Encounter Date: 08/24/19 Encounter Time: 09:20 Subjective: Pt seen for followup re: acute metabolic encephalopathy. Not answering questions, unable to complete ROS. - Objective Vital Signs & Weight: Vital Signs (12 hours) Temp Pulse Resp BP Pulse Ox 08/24/19 12:02 97.9 F 75 18 150/71 H 93 L 08/24/19 08:00 97.5 F L 60 18 133/71 99 Weight Admit Weight 274 lb 4.8 oz Weight 274 lb 4.8 oz Most Recent Monitor Data Heart Rate from ECG 73 NIBP 116/60 NIBP BP-Mean 78 Respiration from ECG 18 SpO2 99 I&O: 08/23/19 08/24/19 08/25/19 06:59 06:59 06:59 Intake Total 480 480 Balance 480 480 Result Diagrams: 08/23/19 06:30 08/23/19 06:30 Additional Labs: Accuchecks 08/24/19 08/24/19 08/23/19 11:26 04:32 20:36 POC Glucose 77 72 63 L Labs and MARs reviewed by tn Hospitalist ROS - Review of Systems ROS unobtainable: due to mental status - Medication Medications: Active Medications Generic Name Dose Route Start Last Admin Trade Name Freq PRN Reason Stop Dose Admin Acetaminophen 650 mg 08/19/19 20:42 08/23/19 21:05 Tylenol PO 650 mg Q4H PRN Administration Headache/Fever/Mild Pain (1-3) Hydrocodone Bitart/Acetaminophen 1 tab 08/19/19 20:42 08/24/19 15:14 [place] 5/325 PO 1 tab Q4H PRN Administration Moderate Pain (4-6) Hydrocodone Bitart/Acetaminophen 2 tab 08/19/19 20:42 08/24/19 08:13 [place] 5/325 PO 2 tab Q4H PRN Administration Severe Pain (7-10) Apixaban 2.5 mg 08/22/19 21:00 08/24/19 08:14 Eliquis PO 2.5 mg BID BENNIE Administration Cholecalciferol 1,000 units 08/21/19 09:00 08/24/19 08:13 Vitamin D3 PO 1,000 units DAILY BENNIE Administration Dextrose/Water 25 gm 08/19/19 20:42 08/22/19 06:17 Dextrose 50% SLOW IVP 25 gm PRN PRN Administration Hypoglycemia Epoetin Michael-epbx 7,500 unit 08/21/19 12:00 08/21/19 16:04 Retacrit SC 7,500 unit Q7D BENNIE Administration Famotidine 20 mg 08/19/19 21:00 08/23/19 21:13 Pepcid SLOW IVP Not Given QPM BENNIE Haloperidol Lactate 1 mg 08/21/19 16:00 08/21/19 16:12 Haldol IM 1 mg Q4H PRN Administration Agitation Vancomycin HCl 1 gm/ Device 200 mls @ 200 mls/hr 08/20/19 10:15 08/23/19 17: 30 IVPB 200 mls WILLCALL BENNIE Administration Sodium Thiosulfate 25 gm/ 200 mls @ 100 mls/hr 08/21/19 12:00 08/23/19 15:28 Sodium Chloride IVPB 200 mls MoWeFr BENNIE Administration Midodrine 7.5 mg 08/19/19 21:00 08/24/19 15:14 Proamatine PO 7.5 mg TID BENNIE Administration Morphine Sulfate 2 mg 08/19/19 20:42 08/22/19 10:22 Morphine SLOW IVP 2 mg Q4H PRN Administration Severe Pain (7-10) Rosuvastatin Calcium 20 mg 08/19/19 21:00 08/23/19 21:04 Crestor PO 20 mg HS BENNIE Administration Sodium Chloride 10 ml 08/19/19 19:37 08/23/19 08:31 Flush - Normal Saline IVF 10 ml PRN PRN Administration Saline Flush - Exam General Appearance: awake alert ENT: no oropharyngeal lesions Neck: supple Heart: RRR Respiratory: CTAB, no rales Gastrointestinal: soft, non-distended Musculoskeletal: no muscle wasting Psychiatric: normal affect, normal behavior Hosp A/P - Plan continue antibiotics - Assessment (1) Acute metabolic encephalopathy Code(s): G93.41 - METABOLIC ENCEPHALOPATHY Status: Acute (2) Sacral decubitus ulcer, stage III Code(s): L89.153 - PRESSURE ULCER OF SACRAL REGION, STAGE 3 Status: Acute (3) Gout Code(s): M10.9 - GOUT, UNSPECIFIED Status: Chronic Qualifiers: Gout site: multiple sites (4) Chronic anticoagulation Code(s): Z79.01 - SHELTER (CURRENT) USE OF ANTICOAGULANTS Status: Chronic (5) Dyslipidemia Code(s): E78.5 - HYPERLIPIDEMIA, UNSPECIFIED Status: Chronic (6) Hypertension Code(s): I10 - ESSENTIAL (PRIMARY) HYPERTENSION Status: Chronic Qualifiers: Hypertension type: essential hypertension Qualified Code(s): I10 - Essential (primary) hypertension (7) ESRD (end stage renal disease) on dialysis Code(s): N18.6 - END STAGE RENAL DISEASE; Z99.2 - DEPENDENCE ON RENAL DIALYSIS Status: Chronic (8) History of deep venous thrombosis or pulmonary embolus Code(s): BSO0103 - Status: Chronic (9) Secondary hyperparathyroidism of renal origin Code(s): N25.81 - SECONDARY HYPERPARATHYROIDISM OF RENAL ORIGIN Status: Chronic (10) Severe sepsis with septic shock Code(s): A41.9 - SEPSIS, UNSPECIFIED ORGANISM; R65.21 - SEVERE SEPSIS WITH SEPTIC SHOCK Status: Resolved - Plan Discontinue cefepime, start oral ciprofloxacin and continue IV vancomycin with dialysis. No plans for debridement of wound. Pt started on Eliquis (was on warfarin). Family would like to see how he does at home for a couple of weeks before deciding re: hospice care.
[2019-08-24] MEDS: Rosuvastatin 20 MG TAB PO SCH (20:53)
[2019-08-24] MEDS: Cipro 250 MG TAB PO SCH (20:53)
[2019-08-24] MEDS: Famotidine/PF 20 mg/2ml Vial SLOW IVP SCH (20:54)
[2019-08-25] MEDS: Cipro 250 MG TAB PO SCH ×2 (04:51→20:32)
[2019-08-25 06:42] LABS: Platelet Count 125 thou/uL (130-400)
[2019-08-25] MEDS: Midodrine HCl 5 MG TAB PO SCH ×3 (09:49→20:32)
[2019-08-25] MEDS: Apixaban 2.5 MG TAB PO SCH ×2 (09:50→20:32)
--- NOTE | 2019-08-25 10:53 | PRG ---
DATE OF SERVICE: 08/25/2019 SUBJECTIVE: Mr. Estevez is an 78-year-old black male with ESRD and followed up by the [facility]al Service for his maintenance hemodialysis. He has been tolerating the said treatment. At times, he becomes agitated during dialysis, and for that reason, treatment time has occasionally been shortened. This morning, he is more coherent. He denies any chest pain or shortness of breath. OBJECTIVE: VITAL SIGNS: Blood pressure 116/60, heart rate 66, respiratory rate 20, temperature 97.5, pulse oximetry 100%. GENERAL: Noted to be awake, alert, comfortable, not in distress. SKIN: Adequate turgor. HEENT: Pinkish conjunctivae. Anicteric sclerae. NECK: No neck mass. No carotid bruits. No JVD. CHEST: No deformities. LUNGS: Clear breath sounds. HEART: Normal sinus rhythm. No murmur. No gallops. No rubs. ABDOMEN: Globular, soft, nontender. No masses. EXTREMITIES: No edema. No deformities. MEDICATIONS: Medications of August 25, 2019, were reviewed. LABORATORY DATA: Laboratories of August 25, 2019; hemoglobin 10. August 23, 2019; sodium 140, potassium 3.9, chloride 103, carbon dioxide 31, BUN 10, creatinine 3.85, calcium 9. ASSESSMENT AND PLAN: 1. End-stage renal disease stable. We will continue current Monday, Monday, and Monday hemodialysis. Fluid removal only as tolerated. 2. Metabolic encephalopathy-clinically improved. The patient has had intermittent agitation in the past. 3. Anemia. We will recheck CBC again in a.m. We will continue current Epogen regimen. There is no indication for any emergent dialysis with this patient. Job ID: [id number]
--- NOTE | 2019-08-25 13:09 | PDOC.HOSPP ---
- Subjective Encounter Date: 08/25/19 Encounter Time: 08:40 Subjective: Pt seen for followup re: acute metabolic encephalopathy. Sleepy but arousable. Not answering questions, could not complete ROS. - Objective Vital Signs & Weight: Vital Signs (12 hours) Temp Pulse Resp BP Pulse Ox 08/25/19 12:22 97.3 F L 69 18 110/48 L 96 08/25/19 07:28 97.5 F L 66 20 116/60 100 08/25/19 04:35 97.3 F L 66 16 119/78 Weight Admit Weight 274 lb 4.8 oz Weight 274 lb 4.8 oz Most Recent Monitor Data Heart Rate from ECG 73 NIBP 116/60 NIBP BP-Mean 78 Respiration from ECG 18 SpO2 99 I&O: 08/24/19 08/25/19 08/26/19 06:59 06:59 06:59 Intake Total 480 300 240 Balance 480 300 240 Result Diagrams: 08/25/19 06:03 08/23/19 06:30 Additional Labs: Accuchecks 08/25/19 08/25/19 08/25/19 12:32 04:54 00:37 POC Glucose 65 L 65 L 73 08/24/19 08/24/19 21:01 17:13 POC Glucose 74 86 Labs and MARs reviewed by wy Hospitalist ROS - Review of Systems ROS unobtainable: due to mental status - Medication Medications: Active Medications Generic Name Dose Route Start Last Admin Trade Name Freq PRN Reason Stop Dose Admin Acetaminophen 650 mg 08/19/19 20:42 08/23/19 21:05 Tylenol PO 650 mg Q4H PRN Administration Headache/Fever/Mild Pain (1-3) Hydrocodone Bitart/Acetaminophen 1 tab 08/19/19 20:42 08/24/19 15:14 [place] 5/325 PO 1 tab Q4H PRN Administration Moderate Pain (4-6) Hydrocodone Bitart/Acetaminophen 2 tab 08/19/19 20:42 08/24/19 19:03 [place] 5/325 PO 2 tab Q4H PRN Administration Severe Pain (7-10) Apixaban 2.5 mg 08/22/19 21:00 08/25/19 09:50 Eliquis PO 2.5 mg BID BENNIE Administration Cholecalciferol 1,000 units 08/21/19 09:00 08/25/19 09:50 Vitamin D3 PO 1,000 units DAILY BENNIE Administration Ciprofloxacin 250 mg 08/24/19 20:00 08/25/19 04:51 Cipro PO 250 mg BID@0600,2000 BENNIE Administration Dextrose/Water 25 gm 08/19/19 20:42 08/22/19 06:17 Dextrose 50% SLOW IVP 25 gm PRN PRN Administration Hypoglycemia Epoetin Michael-epbx 7,500 unit 08/21/19 12:00 08/21/19 16:04 Retacrit SC 7,500 unit Q7D BENNIE Administration Famotidine 20 mg 08/19/19 21:00 08/24/19 20:54 Pepcid SLOW IVP Not Given QPM BENNIE Haloperidol Lactate 1 mg 08/21/19 16:00 08/21/19 16:12 Haldol IM 1 mg Q4H PRN Administration Agitation Vancomycin HCl 1 gm/ Device 200 mls @ 200 mls/hr 08/20/19 10:15 08/23/19 17: 30 IVPB 200 mls WILLCALL BENNIE Administration Sodium Thiosulfate 25 gm/ 200 mls @ 100 mls/hr 08/21/19 12:00 08/23/19 15:28 Sodium Chloride IVPB 200 mls MoWeFr BENNIE Administration Midodrine 7.5 mg 08/19/19 21:00 08/25/19 09:49 Proamatine PO 7.5 mg TID BENNIE Administration Morphine Sulfate 2 mg 08/19/19 20:42 08/22/19 10:22 Morphine SLOW IVP 2 mg Q4H PRN Administration Severe Pain (7-10) Rosuvastatin Calcium 20 mg 08/19/19 21:00 08/24/19 20:53 Crestor PO 20 mg HS BENNIE Administration Sodium Chloride 10 ml 08/19/19 19:37 08/23/19 08:31 Flush - Normal Saline IVF 10 ml PRN PRN Administration Saline Flush - Exam General Appearance: awake alert Eye: anicteric sclera ENT: normocephalic atraumatic Neck: supple Heart: RRR Respiratory: CTAB Gastrointestinal: soft, non-tender Extremities: no cyanosis Skin - other findings: wound as documented Psychiatric: normal behavior Hosp A/P - Plan - Assessment (1) Acute metabolic encephalopathy Code(s): G93.41 - METABOLIC ENCEPHALOPATHY Status: Acute (2) Sacral decubitus ulcer, stage III Code(s): L89.153 - PRESSURE ULCER OF SACRAL REGION, STAGE 3 Status: Acute (3) Gout Code(s): M10.9 - GOUT, UNSPECIFIED Status: Chronic Qualifiers: Gout site: multiple sites (4) Chronic anticoagulation Code(s): Z79.01 - 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 SUPERVISOR (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) USE OF ANTICOAGULANTS Status: Chronic (5) Dyslipidemia Code(s): E78.5 - HYPERLIPIDEMIA, UNSPECIFIED Status: Chronic (6) Hypertension Code(s): I10 - ESSENTIAL (PRIMARY) HYPERTENSION Status: Chronic Qualifiers: Hypertension type: essential hypertension Qualified Code(s): I10 - Essential (primary) hypertension (7) ESRD (end stage renal disease) on dialysis Code(s): N18.6 - END STAGE RENAL DISEASE; Z99.2 - DEPENDENCE ON RENAL DIALYSIS Status: Chronic (8) History of deep venous thrombosis or pulmonary embolus Code(s): [id number] - Status: Chronic (9) Secondary hyperparathyroidism of renal origin Code(s): N25.81 - SECONDARY HYPERPARATHYROIDISM OF RENAL ORIGIN Status: Chronic (10) Severe sepsis with septic shock Code(s): A41.9 - SEPSIS, UNSPECIFIED ORGANISM; R65.21 - SEVERE SEPSIS WITH SEPTIC SHOCK Status: Resolved - Plan Continue oral ciprofloxacin and continue IV vancomycin with dialysis. No plans for debridement of wound, per surgical service. Pt started on Eliquis (was on warfarin). Family would like to see how he does at home for a couple of weeks before deciding re: hospice care. Likely home early next week with .
[2019-08-25] MEDS: HYDROcodone/Acetaminophen 5/325 mg Tablet PO PRN (13:46)
[2019-08-25] MEDS: Rosuvastatin 20 MG TAB PO SCH (20:32)
[2019-08-25] MEDS: Famotidine/PF 20 mg/2ml Vial SLOW IVP SCH (20:33)
[2019-08-26] MEDS: Cipro 250 MG TAB PO SCH ×2 (05:15→21:16)
[2019-08-26 08:54] LABS: Vancomycin, Random 11.8 ug/mL (See Comment)
[2019-08-26 08:55] LABS: Anion Gap 10 mmol/L (10-20); BUN (Urea Nitrogen) 14 mg/dL (8.4-25.7); Calc. Creatinine Clearance 24 mL/min (70-130); Calcium 8.7 mg/dL (7.8-10.44); Carbon Dioxide 30 mmol/L (23-31); Chloride 103 mmol/L (98-107); Estimated GFR-MDRD 16; Glucose 79 mg/dL (83-110); Potassium 4.6 mmol/L (3.5-5.1); Sodium 138 mmol/L (136-145)
[2019-08-26 09:00] LABS: #Eosinphils 0.1 thou/uL (0.0-0.7); #Lymphocytes 1.3 thou/uL (1.20-3.40); #Monocytes 0.9 thou/uL (0.11-0.59); #Neutrophils 4.8 thou/uL (1.40-6.50); %Basophils 0.6 % (0.0-1.0); %Eosinophils 1.6 % (0.0-10.0); %Lymphocytes 18.3 % (21.0-51.0); %Neutrophils 66.5 % (42.0-75.0); Hemoglobin 8.6 g/dL (14.0-18.0); Mean Corpuscular HGB CONC 30.5 g/dL (32.0-36.0); Mean Corpuscular Volume 85.3 fL (78.0-98.0); Mean Platelet Volume 10.1 fL (7.4-10.4); Platelet Count 123 thou/uL (130-400); RBC Distribution Width 22.7 % (11.5-14.5); Red Blood Cell (RBC) Count 3.31 mill/uL (4.70-6.10); White Blood Cell (WBC) Count 7.3 thou/uL (4.8-10.8)
[2019-08-26 09:16] LABS: Hypochromia MODERATE=16-30 cells (100X) (0-5/hpf); MDiff Complete? YES; Platelet Morphology Comment Appears Decreased; Polychromasia SLIGHT = 2-3 cells (100X) (0-2/hpf); Rouleaux Formation SLIGHT = 1-5 cells (100X) (None Seen); Target Cells MARKED = >16 cells (100X) (0-1/hpf)
--- NOTE | 2019-08-26 09:30 | PRG ---
DATE OF SERVICE: 08/26/2019 SUBJECTIVE: Mr. Estevez is an 78-year-old black male with ESRD and on maintenance hemodialysis. He is currently undergoing his regular hemodialysis today. Fluid removal is being attempted as tolerated by the patient. He seems to be less agitated today. No complaints of chest pain or shortness of breath. OBJECTIVE: VITAL SIGNS: Blood pressure is 149/86, heart rate 77, respiratory rate 16, temperature 97.4, pulse ox 99%. GENERAL: Noted to be awake, alert, comfortable, not in overt distress. SKIN: Adequate turgor. HEENT: Pinkish conjunctivae. Anicteric sclerae. No neck mass. No carotid bruits. No JVD. CHEST: No deformities. LUNGS: Clear breath sounds. HEART: Normal sinus rhythm. No murmur. No gallops. No rubs. ABDOMEN: Globular, soft, nontender. No masses. BACK: Positive for decubitus ulcer. EXTREMITIES: No edema. MEDICATIONS: Of August 26, 2019, was reviewed. LABORATORY DATA: Laboratories of August 25, 2019; hemoglobin was 10, August 26, 2019, glucose 77. ASSESSMENT AND PLAN: 1. End stage renal disease, stable. We will continue current hemodialysis regimen. We will do him today for 3.5 hours with fluid removal only as tolerated. 2. Anemia. Continuing weekly Epogen with this patient. 3. Calciphylaxis. Continue sodium thiosulfate 25 g IV every hemodialysis. Tolerating said medicine. 4. Agree with current management. Job ID: [id number]
[2019-08-26] MEDS: Vancomycin 1 GM in Premix Bag 1 BAG IVPB SCH (09:52)
[2019-08-26] MEDS: Apixaban 2.5 MG TAB PO SCH ×2 (12:46→21:18)
[2019-08-26] MEDS: Midodrine HCl 5 MG TAB PO SCH ×3 (12:46→21:16)
--- NOTE | 2019-08-26 15:24 | PDOC.PALCO ---
Palliative Care Consult - Consult Details Requesting Physician: Dr Latif Reason for Consult: goals of care Family Members Present: Prior visit Daily at bedside who is patient Stepdaughter - Pertinent HPI 78 year old male who was living at [facility] prior to admission. He was discharged 8 days prior to [facility]. He is bedbound, dysphagia, FAST of 7f. He also had a recent D/C of a wound vac, and is a dialysis patient. He was at dialysis and found to have altered mental status from baseline. He was transported to [place] [facility] room, evaluated and transferred to [facility] for a higher level of care. Admitted for Septic shock. Daughter Daily is at bedside, not MPOA. She states that she feels her stepdad is suffering, however her sister Radha is struggling with the continued decline of her father. - Pertinent PMH Renal failure requiring dialysis, pulmonary embolism, HDL, HTN, Morbid Obesity, Chronic wounds, Atrial Fib, Dementia - Social History Smoking Status: Never smoker Smoking: no tobacco exposure Alcohol Use: none Drug Use History: none Living Situation: prison resident (Previously in a private home) - Medications MAR Reviewed: Yes - Allergies Allergies/Adverse Reactions: Allergies Allergy/AdvReac Type Severity Reaction Status Date / Time clindamycin Allergy Mild Hives Verified 06/04/19 01:33 warfarin AdvReac Severe Calciphylax Verified 08/22/19 10:07 is amoxicillin AdvReac Mild Diarrhea Verified 06/04/19 01:33 ampicillin AdvReac Mild Diarrhea Verified 06/04/19 01:33 - Subjective Opens eyes, non verbal. - ROS Non Response: due to mental status - Objective Vital Signs: Vital Signs - Most Recent Temp Pulse Resp BP Pulse Ox 97.4 F L 77 16 149/86 H 99 08/25/19 20:00 08/25/19 20:00 08/25/19 20:00 08/25/19 20:00 08/25/19 20:00 Palliative Performance Scale: 30 - Advance Directives Medical Power of Goat Herder: Radha [phone] - Physical Exam Constitutional: emaciated, encephalitic, ill appearing HEENT: moist MMs, poor dentition Respiratory: no wheezing, unlabored breathing Cardiovascular: RRR Gastrointestinal: soft, non-tender, no distention, incontinent Musculoskeletal: no clubbing, diffuse muscle atrophy Neurology: no focal deficits Deviation from normal: no tremor, Deviation from normal: Chronic wounds as per wound care note Psychiatric: flat affect - Problem List (1) Palliative care encounter Code(s): Z51.5 - ENCOUNTER FOR PALLIATIVE CARE Current Visit: Yes Status: Acute (2) Sacral decubitus ulcer, stage III Code(s): L89.153 - PRESSURE ULCER OF SACRAL REGION, STAGE 3 Current Visit: Yes Status: Acute (3) Acute metabolic encephalopathy Code(s): G93.41 - METABOLIC ENCEPHALOPATHY Current Visit: No Status: Acute (4) Calciphylaxis cutis Code(s): E83.59 - OTHER DISORDERS OF CALCIUM METABOLISM Current Visit: No Status: Acute (5) ESRD (end stage renal disease) Code(s): N18.6 - END STAGE RENAL DISEASE Current Visit: No Status: Acute (6) Chronic anticoagulation Code(s): Z79.01 - CLINICAL SOCIAL WORKER (CURRENT) USE OF ANTICOAGULANTS Current Visit: No Status: Chronic (7) Physical deconditioning Code(s): R53.81 - OTHER MALAISE Current Visit: No Status: Chronic - Plan/Recommendations Plan: Visited with shon Ambrosio and Radha, in separate conversations. Radha is the MPOA. Discussed multiple morbidities and calciphylaxis, chronic wounds and continued disease trajectory toward decline. Daily feels her father is suffering and would prefer a transition to hospice, Radha is wanting to transition her father home with home health and continue dialysis. Goal for Radha is to take her dad back to her home in [place] with Home health. Concerned about appropriate mattress at discharge for the bed. [place] of transporting her father to physician appt, they have to pay out of pocket for ambulance transport secondary to patient now bedbound. [facility] attempting to set up a Midlevel for in home visits. Called Miguel with [facility] and relayed information, [facility] concerns. He will follow up and coordinated education with [facility] for disease trajectory. Lengthy conversation with Both Daily and Radha in relation to burden of dialysis, calciphylaxis, chronic wounds and suffering in relation to treatment. Radha states she wishes to take her Dad home with home health, and eventually transition to hospice. [facility] has a palliative care program that can facilitate working with the patient and family to bridge this gap. Palliative Care will sign off as goals of care are established. Please reconsult if we can be of assistance in the future. [75] minutes spent on this encounter with >50% of the time in counseling and coordination of care. Thank you for this very appropriate consult.
[2019-08-26] MEDS: HYDROcodone/Acetaminophen 5/325 mg Tablet PO PRN ×2 (16:13→21:54)
--- NOTE | 2019-08-26 16:16 | PDOC.HOSPP ---
- Subjective Encounter Date: 08/26/19 Encounter Time: 12:45 Subjective: pt up in bed denies any complains. No family at bedside. - Objective Vital Signs & Weight: Vital Signs (12 hours) Temp Pulse Resp BP Pulse Ox 08/26/19 15:30 97.9 F 83 18 108/69 100 Weight Admit Weight 274 lb 4.8 oz Weight 274 lb 4.8 oz Most Recent Monitor Data Heart Rate from ECG 73 NIBP 116/60 NIBP BP-Mean 78 Respiration from ECG 18 SpO2 99 I&O: 08/25/19 08/26/19 08/27/19 06:59 06:59 06:59 Intake Total 300 1000 Output Total 0 Balance 300 1000 Result Diagrams: 08/26/19 08:52 08/26/19 08:14 Additional Labs: Accuchecks 08/26/19 08/26/19 08/25/19 12:31 05:18 20:25 POC Glucose 74 77 92 08/25/19 16:54 POC Glucose 97 Hospitalist ROS - Review of Systems ENT: denies: ear pain, ear discharge, nose pain, nose discharge, nose congestion , mouth pain, mouth swelling, throat pain, throat swelling, other Respiratory: denies: cough, dry, shortness of breath, hemoptysis, SOB with excertion, pleuritic pain, sputum, wheezing, other Cardiovascular: denies: chest pain, palpitations, orthopnea, paroxysmal noc. dyspnea, edema, light headedness, other - Medication Medications: Active Medications Generic Name Dose Route Start Last Admin Trade Name Freq PRN Reason Stop Dose Admin Acetaminophen 650 mg 08/19/19 20:42 08/23/19 21:05 Tylenol PO 650 mg Q4H PRN Administration Headache/Fever/Mild Pain (1-3) Hydrocodone Bitart/Acetaminophen 1 tab 08/19/19 20:42 08/24/19 15:14 [place] 5/325 PO 1 tab Q4H PRN Administration Moderate Pain (4-6) Hydrocodone Bitart/Acetaminophen 2 tab 08/19/19 20:42 08/25/19 13:46 [place] 5/325 PO 2 tab Q4H PRN Administration Severe Pain (7-10) Apixaban 2.5 mg 08/22/19 21:00 08/26/19 12:46 Eliquis PO 2.5 mg BID BENNIE Administration Cholecalciferol 1,000 units 08/21/19 09:00 08/26/19 12:46 Vitamin D3 PO 1,000 units DAILY BENNIE Administration Ciprofloxacin 250 mg 08/24/19 20:00 08/26/19 05:15 Cipro PO 250 mg BID@0600,2000 BENNIE Administration Dextrose/Water 25 gm 08/19/19 20:42 08/22/19 06:17 Dextrose 50% SLOW IVP 25 gm PRN PRN Administration Hypoglycemia Epoetin Michael-epbx 7,500 unit 08/21/19 12:00 08/21/19 16:04 Retacrit SC 7,500 unit Q7D BENNIE Administration Famotidine 20 mg 08/19/19 21:00 08/25/19 20:33 Pepcid SLOW IVP Not Given QPM [facility] Haloperidol Lactate 1 mg 08/21/19 16:00 08/21/19 16:12 Haldol IM 1 mg Q4H PRN Administration Agitation Vancomycin HCl 1 gm/ Device 200 mls @ 200 mls/hr 08/20/19 10:15 08/26/19 09: 52 IVPB 200 mls WILLCALL BENNIE Administration Sodium Thiosulfate 25 gm/ 200 mls @ 100 mls/hr 08/21/19 12:00 08/26/19 10:16 Sodium Chloride IVPB 200 mls MoWeFr BENNIE Administration Midodrine 7.5 mg 08/19/19 21:00 08/26/19 16:05 Proamatine PO Not Given TID BENNIE Morphine Sulfate 2 mg 08/19/19 20:42 08/22/19 10:22 Morphine SLOW IVP 2 mg Q4H PRN Administration Severe Pain (7-10) Rosuvastatin Calcium 20 mg 08/19/19 21:00 08/25/19 20:32 Crestor PO 20 mg HS EBNNIE Administration Sodium Chloride 10 ml 08/19/19 19:37 08/23/19 08:31 Flush - Normal Saline IVF 10 ml PRN PRN Administration Saline Flush - Exam Neck: negative: supple, symmetric, no JVD, no thyromegaly, no lymphadenopathy, no carotid bruit, JVD Heart: negative: RRR, no murmur, no gallops, no rubs, normal peripheral pulses, irregular, diminshed peripheral pulses, murmur present, II/IV, III/IV Respiratory: negative: CTAB, no wheezes, no rales, no ronchi, normal chest expansion, no tachypnea, normal percussion, rales, rhonchi, tachypneic, wheezes Gastrointestinal - other findings: obse, abdomen dressing to wound intact. Extremities: 2+ LE edema Extremities - other findings: upper and lower ext edema Hosp A/P - Plan 1) Acute metabolic encephalopathy Code(s): G93.41 - METABOLIC ENCEPHALOPATHY Status: Acute (2) Sacral decubitus ulcer, stage III Code(s): L89.153 - PRESSURE ULCER OF SACRAL REGION, STAGE 3 Status: Acute (3) Gout Code(s): M10.9 - GOUT, UNSPECIFIED Status: Chronic Qualifiers: Gout site: multiple sites (4) Chronic anticoagulation Code(s): Z79.01 - GROUP HOME (CURRENT) USE OF ANTICOAGULANTS Status: Chronic (5) Dyslipidemia Code(s): E78.5 - HYPERLIPIDEMIA, UNSPECIFIED Status: Chronic (6) Hypertension Code(s): I10 - ESSENTIAL (PRIMARY) HYPERTENSION Status: Chronic Qualifiers: Hypertension type: essential hypertension Qualified Code(s): I10 - Essential (primary) hypertension (7) ESRD (end stage renal disease) on dialysis Code(s): N18.6 - END STAGE RENAL DISEASE; Z99.2 - DEPENDENCE ON RENAL DIALYSIS Status: Chronic (8) History of deep venous thrombosis or pulmonary embolus Code(s): [id number] - Status: Chronic (9) Secondary hyperparathyroidism of renal origin Code(s): N25.81 - SECONDARY HYPERPARATHYROIDISM OF RENAL ORIGIN Status: Chronic (10) Severe sepsis with septic shock Code(s): A41.9 - SEPSIS, UNSPECIFIED ORGANISM; R65.21 - SEVERE SEPSIS WITH SEPTIC SHOCK Status: Resolved - Plan Continue oral ciprofloxacin and continue IV vancomycin with dialysis. No plans for debridement of wound, per surgical service. Pt started on Eliquis (was on warfarin). Family would like to see how he does at home for a couple of weeks before deciding re: hospice care. Likely home early next week with HH. 08/25 will monitor his hh, he is on AC for now. will try and call his family in regards to discharging pt home.
[2019-08-26] MEDS: Rosuvastatin 20 MG TAB PO SCH (21:16)
[2019-08-26] MEDS ORDERED: Famotidine 20 MG TAB PO SCH (21:30)
[2019-08-26] MEDS: Famotidine/PF 20 mg/2ml Vial SLOW IVP SCH (23:39)
[2019-08-27] MEDS: Cipro 250 MG TAB PO SCH ×2 (05:59→21:27)
[2019-08-27] MEDS: Midodrine HCl 5 MG TAB PO SCH ×3 (08:41→21:27)
[2019-08-27] MEDS: Apixaban 2.5 MG TAB PO SCH ×2 (08:42→21:27)
[2019-08-27] MEDS: HYDROcodone/Acetaminophen 5/325 mg Tablet PO PRN (10:32)
[2019-08-27] MEDS: Rosuvastatin 20 MG TAB PO SCH (21:27)
[2019-08-27] MEDS: Famotidine 20 MG TAB PO SCH (21:27)
[2019-08-28] MEDS: Cipro 250 MG TAB PO SCH ×2 (05:08→20:25)
--- NOTE | 2019-08-28 08:14 | PDOC.HOSPP ---
- Subjective Encounter Date: 08/27/19 Encounter Time: 12:45 Subjective: pt up in bed no complains. - Objective Vital Signs & Weight: Weight Admit Weight 274 lb 4.8 oz Weight 274 lb 4.8 oz Most Recent Monitor Data Heart Rate from ECG 73 NIBP 116/60 NIBP BP-Mean 78 Respiration from ECG 18 SpO2 99 I&O: 08/27/19 08/28/19 08/29/19 06:59 06:59 06:59 Intake Total 500 Output Total 1800 Balance -1300 Result Diagrams: 08/29/19 07:06 08/26/19 08:14 Additional Labs: Accuchecks 08/28/19 08/27/19 08/27/19 05:11 19:58 16:38 POC Glucose 65 L 65 L 87 08/27/19 11:26 POC Glucose 87 Hospitalist ROS - Review of Systems Cardiovascular: denies: chest pain, palpitations, orthopnea, paroxysmal noc. dyspnea, edema, light headedness, other Gastrointestinal: denies: nausea, vomiting, abdominal pain, diarrhea, constipation, melena, hematochezia, other Genitourinary: denies: dysuria, frequency, incontinence, hematuria, retention, other - Medication Medications: Active Medications Generic Name Dose Route Start Last Admin Trade Name Freq PRN Reason Stop Dose Admin Acetaminophen 650 mg 08/19/19 20:42 08/23/19 21:05 Tylenol PO 650 mg Q4H PRN Administration Headache/Fever/Mild Pain (1-3) Hydrocodone Bitart/Acetaminophen 1 tab 08/19/19 20:42 08/27/19 10:32 [place] 5/325 PO 1 tab Q4H PRN Administration Moderate Pain (4-6) Hydrocodone Bitart/Acetaminophen 2 tab 08/19/19 20:42 08/26/19 21:54 [place] 5/325 PO 2 tab Q4H PRN Administration Severe Pain (7-10) Apixaban 2.5 mg 08/22/19 21:00 08/27/19 21:27 Eliquis PO 2.5 mg BID BENNIE Administration Cholecalciferol 1,000 units 08/21/19 09:00 08/27/19 08:42 Vitamin D3 PO 1,000 units DAILY BENNIE Administration Ciprofloxacin 250 mg 08/24/19 20:00 08/28/19 05:08 Cipro PO 250 mg BID@0600,2000 BENNIE Administration Dextrose/Water 25 gm 08/19/19 20:42 08/22/19 06:17 Dextrose 50% SLOW IVP 25 gm PRN PRN Administration Hypoglycemia Epoetin Michael-epbx 7,500 unit 08/21/19 12:00 08/21/19 16:04 Retacrit SC 7,500 unit Q7D BENNIE Administration Famotidine 20 mg 08/27/19 21:00 08/27/19 21:27 Pepcid PO 20 mg QPM BENNIE Administration Haloperidol Lactate 1 mg 08/21/19 16:00 08/21/19 16:12 Haldol IM 1 mg Q4H PRN Administration Agitation Vancomycin HCl 1 gm/ Device 200 mls @ 200 mls/hr 08/20/19 10:15 08/26/19 09: 52 IVPB 200 mls WILLCALL BENNIE Administration Sodium Thiosulfate 25 gm/ 200 mls @ 100 mls/hr 08/21/19 12:00 08/26/19 10:16 Sodium Chloride IVPB 200 mls MoWeFr BENNIE Administration Midodrine 7.5 mg 08/19/19 21:00 08/27/19 21:27 Proamatine PO 7.5 mg TID BENNIE Administration Morphine Sulfate 2 mg 08/19/19 20:42 08/22/19 10:22 Morphine SLOW IVP 2 mg Q4H PRN Administration Severe Pain (7-10) Rosuvastatin Calcium 20 mg 08/19/19 21:00 08/27/19 21:27 Crestor PO 20 mg HS BENNIE Administration Sodium Chloride 10 ml 08/19/19 19:37 08/23/19 08:31 Flush - Normal Saline IVF 10 ml PRN PRN Administration Saline Flush - Exam Heart: negative: RRR, no murmur, no gallops, no rubs, normal peripheral pulses, irregular, diminshed peripheral pulses, murmur present, II/IV, III/IV Respiratory: negative: CTAB, no wheezes, no rales, no ronchi, normal chest expansion, no tachypnea, normal percussion, rales, rhonchi, tachypneic, wheezes Gastrointestinal: negative: soft, non-tender, non-distended, normal bowel sounds , no palpable masses, no hepatomegaly, no splenomegaly, no bruit, no guarding, no rigidity, tender to palpation, distended, diminished bowl sounds, voluntary guarding Extremities: 2+ LE edema Hosp A/P - Plan 1) Acute metabolic encephalopathy Code(s): G93.41 - METABOLIC ENCEPHALOPATHY Status: Acute (2) Sacral decubitus ulcer, stage III Code(s): L89.153 - PRESSURE ULCER OF SACRAL REGION, STAGE 3 Status: Acute (3) Gout Code(s): M10.9 - GOUT, UNSPECIFIED Status: Chronic Qualifiers: Gout site: multiple sites (4) Chronic anticoagulation Code(s): Z79.01 - [employer]ICE (CURRENT) USE OF ANTICOAGULANTS Status: Chronic (5) Dyslipidemia Code(s): E78.5 - HYPERLIPIDEMIA, UNSPECIFIED Status: Chronic (6) Hypertension Code(s): I10 - ESSENTIAL (PRIMARY) HYPERTENSION Status: Chronic Qualifiers: Hypertension type: essential hypertension Qualified Code(s): I10 - Essential (primary) hypertension (7) ESRD (end stage renal disease) on dialysis Code(s): N18.6 - END STAGE RENAL DISEASE; Z99.2 - DEPENDENCE ON RENAL DIALYSIS Status: Chronic (8) History of deep venous thrombosis or pulmonary embolus Code(s): [id number] - Status: Chronic (9) Secondary hyperparathyroidism of renal origin Code(s): N25.81 - SECONDARY HYPERPARATHYROIDISM OF RENAL ORIGIN Status: Chronic (10) Severe sepsis with septic shock Code(s): A41.9 - SEPSIS, UNSPECIFIED ORGANISM; R65.21 - SEVERE SEPSIS WITH SEPTIC SHOCK Status: Resolved - Plan Continue oral ciprofloxacin and continue IV vancomycin with dialysis. No plans for debridement of wound, per surgical service. Pt started on Eliquis (was on warfarin). Family would like to see how he does at home for a couple of weeks before deciding re: hospice care. Likely home early next week with HH. 08/25 will monitor his hh, he is on AC for now. will try and call his family in regards to discharging pt home. 08/26 spoke with daughter who want pt to get a air mattress before she takes her father home. I did try to explain to her that it will be difficult to do so since pt is ready for discharge medically and getting an air mattres will take some time. she insisted that she will not take her father home unless we get him an air mattress. He does have sacral decubitus will talk with case management to try to get him one.
[2019-08-28] MEDS ORDERED: Heparin 10,000 UNITS/ 10 ML VIAL ONE (08:38)
[2019-08-28] MEDS: Midodrine HCl 5 MG TAB PO SCH ×3 (09:00→20:25)
--- NOTE | 2019-08-28 09:41 | PRG ---
DATE OF SERVICE: 08/28/2019 SUBJECTIVE: Mr. Estevez is an 78-year-old black male with ESRD and followed up by the [facility] for management of his ESRD. He continues to have this persistent decubitus ulcers. 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 He is receiving sodium thiosulfate. He has also decreased appetite. Blood sugar was relatively low this morning, but after limited breakfast, blood sugar has much improved. No complaints of chest pain or shortness of breath. OBJECTIVE: VITAL SIGNS: Blood pressure 103/57, heart rate 68, respiratory rate 20, temperature 97.8, pulse ox 100%. GENERAL: Noted to be awake, alert, comfortable, not in distress. SKIN: Adequate turgor. HEENT: He has slightly pale conjunctivae. Anicteric sclerae. NECK: No neck mass. No carotid bruits. No JVD. CHEST: No deformities. LUNGS: Clear breath sounds. HEART: Normal sinus rhythm. No murmur. No gallops. No rubs. ABDOMEN: Globular, soft, nontender. No masses. EXTREMITIES: No edema. SKIN: Back positive for ulcerations as well as on the lower extremities and the abdomen. MEDICATIONS: Medications of August 28, 2019, was reviewed. LABORATORY DATA: Laboratories of August 26, 2019, white count 7.3, hemoglobin 8.6. Blood sugar of August 28, 2019, 75. ASSESSMENT AND PLAN: 1. Numerous ulcerations on the back, abdomen, and thigh-empiric IV antibiotics. 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 2. Anemia, continue weekly Epogen. P.r.n. blood transfusion for hemoglobin less than 7. 3. Endstage renal disease, stable. We will continue current hemodialysis regimen Monday, Monday, and Monday. Minimal fluid removal due to decreased p.o. intake with this patient. 4. Overall prognosis with this patient remains guarded. Job ID: [id number]
[2019-08-28 10:23] LABS: Vancomycin, Random 12.6 ug/mL (See Comment)
[2019-08-28] MEDS: Apixaban 2.5 MG TAB PO SCH ×3 (10:41→20:25)
[2019-08-28] MEDS ORDERED: Vancomycin 1.5 GRAM/300 ML BAG 1.5 GM in Premix Bag 1 BAG IVPB SCH (11:45)
[2019-08-28] MEDS: EPOETIN ALFA-EPBX (ESRD) 4,000 UNIT/ML VIAL SC SCH (17:17)
[2019-08-28] MEDS: Famotidine 20 MG TAB PO SCH (20:25)
[2019-08-28] MEDS: Rosuvastatin 20 MG TAB PO SCH (20:25)
[2019-08-29] MEDS: Cipro 250 MG TAB PO SCH (05:45)
[2019-08-29 07:29] LABS: Red Blood Cell (RBC) Count 3.42 mill/uL (4.70-6.10); White Blood Cell (WBC) Count 10.3 thou/uL (4.8-10.8)
[2019-08-29 07:30] LABS: Hemoglobin 9.1 g/dL (14.0-18.0); Mean Corpuscular HGB CONC 31.4 g/dL (32.0-36.0); Mean Corpuscular Hemoglobin 26.6 pg (27.0-31.0); Mean Corpuscular Volume 84.9 fL (78.0-98.0); RBC Distribution Width 21.8 % (11.5-14.5)
[2019-08-29 07:31] LABS: Platelet Count 112 thou/uL (130-400)
[2019-08-29 07:56] LABS: Band 1 % (5-11); Eosinophils 2 % (0-10); Lymphocytes 19 % (21-51); Monocytes 12 % (0-10); Neutrophil 64 % (42-75); Nucleated RBC 1 % (0)
[2019-08-29 07:57] LABS: Hypochromia SLIGHT = 6-15 cells (100X) (0-5/hpf); Platelet Morphology Comment Appears Decreased; Polychromasia SLIGHT = 2-3 cells (100X) (0-2/hpf); Target Cells MARKED = >16 cells (100X) (0-1/hpf)
[2019-08-29] MEDS: Midodrine HCl 5 MG TAB PO SCH (08:01)
[2019-08-29] MEDS: Apixaban 2.5 MG TAB PO SCH (08:02)
[2019-08-29] MEDS: HYDROcodone/Acetaminophen 5/325 mg Tablet PO PRN (08:05)
[2019-08-29 08:26] VITALS: TEMP 97.4
[2019-08-29 10:10] VITALS: BP 155/103
--- NOTE | 2019-08-29 19:04 | PDOC.HOSPP ---
- Subjective Encounter Date: 08/29/19 Encounter Time: 11:15 Subjective: pt up in bed no complains. - Objective Vital Signs & Weight: Vital Signs (12 hours) Temp Pulse Resp BP Pulse Ox 08/29/19 09:40 97.4 F L 77 20 155/103 H 96 08/29/19 08:16 97.4 F L 77 20 114/76 96 08/29/19 07:55 96 Weight Admit Weight 274 lb 4.8 oz Weight 274 lb 4.8 oz Most Recent Monitor Data Heart Rate from ECG 73 NIBP 116/60 NIBP BP-Mean 78 Respiration from ECG 18 SpO2 99 I&O: 08/28/19 08/29/19 08/30/19 06:59 06:59 06:59 Intake Total 770 Output Total 1800 Balance -1030 Result Diagrams: 08/29/19 07:06 08/26/19 08:14 Additional Labs: Accuchecks 08/29/19 08/29/19 08/28/19 05:54 05:08 20:37 POC Glucose 96 55 L* 74 08/28/19 13:14 POC Glucose 91 Hospitalist ROS - Review of Systems Respiratory: denies: cough, dry, shortness of breath, hemoptysis, SOB with excertion, pleuritic pain, sputum, wheezing, other Cardiovascular: denies: chest pain, palpitations, orthopnea, paroxysmal noc. dyspnea, edema, light headedness, other Gastrointestinal: denies: nausea, vomiting, abdominal pain, diarrhea, constipation, melena, hematochezia, other - Exam Heart: negative: RRR, no murmur, no gallops, no rubs, normal peripheral pulses, irregular, diminshed peripheral pulses, murmur present, II/IV, III/IV Respiratory: negative: CTAB, no wheezes, no rales, no ronchi, normal chest expansion, no tachypnea, normal percussion, rales, rhonchi, tachypneic, wheezes Gastrointestinal: negative: soft, non-tender, non-distended, normal bowel sounds , no palpable masses, no hepatomegaly, no splenomegaly, no bruit, no guarding, no rigidity, tender to palpation, distended, diminished bowl sounds, voluntary guarding Extremities: 2+ LE edema Hosp A/P - Plan 1) Acute metabolic encephalopathy Code(s): G93.41 - METABOLIC ENCEPHALOPATHY Status: Acute (2) Sacral decubitus ulcer, stage III Code(s): L89.153 - PRESSURE ULCER OF SACRAL REGION, STAGE 3 Status: Acute (3) Gout Code(s): M10.9 - GOUT, UNSPECIFIED Status: Chronic Qualifiers: Gout site: multiple sites (4) Chronic anticoagulation Code(s): Z79.01 - PUMPER HEAD (CURRENT) USE OF ANTICOAGULANTS Status: Chronic (5) Dyslipidemia Code(s): E78.5 - HYPERLIPIDEMIA, UNSPECIFIED Status: Chronic (6) Hypertension Code(s): I10 - ESSENTIAL (PRIMARY) HYPERTENSION Status: Chronic Qualifiers: Hypertension type: essential hypertension Qualified Code(s): I10 - Essential (primary) hypertension (7) ESRD (end stage renal disease) on dialysis Code(s): N18.6 - END STAGE RENAL DISEASE; Z99.2 - DEPENDENCE ON RENAL DIALYSIS Status: Chronic (8) History of deep venous thrombosis or pulmonary embolus Code(s): [id number] - Status: Chronic (9) Secondary hyperparathyroidism of renal origin Code(s): N25.81 - SECONDARY HYPERPARATHYROIDISM OF RENAL ORIGIN Status: Chronic (10) Severe sepsis with septic shock Code(s): A41.9 - SEPSIS, UNSPECIFIED ORGANISM; R65.21 - SEVERE SEPSIS WITH SEPTIC SHOCK Status: Resolved - Plan Continue oral ciprofloxacin and continue IV vancomycin with dialysis. No plans for debridement of wound, per surgical service. Pt started on Eliquis (was on warfarin). Family would like to see how he does at home for a couple of weeks before deciding re: hospice care. Likely home early next week with HH. 08/25 will monitor his hh, he is on AC for now. will try and call his family in regards to discharging pt home. 08/26 spoke with daughter who want pt to get a air mattress before she takes her father home. I did try to explain to her that it will be difficult to do so since pt is ready for discharge medically and getting an air mattres will take some time. she insisted that she will not take her father home unless we get him an air mattress. He does have sacral decubitus will talk with case management to try to get him one. 08/27 pt was suppose to be discharged today but since his blood pressure was low he was kept in the hospital for monitoring. His air mattress has been ordered.
[2019-09-02] MEDS ORDERED: PEGFILGRASTIM-JMDB 6 MG/0.6 ML SYRINGE SQ SCH (12:15)
== END 2019-08-29 10:08 | disposition home health service (06) | DRG 871 ==
LOC: ERS 14:21 → CCU 17:52 → T4-A 08-21 07:13
PROVIDERS: ADMIT Internal Medicine; ATTEND Internal Medicine
PROC: 3E043XZ Introduction of Vasopressor into Central Vein, Percutaneous Approach (ICD-10-PCS; principal; 2019-08-19)
PROC: 5A1D70Z Performance of Urinary Filtration, Intermittent, Less than 6 Hours Per Day (ICD-10-PCS; 2019-08-19)
DX: A41.9 Sepsis, unspecified organism (principal); L89.153 Pressure ulcer of sacral region, stage 3; R65.21 Severe sepsis with septic shock; N18.6 End stage renal disease; E43 Unspecified severe protein-calorie malnutrition; G93.41 Metabolic encephalopathy; I12.0 Hypertensive chronic kidney disease with stage 5 chronic kidney disease or end stage renal disease; N25.81 Secondary hyperparathyroidism of renal origin; E87.6 Hypokalemia; Z51.5 Encounter for palliative care; Z66 Do not resuscitate; I48.0 Paroxysmal atrial fibrillation; M10.9 Gout, unspecified; I95.1 Orthostatic hypotension; E78.5 Hyperlipidemia, unspecified; T68.XXXA Hypothermia, initial encounter; I25.10 Atherosclerotic heart disease of native coronary artery without angina pectoris; E16.2 Hypoglycemia, unspecified; D64.9 Anemia, unspecified; E83.59 Other disorders of calcium metabolism; I73.9 Peripheral vascular disease, unspecified; F01.50 Vascular dementia, unspecified severity, without behavioral disturbance, psychotic disturbance, mood disturbance, and anxiety; L98.429 Non-pressure chronic ulcer of back with unspecified severity; I25.5 Ischemic cardiomyopathy; L98.419 Non-pressure chronic ulcer of buttock with unspecified severity; L98.499 Non-pressure chronic ulcer of skin of other sites with unspecified severity; Z99.2 Dependence on renal dialysis; Z86.711 Personal history of pulmonary embolism; Z68.34 Body mass index [BMI] 34.0-34.9, adult; Z86.718 Personal history of other venous thrombosis and embolism; Z79.01 Long term (current) use of anticoagulants; Z88.1 Allergy status to other antibiotic agents; Z83.3 Family history of diabetes mellitus; I25.2 Old myocardial infarction; Z90.49 Acquired absence of other specified parts of digestive tract
CPT/HCPCS: 36415; 36416; 36556; 71045; 80048; 80202; 82330; 82803; 83605; 83735; 85014; 85018; 85025; 85049; 85610; 90935; 96365; 96366; 96368; 96374; 96375; 99292; G0257; J0692; J1630; J1644; J1720; J2270; J3010; J3370; J3475; J3480; J3490; J7050; Q5105; S0028

== ENCOUNTER 2019-09-13 14:17 | Inpatient (IN) | payer MEDICARE ==
[2019-09-13] MEDS ORDERED: CCU Electrolyte Replacement 1 EACH IVPB ONE (16:46)
[2019-09-13] MEDS ORDERED: Insulin Regular 300 UNITS/3 ML VIAL SC PRN (16:46)
[2019-09-13] MEDS ORDERED: Magnesium Oxide 400 MG TAB PO PRN ×2 (16:57)
[2019-09-13] MEDS ORDERED: Potassium Phosphate 12 MMOL in Sodium Chloride 0.9% 250 ML 250 ML IV PRN (16:57)
[2019-09-13] MEDS ORDERED: Potassium Chloride 40 MEQ in Sodium Chloride 0.9% 250 ML 250 ML IVPB PRN (16:57)
[2019-09-13] MEDS ORDERED: Potassium Chloride 20 MEQ TAB PO PRN (16:57)
[2019-09-13] MEDS ORDERED: Potassium Phosphate 9 MMOL in Sodium Chloride 0.9% 100 ML IVPB PRN (16:57)
[2019-09-13] MEDS ORDERED: Magnesium 2 GM/50 ML 2 GM in Premix Bag 1 BAG IVPB PRN (16:57)
[2019-09-13] MEDS ORDERED: PHOS-NAK 1 PKT PACK PO PRN ×2 (16:57)
[2019-09-13] MEDS ORDERED: CCU ELECTROLYTE REPLACEMENT PROTOCOL FS PRN (16:57)
[2019-09-13] MEDS ORDERED: Potassium Phosphate 15 MMOL in Sodium Chloride 0.9% 250 ML 250 ML IV PRN (16:57)
--- NOTE | 2019-09-13 17:09 | PDOC.HHP ---
Hospitalist HPI - History of Present Illness hypotension History of Present Illness: The patient is nonverbal so the HPI is based on the EMR and verbal sign off. 78-year-old male w/ MHx ESRD of chronically infected calciphylactic ulcers requiring multiple recent hospitalizations (most recently discharge on vancomycin and levofloxacin), ESRD on HD, and hypotension (on midodrine) presents for hypotension. Was transfered to hemodialysis earlier in the morning there he was found to be hypotensive so was transfered to [place] [facility], there he was found to be hypotensive and hypothermic. Administered vanc, aztreonam and trasnfered to the ED. On encounter, lying in bed and is moaning. Could not elicit information considering patient's mental state. ED Course: in the ED, was found to be drowsy, hypothermic 90F, hypotensive, and multiple draining ulcers. Arrived with baldwin and central line in place. A conversation with bright and RADHA was carried out by Dr. Romano and Prashant (previous hand packer/packager as inpatient) regarding prognosis but daughter wanted to maintain full code. He was admitted to the ICU for further management. Hospitalist ROS - Review of Systems ROS unobtainable: due to mental status Hospitalist History - Past Medical History Source: old records (PAST MEDICAL HISTORY: All history taken from the family and the chart as the patient is unable to participate. 1. End-stage renal disease, on hemodialysis Mondays, Wednesdays and Fridays. overseen by Dr. Porter. 2. Pulmonary embolism, on chronic anticoagulation with Coumadin. 3. History of DVT. 4. Gout. 5. Hypertension. 6. Hyperlipidemia. 7. Morbid obesity. 8. Chronic sacral decubitus ulcers with surgical debridement recently. 9. Nonambulatory status. 10. Chronic atrial fibrillation. 11. History of myocardial infarction with coronary artery disease. 12. Orthostatic hypotension. 13. Possible dementia. PAST SURGICAL HISTORY: 1. Left leg surgery. 2. Partial bowel resection. 3. AV fistula placement. 4. Open cholecystectomy. SOCIAL HISTORY: The patient resides currently in [facility], taken care of by his daughter and son-in-law. Previously wheelchair dependent, but now is bed-bound. No alcohol, tobacco, or illicit drug use. FAMILY HISTORY: Positive for diabetes mellitus. ALLERGIES: CLINDAMYCIN AND AMOXICILLIN.) Hepatobiliary: reports: Other (acute pancreatitis) Rheumatologic: reports: no pertinent history Renal/: reports: Chronic renal failure (HD M/W/F), Other (ESRD) Dermatology: reports: no pertinent history - Past Surgical History Past Surgical History: reports: Other (HD fistula RUE Partial colectomy) - Social History Alcohol: reports: None Drugs: reports: none - Exam General Appearance: awake alert, ill appearing General - other findings: moaning Eye: PERRL, anicteric sclera ENT: normocephalic atraumatic, moist mucosa Heart: RRR, no gallops, diminshed peripheral pulses Respiratory: no wheezes, no rales, no ronchi, tachypneic Respiratory - other findings: diffusely reduced breaht sounds, likey due to body habitus Extremities: 2+ LE edema Skin - other findings: multiple pus draining ulcerations on stomach, thighs, buttocks Hospitalist Results - EKG Interpretation EKG: normal sinus with 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 no acute cardiopulmonary findings. 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 OF CALCIUM METABOLISM Status: Chronic (3) Palliative care encounter Code(s): Z51.5 - ENCOUNTER FOR PALLIATIVE CARE Status: Acute (4) ESRD (end stage renal disease) on dialysis Code(s): N18.6 - END STAGE RENAL DISEASE; Z99.2 - DEPENDENCE ON RENAL DIALYSIS Status: Chronic (5) History of pulmonary embolism Code(s): Z86.711 - PERSONAL HISTORY OF PULMONARY EMBOLISM Status: Chronic - Plan Plan: #septic shock -qSOFA 08/12; hypothermic, draining calciphylactic wounds on presentation ( similarly to previous presentations); recently discharge home with home health on vanc and levofloxacin -CXR no acute cardiopulmonary process -baldwin and central line in place -breathing and saturating well on RA however increasingly tachypnic; -patient chronically hypotensive and on home midodrine; -convered with daughter over phone regarding multiple such recent admissions and poor prognosis; in previous admissions, there were multiple attempts by several physicians and teams to clarify that the patient's prognosis and quality of life are poor and will continue to be so -in previous admission, surgery assessed patient and said that was futile to intervene -wound Cx, Blood Cx (peripheral and through dialysis port) -vanc, cefepime, metro -levophed; transition to home regimen of midodrine if improves -bear adriana -strict I/O #Calciphylaxis #ESRD -previously treated with thiosulfate -consulted nephrology #history of pulmonary embolism -on chronic anticoagulation; will continue Disposition/PPx Full code DVT PPx: on therapeutic anticoagulation PPI PPx: no indication Very poor prognosis. Discussed with daughter who is adamant about Full code status. Consulted Palliative team in order to facilitate further discussion.
[2019-09-13] MEDS ORDERED: Dextrose 5% in Water 1,000 ML IV PRN (19:23)
[2019-09-13] MEDS ORDERED: Dextrose 50% Abboject 50 ML SYRINGE SLOW IVP PRN (19:23)
[2019-09-13 20:30] LABS: Potassium 2.9 mmol/L (3.5-5.1)
[2019-09-13] MEDS ORDERED: Potassium Chloride 20 MEQ in Premix Bag 1 BAG IVPB SCH (21:00)
[2019-09-13] MEDS: Apixaban 2.5 MG TAB PO SCH (21:46)
[2019-09-13] MEDS: Cefepime 2 GM in Sodium Chloride 0.9% 100 ML IVPB SCH (21:47)
[2019-09-13] MEDS: metroNIDAZOLE 500 MG in Premix Bag 1 BAG IVPB SCH (21:49)
--- NOTE | 2019-09-14 00:50 | PDOC.EVN ---
Event Note - Event Note Event Note: Patient became hypotensive with MAP in 40s, on levophed 35mcg, max dosing, placed in trendelenberg. Blood pressure improved, gave order for vasopressin IVPB per CCU titrate to MAP 65 as second line, if needed, discussed case with Dr. Mcgrath.
[2019-09-14] MEDS: Vasopressin 40 UNIT, Admixture Fee 1 EACH in Sodium Chloride 0.9% 100 ML IV PRN ×2 (01:10→15:04)
[2019-09-14] MEDS: Norepinephrine 8 MG in Dextrose 5% in Water 242 ML IVPB PRN ×5 (01:11→16:21)
[2019-09-14] MEDS ORDERED: Ondansetron PF 4 MG/2 ML Vial SLOW IVP PRN (03:14)
[2019-09-14] MEDS ORDERED: Sodium Chloride 0.9% 500 ML IVPB SCH (04:30)
[2019-09-14] MEDS: metroNIDAZOLE 500 MG in Premix Bag 1 BAG IVPB SCH ×3 (05:06→22:27)
[2019-09-14 05:30] LABS: Anion Gap 11 mmol/L (10-20); BUN (Urea Nitrogen) 8 mg/dL (8.4-25.7); Calc. Creatinine Clearance 35 mL/min (70-130); Carbon Dioxide 31 mmol/L (23-31); Chloride 100 mmol/L (98-107); Estimated GFR-MDRD 23; Glucose 88 mg/dL (83-110); Potassium 3.1 mmol/L (3.5-5.1); Sodium 139 mmol/L (136-145)
[2019-09-14 05:49] LABS: Band 2 % (5-11); Hemoglobin 9.9 g/dL (14.0-18.0); Hypochromia SLIGHT = 6-15 cells (100X) (0-5/hpf); Lymphocytes 10 % (21-51); MDiff Complete? YES; Mean Corpuscular HGB CONC 28.4 g/dL (32.0-36.0); Mean Corpuscular Hemoglobin 25.7 pg (27.0-31.0); Mean Corpuscular Volume 90.6 fL (78.0-98.0); Mean Platelet Volume 10.1 fL (7.4-10.4); Monocytes 1 % (0-10); Neutrophil 87 % (42-75); Platelet Count 155 thou/uL (130-400); Platelet Morphology Comment Appears Adequate; Polychromasia SLIGHT = 2-3 cells (100X) (0-2/hpf); RBC Distribution Width 22.8 % (11.5-14.5); Red Blood Cell (RBC) Count 3.85 mill/uL (4.70-6.10); Target Cells MODERATE= 6-15 cells (100X) (0-1/hpf); White Blood Cell (WBC) Count 10.4 thou/uL (4.8-10.8)
[2019-09-14] MEDS: Potassium Chloride 40 MEQ in Premix Bag 1 BAG IVPB PRN ×2 (06:46→22:29)
[2019-09-14] MEDS ORDERED: Vancomycin HCl 750 MG in Sodium Chloride 0.9% 250 ML 250 ML IVPB SCH (09:00)
[2019-09-14] MEDS ORDERED: Vancomycin HCl 1.5 GM in Sodium Chloride 0.9% 250 ML 300 ML IVPB SCH (09:00)
[2019-09-14] MEDS ORDERED: Vancomycin HCl 1.25 GM in Sodium Chloride 0.9% 250 ML 250 ML IVPB SCH (09:00)
[2019-09-14] MEDS ORDERED: HOLD VANCOMYCIN FOR LEVEL >20 FS SCH (09:00)
[2019-09-14] MEDS ORDERED: Vancomycin 1 GM in Premix Bag 1 BAG IVPB SCH (09:00)
[2019-09-14 09:03] LABS: Vancomycin, Random 40.6 ug/mL (See Comment)
[2019-09-14] MEDS: Apixaban 2.5 MG TAB PO SCH (09:13)
[2019-09-14] MEDS: Cefepime 2 GM in Sodium Chloride 0.9% 100 ML IVPB SCH ×2 (09:14→20:59)
--- NOTE | 2019-09-14 10:49 | PRG ---
DATE OF SERVICE: 09/14/2019 SUBJECTIVE: Mr. 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 We are being consulted for his maintenance hemodialysis. He missed dialysis yesterday. However, due to the low blood pressure and several pressor support, we are still holding dialysis. I do not find any indication for any emergent hemodialysis today. OBJECTIVE: VITAL SIGNS: Blood pressure is 97/70, heart rate 70. GENERAL: The patient is awake, lethargic, obese, not in distress. SKIN: Adequate turgor. HEENT: He has a pinkish conjunctivae. Anicteric sclerae. No neck mass. No carotid bruits. No JVD. CHEST: No deformities. LUNGS: Clear breath sounds. HEART: Normal sinus rhythm. No murmur. No gallops. No rubs. ABDOMEN: Globular, soft, nontender, no masses. EXTREMITIES: No edema. BACK: Positive for multiple ulcerations. MEDICATIONS: Medications of September 14, 2019, reviewed. LABORATORY DATA: Laboratories of September 14, 2019; white count 10.4, hemoglobin 9.9, sodium 139, potassium 3.1, chloride 100, carbon dioxide 31, BUN 8, creatinine 3.18, glucose 88, calcium 9, TSH 6.1. ASSESSMENT AND PLAN: 1. End-stage renal disease. No indication for any emergent hemodialysis. Due to the low blood pressure, we will hold off dialysis. We will re-evaluate again in a.m. Overall, prognosis with this patient remains poor due to underlying comorbid problems, sepsis and underlying calciphylaxis. 2. 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 3. Anemia. Resume Epogen at 7500 units subcu every week. 4. Sepsis-patient was initially hypothermic. On empiric IV antibiotics. 5. Chronic hypotension, currently on a pressor support. Job ID: [id number]
--- NOTE | 2019-09-14 11:31 | CON ---
DATE OF CONSULTATION: 09/14/2019 REASON FOR CONSULTATION: Sepsis. HISTORY OF PRESENT ILLNESS: Mr. Estevez is a medically complex 78-year-old gentleman with history of end-stage renal disease requiring maintenance hemodialysis for the past 4 or 5 years. His family is not aware of the precipitating cause for his renal failure and he specifically denies a history of diabetes or hypertension. He has developed calciphylaxis in the past 4 or 5 months with the development of multiple ulcerative lesions requiring complex skin care and wound debridement. His most recent hospitalization was 2 weeks ago. He has formally had placement of wound VACs and was sent to a nursing facility for rehab; however, he did not apparently make progress and the family was frustrated of his care and he has subsequently been at his residence with family supervision. He is not ambulatory, but is able to sit up on the side of the bed and is able to feed himself. The family has not described any difficulty with chocking or swallowing. The patient presented to the dialysis center yesterday and was hypotensive, and therefore transferred to the emergency room in [place] and then subsequently admitted here. Cultures have been obtained and empiric antibiotic therapy with vancomycin and aztreonam have been provided. The patient has previously had an [id number] DNR, but the daughter had revoked it at the time of this admission. SOCIAL HISTORY: The patient has a history of intolerance to penicillin. He does not have a history of tobacco use. He lives at home with family. PAST MEDICAL HISTORY: Remarkable for end-stage renal disease requiring maintenance hemodialysis. He has a history of previous pulmonary embolus, on chronic anticoagulation therapy as well as a history of DVT. He has a history of gout, hypertension, dyslipidemia, morbid obesity and calciphylaxis with multiple ulcerations. He is largely nonambulatory. He has a history of chronic atrial fibrillation and more likely that is the cause for his chronic anticoagulation. He has a history of coronary disease with previous myocardial infarction as well as a history of possible dementia. This is obtained from the patient's chart. According to the family, the patient has had a dramatic change in status over the past year. His has and he seems less active and less interested in activities. REVIEW OF SYSTEMS: Unobtainable from the patient due to altered mentation. I have reviewed a list of symptoms with the patient's family. They state that his blood pressure is "always low." PAST SURGICAL HISTORY: Remarkable for placement of an AV fistula and recent cholecystectomy. PHYSICAL EXAMINATION: VITAL SIGNS: Current blood pressure 103/49, respiratory rate 15, saturations 100%, heart rate 75. He has had 1900 cc in and only 150 cc emesis out since the time of admission. His weight is 291 pounds. He has a BMI of 42. GENERAL: He is awake, but nonverbal and does not follow commands. He is an 78-year-old gentleman. He is awake, but poorly responsive to verbal stimuli. NECK: He has no palpable adenopathy. He has no JVD. LUNGS: Show rhonchi in the posterior lung zones, but no wheezing. HEART: Regular rate and rhythm without murmur. ABDOMEN: Obese. He has a dressing over the right upper quadrant due to his recent cystectomy and he has some guarding and complaints of pain with palpation in that area. EXTREMITIES: Show 1+ edema. He has multiple ulcerations with bandages consistent with his calciphylaxis and ulcerations. NEUROLOGIC: He does not follow commands. LABORATORY DATA: White count is 10,400, hemoglobin is 9.9, platelet count 155,000. Chemistries include sodium 139, potassium 2.9 and repeated at 3.1, chloride 100, CO2 of 31, BUN 8 with creatinine 3.2. His TSH is 6.1. Cultures have been obtained and are negative to date from blood. Wound cultures demonstrate gram-negative garrett. IMPRESSION: 1. Sepsis, presumably secondary to wound infection. He is on empiric antibiotic therapy. 2. End-stage renal disease, on maintenance hemodialysis. Blood pressure is currently requiring pressor support and decision to initiate dialysis today is deferred to the Nephrology Service. He did not receive dialysis yesterday. He does not appear to have acute dialysis indicators. 3. Calciphylaxis secondary to above. Unfortunately, this is a chronic and extraordinarily difficult to control disease. I have tried to emphasize to the family that at best we can provide some limits to control, but no real evidence that they can be cured and prevented on an ongoing basis. 4. Altered mentation, presumably largely due to his dementia. 5. History of atrial fibrillation. RECOMMENDATIONS: The patient is continued on fluids with some limits due to his renal failure and potential for volume overload. At this point, he is also on pressors and decision regarding dialysis is deferred to the Nephrology Service. He is on empiric antibiotics pending further culture and sensitivity data. The family has revoked his DNR. I will try to have ongoing conversations with them and feel that they may be more open to input from the Nephrology Service as his wounds are a dominant issue and focus of theirs and clearly within the nephrology purview. They anticipate taking him home. A consideration of adult protective service evaluation would also be appropriate. We will continue to follow and provide additional assistance. Thank you for this consultation. Job ID: [id number]
[2019-09-14] MEDS ORDERED: EPOETIN ALFA-EPBX (ESRD) 4,000 UNIT/ML VIAL SC SCH (12:00)
[2019-09-14 12:45] LABS: Magnesium 1.6 mg/dL (1.6-2.6)
[2019-09-14 13:03] LABS: HBSAg Index 0.21 S/CO (0-0.99); Hep B Surf Ag Non-Reactive S/CO (NonReactive)
[2019-09-14] MEDS: Dextrose 5% in Water 1,000 ML IV SCH (13:25)
[2019-09-14] MEDS: Midodrine HCl 5 MG TAB PO SCH ×2 (14:34→20:59)
[2019-09-14] MEDS ORDERED: Midodrine HCl 5 MG TAB PO SCH (15:00)
--- NOTE | 2019-09-14 15:30 | PDOC.HOSPP ---
- Subjective Encounter Date: 09/14/19 Encounter Time: 11:15 Subjective: pt in bed, awake but not able to communicate. - Objective Vital Signs & Weight: Vital Signs (12 hours) Temp 09/14/19 04:00 99.0 F Weight Admit Weight 294 lb 15.7 oz Weight 291 lb 7.2 oz Most Recent Monitor Data Heart Rate from ECG 72 NIBP 121/58 NIBP BP-Mean 79 Respiration from ECG 17 SpO2 100 I&O: 09/13/19 09/14/19 09/15/19 06:59 06:59 06:59 Intake Total 1934.8 Output Total 150 Balance 1784.8 Result Diagrams: 09/14/19 03:55 09/14/19 03:55 Additional Labs: Accuchecks 09/14/19 09/13/19 04:55 20:07 POC Glucose 84 88 Hospitalist ROS - Review of Systems Other: unable to obtain - Medication Medications: Active Medications Generic Name Dose Route Start Last Admin Trade Name Freq PRN Reason Stop Dose Admin Epoetin Michael-epbx 7,500 unit 09/14/19 12:00 09/14/19 12:59 Retacrit SC 7,500 unit Q7D BENNIE Administration Norepinephrine Bitartrate 8 mg 250 mls @ 0 mls/hr 09/13/19 15:09 09/14/19 12: 53 / Dextrose/Water IVPB 250 mls INF PRN Administration TO MAINTAIN MAP > 65 Protocol As Directed Cefepime HCl 2 gm/ Sodium 100 mls @ 200 mls/hr 09/13/19 21:00 09/14/19 09:14 Chloride IVPB 100 mls Q12HR BENNIE Administration Potassium Chloride 40 meq/ 100 mls @ 50 mls/hr 09/13/19 16:57 09/14/19 06:46 Device IVPB 100 mls ASDIR PRN Administration FOR SERUM K+ 2.5 - 3.5 Metronidazole 500 mg/ Device 100 mls @ 100 mls/hr 09/13/19 22:00 09/14/19 14: 32 IVPB 100 mls Q8HR BENNIE Administration Vasopressin 40 unit/ 102 mls @ 0 mls/hr 09/14/19 00:44 09/14/19 15:04 Miscellaneous Medication 1 IV 102 mls each/ Sodium Chloride INF PRN Administration TO KEEP MAP > 65 Protocol As Directed Sodium Thiosulfate 25 gm/ 200 mls @ 100 mls/hr 09/14/19 10:15 09/14/19 12:59 Sodium Chloride IVPB 09/14/19 16:00 200 mls ONE BENNIE Administration Midodrine 7.5 mg 09/14/19 15:00 09/14/19 14:34 Proamatine PO Not Given TID BENNIE Sodium Chloride 10 ml 09/13/19 21:00 09/14/19 09:14 Flush - Normal Saline IVF 10 ml Q12HR BENNIE Administration - Exam Neck: negative: supple, symmetric, no JVD, no thyromegaly, no lymphadenopathy, no carotid bruit, JVD Heart: negative: RRR, no murmur, no gallops, no rubs, normal peripheral pulses, irregular, diminshed peripheral pulses, murmur present, II/IV, III/IV Respiratory - other findings: diminished breath sound all over Gastrointestinal: negative: soft, non-tender, non-distended, normal bowel sounds , no palpable masses, no hepatomegaly, no splenomegaly, no bruit, no guarding, no rigidity, tender to palpation, distended, diminished bowl sounds, voluntary guarding Skin - other findings: right upper thigh, abdomen,left buttock, femoral skin tear, abdomen folds Neurological - other findings: awake but does not follow commands Hosp A/P (1) Septic shock Code(s): A41.9 - SEPSIS, UNSPECIFIED ORGANISM; R65.21 - SEVERE SEPSIS WITH SEPTIC SHOCK Status: Acute (2) Sacral decubitus ulcer, stage III Code(s): L89.153 - PRESSURE ULCER OF SACRAL REGION, STAGE 3 Status: Acute (3) Calciphylaxis Code(s): E83.59 - OTHER DISORDERS OF CALCIUM METABOLISM Status: Chronic (4) Chronic anticoagulation Code(s): Z79.01 - ROAD BOSS (CURRENT) USE OF ANTICOAGULANTS Status: Chronic (5) ESRD (end stage renal disease) on dialysis Code(s): N18.6 - END STAGE RENAL DISEASE; Z99.2 - DEPENDENCE ON RENAL DIALYSIS Status: Chronic (6) History of deep venous thrombosis or pulmonary embolus Code(s): BCX4418 - Status: Chronic (7) Hypertension Code(s): I10 - ESSENTIAL (PRIMARY) HYPERTENSION Status: Chronic Qualifiers: Hypertension type: essential hypertension Qualified Code(s): I10 - Essential (primary) hypertension - Plan pt currently on vasopressin and norepinephrine. ICU physician did speak with pt' s daughter who still wants everything to be done. Pt vanco/flagyl/cefepime. will replace K. pt's overall prognosis is poor. nephrology consulted.
[2019-09-14] MEDS: Fentanyl 100 MCG/2 ML VIAL SLOW IVP PRN (16:33)
[2019-09-14] MEDS: Gabapentin 100 MG CAP PO SCH (20:58)
[2019-09-14] MEDS ORDERED: Apixaban 2.5 MG TAB PO SCH (21:00)
[2019-09-14] MEDS ORDERED: Rosuvastatin 20 MG TAB PO SCH (21:00)
[2019-09-14] MEDS ORDERED: Gabapentin 100 MG CAP PO SCH (21:00)
--- NOTE | 2019-09-14 21:33 | PDOC.EVN ---
Event Note - Event Note Event Note: Nursing reports patient not taking po eliquis, he is pushing tablet around in mouth. Reviewed labs/meds and discussed with Dr. Mcgrath, will give heparin 5000u SC now, then instructed nursing to address plan with rui MONTENEGRO.
[2019-09-14 22:07] LABS: Anion Gap 15 mmol/L (10-20); BUN (Urea Nitrogen) 9 mg/dL (8.4-25.7); Calc. Creatinine Clearance 30 mL/min (70-130); Calcium 8.9 mg/dL (7.8-10.44); Carbon Dioxide 26 mmol/L (23-31); Chloride 100 mmol/L (98-107); Estimated GFR-MDRD 19; Glucose 134 mg/dL (83-110); Magnesium 1.6 mg/dL (1.6-2.6); Potassium 3.3 mmol/L (3.5-5.1); Sodium 138 mmol/L (136-145)
[2019-09-15] MEDS: Dextrose 5% in Water 1,000 ML IV SCH ×2 (01:18→15:06)
[2019-09-15] MEDS: Norepinephrine 8 MG in Dextrose 5% in Water 242 ML IVPB PRN ×2 (04:01→08:35)
[2019-09-15] MEDS: Vasopressin 40 UNIT, Admixture Fee 1 EACH in Sodium Chloride 0.9% 100 ML IV PRN (04:30)
[2019-09-15 05:01] LABS: Magnesium 1.7 mg/dL (1.6-2.6); Phosphorus 1.9 mg/dL (2.3-4.7)
[2019-09-15] MEDS: metroNIDAZOLE 500 MG in Premix Bag 1 BAG IVPB SCH ×3 (05:28→21:27)
[2019-09-15] MEDS ORDERED: Docusate 100 MG CAP PO PRN (07:22)
[2019-09-15] MEDS ORDERED: Potassium Phosphate 9 MMOL in Sodium Chloride 0.9% 100 ML IVPB SCH (07:30)
[2019-09-15 08:41] LABS: Anion Gap 14 mmol/L (10-20); BUN (Urea Nitrogen) 11 mg/dL (8.4-25.7); Calc. Creatinine Clearance 30 mL/min (70-130); Calcium 9.3 mg/dL (7.8-10.44); Carbon Dioxide 27 mmol/L (23-31); Chloride 99 mmol/L (98-107); Estimated GFR-MDRD 18; Glucose 124 mg/dL (83-110); Potassium 3.3 mmol/L (3.5-5.1); Sodium 137 mmol/L (136-145)
[2019-09-15 08:59] LABS: Hemoglobin 8.6 g/dL (14.0-18.0); Mean Corpuscular HGB CONC 29.9 g/dL (32.0-36.0); Mean Corpuscular Volume 86.9 fL (78.0-98.0); Mean Platelet Volume 10.2 fL (7.4-10.4); Platelet Count 113 thou/uL (130-400); RBC Distribution Width 21.7 % (11.5-14.5); Red Blood Cell (RBC) Count 3.31 mill/uL (4.70-6.10); White Blood Cell (WBC) Count 8.6 thou/uL (4.8-10.8)
[2019-09-15] MEDS ORDERED: Saccharomyces boulardii 250 MG CAP PO SCH (09:00)
[2019-09-15] MEDS ORDERED: Allopurinol 100 MG TAB PO SCH ×2 (09:00)
[2019-09-15 09:21] LABS: Hypochromia SLIGHT = 6-15 cells (100X) (0-5/hpf); Lymphocytes 26 % (21-51); MDiff Complete? YES; Macrocytosis SLIGHT = 6-15 cells (100X) (0-5/hpf); Monocytes 8 % (0-10); Neutrophil 65 % (42-75); Nucleated RBC 3 % (0); Platelet Morphology Comment Appears Decreased; Target Cells SLIGHT = 2-5 cells (100X) (0-1/hpf)
[2019-09-15] MEDS: Gabapentin 100 MG CAP PO SCH (10:16)
[2019-09-15] MEDS: Midodrine HCl 5 MG TAB PO SCH ×2 (10:17→15:07)
[2019-09-15] MEDS: Heparin 5,000 UNITS/ML VIAL SC SCH ×2 (10:28→20:27)
--- NOTE | 2019-09-15 11:15 | PRG ---
DATE OF SERVICE: 09/15/2019 SUBJECTIVE: There has been no significant change in Mr. Estevez's status over the past 24 hours. The nurses have applied a mask because he is spitting. He continues to have evidence of pain with movements due to his ulcers. He remains on pressor therapy. PHYSICAL EXAMINATION: VITAL SIGNS: Blood pressure 101/69, heart rate 74, saturation 100%. GENERAL: He is awake, but nonverbal. He does complain of pain with palpation or movement, especially if it involves his decubiti. NECK: There is no adenopathy or JVD. LUNGS: Show rhonchi. I do not hear any wheezing. HEART: Regular rate and rhythm without murmur. ABDOMEN: Soft. He has midline incision which remains moderately tender to palpation. EXTREMITIES: Show 1+ edema. He has stasis changes of his lower extremities. He has multiple decubitus detailed by the nurse notes. LABORATORY DATA: White count today 8600, hemoglobin is 8.6, platelet count 113,000. Chemistries include sodium 137, potassium 3.3, chloride 99, BUN 11, creatinine 3.9. He has had no further positive blood cultures. IMPRESSION: 1. Hypotension presumed secondary to sepsis. This is most likely related to the patient's multiple wounds. 2. End-stage renal disease, on maintenance hemodialysis. He does not have acute dialysis lab indicators today but formal decision is deferred to Nephrology. 3. Multiple wounds secondary to calciphylaxis. The family does not fully understand the diagnosis, etiology and prognosis associated with this. They have unreasonable expectations about his recovery. I have suggested to the hospitalists that the family have a conversation with Nephrology as they have the longest relationship with him and are directly related to his life-sustaining interventions which include his dialysis and his wounds. PLAN: At this time, we continue current supportive therapies. I do not anticipate change in antibiotics. His Pisano can be discontinued as he is functionally anuric. Decisions regarding dialysis are deferred to the Nephrology Service. I have spoken with the family yesterday but not today. I think that the next conversation should probably come from the Nephrology Service. In the past, the patient was DNR, but this was revoked by family and they clearly have multiple unreasonable expectations. Job ID: [id number]
--- NOTE | 2019-09-15 11:18 | PRG ---
DATE OF SERVICE: 09/15/2019 SUBJECTIVE: Mr. Estevez is an 78-year-old black male with ESRD, known history of calciphylaxis, and admitted for sepsis. He was initially noted to be hypotensive. He has been placed on pressor support. Currently, we are tapering off pressors. He is also on empiric IV antibiotics. He is also being treated with sodium thiosulfate for his calciphylaxis at least 3 times a week. Holding dialysis due to the low blood pressure. OBJECTIVE: VITAL SIGNS: Blood pressure is noted at 101/69, heart rate 74, respiratory rate 17, O2 saturation 100%. GENERAL: The patient is awake, obese, mildly confused. SKIN: Adequate turgor. HEENT: He has a slightly pale conjunctivae. Anicteric sclerae. NECK: No neck mass. No carotid bruits. No JVD. CHEST: No deformities. LUNGS: Decreased breath sounds. HEART: Normal sinus rhythm. No murmurs, no gallops, no rubs. ABDOMEN: Globular, soft, nontender. No masses. EXTREMITIES: Positive for edema. No deformities. MEDICATIONS: Medications of September 15, 2019, reviewed. LABORATORY DATA: Laboratories of September 15, 2019; white count 8.6, hemoglobin 8.6. Sodium 137, potassium 3.3, chloride 99, carbon dioxide 27, BUN 11, creatinine 3.91, glucose 124, calcium 9.3. Phosphorus 1.9, magnesium 1.7. ASSESSMENT AND PLAN: 1. End-stage renal disease, stable. No indication for an emergent hemodialysis. We will re-evaluate in a.m. for possible dialysis. 2. Hypophosphatemia, on K-Phos repletion. 3. Calciphylaxis. Continue sodium thiosulfate at 25 g IV every hemodialysis or three times a week. He received a dose yesterday. 4. Hypotension/sepsis, on empiric IV antibiotics. The patient's overall prognosis remains poor. We may need to re-discuss again the issue with the patient's children. Job ID: [id number]
[2019-09-15] MEDS: Potassium Chloride 40 MEQ in Premix Bag 1 BAG IVPB PRN (13:38)
[2019-09-15] MEDS: MEROPENEM 1 GM/50 ML 1 GM in Premix Bag 1 BAG IVPB SCH ×2 (13:42→21:27)
--- NOTE | 2019-09-15 13:53 | PDOC.HOSPP ---
- Subjective Encounter Date: 09/15/19 Encounter Time: 09:45 Subjective: pt up in bed confused. He is unable to swallow - Objective Vital Signs & Weight: Vital Signs (12 hours) Temp Pulse Ox 09/15/19 08:00 98.8 F 100 09/15/19 04:00 97.9 F Weight Admit Weight 294 lb 15.7 oz Weight 305 lb 8.971 oz Most Recent Monitor Data Heart Rate from ECG 74 NIBP 101/69 NIBP BP-Mean 79 Respiration from ECG 17 SpO2 100 I&O: 09/14/19 09/15/19 09/16/19 06:59 06:59 06:59 Intake Total 1934.8 3497.1 100 Output Total 150 0 0 Balance 1784.8 3497.1 100 Result Diagrams: 09/15/19 08:01 09/15/19 08:01 Additional Labs: Accuchecks 09/15/19 09/15/19 09/15/19 10:42 05:35 00:57 POC Glucose 149 H 138 H 140 H 09/14/19 09/14/19 09/14/19 20:49 17:02 13:12 POC Glucose 144 H 142 H 113 H 09/14/19 09/14/19 08:38 00:55 POC Glucose 107 80 Hospitalist ROS - Review of Systems Other: unable to obtain - Medication Medications: Active Medications Generic Name Dose Route Start Last Admin Trade Name Freq PRN Reason Stop Dose Admin Allopurinol 100 mg 09/15/19 09:00 09/15/19 10:16 Zyloprim PO Not Given DAILY [facility] Epoetin Michael-epbx 7,500 unit 09/14/19 12:00 09/14/19 12:59 Retacrit SC 7,500 unit Q7D BENNIE Administration Fentanyl 25 mcg 09/14/19 15:26 09/14/19 16:33 Sublimaze SLOW IVP 25 mcg Q6H PRN Administration Pain Gabapentin 100 mg 09/14/19 21:00 09/15/19 10:16 Neurontin PO Not Given BID [facility] Heparin Sodium (Porcine) 5,000 units 09/15/19 09:00 09/15/19 10:28 Heparin SC 5,000 units BID BENNIE Administration Potassium Chloride 40 meq/ 100 mls @ 50 mls/hr 09/13/19 16:57 09/15/19 13:38 Device IVPB 100 mls ASDIR PRN Administration FOR SERUM K+ 2.5 - 3.5 Magnesium Sulfate 1 gm/ Sodium 102 mls @ 102 mls/hr 09/13/19 16:57 09/15/19 05:27 Chloride IV 102 mls PRN PRN Administration MAG LEVEL 1.4 - 2.0 Metronidazole 500 mg/ Device 100 mls @ 100 mls/hr 09/13/19 22:00 09/15/19 13: 42 IVPB 100 mls Q8HR BENNIE Administration Vasopressin 40 unit/ 102 mls @ 0 mls/hr 09/14/19 00:44 09/15/19 04:30 Miscellaneous Medication 1 IV 102 mls each/ Sodium Chloride INF PRN Administration TO KEEP MAP > 65 Protocol As Directed Dextrose/Water 1,000 mls @ 100 mls/hr 09/14/19 18:00 09/15/19 01:18 D5w IV 1,000 mls .Q10H BENNIE Administration Potassium Phosphate 9 mmol/ 103 mls @ 25 mls/hr 09/15/19 07:30 09/15/19 08:08 Sodium Chloride IVPB 09/15/19 14:00 103 mls NOW BENNIE Administration Meropenem 1 gm/ Device 50 mls @ 200 mls/hr 09/15/19 14:00 09/15/19 13:42 IVPB 50 mls Q8HR BENNIE Administration Midodrine 7.5 mg 09/14/19 15:00 09/15/19 10:17 Proamatine PO Not Given TID BENNIE Quetiapine Fumarate 12.5 mg 09/15/19 09:00 09/15/19 10:18 Seroquel PO Not Given BID BENNIE Rosuvastatin Calcium 20 mg 09/14/19 21:00 09/14/19 20:59 Crestor PO Not Given HS BENNIE Saccharomyces Boulardii 250 mg 09/15/19 09:00 09/15/19 10:18 Florastor PO Not Given DAILY BENNIE Sodium Chloride 10 ml 09/13/19 21:00 09/15/19 10:18 Flush - Normal Saline IVF 10 ml Q12HR BENNIE Administration - Exam Heart: negative: RRR, no murmur, no gallops, no rubs, normal peripheral pulses, irregular, diminshed peripheral pulses, murmur present, II/IV, III/IV Respiratory: negative: CTAB, no wheezes, no rales, no ronchi, normal chest expansion, no tachypnea, normal percussion, rales, rhonchi, tachypneic, wheezes Gastrointestinal: negative: soft, non-tender, non-distended, normal bowel sounds , no palpable masses, no hepatomegaly, no splenomegaly, no bruit, no guarding, no rigidity, tender to palpation, distended, diminished bowl sounds, voluntary guarding Extremities: 2+ LE edema Skin - other findings: significant wounds all over buttocks. one in his abd, few on his thigh Hosp A/P (1) Septic shock Code(s): A41.9 - SEPSIS, UNSPECIFIED ORGANISM; R65.21 - SEVERE SEPSIS WITH SEPTIC SHOCK Status: Acute (2) Sacral decubitus ulcer, stage III Code(s): L89.153 - PRESSURE ULCER OF SACRAL REGION, STAGE 3 Status: Acute (3) Calciphylaxis Code(s): E83.59 - OTHER DISORDERS OF CALCIUM METABOLISM Status: Chronic (4) Chronic anticoagulation Code(s): Z79.01 - PRIME BROKER (CURRENT) USE OF ANTICOAGULANTS Status: Chronic (5) ESRD (end stage renal disease) on dialysis Code(s): N18.6 - END STAGE RENAL DISEASE; Z99.2 - DEPENDENCE ON RENAL DIALYSIS Status: Chronic (6) History of deep venous thrombosis or pulmonary embolus Code(s): [id number] - Status: Chronic (7) Hypertension Code(s): I10 - ESSENTIAL (PRIMARY) HYPERTENSION Status: Chronic Qualifiers: Hypertension type: essential hypertension Qualified Code(s): I10 - Essential (primary) hypertension - Plan pt currently on vasopressin and norepinephrine. ICU physician did speak with pt' s daughter who still wants everything to be done. Pt vanco/flagyl/cefepime. will replace K. pt's overall prognosis is poor. nephrology consulted. 4/5 pt still not able to swallow, he will not be able to undergo dialysis since he is on two pressors. Unable to wean him off. will continue abx. his wound cx grew pseudomonas/enterococcus. will change his abx to janeth/vanco.
[2019-09-15] MEDS ORDERED: Meropenem 1 GM in Sodium Chloride 0.9% 100 ML IVPB SCH (14:00)
[2019-09-15] MEDS: Norepinephrine 16 MG in Dextrose 5% in Water 234 ML IVPB PRN (15:06)
--- NOTE | 2019-09-15 18:55 | CON ---
DATE OF CONSULTATION: 09/15/2019 REASON FOR CONSULTATION: Hypothermia and sepsis. 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 The patient was admitted with hypotension, confusional state during his hemodialysis session on September 12. On arrival, his systolic blood pressure is 92. He was awake, did not have any specific complaints, seemed to be oriented on admission. Review of systems was not helpful due to his confusional state. Initial findings included BP 95/ 42. He was hypothermic at 89.3, tympanic membrane temperature, pulse 60, his temperature warmed up to 91.2 during the stay at the emergency room, O2 saturations were 100. The exam showed multiple wounds in sacrum, abdominal wall, lower extremities. Remainder aspects of the examination were not particularly remarkable. Currently, Mr. Estevez is awake. He has his mouth covered by mask. He does not appear in distress, a bit confused. He had a little bit of loose stool. PAST MEDICAL HISTORY: Includes ischemic cardiomyopathy; hypertension; ESRD, presumably secondary to nephrosclerosis; dementia, likely vascular; prior DVT with pulmonary embolism, on warfarin; gout; and multiple areas of skin ulcerations, which could be consistent with calciphylaxis; on hemodialysis with an AV fistula for many years. PAST SURGICAL HISTORY: Cholecystectomy and biopsy of skin lesion. SOCIAL HISTORY: half-way resident. Never smoker. ALLERGIES: CLINDAMYCIN AND AMOXICILLIN. FAMILY HISTORY: Noncontributory. CURRENT MEDICATIONS: 1. Zyloprim. 2. Colace. 3. Retacrit. 4. Sublimaze. 5. Neurontin. 6. Heparin. 7. Insulin. 8. Meropenem. 9. Flagyl. 10. Vancomycin. PHYSICAL EXAMINATION: VITAL SIGNS: His temperature now is back up, maximum was 99, currently 98.5; blood pressure 94/55; pulse 68; respirations 15; O2 saturation 99. He has had positive fluid balance over the past 2 days, quite a bit positive. He does not have any indwelling catheter, has minimal output. SKIN: The patient has multiple skin ulcerations in the lateral thigh with necrotic base and indurated margins, lateral abdomen and gluteal region. The patient has a right-sided jugular venous catheter, triple-lumen. Areas of hyperpigmentation in the lower extremity skin. HEENT: Ocular movements are conjugate. Sclerae are tanned color. Oral cavity is dry. NECK: No jugular vein distention. LUNGS: Symmetric air entry. S1 and S2, regular rate. No S3 or S4. HEART: Sounds are markedly diminished. ABDOMEN: Soft. Not tender. Not distended. No bladder distention. NEUROLOGIC: He is diffusely weak, although he seems to be able to move all extremities. Plantar responses are indifferent. Pulses are 1+ in dorsalis pedis. He is awake, establishes eye contact, but mumbles unintelligible sounds. LABORATORY DATA: White cell count 10.4 and now 8.6, hemoglobin 9.9 and 8.6, platelets 155,000 and 113,000, 87% neutrophils and now 65% neutrophils. Sodium 137, creatinine 3.91, glucose 124, and phosphorus 1.9. Vancomycin random 40.6. Microbiology with Pseudomonas aeruginosa, Enterococcus, and yeast from the cultures. Pseudomonas aeruginosa resistant to quinolones, susceptible to meropenem. Chest x-ray with poor inspiratory effort, some interstitial markings. Brain CT with no acute findings. ASSESSMENT: 1. Ischemic cardiomyopathy. 2. Hypertension. 3. End-stage renal disease due to nephrosclerosis, on hemodialysis with AV fistula. 4. Calciphylaxis. 5. Prior episodes of deep vein thrombosis with pulmonary embolism. DISCUSSION: Differential diagnosis includes sepsis from one of the skin lesions versus, thromboembolism since he has had subtherapeutic warfarin checks in the past, intraabdominal inflammatory process is not ruled out. He does have some tenderness in the abdominal area. Imaging might be required depending on clinical progress. His prior CT of abdomen and pelvis was not remarkable. His last echocardiogram was done in June and it showed EF 50% to 55%. Repeat echo might be helpful in view of the possibility of progression of cardiomyopathy. Flagyl overlaps with meropenem. Meropenem has perfect anaerobic coverage, so metronidazole is not needed in the combination. Job ID: [id number] [facility]
[2019-09-16] MEDS: Dextrose 5% in Water 1,000 ML IV SCH ×2 (00:41→17:41)
[2019-09-16] MEDS: Vasopressin 40 UNIT, Admixture Fee 1 EACH in Sodium Chloride 0.9% 100 ML IV PRN ×2 (00:41→17:53)
[2019-09-16 04:52] LABS: Anion Gap 16 mmol/L (10-20); BUN (Urea Nitrogen) 12 mg/dL (8.4-25.7); Calc. Creatinine Clearance 27 mL/min (70-130); Calcium 9.7 mg/dL (7.8-10.44); Carbon Dioxide 26 mmol/L (23-31); Chloride 96 mmol/L (98-107); Estimated GFR-MDRD 16; Glucose 118 mg/dL (83-110); Potassium 3.7 mmol/L (3.5-5.1); Sodium 134 mmol/L (136-145)
[2019-09-16 05:03] LABS: Band 1 % (5-11); Eosinophils 1 % (0-10); Hemoglobin 8.6 g/dL (14.0-18.0); Hypochromia SLIGHT = 6-15 cells (100X) (0-5/hpf); Lymphocytes 21 % (21-51); MDiff Complete? YES; Mean Corpuscular HGB CONC 30.7 g/dL (32.0-36.0); Mean Corpuscular Hemoglobin 26.3 pg (27.0-31.0); Mean Corpuscular Volume 85.5 fL (78.0-98.0); Mean Platelet Volume 11.6 fL (7.4-10.4); Monocytes 6 % (0-10); Neutrophil 71 % (42-75); Nucleated RBC 1 % (0); Platelet Count 91 thou/uL (130-400); Platelet Morphology Comment Appears Decreased; RBC Distribution Width 21.5 % (11.5-14.5); Red Blood Cell (RBC) Count 3.29 mill/uL (4.70-6.10); Target Cells SLIGHT = 2-5 cells (100X) (0-1/hpf); White Blood Cell (WBC) Count 8.9 thou/uL (4.8-10.8)
[2019-09-16] MEDS: MEROPENEM 1 GM/50 ML 1 GM in Premix Bag 1 BAG IVPB SCH ×3 (06:01→22:15)
[2019-09-16] MEDS: metroNIDAZOLE 500 MG in Premix Bag 1 BAG IVPB SCH (06:01)
[2019-09-16] MEDS: Heparin 5,000 UNITS/ML VIAL SC SCH ×2 (08:03→20:15)
[2019-09-16 08:23] LABS: Vancomycin, Random 30.5 ug/mL (See Comment)
[2019-09-16] MEDS: Norepinephrine 16 MG in Dextrose 5% in Water 234 ML IVPB PRN ×2 (08:24→17:53)
[2019-09-16] MEDS: Fentanyl 100 MCG/2 ML VIAL SLOW IVP PRN ×3 (09:15→23:02)
--- NOTE | 2019-09-16 09:25 | PRG ---
DATE OF SERVICE: 09/16/2019 SUBJECTIVE: Mr. Estevez is an 78-year-old black male with ESRD and being followed up by the Renal Service for his management of his ESRD. The patient will undergo hemodialysis. I held off the dialysis in the last few days due to the low blood pressure. He is currently still on pressor support. I had long discussion with the daughter, Radha, regarding DNR and consideration for eventual hospice. She declined and states that she wants everything done for her father. We will again rediscuss this issue. No acute events noted. OBJECTIVE: VITAL SIGNS: Blood pressure is 118/58, heart rate 78, respiratory rate 17, and O2 saturation 100%. GENERAL: Noted to be awake, alert, and comfortable, not in overt distress. SKIN: Adequate turgor. HEENT: Slightly pale conjunctivae. Anicteric sclerae. No neck mass. No carotid bruits. No JVD. CHEST: No deformities. LUNGS: Decreased breath sounds. HEART: Normal sinus rhythm. No murmur. No gallops. No rubs. ABDOMEN: Globular, soft, and nontender. No masses. BACK: Positive for also multiple ulcerations. EXTREMITIES: No edema. Positive for ulcerations at the back of the thigh. MEDICATIONS: Of September 16, 2019, was reviewed. LABORATORY DATA: September 16, 2019; white count 8.9, hemoglobin 8.6. Sodium 134, potassium 3.7, chloride 96, carbon dioxide 26, BUN 12, creatinine 4.31, and calcium 9.7. ASSESSMENT AND PLAN: 1. Anemia. Continue current Epogen regimen of 7500 units subcu every 7 days. 2. End stage renal disease, hemodialysis today for only 3 hours. Fluid removal only as tolerated. If needed, we will give volume repletion. Due to the low BP, chronic hypotension, on midodrine and pressor support. 3. Calciphylaxis. Continuing sodium thiosulfate at 25 g IV every hemodialysis. Overall, prognosis remains poor. Job ID: [id number]
--- NOTE | 2019-09-16 18:15 | PDOC.HOSPP ---
- Subjective Encounter Date: 09/16/19 Encounter Time: 10:15 Subjective: pt up in bed not alert, he is in pain. - Objective Vital Signs & Weight: Vital Signs (12 hours) Temp Pulse Ox 09/16/19 16:00 97.8 F 09/16/19 12:00 97.4 F L 09/16/19 08:00 97.6 F 100 Weight Admit Weight 294 lb 15.7 oz Weight 306 lb 7.08 oz Most Recent Monitor Data Heart Rate from ECG 82 NIBP 115/74 NIBP BP-Mean 87 Respiration from ECG 18 SpO2 100 I&O: 09/15/19 09/16/19 09/17/19 06:59 06:59 06:59 Intake Total 3497.1 3576.0 150 Output Total 0 2 1 Balance 3497.1 3574.0 149 Result Diagrams: 09/16/19 04:05 09/16/19 04:05 Additional Labs: Accuchecks 09/16/19 09/16/19 09/16/19 16:58 13:12 10:00 POC Glucose 109 110 101 09/16/19 09/16/19 09/15/19 04:15 00:41 20:30 POC Glucose 119 H 132 H 120 H Hospitalist ROS - Review of Systems Other: unable to obtain - Medication Medications: Active Medications Generic Name Dose Route Start Last Admin Trade Name Freq PRN Reason Stop Dose Admin Epoetin Michael-epbx 7,500 unit 09/14/19 12:00 09/14/19 12:59 Retacrit SC 7,500 unit Q7D BENNIE Administration Fentanyl 25 mcg 09/14/19 15:26 09/16/19 15:00 Sublimaze SLOW IVP 25 mcg Q6H PRN Administration Pain Heparin Sodium (Porcine) 5,000 units 09/15/19 09:00 09/16/19 08:03 Heparin SC 5,000 units BID BENNIE Administration Vasopressin 40 unit/ 102 mls @ 0 mls/hr 09/14/19 00:44 09/16/19 17:53 Miscellaneous Medication 1 IV 102 mls each/ Sodium Chloride INF PRN Administration TO KEEP MAP > 65 Protocol As Directed Dextrose/Water 1,000 mls @ 0 mls/hr 09/14/19 18:00 09/16/19 17:41 D5w IV Not Given .Q0M BENNIE KVO Meropenem 1 gm/ Device 50 mls @ 200 mls/hr 09/15/19 14:00 09/16/19 14:23 IVPB 50 mls Q8HR BENNIE Administration Norepinephrine Bitartrate 16 250 mls @ 0 mls/hr 09/15/19 09:05 09/16/19 17:53 mg/ Dextrose/Water IVPB 250 mls INF PRN Administration TO MAINTAIN MAP > 65 Protocol As Directed Sodium Chloride 10 ml 09/13/19 21:00 09/16/19 09:18 Flush - Normal Saline IVF 10 ml Q12HR BENNIE Administration - Exam Neck: negative: supple, symmetric, no JVD, no thyromegaly, no lymphadenopathy, no carotid bruit, JVD Heart: negative: RRR, no murmur, no gallops, no rubs, normal peripheral pulses, irregular, diminshed peripheral pulses, murmur present, II/IV, III/IV Respiratory - other findings: decrease breath sound to lower lungs. Gastrointestinal: soft, non-distended Extremities: 2+ LE edema Extremities - other findings: significant edema all over Skin - other findings: wound to buttocks, thigh, abdomen Hosp A/P (1) Septic shock Code(s): A41.9 - SEPSIS, UNSPECIFIED ORGANISM; R65.21 - SEVERE SEPSIS WITH SEPTIC SHOCK Status: Acute (2) Sacral decubitus ulcer, stage III Code(s): L89.153 - PRESSURE ULCER OF SACRAL REGION, STAGE 3 Status: Acute (3) Calciphylaxis Code(s): E83.59 - OTHER DISORDERS OF CALCIUM METABOLISM Status: Chronic (4) Chronic anticoagulation Code(s): Z79.01 - HOME CARE SCHEDULER (CURRENT) USE OF ANTICOAGULANTS Status: Chronic (5) ESRD (end stage renal disease) on dialysis Code(s): N18.6 - END STAGE RENAL DISEASE; Z99.2 - DEPENDENCE ON RENAL DIALYSIS Status: Chronic (6) History of deep venous thrombosis or pulmonary embolus Code(s): DLB8345 - Status: Chronic (7) Hypertension Code(s): I10 - ESSENTIAL (PRIMARY) HYPERTENSION Status: Chronic Qualifiers: Hypertension type: essential hypertension Qualified Code(s): I10 - Essential (primary) hypertension - Plan pt currently on vasopressin and norepinephrine. ICU physician did speak with pt' s daughter who still wants everything to be done. Pt vanco/flagyl/cefepime. will replace K. pt's overall prognosis is poor. nephrology consulted. 09/14 pt still not able to swallow, he will not be able to undergo dialysis since he is on two pressors. Unable to wean him off. will continue abx. his wound cx grew pseudomonas/enterococcus. will change his abx to janeth/vanco. 09/15 pt's right wound is VRE. driscoll stop vanco. spoke with pt's ayleen cueva about his overall prognosis and she states that she wants him to get cpr and wants him to keep living. She also states that COVID people are getting ventilators and so should her father if needed. She became very upset and her in the background started to yell and stated that we need to do what it takes to keep him alive and that he will eat when he comes home. I did educated her that he is on 2 pressors and we did not remove any fluid and she states that he does not have much fluid to be removed. I recommended to video chatting with the patient.
[2019-09-16] MEDS: Linezolid 600 MG in Premix Bag 1 BAG IVPB SCH (20:14)
[2019-09-17] MEDS: MEROPENEM 1 GM/50 ML 1 GM in Premix Bag 1 BAG IVPB SCH ×2 (06:27→18:19)
--- NOTE | 2019-09-17 06:44 | PRG ---
DATE OF SERVICE: 09/16/2019 SUBJECTIVE: Mr. Estevez's events over the weekend have been reviewed. OBJECTIVE: VITAL SIGNS: stable. His heart rate is in the 70s. Respiratory rate . LUNGS: Clear. HEART: Regular rhythm. ABDOMEN: Soft. EXTREMITIES: , stasis changes. LABORATORY DATA: White count 8.9, hemoglobin 8.6, platelets 91. Sodium 134, potassium 3.7, chloride 96, bicarb 26, BUN 12, and creatinine 4.3. IMPRESSION: 1. End-stage renal disease. He is being dialyzed when I examined him. 2. Calciphylaxis. 3. Anemia of chronic disease. 4. Obesity. 5. Deconditioning. 6. Marginal blood pressure for dialysis. PLAN: We will follow the other physicians caring for him. Have little to add at this point. Job ID: [id number]
[2019-09-17] MEDS ORDERED: MERREM IVPB PRN (08:58)
[2019-09-17 09:03] LABS: Hemoglobin 8.3 g/dL (14.0-18.0); Mean Corpuscular HGB CONC 31.8 g/dL (32.0-36.0); Mean Corpuscular Hemoglobin 26.9 pg (27.0-31.0); Mean Corpuscular Volume 84.5 fL (78.0-98.0); Mean Platelet Volume 6.8 fL (7.4-10.4); Platelet Count 74 thou/uL (130-400); RBC Distribution Width 20.9 % (11.5-14.5); White Blood Cell (WBC) Count 8.2 thou/uL (4.8-10.8)
[2019-09-17 09:25] LABS: ALT (SGPT) 23 U/L (8-55); AST (SGOT) 25 U/L (5-34); Albumin 1.4 g/dL (3.4-4.8); Alkaline Phosphatase 184 U/L (40-110); Anion Gap 14 mmol/L (10-20); BUN (Urea Nitrogen) 10 mg/dL (8.4-25.7); Bilirubin, Total 0.6 mg/dL (0.2-1.2); Calc. Creatinine Clearance 32 mL/min (70-130); Carbon Dioxide 28 mmol/L (23-31); Chloride 99 mmol/L (98-107); Estimated GFR-MDRD 20; Globulin 3.3 g/dL (2.4-3.5); Glucose 88 mg/dL (83-110); Potassium 3.7 mmol/L (3.5-5.1); Protein, Total 4.7 g/dL (5.8-8.1); Sodium 137 mmol/L (136-145)
[2019-09-17 09:26] LABS: Eosinophils 4 % (0-10); Hypochromia SLIGHT = 6-15 cells (100X) (0-5/hpf); Lymphocytes 14 % (21-51); MDiff Complete? YES; Monocytes 17 % (0-10); Neutrophil 64 % (42-75); Nucleated RBC 3 % (0); Platelet Morphology Comment Appears Decreased; Polychromasia MODERATE = 3-4 cells (100X) (0-2/hpf); Target Cells MODERATE= 6-15 cells (100X) (0-1/hpf)
[2019-09-17] MEDS: Albumin 25% 25 GM/100 ML BOT IVPB SCH ×3 (09:45→19:23)
[2019-09-17] MEDS: Heparin 5,000 UNITS/ML VIAL SC SCH ×2 (09:46→19:24)
[2019-09-17] MEDS: Linezolid 600 MG in Premix Bag 1 BAG IVPB SCH ×2 (09:53→19:23)
--- NOTE | 2019-09-17 10:02 | PRG ---
DATE OF SERVICE: 09/17/2019 SUBJECTIVE: Mr. Estevez is an 78-year-old black male with ESRD, was admitted for sepsis. He has also underlying calciphylaxis, which makes his prognosis worse. He has not been doing well for the last several days. He is on empiric IV antibiotics. In addition, he is on sodium thiosulfate. He is currently on pressor support. His blood pressure has been fluctuating up and down. OBJECTIVE: VITAL SIGNS: Blood pressure currently 92/40, heart rate 73, respiratory rate 21, O2 saturation 100%. GENERAL: Noted to be awake, lethargic, obese, decreased mentation. SKIN: Adequate turgor. HEENT: He has slightly pale conjunctivae. Anicteric sclerae. NECK: No neck mass. No carotid bruits. No JVD. CHEST: No deformities. LUNGS: Clear breath sounds. HEART: Normal sinus rhythm. No murmurs, gallops, or rubs. ABDOMEN: Globular, soft, nontender, no masses. EXTREMITIES: No edema, no deformities. BACK: Positive for ulcerations. MEDICATIONS: Medications of September 17, 2019, reviewed. LABORATORY DATA: Laboratories of September 17, 2019, white count 8.2, hemoglobin 8.3. Sodium 137, potassium 3.7, chloride 99, carbon dioxide 28, BUN 10, creatinine 3.51, glucose 88, calcium 9, albumin 1.4. ASSESSMENT AND PLAN: 1. Hypotension-we will start back albumin infusion at 25 g IV q.6 for a total of 4 doses. 2. Endstage renal disease, currently on Monday, Monday, and Monday hemodialysis. We will re-evaluate in a.m. if there is a need for dialysis. Due to the low blood pressure, we have held off dialysis last week. We are hardly able to remove any fluid due to the low blood pressure. 3. Anemia. Continuing daily Epogen. I will discuss the issue with the patient's daughter, Radha, to at least make this patient a DNR and eventually to consider hospice care. His overall prognosis remains poor. Job ID: [id number]
[2019-09-17 12:39] VITALS: BMI 42.3
--- NOTE | 2019-09-17 14:41 | PDOC.PALPN ---
Palliative Progress Note - Subjective Confused, verbal with his daughter giving one to two word answers. - Objective Vital Signs: Vital Signs - Most Recent Temp Pulse Resp BP Pulse Ox 98.5 F 71 20 100 09/17/19 11:00 09/13/19 17:15 09/13/19 17:15 09/17/19 08:00 - Physical Exam Constitutional: confusion, ill appearing HEENT: EOMI, moist MMs, poor dentition Respiratory: unlabored breathing Cardiovascular: RRR Gastrointestinal: incontinent Deviation from normal: no urine output Musculoskeletal: edema present, diffuse muscle atrophy Neurology: moves all 4 limbs Skin: fragile Deviation from normal: multiple wounds in various stages Deviation from normal: oriented to self, daughter, confusion. - Assessment (1) Acute metabolic encephalopathy Code(s): G93.41 - METABOLIC ENCEPHALOPATHY Current Visit: No Status: Acute (2) Calciphylaxis cutis Code(s): E83.59 - OTHER DISORDERS OF CALCIUM METABOLISM Current Visit: No Status: Acute (3) Decubital ulcer Code(s): L89.90 - PRESSURE ULCER OF UNSPECIFIED SITE, UNSPECIFIED STAGE Current Visit: No Status: Acute Qualifiers: Pressure injury location: contiguous region involving buttock and hip Pressure injury stage: stage 3 (4) Hypercalcemia associated with chronic dialysis Code(s): E83.52 - HYPERCALCEMIA Current Visit: No Status: Acute (5) Palliative care encounter Code(s): Z51.5 - ENCOUNTER FOR PALLIATIVE CARE Current Visit: No Status: Acute (6) ESRD (end stage renal disease) on dialysis Code(s): N18.6 - END STAGE RENAL DISEASE; Z99.2 - DEPENDENCE ON RENAL DIALYSIS Current Visit: No Status: Chronic (7) Physical deconditioning Code(s): R53.81 - OTHER MALAISE Current Visit: No Status: Chronic - Plan Plan: Daughter to bedside. Multiple previous conversations in relation to patient goal of care. She is unrealistic in expectations for her fathers care. She wishes to continue with full aggressive measures for her father. Dr Porter present and explained at length decline and continued disease trajectory , this was reinforced with patient daughter. [30] minutes spent on this encounter with >50% of the time in counseling and coordination of care. - ROS Non Response: due to mental status
--- NOTE | 2019-09-17 15:04 | PRG ---
DATE OF SERVICE: 09/17/2019 Heart rates in the 80s, blood pressure is 100. He is still on pressors this morning, we are trying to wean off the vasopressin. Respiratory rates in the teens. He is in no distress. Denies being uncomfortable, but obviously he is chronically and severely ill. His lungs, heart, and abdomen are unchanged. Extremities still with stasis changes. White count 8.2, hemoglobin 8.3, platelets 74,000. Electrolytes are normal. Creatinine is 3.5. The daughter accused the hospital staff of wanting to just let him because of the coronavirus crisis and because he is black and because we needed a bed. I am told Dr. Porter, tried to explain everything to her and tried to explain that he is at the end of his life, but she is apparently unwilling to accept this. His albumin is 1.4, salt poor albumin might stabilize him enough for dialysis for a while, but it will not change his mortality. We will continue with pressors and empiric antimicrobial therapy for now. He is under the guidance of Infectious Disease. Job ID: [id number]
--- NOTE | 2019-09-17 16:54 | RAD ---
Exam: Chest one view HISTORY:Desaturation. Comparison: 08/24/2019 FINDINGS: Lines and tubes: Redemonstration of a right-sided jugular catheter. Nasogastric tube extends beyond t he diaphragm Cardiac silhouette:Enlarged cardiac silhouette. Aorta: Unremarkable Pulmonary vessels: Normal Costophrenic angles: Bilateral pleural effusions. LUNGS: Bilateral perihilar and lower lobe alveolar opacities. Pneumothorax: None Osseous abnormalities: None IMPRESSION: 1. Possible volume overload. Correlate for heart failure.
--- NOTE | 2019-09-17 16:54 | RAD ---
Exam: 1 view abdomen HISTORY: Nasogastric tube placement FINDINGS: Nonspecific bowel gas pattern. Nasogastric tube terminates in the epigastric region and is presumed to be in the stomach. Nonspecific calcifications in the right upper quadrant. IMPRESSION: Nasogastric tube terminating in the expected region of the stomach.
[2019-09-17] MEDS: Norepinephrine 16 MG in Dextrose 5% in Water 234 ML IVPB PRN (18:18)
[2019-09-17] MEDS: Apixaban 2.5 MG TAB PO SCH (19:24)
[2019-09-18] MEDS: Vasopressin 40 UNIT, Admixture Fee 1 EACH in Sodium Chloride 0.9% 100 ML IV PRN ×2 (04:09→21:40)
[2019-09-18] MEDS: Norepinephrine 16 MG in Dextrose 5% in Water 234 ML IVPB PRN (04:10)
[2019-09-18 05:06] LABS: Anion Gap 14 mmol/L (10-20); BUN (Urea Nitrogen) 12 mg/dL (8.4-25.7); Calc. Creatinine Clearance 30 mL/min (70-130); Calcium 9.9 mg/dL (7.8-10.44); Carbon Dioxide 29 mmol/L (23-31); Chloride 96 mmol/L (98-107); Estimated GFR-MDRD 19; Glucose 123 mg/dL (83-110); Potassium 3.4 mmol/L (3.5-5.1); Sodium 136 mmol/L (136-145)
[2019-09-18 05:58] LABS: Hemoglobin 7.4 g/dL (14.0-18.0); Hypochromia SLIGHT = 6-15 cells (100X) (0-5/hpf); Lymphocytes 4 % (21-51); MDiff Complete? YES; Mean Corpuscular HGB CONC 30.4 g/dL (32.0-36.0); Mean Corpuscular Hemoglobin 25.8 pg (27.0-31.0); Mean Corpuscular Volume 84.8 fL (78.0-98.0); Mean Platelet Volume 12.4 fL (7.4-10.4); Metamyelocyte 1 % (0-0); Monocytes 6 % (0-10); Neutrophil 89 % (42-75); Platelet Count 67 thou/uL (130-400); Platelet Morphology Comment Appears Decreased; RBC Distribution Width 20.8 % (11.5-14.5); Red Blood Cell (RBC) Count 2.85 mill/uL (4.70-6.10); Target Cells SLIGHT = 2-5 cells (100X) (0-1/hpf); White Blood Cell (WBC) Count 9.7 thou/uL (4.8-10.8)
[2019-09-18] MEDS: MEROPENEM 1 GM/50 ML 1 GM in Premix Bag 1 BAG IVPB SCH ×2 (06:10→18:21)
[2019-09-18] MEDS: Albumin 25% 25 GM/100 ML BOT IVPB SCH (08:47)
[2019-09-18] MEDS: Apixaban 2.5 MG TAB PO SCH ×2 (08:52→21:38)
[2019-09-18] MEDS: Linezolid 600 MG in Premix Bag 1 BAG IVPB SCH ×2 (08:52→21:38)
--- NOTE | 2019-09-18 09:40 | PRG ---
DATE OF SERVICE: 09/18/2019 SERVICE: Renal Medicine. SUBJECTIVE: Mr. Estevez is an 78-year-old black male with ESRD. He was initially admitted with sepsis associated with underlying calciphylaxis. He has not been doing well since admission. Blood pressure has been low and currently on pressor support. Discussion was done with his daughter, who was the power of prosecuting attorney and she insisted that we proceed to continue care for this patient. We did explain to the daughter that the patient is terminal. She also insisted that the patient to be a full code. This morning, the patient voices no new complaints, but he continues to be lethargic. OBJECTIVE: VITAL SIGNS: Blood pressure 96/50, heart rate 68, respiratory rate 17, O2 saturation 100%. GENERAL: The patient is awake, lethargic, obese, not in distress. SKIN: Adequate turgor. HEENT: Slightly pale conjunctivae. Anicteric sclerae. NECK: No neck mass. No carotid bruits. No JVD. CHEST: No deformities. LUNGS: Decreased breath sounds. HEART: Normal sinus rhythm. No murmur. No gallops. No rubs. ABDOMEN: Globular, soft, nontender. No masses. EXTREMITIES: No edema. No deformities. MEDICATIONS: Medications of September 18, 2019, reviewed. LABORATORY DATA: September 18, 2019, white count 9.7, hemoglobin 7.4, sodium 136, potassium 3.4, chloride 96, carbon dioxide 29, BUN 12, creatinine 3.76, glucose 123, calcium 9.9. ASSESSMENT AND PLAN: 1. End-stage renal disease. We will resume a 3-hour hemodialysis with this patient with minimal fluid removal due to low blood pressure. 2. I did explain to the daughter that use to have consistent hemodialysis due to low BP. She insisted on doing everything with the patient for the moment. 3. Anemia. Hemoglobin noted to have dropped down. Continuing weekly Epogen with this patient. P.r.n. blood transfusion for hemoglobin of less than 7. 4. Calciphylaxis/sepsis, supportive care. The patient continues to receive sodium thiosulfate at 25 g IV every hemodialysis. He is also on empiric IV antibiotics. Overall, prognosis remains poor. Job ID: [id number]
--- NOTE | 2019-09-18 10:54 | PDOC.PALFU ---
Palliative Care Follow-up Note Palliative Care will sign off as daughter Radha who is MPOA is seeking all aggressive measures for father. If in the future Palliative Care can assist in further addressing Goal of care, offer assistance with symptom management please reconsult our team.
[2019-09-18] MEDS ORDERED: Cosyntropin 250 MCG VIAL SLOW IVP SCH (14:30)
--- NOTE | 2019-09-18 14:39 | PDOC.HOSPP ---
- Subjective Encounter Date: 09/17/19 Encounter Time: 10:30 Subjective: pt up in bed confused. continues to have low bp - Objective Vital Signs & Weight: Vital Signs (12 hours) Temp Pulse Ox 09/18/19 14:00 97.0 F L 09/18/19 13:00 96.5 F L 09/18/19 12:00 96.0 F L 09/18/19 10:00 96.0 F L 09/18/19 08:00 96.0 F L 96 09/18/19 07:49 100 09/18/19 04:00 96.4 F L Weight Admit Weight 294 lb 15.7 oz Weight 308 lb 10.354 oz Most Recent Monitor Data Heart Rate from ECG 69 NIBP 97/56 NIBP BP-Mean 69 Respiration from ECG 15 SpO2 100 I&O: 09/17/19 09/18/19 09/19/19 06:59 06:59 06:59 Intake Total 1751 3195.3 986 Output Total 1 195 20 Balance 1750 3000.3 966 Result Diagrams: 09/18/19 04:33 09/18/19 04:33 Additional Labs: Accuchecks 09/18/19 09/18/19 09/18/19 12:33 08:27 04:24 POC Glucose 129 H 147 H 129 H 09/18/19 09/17/19 09/17/19 00:01 21:14 17:04 POC Glucose 121 H 114 H 112 H Hospitalist ROS - Review of Systems Other: unable to obtain - Medication Medications: Active Medications Generic Name Dose Route Start Last Admin Trade Name Freq PRN Reason Stop Dose Admin Apixaban 2.5 mg 09/17/19 21:00 09/18/19 08:52 Eliquis PO 2.5 mg BID BENNIE Administration Epoetin Michael-epbx 7,500 unit 09/14/19 12:00 09/14/19 12:59 Retacrit SC 7,500 unit Q7D BENNIE Administration Fentanyl 25 mcg 09/14/19 15:26 09/16/19 23:02 Sublimaze SLOW IVP 25 mcg Q6H PRN Administration Pain Vasopressin 40 unit/ 102 mls @ 0 mls/hr 09/14/19 00:44 09/18/19 04:09 Miscellaneous Medication 1 IV 102 mls each/ Sodium Chloride INF PRN Administration TO KEEP MAP > 65 Protocol As Directed Dextrose/Water 1,000 mls @ 0 mls/hr 09/14/19 18:00 09/16/19 17:41 D5w IV Not Given .Q0M BENNIE KVO Norepinephrine Bitartrate 16 250 mls @ 0 mls/hr 09/15/19 09:05 09/18/19 04:10 mg/ Dextrose/Water IVPB 250 mls INF PRN Administration TO MAINTAIN MAP > 65 Protocol As Directed Linezolid 600 mg/ Device 300 mls @ 150 mls/hr 09/16/19 21:00 09/18/19 08:52 IVPB 300 mls Q12HR BENNIE Administration Meropenem 1 gm/ Device 50 mls @ 200 mls/hr 09/17/19 18:00 09/18/19 06:10 IVPB 50 mls 0600,1800 BENNIE Administration Sodium Chloride 10 ml 09/13/19 21:00 09/18/19 08:52 Flush - Normal Saline IVF 10 ml Q12HR BENNIE Administration - Exam Heart: negative: RRR, no murmur, no gallops, no rubs, normal peripheral pulses, irregular, diminshed peripheral pulses, murmur present, II/IV, III/IV Respiratory - other findings: crackles to bases, diminshed breath sounds Gastrointestinal: soft, normal bowel sounds Gastrointestinal - other findings: abd wound, non tender on palpation Extremities: 2+ LE edema Extremities - other findings: anasarca Neurological - other findings: pt oriented to self only Hosp A/P (1) Septic shock Code(s): A41.9 - SEPSIS, UNSPECIFIED ORGANISM; R65.21 - SEVERE SEPSIS WITH SEPTIC SHOCK Status: Acute (2) Sacral decubitus ulcer, stage III Code(s): L89.153 - PRESSURE ULCER OF SACRAL REGION, STAGE 3 Status: Acute (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 ICU physician did speak with pt' s daughter who still wants everything to be done. Pt vanco/flagyl/cefepime. will replace K. pt's overall prognosis is poor. nephrology consulted. 09/14 pt still not able to swallow, he will not be able to undergo dialysis since he is on two pressors. Unable to wean him off. will continue abx. his wound cx grew pseudomonas/enterococcus. will change his abx to janeth/vanco. 09/15 pt's right wound is VRE. driscoll stop vanco. spoke with pt's ayleen cueva about his overall prognosis and she states that she wants him to get cpr and wants him to keep living. She also states that COVID people are getting ventilators and so should her father if needed. She became very upset and her in the background started to yell and stated that we need to do what it takes to keep him alive and that he will eat when he comes home. I did educated her that he is on 2 pressors and we did not remove any fluid and she states that he does not have much fluid to be removed. I recommended to video chatting with the patient. 09/16 pt is still on pressors. will add albumin for help with his pressure but not sure this will make a huge difference. spoke with the charge nurse to arrange family meeting with Dr Porter. Pt's overall condition is poor and he we are unable to dialyzed him given his low bp. will start him on tube feeding since he is unable to swallow.
--- NOTE | 2019-09-18 14:40 | PRG ---
DATE OF SERVICE: 09/18/2019 SUBJECTIVE: Francisco Estevez remains on pressors. OBJECTIVE: VITAL SIGNS: He is afebrile. Heart rate is in the 60s, blood pressure is in the 90s. LUNGS: Unchanged. HEART: Unchanged. ABDOMEN: Unchanged. EXTREMITIES: He still has stasis changes and edema of his lower extremities. LABORATORY DATA: White count 9.7, hemoglobin 7.4, and platelets 89,000. Sodium 136, potassium 3.4, chloride 96, bicarb 29, BUN 12, and creatinine 3.76. IMPRESSION: 1. End-stage renal disease. 2. Hypotension, making volume removal impossible at this point, is being dialyzed for filtering. 3. Pseudomonas isolated from the thigh wound and in his abdomen. Blood cultures are negative. 4. Extreme deconditioning. We will check a cortisol level. He had one done, but it had not been done since 2017. I doubt this is adrenal crisis leading to hypotension, but this will need to be ruled out. Job ID: [id number]
--- NOTE | 2019-09-18 14:43 | PDOC.HOSPP ---
- Subjective Encounter Date: 09/18/19 Encounter Time: 09:00 Subjective: pt awake oriented to self. smiles when i call his name. - Objective Vital Signs & Weight: Vital Signs (12 hours) Temp Pulse Ox 09/18/19 14:00 97.0 F L 09/18/19 13:00 96.5 F L 09/18/19 12:00 96.0 F L 09/18/19 10:00 96.0 F L 09/18/19 08:00 96.0 F L 96 09/18/19 07:49 100 09/18/19 04:00 96.4 F L Weight Admit Weight 294 lb 15.7 oz Weight 308 lb 10.354 oz Most Recent Monitor Data Heart Rate from ECG 69 NIBP 97/56 NIBP BP-Mean 69 Respiration from ECG 15 SpO2 100 I&O: 09/17/19 09/18/19 09/19/19 06:59 06:59 06:59 Intake Total 1751 3195.3 986 Output Total 1 195 20 Balance 1750 3000.3 966 Result Diagrams: 09/18/19 04:33 09/18/19 04:33 Additional Labs: Accuchecks 09/18/19 09/18/19 09/18/19 12:33 08:27 04:24 POC Glucose 129 H 147 H 129 H 09/18/19 09/17/19 09/17/19 00:01 21:14 17:04 POC Glucose 121 H 114 H 112 H Hospitalist ROS - Review of Systems Other: unable to obtain - Medication Medications: Active Medications Generic Name Dose Route Start Last Admin Trade Name Ivory PRN Reason Stop Dose Admin Apixaban 2.5 mg 09/17/19 21:00 09/18/19 08:52 Eliquis PO 2.5 mg BID BENNIE Administration Epoetin Michael-epbx 7,500 unit 09/14/19 12:00 09/14/19 12:59 Retacrit SC 7,500 unit Q7D BENNIE Administration Fentanyl 25 mcg 09/14/19 15:26 09/16/19 23:02 Sublimaze SLOW IVP 25 mcg Q6H PRN Administration Pain Vasopressin 40 unit/ 102 mls @ 0 mls/hr 09/14/19 00:44 09/18/19 04:09 Miscellaneous Medication 1 IV 102 mls each/ Sodium Chloride INF PRN Administration TO KEEP MAP > 65 Protocol As Directed Dextrose/Water 1,000 mls @ 0 mls/hr 09/14/19 18:00 09/16/19 17:41 D5w IV Not Given .Q0M BENNIE KVO Norepinephrine Bitartrate 16 250 mls @ 0 mls/hr 09/15/19 09:05 09/18/19 04:10 mg/ Dextrose/Water IVPB 250 mls INF PRN Administration TO MAINTAIN MAP > 65 Protocol As Directed Linezolid 600 mg/ Device 300 mls @ 150 mls/hr 09/16/19 21:00 09/18/19 08:52 IVPB 300 mls Q12HR BENNIE Administration Meropenem 1 gm/ Device 50 mls @ 200 mls/hr 09/17/19 18:00 09/18/19 06:10 IVPB 50 mls 0600,1800 BENNIE Administration Sodium Chloride 10 ml 09/13/19 21:00 09/18/19 08:52 Flush - Normal Saline IVF 10 ml Q12HR BENNIE Administration - Exam Heart: negative: RRR, no murmur, no gallops, no rubs, normal peripheral pulses, irregular, diminshed peripheral pulses, murmur present, II/IV, III/IV Respiratory - other findings: diminished breath sound to based Gastrointestinal: soft Gastrointestinal - other findings: abdomen dressing Extremities: 2+ LE edema Extremities - other findings: anasarca Skin - other findings: multiple wound Hosp A/P (1) Septic shock Code(s): A41.9 - SEPSIS, UNSPECIFIED ORGANISM; R65.21 - SEVERE SEPSIS WITH SEPTIC SHOCK Status: Acute (2) Sacral decubitus ulcer, stage III Code(s): L89.153 - PRESSURE ULCER OF SACRAL REGION, STAGE 3 Status: Acute (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 ICU physician did speak with pt' s daughter who still wants everything to be done. Pt vanco/flagyl/cefepime. will replace K. pt's overall prognosis is poor. nephrology consulted. 09/14 pt still not able to swallow, he will not be able to undergo dialysis since he is on two pressors. Unable to wean him off. will continue abx. his wound cx grew pseudomonas/enterococcus. will change his abx to janeth/vanco. 09/15 pt's right wound is VRE. driscoll stop vanco. spoke with pt's ayleen cueva about his overall prognosis and she states that she wants him to get cpr and wants him to keep living. She also states that COVID people are getting ventilators and so should her father if needed. She became very upset and her in the background started to yell and stated that we need to do what it takes to keep him alive and that he will eat when he comes home. I did educated her that he is on 2 pressors and we did not remove any fluid and she states that he does not have much fluid to be removed. I recommended to video chatting with the patient. 09/16 pt is still on pressors. will add albumin for help with his pressure but not sure this will make a huge difference. spoke with the charge nurse to arrange family meeting with Dr Porter. Pt's overall condition is poor and he we are unable to dialyzed him given his low bp. will start him on tube feeding since he is unable to swallow. 09/17 pt now on 2 pressors with marginal bp. pt continues to be a full code with overall poor prognosis. He has significant edema and will need dialysis but given his low pressure unable to remove fluid. He is tolerating his tube feeds. will continue zyvox/vanco for now.
[2019-09-19] MEDS: Norepinephrine 16 MG in Dextrose 5% in Water 234 ML IVPB PRN (00:24)
[2019-09-19 04:01] LABS: Hemoglobin 7.9 g/dL (14.0-18.0); Platelet Count 70 thou/uL (130-400)
[2019-09-19] MEDS: MEROPENEM 1 GM/50 ML 1 GM in Premix Bag 1 BAG IVPB SCH (05:46)
[2019-09-19 08:21] VITALS: TEMP 97
[2019-09-19] MEDS: Fentanyl 100 MCG/2 ML VIAL SLOW IVP PRN (08:23)
[2019-09-19] MEDS: Linezolid 600 MG in Premix Bag 1 BAG IVPB SCH (08:24)
[2019-09-19] MEDS: Apixaban 2.5 MG TAB PO SCH (08:25)
--- NOTE | 2019-09-19 09:27 | PDOC.FMACP ---
Advance Care Planning - Problem (1) Acute metabolic encephalopathy Status: Acute Code(s): G93.41 - METABOLIC ENCEPHALOPATHY (2) Calciphylaxis cutis Status: Acute Code(s): E83.59 - OTHER DISORDERS OF CALCIUM METABOLISM (3) Decubital ulcer Status: Acute Code(s): L89.90 - PRESSURE ULCER OF UNSPECIFIED SITE, UNSPECIFIED STAGE Qualifiers: Pressure injury location: contiguous region involving buttock and hip Pressure injury stage: stage 3 (4) Hypercalcemia associated with chronic dialysis Status: Acute Code(s): E83.52 - HYPERCALCEMIA (5) Palliative care encounter Status: Acute Code(s): Z51.5 - ENCOUNTER FOR PALLIATIVE CARE (6) ESRD (end stage renal disease) on dialysis Status: Chronic Code(s): N18.6 - END STAGE RENAL DISEASE; Z99.2 - DEPENDENCE ON RENAL DIALYSIS (7) Physical deconditioning Status: Chronic Code(s): R53.81 - OTHER MALAISE - Note Participants: surrogate decision-maker, palliative care Summary: Advanced Care Planning was discussed. The diagnosis, prognosis and goals of care were discussed. Appropriate forms and documentation to accomplish the goals of care were discussed. All questions were answered. The Palliative Care Team will be engaged to assist with completion of any outstanding forms that are needed. Daughter spoke with Dr Porter last night after visiting with her father via video conference and transitioned him to DNAR and hospice. Previously with [facility], and this morning expressed that she would like to transition her father to Hospice, and seek comfort at this time through Hospice to provide optimal care at end of life with family in the home setting. Communicated with [facility], they will obtain signature on OOHDNAR from daughter and bring to [facility] for physician signature prior to transition home. Communicated with Dr Cerda.
--- NOTE | 2019-09-19 09:59 | PRG ---
DATE OF SERVICE: 09/19/2019 SUBJECTIVE: Francisco Estevez remains on pressors. He is a do not resuscitate patient now. OBJECTIVE: VITAL SIGNS: Blood pressure is in the 90s, heart rates in the 70s, respiratory rates in the teens. LUNGS: Clear. HEART: Regular rhythm. ABDOMEN: Soft, nontender. EXTREMITIES: With stasis and edema. LABORATORY DATA: Hemoglobin 7.9 today. Creatinine is 3.19 today. ACTH stimulation did not identify adrenal insufficiency. IMPRESSION: End-stage renal disease, now reaching a poor point, where he does not do well with hemodialysis without pressors. PLAN: Continue supportive care. Job ID: [id number]
--- NOTE | 2019-09-19 11:30 | PRG ---
DATE OF SERVICE: 09/19/2019 SUBJECTIVE: Mr. Estevez is an 78-year-old black male with ESRD. After a long discussion with the daughter last night, they have consented to place the patient under hospice care due to his terminal condition. This morning the patient looks comfortable. He voices no new complaints. OBJECTIVE: VITAL SIGNS: Blood pressure is noted at 105/67, heart rate 75, respiratory rate 16, O2 saturations 100%. GENERAL: Noted to be awake, supine, comfortable, not in overt distress, obese. SKIN: Adequate turgor. HEENT: Slightly pale conjunctivae. Anicteric sclerae. NECK: No neck mass. No carotid bruits. No JVD. CHEST: No deformities. LUNGS: Decreased breath sounds. HEART: Normal sinus rhythm. No murmur. No gallops. No rubs. ABDOMEN: Globular, soft, nontender. No masses. EXTREMITIES: No edema. No deformities. MEDICATIONS: Medications of September 19, 2019, were reviewed. LABORATORY DATA: Laboratories of September 19, 2019; hemoglobin 7.9, glucose 162. Creatinine 3.19. ASSESSMENT AND PLAN: 1. End-stage renal disease - the patient's family has requested to place him on hospice. We will discontinue hemodialysis. 2. Calciphylaxis. We will discontinue sodium thiosulfate. I feel strongly that this is appropriate decision by the family due to his underlying terminal condition. Agree with hospice care. The patient to be brought home under hospice services. Job ID: [id number]
--- NOTE | 2019-09-20 10:58 | DIS ---
DATE OF ADMISSION: 09/13/2019 DATE OF DISCHARGE: 09/19/2019 DISCHARGE DIAGNOSES: As of the following; 1. Septic shock, on couple pressors. 2. Vancomycin-resistant enterococcus in the wounds. 3. End-stage renal disease, on dialysis. 4. Calciphylaxis. 5. Acute on chronic anemia. 6. History of deep venous thrombosis. 7. Hypertension. 8. Multiple sacral decubitus from calciphylaxis. HOSPITAL COURSE: The patient is an 78-year-old man who initially presented to the hospital, was hypotensive from dialysis. The patient at this time was bed-bound. He had a couple of open wounds on his right thigh area and abdomen area, and he had multiple sacral wounds which were being treated. At this time, the patient was put on broad-spectrum antibiotics. Also, he was given some fluids. We did speak with the family for possible hospice; however, family at this time was not ready. The patient initially was admitted in the ICU, was put on 2 pressors, and continued to deteriorate, unable to be dialyzed. He was put on broad-spectrum antibiotics. His culture came back positive for VRE. Infectious Disease also was consulted with Nephrology and Pulmonary. The patient's thigh cultures indicated Pseudomonas, VRE, Enterococcus, Farrah krusei, and Pseudomonas. The patient continued to decline at this time. He was unable to eat and swallow. NG tube was placed. Tube feeding was started. After multiple attempts given his overall poor prognosis, unable to be dialyzed, family decided to take the patient into hospice. The patient now in hospice, will be discharged to hospice. MEDICATIONS: He will continue; 1. Midodrine 5 mg, 1.5 tablets, t.i.d. 2. Seroquel 12.5 b.i.d. 3. Crestor 20 mg at bedtime. 4. Tramadol 50 mg q.4 hours. 5. Also the hospice medications. PHYSICAL EXAMINATION: VITAL SIGNS: Temperature of 98.8, blood pressure of 98/55, respirations are 18, and sats 100%. GENERAL: The patient is awake, confused. ABDOMEN: Obese. Bowel sounds are present x2. Nontender. LUNGS: Diminished breath sounds at bilateral lower lungs. CARDIAC: S1, S2 present. No murmurs, rubs, or gallops. Again, the patient will be discharged to hospice. Family has agreed. Palliative Care was also involved in the patient's care. Job ID: [id number]
== END 2019-09-19 16:12 | disposition hospice, inpatient (51) | DRG 871 ==
LOC: ERS 14:17 → CCU 15:26 → UNDODISIN 09-19 15:30 → T4-B 09-19 15:39
PROVIDERS: ADMIT Internal Medicine; ATTEND Internal Medicine
PROC: 3E033XZ Introduction of Vasopressor into Peripheral Vein, Percutaneous Approach (ICD-10-PCS; principal; 2019-09-13)
PROC: 5A1D70Z Performance of Urinary Filtration, Intermittent, Less than 6 Hours Per Day (ICD-10-PCS; 2019-09-18)
DX: A41.81 Sepsis due to Enterococcus (principal); L89.153 Pressure ulcer of sacral region, stage 3; R65.21 Severe sepsis with septic shock; G93.41 Metabolic encephalopathy; Z66 Do not resuscitate; Z51.5 Encounter for palliative care; N18.6 End stage renal disease; Z16.21 Resistance to vancomycin; I12.0 Hypertensive chronic kidney disease with stage 5 chronic kidney disease or end stage renal disease; Z68.41 Body mass index [BMI] 40.0-44.9, adult; E83.59 Other disorders of calcium metabolism; D63.1 Anemia in chronic kidney disease; A41.52 Sepsis due to Pseudomonas; L98.499 Non-pressure chronic ulcer of skin of other sites with unspecified severity; M10.9 Gout, unspecified; E78.5 Hyperlipidemia, unspecified; E66.01 Morbid (severe) obesity due to excess calories; F03.90 Unspecified dementia, unspecified severity, without behavioral disturbance, psychotic disturbance, mood disturbance, and anxiety; E83.39 Other disorders of phosphorus metabolism; I25.5 Ischemic cardiomyopathy; Z86.718 Personal history of other venous thrombosis and embolism; Z86.711 Personal history of pulmonary embolism; Z79.01 Long term (current) use of anticoagulants; Z74.01 Bed confinement status; Z99.2 Dependence on renal dialysis; Z90.49 Acquired absence of other specified parts of digestive tract; Z88.1 Allergy status to other antibiotic agents; Z79.899 Other long term (current) drug therapy
CPT/HCPCS: 36415; 36416; 71045; 74018; 80048; 80053; 80202; 80400; 82565; 83735; 84100; 84443; 85014; 85018; 85025; 85049; 87070; 87077; 87186; 87205; 87340; 90935; 96365; 96366; 99292; G0257; J0692; J1644; J1815; J2020; J2185; J3010; J3370; J3475; J3480; J3490; J7050; J7070; P9047; Q5105

== ENCOUNTER 2019-09-19 16:39 | Inpatient (IN) | payer OTHER ==
[2019-09-19] MEDS ORDERED: Hyoscyamine Sulfate SL 0.125 mg Tablet SL PRN (17:16)
[2019-09-19] MEDS: Morphine 2 MG/ML SYRINGE SLOW IVP PRN (17:42)
[2019-09-19 18:37] VITALS: BMI 44.1
[2019-09-19] MEDS: Lorazepam 2 MG/ML VIAL SLOW IVP PRN (21:14)
[2019-09-20] MEDS: Morphine 2 MG/ML SYRINGE SLOW IVP PRN ×4 (06:33→12:56)
[2019-09-20 07:26] VITALS: BP 75/50; TEMP 97.5
[2019-09-20] MEDS: Lorazepam 2 MG/ML VIAL SLOW IVP PRN (12:56)
== END 2019-09-20 14:43 | disposition hospice, home (50) | DRG 951 ==
LOC: T4-B 16:39
PROVIDERS: ADMIT Family Medicine; ATTEND Family Medicine
DX: Z51.5 Encounter for palliative care (principal); A41.9 Sepsis, unspecified organism; N18.6 End stage renal disease; E87.6 Hypokalemia; I12.9 Hypertensive chronic kidney disease with stage 1 through stage 4 chronic kidney disease, or unspecified chronic kidney disease; Z99.2 Dependence on renal dialysis; Z86.718 Personal history of other venous thrombosis and embolism; Z79.01 Long term (current) use of anticoagulants
CPT/HCPCS: J2060; J2270